=== PATIENT | male | born 1945 | race Caucasian/White ===

== ENCOUNTER 2019-12-11 13:34 | Inpatient (IN) | payer MEDICARE, MEDICAID, SELFPAY ==
[2019-12-11] VITALS (11 sets, daily range): BP systolic 105–136; BP diastolic 29–61; PULSE 54–78; RESP 12–21; TEMP 37.2; O2SAT 87–96; BMI 33.3
--- NOTE | 2019-12-11 13:41 | ED_ITS ---
Entered by Debi Jimenez, acting as scribe for Elidia Cheng HPI - Neuro Symptoms/Deficit General: Chief Complaint: Shortness of Breath/Dyspnea Stated Complaint: Stroke like Symptoms Time Seen by Provider: 12/11/19 13:42 Source: patient Mode of arrival: EMS Limitations: no limitations History of Present Illness: HPI Narrative: 74 yo Male presents to ED with complaint of stroke like symptoms. Per EMS, family states that starting yesterday at noon, the patient started acting differently and said that the patient's speech was different. Per EMS, they transport this patient regularly and other than being hypoxic, the patient is at his baseline. Pt states that he normally wears 2 liters of oxygen at home. No family is currently present to offer any other history. The patient denies any pain but has audible wheezing and rhonchi when breathing. With any movement his pulse ox will drop to the low 80s but on 3 L nasal cannula oxygen his oxygen level will come back to 88 to 90% at rest. Onset (ago): day(s) (yesterday) Location: speech History of same: No Relieving factors: none Exacerbating factors: none Context: gradual onset Associated symptoms: Reports short of breath; Deny chest pain, diaphoresis, headache(s), malaise, nausea, syncope, vertigo or vomiting Review of Systems General: Reports: other (negative unless marked) Const: Denies: fever, chills, body aches, fatigue, malaise or diaphoresis Eyes: Denies: change in vision or blurry vision ENMT: Denies: throat pain, painful swallowing, hoarseness, ear pain, ear discharge, Change in hearing or nasal discharge Card: Denies: chest pain, palpitations, irregular heart rhythm, syncope, pre- syncope, shortness of breath on exertion or shortness of breath when lying down Resp: Reports: shortness of breath, non-productive cough, wheezing and chest congestion; Denies: productive cough or coughing up blood GI: Denies: abdominal pain, nausea, vomiting, vomiting blood, coffee grounds in vomit, diarrhea, constipation, cramping, blood in stool or black tarry stool : Denies: flank pain, difficulty urinating, painful urination, urinary frequency, urinary urgency, decreased urine ouput, urinary incontinence or blood in urine Musc: Denies: neck pain, back pain, extremity pain, extremity swelling, joint pain, joint swelling, joint warmth or joint stiffness Skin/Breast: Denies: rash, skin tenderness or yellow skin Neuro: Denies: headache, numbness in extremities, weakness in extremities, changes in sensation, lack of coordination, difficulty walking, dizziness, vertigo or confusion Endo: Denies: excessive thirst, tired all the time, cold intolerance, excessive sweating, flushing or hot flashes Elijah/Lymph: Denies: easy bruising, easy bleeding, petechiae or enlarged lymph nodes All/Imm: Denies: hives, throat swelling, tongue swelling, facial swelling or acute wheezing PFSH ED PFSH: Statuses (acute, chronic, etc) shown below reflect problem list status as previously entered and may not be historically accurate Social History Smoking and tobacco status: former smoker NIH stroke score NIHSS: Level Of Consciousness - 1a: 0 Level Of Consciousness Questions - 1b: Both Correct Level Of Consciousness Commands - 1c: Both Correct Best Gaze - 2: Normal Visual Luther - 3: No Visual Loss Facial Palsy - 4: Normal Motor Arm Right - 5: No Drift Motor Arm Left - 5: No Drift Motor Leg Right - 6: No Drift Motor Leg Left - 6: No Drift Limb Ataxia - 7: Absent Sensory - 8: Normal Best Language - 9: Mild/Moderate Aphasia Dysarthia - 10: Normal Extinction And Inattention - 11: 0 Score: Total Score: 1 Physical Exam Const: COMMON NORMALS: no apparent distress, oriented x3, no limitations, healthy appearing and well nourished EXAM LIMITATIONS: no altered mental status GENERAL APPEARANCE: cooperative, well kempt and well developed ORIENTATION/CONSCIOUSNESS: Yes awake HENMT: COMMON NORMALS: normocephalic, head/scalp atraumatic, hearing grossly normal bilaterally, external ears normal, EAC's normal, external nose normal and moist oral mucous membranes HEAD & SCALP: normal to inspection, normocephalic and atraumatic FACE & SINUS: normal facial exam and face symmetric NOSE: external nose normal and nares normal EXTERNAL EAR: Yes external ears normal EXTERNAL AUDITORY CANAL: EAC's normal MOUTH: oral and palatal mucosa normal and tongue normal Eye: COMMON NORMALS: PERRL, EOMs intact bilaterally, conjunctivae normal and no scleral icterus GENERAL EYE: normal appearance of both eyes and normal light reflex CONJUNCTIVA: Yes conjunctivae normal SCLERA: sclerae normal CORNEA: Yes corneas normal PUPIL: Yes PERRL DIRECT OPHTHALMOSCOPY: Yes normal light reflex Neck/C-Spine: COMMON NORMALS: full ROM, no lymphadenopathy, supple, no meningeal signs and no JVD GENERAL: Yes normal visual inspection and Yes trachea midline CERVICAL SPINE: Yes cervical ROM normal Chest: COMMONS NORMALS: inspection of chest normal and palpation of chest normal Resp: COMMON NORMALS: normal respiratory effort, no retractions and no use of accessory muscles EFFORT & INSPECTION: Yes able to speak in complete sentences and Yes audible wheezes AUSCULTATION: rhonchi, wheezes and diminished lung sounds Cardio: COMMON NORMALS: no JVD, regular rate, regular rhythm, S1 normal heart sound, S2 normal heart sound, no gallops, no clicks, no murmurs and no rub JUGULAR VENOUS DISTENTION: no JVD RATE: regular rate RHYTHM: regular rhythm HEART SOUNDS: S1 normal and S2 normal GI: COMMON NORMALS: soft to palpation, non-tender, no hepatosplenomegaly and no masses INSPECTION: Yes normal to inspection PALPATION: Yes soft and Yes no hepatosplenomegaly : COMMON NORMALS: Yes no CVA tenderness BLADDER/KIDNEY EXAM: Yes no CVA tenderness Back/Pelvis: COMMON NORMALS: no CVA tenderness, thoracic and lumbar spine normal to inspection, no thoracic nor lumbar tenderness and thoraco-lumbar ROM normal Extremity: COMMON NORMALS: normal to inspection, full ROM, normal capillary refill, no joint enlargement, no clubbing, cyanosis or edema and no calf tenderness Neuro: COMMON NORMALS: oriented x3, CN's II-XII intact bilaterally, moves all extremities, no focal motor deficits and no sensory deficits noted MENINGEAL SIGNS: Yes no meningeal signs Psych: COMMON NORMALS: mental status grossly normal, thought process normal, cooperative, affect normal, speech normal and activity/motor behavior normal APPEARANCE: Yes well kempt SPEECH: Yes normal speech THOUGHT PROCESS: normal thought process Skin: COMMON NORMALS: no rashes or lesions noted, skin turgor normal, no jaundice, no petechiae and no mottling GENERAL SKIN EXAM: no rashes or lesions noted and turgor normal Course Vital Signs: Vital signs: Vital Signs Temperature 99 F 12/11/19 13:34 Pulse Rate 78 12/11/19 16:25 Respiratory Rate 18 12/11/19 14:52 Blood Pressure 121/29 12/11/19 13:34 Pulse Oximetry 92 12/11/19 16:25 MDM - Neuro Symptoms/Deficit MDM Narrative: Medical decision making narrative: Mr. Gallegos is a nice 74-year-old male who comes in with mild respiratory distress and hypercapnic respiratory failure. He is improving on BiPAP. The case was endorsed to Dr. Arroyo who is agreeable to admission. He will continue care in the ICU. Lab Data: Attestation: I reviewed the patient's lab results. Labs: Lab Results 12/11/19 12/11/19 12/11/19 Range/Units 14:28 14:28 14:28 WBC 8.5 (4.0-10.0) 10^3/ uL RBC 4.14 (4.1-5.3) 10^6/u L Hgb 11.9 (11.7-16.6) g/dL Hct 38.3 L (42.0-52.0) % MCV 92.5 (80-94) fL MCH 28.7 (28.0-34.0) pg MCHC 31.1 (30.0-36.0) g/dL RDW 13.1 (12.1-15.1) % Plt Count 181 (130-400) 10^3/c mm MPV 9.9 (7.4-10.4) fL Neut % (Auto) 75.4 % Lymph % (Auto) 13.9 % [place] % (Auto) 9.3 % Eos % (Auto) 0.6 % Baso % (Auto) 0.4 % Neut # (Auto) 6.4 (1.8-7.7) 10^3/u L Lymph # (Auto) 1.2 (0.8-4.8) 10^3/u L [place] # (Auto) 0.8 (0.2-0.9) 10^3/u L Eos # (Auto) 0.1 (0.0-0.8) 10^3/u L Baso # (Auto) 0.0 (0.0-0.1) 10^3/u L Nucleated RBC % (a uto) 0 % Nucleated RBCs # 0.0 /100WBC PT 14.40 H (10.5-13.3) SECO NDS INR 1.09 (0.8-1.2) Specimen Type Sample Site ABG pH (7.35-7.45) ABG pCO2 (35-45) mmHg ABG pO2 (80.0-100.0) mmH g ABG HCO3 (22-26) mmol/L ABG Base Excess (-2.0-2.0) mmol/ L Kevin Test Hematocrit (42-52) % O2 Delivery Device O2 Liters/Min % FiO2 % Mode BiPAP Specimen Drawn By Claim Analyst ID Sodium 139 (136-145) mmol/L Potassium 4.4 (3.5-5.1) mmol/L Chloride 97 L (98-107) mmol/L Carbon Dioxide 33 H (22-29) mmol/L Anion Gap 13.4 (5-19) BUN 15 (8-23) mg/dL Creatinine 1.1 (0.7-1.2) mg/dL Glucose 129 H (74-106) mg/dL Lactic Acid (0.5-2.2) mmol/L Calcium 9.6 (8.8-10.2) mg/Dl Magnesium 2.2 (1.7-2.3) mg/dL Total Bilirubin 0.2 (0.15-1.2) mg/dL AST 12 (0-40) U/L ALT 9 (0-41) U/L Alkaline Phosphata se 72 (40-130) IU/L Ammonia (16-60) umol/L Troponin T Baselin e (0-15) ng/mL Troponin T 120 Min [place] (0-15) ng/mL NT-Pro-B Natriuret Pep 212 H (0-125) pg/mL Total Protein 7.1 (6.6-8.7) g/dL Albumin 3.9 (3.5-5.2) g/dL Globulin 3.2 (1.3-4.6) g/dL Ethyl Alcohol < 10 (0-10) mg/dL 12/11/19 12/11/19 12/11/19 Range/Units 14:28 14:28 14:28 WBC (4.0-10.0) 10^3/ uL RBC (4.1-5.3) 10^6/u L Hgb (11.7-16.6) g/dL Hct (42.0-52.0) % MCV (80-94) fL MCH (28.0-34.0) pg MCHC (30.0-36.0) g/dL RDW (12.1-15.1) % Plt Count (130-400) 10^3/c mm MPV (7.4-10.4) fL Neut % (Auto) % Lymph % (Auto) % [place] % (Auto) % Eos % (Auto) % Baso % (Auto) % Neut # (Auto) (1.8-7.7) 10^3/u L Lymph # (Auto) (0.8-4.8) 10^3/u L [place] # (Auto) (0.2-0.9) 10^3/u L Eos # (Auto) (0.0-0.8) 10^3/u L Baso # (Auto) (0.0-0.1) 10^3/u L Nucleated RBC % (a uto) % Nucleated RBCs # /100WBC PT (10.5-13.3) SECO NDS INR (0.8-1.2) Specimen Type Sample Site ABG pH (7.35-7.45) ABG pCO2 (35-45) mmHg ABG pO2 (80.0-100.0) mmH g ABG HCO3 (22-26) mmol/L ABG Base Excess (-2.0-2.0) mmol/ L Kevin Test Hematocrit (42-52) % O2 Delivery Device O2 Liters/Min % FiO2 % Mode BiPAP Specimen Drawn By Claim Analyst ID Sodium (136-145) mmol/L Potassium (3.5-5.1) mmol/L Chloride (98-107) mmol/L Carbon Dioxide (22-29) mmol/L Anion Gap (5-19) BUN (8-23) mg/dL Creatinine (0.7-1.2) mg/dL Glucose (74-106) mg/dL Lactic Acid 1.8 (0.5-2.2) mmol/L Calcium (8.8-10.2) mg/Dl Magnesium (1.7-2.3) mg/dL Total Bilirubin (0.15-1.2) mg/dL AST (0-40) U/L ALT (0-41) U/L Alkaline Phosphata se (40-130) IU/L Ammonia 64 H (16-60) umol/L Troponin T Baselin e 25 H (0-15) ng/mL Troponin T 120 Min mash[place] (0-15) ng/mL NT-Pro-B Natriuret Pep (0-125) pg/mL Total Protein (6.6-8.7) g/dL Albumin (3.5-5.2) g/dL Globulin (1.3-4.6) g/dL Ethyl Alcohol (0-10) mg/dL 12/11/19 12/11/19 12/11/19 Range/Units 14:58 16:11 16:35 WBC (4.0-10.0) 10^3/ uL RBC (4.1-5.3) 10^6/u L Hgb (11.7-16.6) g/dL Hct (42.0-52.0) % MCV (80-94) fL MCH (28.0-34.0) pg MCHC (30.0-36.0) g/dL RDW (12.1-15.1) % Plt Count (130-400) 10^3/c mm MPV (7.4-10.4) fL Neut % (Auto) % Lymph % (Auto) % [place] % (Auto) % Eos % (Auto) % Baso % (Auto) % Neut # (Auto) (1.8-7.7) 10^3/u L Lymph # (Auto) (0.8-4.8) 10^3/u L [place] # (Auto) (0.2-0.9) 10^3/u L Eos # (Auto) (0.0-0.8) 10^3/u L Baso # (Auto) (0.0-0.1) 10^3/u L Nucleated RBC % (a uto) % Nucleated RBCs # /100WBC PT (10.5-13.3) SECO NDS INR (0.8-1.2) Specimen Type Arterial Arterial Sample Site Radial, right Radial, right ABG pH 7.25 L 7.29 L (7.35-7.45) ABG pCO2 80.0 H* 61.7 H* (35-45) mmHg ABG pO2 62.4 L 58.2 L (80.0-100.0) mmH g ABG HCO3 35.1 H 29.9 H (22-26) mmol/L ABG Base Excess 5.3 H 2.0 (-2.0-2.0) mmol/ L Kevin Test Pos N/a Hematocrit 39.2 L 37.5 L (42-52) % O2 Delivery Device Nc Bipap O2 Liters/Min 4.0 % FiO2 35.0 % Mode BiPAP 18/8 Specimen Drawn By [email or web address] Claim Analyst ID [email or web address] Sodium (136-145) mmol/L Potassium (3.5-5.1) mmol/L Chloride (98-107) mmol/L Carbon Dioxide (22-29) mmol/L Anion Gap (5-19) BUN (8-23) mg/dL Creatinine (0.7-1.2) mg/dL Glucose (74-106) mg/dL Lactic Acid (0.5-2.2) mmol/L Calcium (8.8-10.2) mg/Dl Magnesium (1.7-2.3) mg/dL Total Bilirubin (0.15-1.2) mg/dL AST (0-40) U/L ALT (0-41) U/L Alkaline Phosphata se (40-130) IU/L Ammonia (16-60) umol/L Troponin T Baselin e (0-15) ng/mL Troponin T 120 Min [place] 26.88 H (0-15) ng/mL NT-Pro-B Natriuret Pep (0-125) pg/mL Total Protein (6.6-8.7) g/dL Albumin (3.5-5.2) g/dL Globulin (1.3-4.6) g/dL Ethyl Alcohol (0-10) mg/dL Imaging Data^: CXR: My impression: No acute cardiopulmonary findings. CT Head: Radiologist's impression: [address] [address] [address] Scan Report Signed Patient: Bob MCGEE #: [id number] : 7Acct#:[id number] Age/Sex: 74 / MADM Date: Loc: ERRoom/Bed: Attending Dr: Ordering Provider/Ordering MD: Elidia Cheng DO Date of Service: 12/11/19 Procedure(s): CT head wo con* [id number] Accession Number(s): [id number] Report Number: [id number] WS: [id number] CT HEAD NONCONTRAST HISTORY: CALLES/AMS TECHNIQUE: Contiguous axial imaging performed through the brain in 2.5 mm imaging. Bone and soft tissue windows. Sagittal and coronal reformats reviewed. All CT scans at [facility] use at least one of these dose optimization techniques: automated exposure control; mA and/or kV adjustment per patient size (includes targeted exams where dose is matched to clinical indication); or iterative reconstruction. DLP: 880.42 mGy.cm COMPARISON: 08/26/2017 No acute intracranial hemorrhage, midline shift or mass effect. Mild atrophy and mild chronic microvascular ischemic disease. Small lacunar infarct external capsule on the RIGHT is stable. Normal posterior fossa. Ventricles: Normal size with no hydrocephalus. Paranasal sinuses: As visualized are clear. Mastoid air cells: Well pneumatized. Calvarium and scalp: Skull is intact with no soft tissue edema or swelling. CT/CT head wo con* [id number] IMPRESSION: 1. No acute intracranial hemorrhage or edema. 2. Mild atrophy and chronic ischemic disease. Stable since 08/26/2017. 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 Condition: Stable Prescriptions: No Action risperidone [Risperdal] 3 mg tablet 3 mg PO BEDTIME RF: 0 Levemir FlexTouch U-100 Insuln 100 unit/mL (3 mL) insulin pen 54 unit SUBCUT .QHS RF: 0 sertraline 50 mg tablet 50 mg PO DAILY RF: 0 aspirin [Enteric Coated Aspirin] 81 mg tablet,delayed release (DR/EC) 81 mg PO DAILY RF: 0 rosuvastatin [Crestor] 20 mg tablet 40 mg PO BEDTIME RF: 0 lisinopril 10 mg tablet 10 mg PO DAILY RF: 0 metformin 1,000 mg tablet 1,000 mg PO .COMPLEX RF: 0 metoprolol tartrate 50 mg tablet 50 mg PO BID RF: 0 levothyroxine 50 mcg Tablet 50 mcg PO DAILY RF: 0 Lasix 20 mg Tablet 10 mg PO QAM RF: 0 levocetirizine 5 mg Tablet 5 mg PO DAILY RF: 0 Trulicity 1.5 mg/0.5 mL Pen Injector 1.5 mg SUBCUT Q7D RF: 0 Referrals: Lamin Beatty, [employer] [Primary Care Provider] - Coding Level of Care Code ED [employer] Supervisor for Chg Fwd Exam Problem Focused The documentation recorded by the Tony joyce Carmen, accurately reflects the service I personally performed and the decisions made by Skylar solis Eli N
--- NOTE | 2019-12-11 13:58 | CT_ITS ---
WS: [id number] CT HEAD NONCONTRAST HISTORY: CALLES/AMS TECHNIQUE: Contiguous axial imaging performed through the brain in 2.5 mm imaging. Bone and soft tiss ue windows. Sagittal and coronal reformats reviewed. All CT scans at [facility] use at ast one of these dose optimization techniques: automated exposure control; mA and/or kV adjustment pe r patient size (includes targeted exams where dose is matched to clinical indication); or iterative r econstruction. DLP: 880.42 mGy.cm COMPARISON: 08/26/2017 No acute intracranial hemorrhage, midline shift or mass effect. Mild atrophy and mild chronic microvascular ischemic disease. Small lacunar infarct external capsule on the RIGHT is stable. Normal posterior fossa. Ventricles: Normal size with no hydrocephalus. Paranasal sinuses: As visualized are clear. Mastoid air cells: Well pneumatized. Calvarium and scalp: Skull is intact with no soft tissue edema or swelling. CT/CT head wo con* [id number] IMPRESSION: 1. No acute intracranial hemorrhage or edema. 2. Mild atrophy and chronic ischemic disease. Stable since 08/26/2017.
--- NOTE | 2019-12-11 13:59 | XR_ITS ---
WS: [id number] PORTABLE CHEST HISTORY: cough COMPARISON: 03/11/2019 Areas of increasing opacification at the lung bases. Probably atelectasis. Otherwise lucencies in the upper lung patrick from emphysema. No pleural effusion or pneumothorax. Cardiac size: Normal. Mediastinum/Aorta: Mild atherosclerosis aorta. No osseous abnormality seen. XR/XR chest 1V portable [id number] IMPRESSION: Bibasilar opacifications are probably combination of atelectasis or pneumonitis . No pneumonia.
--- NOTE | 2019-12-11 13:59 | ECG_ITS ---
Measurements Intervals [place] Rate: 70 P: 45 MO: 143 QRS: 33 QRSD: 87 T: 68 QT: 415 QTc: 450 SINUS RHYTHM WITH OCCASIONAL VENTRICULAR PREMATURE COMPLEXES NONSPECIFIC T-WAVE ABNORMALITY INTERPRETATION BASED ON A DEFAULT AGE OF 40 YEARS No previous ECG available for comparison [email or web address]
[2019-12-11 14:38] LABS: Basophils % 0.4 %; Eosinophils # 0.1 10^3/uL (0.0-0.8); Eosinophils % 0.6 %; Hematocrit 38.3 % (42.0-52.0); Hemoglobin 11.9 g/dL (11.7-16.6); Lymphocytes # 1.2 10^3/uL (0.8-4.8); Lymphocytes % 13.9 %; Mean Corpuscular HGB Conc 31.1 g/dL (30.0-36.0); Mean Corpuscular Hemoglobin 28.7 pg (28.0-34.0); Mean Corpuscular Volume 92.5 fL (80-94); Mean Platelet Volume 9.9 fL (7.4-10.4); Monocytes # 0.8 10^3/uL (0.2-0.9); Monocytes % 9.3 %; Neutrophils # 6.4 10^3/uL (1.8-7.7); Neutrophils % 75.4 %; Nucleated Red Blood Cells % 0 %; Platelet Count 181 10^3/cmm (130-400); Red Blood Count 4.14 10^6/uL (4.1-5.3); Red Cell Distribution Width 13.1 % (12.1-15.1); White Blood Count 8.5 10^3/uL (4.0-10.0)
[2019-12-11 14:49] LABS: INR 1.09 (0.8-1.2)
[2019-12-11] MEDS: ipratropium-albuterol 3 mL Neb 9 ML INHALATION (14:51)
[2019-12-11 14:52] LABS: Lactic Sepsis W/Reflex 1.8 mmol/L (0.5-2.2)
[2019-12-11 14:57] LABS: Ammonia 64 umol/L (16-60)
[2019-12-11 15:04] LABS: Alanine Aminotransferase 9 U/L (0-41); Albumin Level 3.9 g/dL (3.5-5.2); Alkaline Phosphatase 72 IU/L (40-130); Anion Gap 13.4 (5-19); Aspartate Amino Transferase 12 U/L (0-40); Blood Urea Nitrogen 15 mg/dL (8-23); Calcium 9.6 mg/Dl (8.8-10.2); Carbon Dioxide 33 mmol/L (22-29); Chloride 97 mmol/L (98-107); Globulin 3.2 g/dL (1.3-4.6); Glucose 129 mg/dL (74-106); Magnesium 2.2 mg/dL (1.7-2.3); NT Pro B Type Natriuretic Pept 212 pg/mL (0-125); Potassium 4.4 mmol/L (3.5-5.1); Sodium 139 mmol/L (136-145); Total Bilirubin 0.2 mg/dL (0.15-1.2); Total Protein 7.1 g/dL (6.6-8.7)
[2019-12-11 15:08] LABS: Alcohol Level < 10 mg/dL (0-10)
[2019-12-11 15:18] LABS: Troponin(5th) Baseline 25 ng/mL (0-15)
[2019-12-11 15:35] LABS: ABG PH Result 7.25 (7.35-7.45); Arterial Blood Gas Hematocrit 39.2 % (42-52); Base Excess ABG 5.3 mmol/L (-2.0-2.0); Blood Gas Allen Test Pos; Blood Gas Sample Site Radial, right; Blood Gas Sample Type Arterial; HCO3 ABG 35.1 mmol/L (22-26); PO2 ABG 62.4 mmHg (80.0-100.0)
[2019-12-11 15:37] LABS: Oxygen Device NC
--- NOTE | 2019-12-11 15:59 | ECG_ITS ---
Measurements Intervals [place] Rate: 67 P: 48 DC: 138 QRS: 33 QRSD: 92 T: 56 QT: 410 QTc: 434 SINUS RHYTHM WITH OCCASIONAL SUPRAVENTRICULAR PREMATURE COMPLEXES NONSPECIFIC T-WAVE ABNORMALITY No previous ECG available for comparison [email or web address]
[2019-12-11] MEDS: piperacillin-tazobactam 3.375 GM in sodium chloride 0.9% (plus) 50 ML IV (16:15)
[2019-12-11 16:23] LABS: ABG PCO2 61.7 mmHg (35-45); ABG PH Result 7.29 (7.35-7.45); Arterial Blood Gas Hematocrit 37.5 % (42-52); BIPAP 18/8; Blood Gas Sample Site Radial, right; Blood Gas Sample Type Arterial; HCO3 ABG 29.9 mmol/L (22-26); Oxygen Device BIPAP; PO2 ABG 58.2 mmHg (80.0-100.0)
[2019-12-11 17:03] LABS: Troponin 5 2HR 26.88 ng/mL (0-15); Troponin 5 2HR Delta 1.88 ABS# (0-10)
--- NOTE | 2019-12-11 17:44 | PM.HP ---
Providers/Chief Complaint Primary Care Provider: Lamin Beatty Chief Complaint: Stroke like Symptoms History of Present Illness Roland Wilson is a 74 year old male with history of CODP on [place] oxygen, he was getting ready to go to sleep last night, and was ok in the evening, but sometime after he called his sister and she noticed he was somnolent, generally weak, more weak than before, and also confused, with her stating talking out of his head . Patient himself was found in hypercapnic respiratory failure in ER. With acute encephalopathy. He was started on BiPAP support, received IV steroids, antibiotic. At this time he is waking up somewhat easier, is able to give some review of systems as well as past medical history. He does not remember very much what had happened last night. He reports that he has been coughing quite a bit recently. Reports productive cough with white sputum. He denies any chest pain or pressure. He feels like he may have had a fever, although did not measure 1. He has been having some nausea, but no vomiting. Reports a loose stool. Denies any other recent changes. Denies any changes in his medications recently. In ER he is afebrile, without leukocytosis, with respiratory acidosis on ABG. Chest x-ray with no convincing evidence of pneumonia. CT head with mild atrophy, chronic ischemic changes, stable. Influenza and urinalysis have been requested. His troponin is minimally elevated at 26.8. EKG without overt signs of ischemia. His brother Michel is with him in ER, as well as his sister in law. They provide much of the story. This was corroborated with his sister Daisy with whom he lives. Review of Systems Const: Reports: fever (Subjective); Denies: body aches Eyes: Denies: eye redness, dry eyes or floaters ENMT: Denies: ear pain Card: Denies: chest pain Resp: Reports: shortness of breath and productive cough GI: Reports: nausea and diarrhea (Loose stool); Denies: vomiting or blood in stool : Denies: flank pain, difficulty urinating, urinary frequency, urinary urgency or blood in urine Musc: Denies: joint swelling or redness Skin/Breast: Denies: rash Neuro: Reports: confusion Psych: Reports: depression Endo: Denies: excessive urination Medications/Allergies Home Medications Medication Instructions Recorded Confirmed Last Taken Type dulaglutide [Trulicity] 1.5 mg SUBCUT Q7D 12/11/19 12/11/19 Unknown History furosemide [Lasix] 10 mg PO QAM 12/11/19 12/11/19 Unknown History levocetirizine 5 mg PO DAILY 12/11/19 12/11/19 Unknown History levothyroxine 50 mcg PO DAILY 12/11/19 12/11/19 Unknown History Allergies Allergy/AdvReac Type Severity Reaction Status Date / Time canagliflozin [From Invokana] Allergy Unknown Unverified 12/04/19 12:29 PFSH Acute PFSH: Statuses (acute, chronic, etc) shown below reflect problem list status as previously entered and may not be historically accurate Medical History (Updated 12/11/19 @ 17:59 by Elidia Cheng) Age-related cognitive decline (Acute) COPD with exacerbation (Acute) DM type 2 (diabetes mellitus, type 2) (Acute) HLD (hyperlipidemia) (Acute) HTN (hypertension) (Acute) Major depressive disorder, recurrent episode with mood-congruent psychotic features (Acute) Family History Brother Prostate cancer Sister Diabetes Sister Gallbladder cancer Other Hypertension Social History Smoking and tobacco status: former smoker Vitals/I&O/Wt Last Vital Signs Temp 99 F 12/11/19 13:34 Pulse 78 12/11/19 16:25 Resp 18 12/11/19 14:52 BP 121/29 12/11/19 13:34 Pulse Ox 92 12/11/19 16:25 Weight last 48 hrs Weight 117.934 kg Physical Exam Const: COMMON NORMALS: no apparent distress HENMT: COMMON NORMALS: oropharynx normal MOUTH: other (Edentulous) Neck/C-Spine: COMMON NORMALS: no JVD Resp: COMMON NORMALS: normal respiratory effort AUSCULTATION: diminished lung sounds OTHER: BiPAP mask on. Cardio: COMMON NORMALS: no JVD, regular rhythm, S1 normal heart sound, S2 normal heart sound and no murmurs RHYTHM: regular rhythm HEART SOUNDS: S1 normal and S2 normal GI: COMMON NORMALS: normal to inspection, nondistended, normoactive bowel sounds, soft to palpation and non-tender PALPATION: Yes soft Extremity: COMMON NORMALS: no joint enlargement and no pedal edema Neuro: COMMON NORMALS: moves all extremities; negative for oriented x3 (Oriented x2. Initially states he is at home. Correctly states the year is 2019.) OTHER: He overall appears generally weak, sluggish, but participates with exam. He has no facial droop. His sensation is symmetrical. Power is symmetrical. Visual patrick are full to confrontation. There is mild confusion, but does not appear to have a aphasia. No significant dysarthria, though difficult to inspector printed circuit boards as he has been BiPAP mask on, is edentulous. Skin: COMMON NORMALS: no rashes or lesions noted GENERAL SKIN EXAM: no rashes or lesions noted Data : 12/11/19 14:28 12/11/19 14:28 Micro: Microbiology 12/11/19 14:21 Blood Culture - Preliminary Blood SPECIMEN COLLECTED 12/11/19 14:28 Blood Culture - Preliminary Blood SPECIMEN COLLECTED A&P Assessment and plan (1) Acute exacerbation of chronic obstructive airways disease: With acute hypercapnic respiratory failure, respiratory acidosis, acute encephalopathy. Severe exacerbation of COPD, with dyspnea, cough productive of sputum. Requiring BiPAP support. Started on IV steroids, antibiotic. Add breathing treatments. For now admitted to ICU due to acute hypercapnic encephalopathy with concern that he may try to remove BiPAP mask, although so far he has tolerated well. UA and TSH have been ordered as well. Status: Acute Code(s): J44.1 - Chronic obstructive pulmonary disease with (acute) exacerbation (2) COPD with exacerbation: As above. He reports at home he is on chronic nasal cannula oxygen. He does not recall exactly how much oxygen he uses. Reportedly also supposed to be on nightly CPAP, although per his sister was not wearing it last night. [id number] is concerned that he may not be adherent with therapy. Status: Acute Code(s): J44.1 - Chronic obstructive pulmonary disease with (acute) exacerbation (3) DM type 2 (diabetes mellitus, type 2): His sister in law is not sure whether he is adherent with therapy. He lives with his sister. [id number]-er-[id number] states that his sister often does not take her medications well. She is concerned that he may not be adherent with therapy. At home he is on metformin, Levemir, reportedly possibly Trulicity. He cannot reliably provide his medications currently and the family do not exactly remember. Status: Acute Code(s): E11.9 - Type 2 diabetes mellitus without complications (4) Age-related cognitive decline: Status: Acute Code(s): R41.81 - Age-related cognitive decline (5) Major depressive disorder, recurrent episode with mood-congruent psychotic features: Status: Acute Code(s): F33.3 - Major depressive disorder, recurrent, severe with psychotic symptoms Additional A&P Information Hyperkalemia: Potassium 5.7. On December 07 appears potassium was 5.3. His medication list is not known in detail. It appears she does take lisinopril. We will hold this at this time. I do not see potassium supplementation. We will change him to low potassium diet. Check CK. Minimal troponin elevation: 26.88. He denies chest pain. There is no clear signs of ischemia on EKG. Follow-up troponin trend. Attestations Medical Necessity Statement*: Admission of over 2 midnights is going to be needed for assessment management of severe exacerbation of COPD, acute respiratory failure with hypercapnia, acute hypercapnic encephalopathy. Coding Level of Care Code Acute Dredge Runner for Patricio Rodriguez Diagnoses Acute exacerbation of chronic obstructive airways disease J44.1 COPD with exacerbation J44.1 DM type 2 (diabetes mellitus, type 2) E11.9 Age-related cognitive decline R41.81 Major depressive disorder, recurrent episode with mood-congruent psychotic features F33.3
[2019-12-11 18:12] LABS: ABG PCO2 62.7 mmHg (35-45); ABG PH Result 7.34 (7.35-7.45); Arterial Blood Gas Hematocrit 38.8 % (42-52); BIPAP 20/8; Base Excess ABG 5.8 mmol/L (-2.0-2.0); Blood Gas Allen Test Pos; Blood Gas Sample Site Radial, left; Blood Gas Sample Type Arterial; HCO3 ABG 33.5 mmol/L (22-26); Oxygen Device BIPAP; PO2 ABG 51.7 mmHg (80.0-100.0)
[2019-12-11 21:09] LABS: Troponin 5 6HR 20.74 ng/L (0-15)
[2019-12-11 21:24] LABS: Troponin 5 6HR Delta -4.26 ng/L (0-12)
[2019-12-11 23:49] LABS: Influenza A by IFA Negative (Negative); Influenza B by IFA Negative (Negative)
[2019-12-11 23:51] LABS: Amorphous Sediment Urine 2+; Bacteria Urine TRACE; Bilirubin Urine Neg (NEGATIVE); Blood Urine Neg (Negative); Glucose Urine UA Norm (Normal); Ketones Urine Negative (Negative); Leukocyte Esterase Urine Negative (Negative); Mucus Urine TRACE; Nitrate Urine Negative (Negative); Protein Urine Neg (Negative); Squamous Epithelial Cell Urine RARE (0-5); Urine Appearance Clear (CLEAR); Urine Color Yellow (Yellow); Urobilinogen Urine Norm (Negative); pH Urine 5 (5-7)
[2019-12-11 23:52] LABS: Add Urine Culture? No; Hyaline Casts Urine 0-4
[2019-12-12] VITALS (20 sets, daily range): BP systolic 90–146; BP diastolic 46–72; PULSE 47–87; RESP 14–32; TEMP 36.5–36.9; O2SAT 57–97; BMI 37.0
[2019-12-12 00:14] LABS: Creatine Phosphokinase 112 U/L (39-308); Thyroid Stimulating Hormone 0.75 uIU/mL (0.27-4.20)
[2019-12-12 00:30] LABS: Estmated Average Glucose 128; Hemoglobin A1C 6.1 % (4.0-6.0)
[2019-12-12 00:42] LABS: Glucose Point of Care 235 mg/dL (70-110)
[2019-12-12] MEDS: heparin 5,000 unit/mL INJ 1 mL 5000 UNIT SUBCUT ×3 (00:56→23:18)
[2019-12-12] MEDS: cefTRIAXone 1,000 MG in sodium chloride 0.9% (plus) 50 ML 100 MG IV ×2 (00:56→23:18)
[2019-12-12] MEDS: ipratropium-albuterol 3 mL Neb INHALATION ×3 (03:05→14:24)
[2019-12-12 04:50] LABS: Basophils % 0.1 %; Lymphocytes # 0.9 10^3/uL (0.8-4.8); Lymphocytes % 8.5 %; Mean Corpuscular HGB Conc 30.8 g/dL (30.0-36.0); Mean Corpuscular Hemoglobin 28.2 pg (28.0-34.0); Mean Corpuscular Volume 91.8 fL (80-94); Mean Platelet Volume 10.1 fL (7.4-10.4); Monocytes # 0.2 10^3/uL (0.2-0.9); Monocytes % 1.4 %; Neutrophils # 9.7 10^3/uL (1.8-7.7); Neutrophils % 89.6 %; Nucleated Red Blood Cells % 0 %; Platelet Count 163 10^3/cmm (130-400); Red Blood Count 4.25 10^6/uL (4.1-5.3); Red Cell Distribution Width 13.2 % (12.1-15.1); White Blood Count 10.8 10^3/uL (4.0-10.0)
[2019-12-12] MEDS: FUROsemide 20 mg Tablet 10 MG PO (05:12)
[2019-12-12 05:16] LABS: Alanine Aminotransferase 9 U/L (0-41); Albumin Level 4.2 g/dL (3.5-5.2); Alkaline Phosphatase 69 IU/L (40-130); Anion Gap 15.9 (5-19); Aspartate Amino Transferase 19 U/L (0-40); Blood Urea Nitrogen 27 mg/dL (8-23); Calcium 9.6 mg/Dl (8.8-10.2); Carbon Dioxide 31 mmol/L (22-29); Chloride 98 mmol/L (98-107); Globulin 3.3 g/dL (1.3-4.6); Glucose 231 mg/dL (74-106); Potassium 4.9 mmol/L (3.5-5.1); Sodium 140 mmol/L (136-145); Total Bilirubin 0.2 mg/dL (0.15-1.2); Total Protein 7.5 g/dL (6.6-8.7)
[2019-12-12 05:57] LABS: Glucose Point of Care 256 mg/dL (70-110)
--- NOTE | 2019-12-12 06:05 | PC.NURSE ---
PT O2 SATS ARE DROPPING LOW AT 80 WHILE IN BIPAP [address]ILE SLE[address] SNOWDEN WAS CALLED AND MADE AWARE. RESPIRATORY IS AT BEDSIDE TITRATING BIPAP. PT IS NOT IN ANY DISTRESS.
--- NOTE | 2019-12-12 06:21 | PC.NURSE ---
SHIFT SUMMARY DR SNOWDEN CAME AND SAW PT AND CHANGED BIPAP SETTINGS TO AVAPS TO PROVIDE MORE AIR TO LUNGS. PT LUNGS ARE DIMINISHED BUT CLEAR, WHEEZES PERIODICALLY. PT IV REMAIN PATENT. PT DID WELL WITH PO INTAKE AND DRANK ORANGE JUICE AND TOOK PO MEDS, THEN ONCE BACK ON BIPAP BEGAN TO DESAT. PT IS CURRENTLY 91% ON AVAPS SETTINGS. PT HAS BEEN TURNED DUE PT RESTING AND HIM BEING MODERATELY WEAK. PT BOTTOM IS BLANCHABLE. PT IS CONTINENT, NO BM THUS FAR. PT HAS NOT REPORTED ANY PAIN AND HAS NOT HAD ANY DISTRESS WHEN O2 SATS WOULD DROP.
--- NOTE | 2019-12-12 07:19 | PC.NURSE ---
Report received. Patient resting in bed with eyes closed. BiPap in place. HR ntoed to be Bradycardic in 40s-50s. Reported by rn shift mgr that this has been patient's baseline since arriving to ICU.
[2019-12-12 07:50] LABS: Glucose Point of Care 260 mg/dL (70-110)
[2019-12-12] MEDS: levothyroxine 50 mcg Tablet PO (08:54)
[2019-12-12] MEDS: aspirin 81 mg EC Tablet PO (08:54)
[2019-12-12] MEDS: lisinopril 10 mg Tablet PO (08:54)
[2019-12-12] MEDS: sertraline 50 mg Tablet PO (08:54)
--- NOTE | 2019-12-12 08:57 | PC.NURSE ---
Dr. Pond in to bedside to round. Patient was able to sit up and feed self breakfast without difficulty.
--- NOTE | 2019-12-12 10:13 | PC.NURSE ---
Visitors at bedside. Education performed with patient's visitors.
[2019-12-12 12:19] LABS: Glucose Point of Care 451 mg/dL (70-110)
--- NOTE | 2019-12-12 13:30 | PC.CHAP ---
Pastoral Care Encounter/Spiritual Assessment Type of Contact [] Declined well servicing rig operator visit [] Patient/Family/Request visit [] Outpatient visit [] Follow-up visit [] Physician referral [] Code/Alert [x] Routine visit [] Staff referral [] Actively dying [] Patient sleeping [] Family support [] [] Out of room [] Palliative care [] [] Receiving care in room [] Pre-surgical visit [] Trauma [] Long length of stay [x] ICU visit [] Other: Relational/Emotional Strength [x] Patient feels connected with others/family/visitors/staff [] Distress [] Loneliness/isolation [] Abandonment Spirituality of Patient [x] Person of Mini [] Attends Hinduism of their Mini [x] Believes in Prayer [] Reads Bible or Zoroastrian materials [] There are Spiritual issues to be addressed Sales Assistant Institutional Sales Interventions [x] Prayer [x] Active listening [x] Non-anxious presence [x] Spiritual/emotional support [] Crisis/trauma care [] Spiritual counseling [] Bereavement support [] Provided bereavement packet [] Provided Bible/devotional materials [] Provided toy/stuffed animal, coloring book to patient or family member [x] Completed spiritual assessment [] Provided Communion [] Anointing/[place] [] Salvation [] Other: Impact on Illness or Injury [] Angry [] Fearful [] Anxious [] Often cries [] Exhaustion [] Unable to work [] Unable to attend scientologist [] Unable to walk/stand [] Unable to read [] Unable to drive [] Unable to eat/drink [] Unable to sleep [] Unable to be with family [] Other: Summary The patient and family enjoyed the visit. The well servicing rig operator prayed for the patient. Time spent with patient 12 MINS
[2019-12-12 16:35] LABS: Glucose Point of Care 388 mg/dL (70-110)
--- NOTE | 2019-12-12 18:39 | PC.NURSE ---
Patient transferred to room 278.
--- NOTE | 2019-12-12 19:53 | PM.PN ---
Subjective Subjective: Interval history: This morning he is feeling better. He is oriented x3. Denies any discomfort. Breathing is been getting better. Vitals/I&O/Wt Last Vital Signs Temp 98.4 F 12/12/19 18:00 Pulse 79 12/12/19 18:00 Resp 32 H 12/12/19 18:00 BP 146/70 12/12/19 18:00 Pulse Ox 90 12/12/19 18:00 12/12/19 12/12/19 12/12/19 06:59 14:59 22:59 Intake Total 120 / 120 600 / 600 300 / 900 Output Total 375 / 375 900 / 900 Balance -255 / -255 600 / 600 -600 / 0 Weight last 48 hrs Weight 127.596 kg Weight 127.596 kg Weight 117.934 kg Physical Exam Const: COMMON NORMALS: no apparent distress and oriented x3 HENMT: COMMON NORMALS: oropharynx normal MOUTH: other (Edentulous) Neck/C-Spine: COMMON NORMALS: no JVD Resp: COMMON NORMALS: normal respiratory effort AUSCULTATION: diminished lung sounds OTHER: Nasal cannula on. Cardio: COMMON NORMALS: no JVD, regular rhythm, S1 normal heart sound, S2 normal heart sound and no murmurs RHYTHM: regular rhythm HEART SOUNDS: S1 normal and S2 normal GI: COMMON NORMALS: normal to inspection, nondistended, normoactive bowel sounds, soft to palpation and non-tender PALPATION: Yes soft Extremity: COMMON NORMALS: no joint enlargement and no pedal edema Neuro: COMMON NORMALS: oriented x3 and moves all extremities Skin: COMMON NORMALS: no rashes or lesions noted GENERAL SKIN EXAM: no rashes or lesions noted Urinary Catheter Management^: Renae: Cath Placed During This Visit: no Data Micro: Micro: Microbiology 12/11/19 14:21 Blood Culture - Pr eliminary Blood NEGATIVE TO DAVON E 12/11/19 14:28 Blood Culture - Pr eliminary Blood NEGATIVE TO DAVON E A&P Assessment and plan (1) Acute exacerbation of chronic obstructive airways disease: With acute hypercapnic respiratory failure, respiratory acidosis, acute encephalopathy. With improvement. Resolution of evidence of encephalopathy. Weaned off BiPAP this morning. So far has been doing well on nasal cannula. Transfer out of ICU. Still with diminished air entry on exam. Continue IV steroids, antibiotic. BiPAP as needed. Severe exacerbation of COPD, with dyspnea, cough productive of sputum. Status: Acute Code(s): J44.1 - Chronic obstructive pulmonary disease with (acute) exacerbation (2) COPD with exacerbation: As above. He reports at home he is on chronic nasal cannula oxygen. Today he remembers that he uses 2 L. Reportedly also supposed to be on nightly CPAP, although per his sister was not wearing it last night. He states that he does not wear it nightly. [id number] is concerned that he may not be adherent with therapy. Status: Acute Code(s): J44.1 - Chronic obstructive pulmonary disease with (acute) exacerbation (3) DM type 2 (diabetes mellitus, type 2): Will increase detemir dose to 25 units. Continue sliding scale. His sister in law is not sure whether he is adherent with therapy. He lives with his sister. [id number] states that his sister often does not take her medications well. She is concerned that he may not be adherent with therapy. Status: Acute Code(s): E11.9 - Type 2 diabetes mellitus without complications (4) Age-related cognitive decline: Status: Acute Code(s): R41.81 - Age-related cognitive decline (5) Major depressive disorder, recurrent episode with mood-congruent psychotic features: Status: Acute Code(s): F33.3 - Major depressive disorder, recurrent, severe with psychotic symptoms Additional A&P Information Hyperkalemia: Improved. Hold lisinopril. Continue low potassium diet. CK not elevated. Minimal troponin elevation: He denies chest pain. There is no clear signs of ischemia on EKG. suspect related to his respiratory failure. Attestations Medical Necessity Statement*: Continue admission for assessment of management of acute respiratory failure with severe COPD exacerbation. Coding Level of Care Code Acute Turner Machine for Patricio Rodriguez Diagnoses Acute exacerbation of chronic obstructive airways disease J44.1 COPD with exacerbation J44.1 DM type 2 (diabetes mellitus, type 2) E11.9 Age-related cognitive decline R41.81 Major depressive disorder, recurrent episode with mood-congruent psychotic features F33.3
[2019-12-12] MEDS: atorvastatin 40 mg Tablet PO (22:11)
[2019-12-12 22:23] LABS: Glucose Point of Care 239 mg/dL (70-110)
[2019-12-13] VITALS (14 sets, daily range): BP systolic 113–155; BP diastolic 59–82; PULSE 59–99; RESP 14–26; TEMP 36.3–36.6; O2SAT 92–98
[2019-12-13] MEDS: ipratropium-albuterol 3 mL Neb INHALATION ×4 (02:11→21:38)
[2019-12-13 06:24] LABS: Basophils % 0.1 %; Hematocrit 38.5 % (42.0-52.0); Lymphocytes # 0.9 10^3/uL (0.8-4.8); Lymphocytes % 3.8 %; Mean Corpuscular HGB Conc 31.2 g/dL (30.0-36.0); Mean Corpuscular Hemoglobin 28.6 pg (28.0-34.0); Mean Corpuscular Volume 91.7 fL (80-94); Monocytes # 0.8 10^3/uL (0.2-0.9); Monocytes % 3.3 %; Neutrophils # 22.2 10^3/uL (1.8-7.7); Neutrophils % 92.1 %; Nucleated Red Blood Cells % 0 %; Platelet Count 195 10^3/cmm (130-400); Red Cell Distribution Width 13.2 % (12.1-15.1); White Blood Count 24.1 10^3/uL (4.0-10.0)
[2019-12-13 06:36] LABS: Alanine Aminotransferase 8 U/L (0-41); Albumin Level 3.9 g/dL (3.5-5.2); Alkaline Phosphatase 66 IU/L (40-130); Anion Gap 14.3 (5-19); Aspartate Amino Transferase 21 U/L (0-40); Blood Urea Nitrogen 47 mg/dL (8-23); Calcium 10.1 mg/Dl (8.8-10.2); Carbon Dioxide 31 mmol/L (22-29); Chloride 94 mmol/L (98-107); Globulin 3.3 g/dL (1.3-4.6); Glucose 234 mg/dL (74-106); Potassium 5.3 mmol/L (3.5-5.1); Sodium 134 mmol/L (136-145); Total Bilirubin 0.2 mg/dL (0.15-1.2); Total Protein 7.2 g/dL (6.6-8.7)
[2019-12-13] MEDS: FUROsemide 20 mg Tablet 10 MG PO (06:50)
[2019-12-13] MEDS: sertraline 50 mg Tablet PO (09:39)
[2019-12-13] MEDS: levothyroxine 50 mcg Tablet PO (09:39)
[2019-12-13] MEDS: aspirin 81 mg EC Tablet PO (09:39)
[2019-12-13] MEDS: heparin 5,000 unit/mL INJ 1 mL 5000 UNIT SUBCUT (10:46)
[2019-12-13 11:29] LABS: Glucose Point of Care 366 mg/dL (70-110)
--- NOTE | 2019-12-13 16:20 | P.PN_ITS ---
Subjective Subjective: Interval history: Today he is feeling somewhat better. He has been doing well on nasal cannula during the day. Vitals/I&O/Wt Last Vital Signs Temp 97.7 F 12/13/19 15:38 Pulse 75 12/13/19 15:38 Resp 18 12/13/19 15:38 BP 146/67 12/13/19 15:38 Pulse Ox 92 12/13/19 15:38 12/13/19 12/13/19 12/13/19 06:59 14:59 22:59 Intake Total 200 / 1400 960 / 960 Output Total 750 / 750 Balance 200 / 500 210 / 210 Weight last 48 hrs Weight 127.596 kg Weight 127.596 kg Physical Exam Const: COMMON NORMALS: no apparent distress and oriented x3 HENMT: COMMON NORMALS: oropharynx normal MOUTH: other (Edentulous) Neck/C-Spine: COMMON NORMALS: no JVD Resp: COMMON NORMALS: normal respiratory effort AUSCULTATION: no wheezes and diminished lung sounds (But better today) OTHER: Nasal cannula on. Cardio: COMMON NORMALS: no JVD, regular rhythm, S1 normal heart sound, S2 normal heart sound and no murmurs RHYTHM: regular rhythm HEART SOUNDS: S1 normal and S2 normal GI: COMMON NORMALS: normal to inspection, nondistended, normoactive bowel sounds, soft to palpation and non-tender PALPATION: Yes soft Extremity: COMMON NORMALS: no joint enlargement and no pedal edema Neuro: COMMON NORMALS: oriented x3 and moves all extremities OTHER: Awake, alert and oriented. No focal abnormality. Skin: COMMON NORMALS: no rashes or lesions noted GENERAL SKIN EXAM: no rashes or lesions noted Urinary Catheter Management^: Renae: Cath Placed During This Visit: no Data Micro: Micro: Microbiology 12/11/19 14:21 Blood Culture - Pr eliminary Blood NEGATIVE TO DAVON E 12/11/19 14:28 Blood Culture - Pr eliminary Blood NEGATIVE TO DAVON E A&P Assessment and plan (1) Acute exacerbation of chronic obstructive airways disease: Improving. Acute encephalopathy resolved. Oxygenation is improving. He was noted to be desaturating overnight. Will request for overnight pulse oximetry. May benefit from overnight BiPAP support. Acute hypercapnic respiratory failure, respiratory acidosis, acute encephalopathy. Switch to oral steroids. Continue antibiotic. BiPAP as needed. Severe exacerbation of COPD, with dyspnea, cough productive of sputum. Status: Acute Code(s): J44.1 - Chronic obstructive pulmonary disease with (acute) exacerbation (2) COPD with exacerbation: As above. He reports at home he is on chronic nasal cannula oxygen. He remembers that he uses 2 L. Reportedly also supposed to be on nightly CPAP, although per his sister was not wearing it last night. He states that he does not wear it nightly. [id number] is concerned that he may not be adherent with therapy. Status: Acute Code(s): J44.1 - Chronic obstructive pulmonary disease with (acute) exacerbation (3) DM type 2 (diabetes mellitus, type 2): Will increase detemir dose to 28 units. Continue sliding scale. His sister in law is not sure whether he is adherent with therapy. He lives with his sister. [id number] states that his sister often does not take her medications well. She is concerned that he may not be adherent with therapy. A1c is 6.1. Status: Acute Code(s): E11.9 - Type 2 diabetes mellitus without complications (4) Age-related cognitive decline: Status: Acute Code(s): R41.81 - Age-related cognitive decline (5) Major depressive disorder, recurrent episode with mood-congruent psychotic features: Status: Acute Code(s): F33.3 - Major depressive disorder, recurrent, severe with psychotic symptoms Additional A&P Information Hyperkalemia: Again recurred, potassium 5.3. It appears lisinopril was resumed on transfer from ICU. Will discontinue.. Continue low potassium diet. CK not elevated. Minimal troponin elevation: He denies chest pain. There is no clear signs of ischemia on EKG. suspect related to his respiratory failure. Attestations Medical Necessity Statement*: Continue admission for assessment management of severe COPD exacerbation. Coding Level of Care Code Acute Peoplesoft Hcm Developer for Patricio Rodriguez Diagnoses Acute exacerbation of chronic obstructive airways disease J44.1 COPD with exacerbation J44.1 DM type 2 (diabetes mellitus, type 2) E11.9 Age-related cognitive decline R41.81 Major depressive disorder, recurrent episode with mood-congruent psychotic features F33.3
[2019-12-13 16:37] LABS: Glucose Point of Care 380 mg/dL (70-110)
[2019-12-13] MEDS: atorvastatin 40 mg Tablet PO (21:37)
[2019-12-13 22:14] LABS: Glucose Point of Care 281 mg/dL (70-110)
[2019-12-14] VITALS (11 sets, daily range): BP systolic 143–171; BP diastolic 74–99; PULSE 56–90; RESP 16–26; TEMP 36.3–37.2; O2SAT 91–95
[2019-12-14] MEDS: cefTRIAXone 1,000 MG in sodium chloride 0.9% (plus) 50 ML 100 MG IV (01:35)
[2019-12-14] MEDS: heparin 5,000 unit/mL INJ 1 mL 5000 UNIT SUBCUT ×2 (01:37→11:59)
[2019-12-14] MEDS: ipratropium-albuterol 3 mL Neb INHALATION ×3 (03:03→14:53)
[2019-12-14] MEDS: FUROsemide 20 mg Tablet 10 MG PO (06:03)
[2019-12-14 06:27] LABS: Basophils % 0.2 %; Hematocrit 38.1 % (42.0-52.0); Hemoglobin 12.3 g/dL (11.7-16.6); Lymphocytes % 4.3 %; Mean Corpuscular HGB Conc 32.3 g/dL (30.0-36.0); Mean Corpuscular Hemoglobin 28.9 pg (28.0-34.0); Mean Corpuscular Volume 89.6 fL (80-94); Mean Platelet Volume 10.8 fL (7.4-10.4); Monocytes # 1.4 10^3/uL (0.2-0.9); Monocytes % 5.7 %; Neutrophils # 21.1 10^3/uL (1.8-7.7); Neutrophils % 88.6 %; Nucleated Red Blood Cells % 0 %; Platelet Count 219 10^3/cmm (130-400); Red Blood Count 4.25 10^6/uL (4.1-5.3); Red Cell Distribution Width 13.3 % (12.1-15.1); White Blood Count 23.8 10^3/uL (4.0-10.0)
[2019-12-14 06:37] LABS: Glucose Point of Care 174 mg/dL (70-110)
[2019-12-14 06:47] LABS: Alanine Aminotransferase 9 U/L (0-41); Albumin Level 3.9 g/dL (3.5-5.2); Alkaline Phosphatase 72 IU/L (40-130); Anion Gap 17.2 (5-19); Aspartate Amino Transferase 20 U/L (0-40); Blood Urea Nitrogen 39 mg/dL (8-23); Calcium 9.8 mg/Dl (8.8-10.2); Carbon Dioxide 30 mmol/L (22-29); Chloride 96 mmol/L (98-107); Glucose 177 mg/dL (74-106); Potassium 5.2 mmol/L (3.5-5.1); Sodium 138 mmol/L (136-145); Total Bilirubin 0.2 mg/dL (0.15-1.2); Total Protein 6.9 g/dL (6.6-8.7)
[2019-12-14] MEDS: aspirin 81 mg EC Tablet PO (09:05)
[2019-12-14] MEDS: levothyroxine 50 mcg Tablet PO (09:05)
--- NOTE | 2019-12-14 10:13 | PC.SOCIAL ---
IMM Update Pg 2 of IMM given and explained to patient who voiced understanding. Signed, dated, timed and placed in chart. Copy provided to patient.
[2019-12-14 10:48] LABS: Glucose Point of Care 239 mg/dL (70-110)
--- NOTE | 2019-12-14 15:38 | PM.DCS ---
Discharge Providers Date of Admission: 12/11/19 17:10 Date of Discharge: 12/14/19 Attending Provider at Admission: Ruben Davis Attending Provider at Discharge: Ruben Davis Primary Care Provider: Lamin Beatty Diagnoses at Discharge Discharge Diagnosis (1) Acute exacerbation of chronic obstructive airways disease: Status: Acute (2) COPD with exacerbation: Status: Acute (3) DM type 2 (diabetes mellitus, type 2): Status: Acute (4) Age-related cognitive decline: Status: Acute (5) Major depressive disorder, recurrent episode with mood-congruent psychotic features: Status: Acute Reason for Visit Reason for Visit: Reason For Visit: Stroke like Symptoms Hospital Course Hospital Course: 74-year-old gentleman with history of COPD, normally on nasal cannula oxygen, he states about 2 L, DM 2, HLD, HTN, was admitted with acute encephalopathy, altered mental status when he was noticed by his sister to be generally weak, lethargic, and talking out of his head . He was noted to be in acute respiratory failure, with hypercapnic respiratory acidosis for which she was placed on BiPAP, started on breathing treatments, IV steroids, antibiotics. His respiratory failure gradually improved, he was able to wean off BiPAP, and oxygen requirement weaned down to his baseline 2 L. He declined to perform home oxygen evaluation stating that he was comfortable on 2 L and that is what he uses at home. He was noted to have some episodes of hypoxia overnight, and suspected of having sleep apnea. Due to this he is referred for a sleep study. Due to combination COPD and sleep apnea (obstructive, and possibly central) he is referred for follow-up with pulmonology. While in the hospital his A1c is noted to be 6.1. Due to this dose of Levemir currently is decreased to 30 units. Please follow-up in office and adjust as appropriate. Avoid hypoglycemia. Due to recurrence of mild hyperkalemia lisinopril for now is discontinued with continued low potassium diet. BMP will be rechecked in 3 days. Please reassess. Physical Exam Const: COMMON NORMALS: no apparent distress and oriented x3 HENMT: COMMON NORMALS: oropharynx normal MOUTH: other (Edentulous) Neck/C-Spine: COMMON NORMALS: no JVD Resp: COMMON NORMALS: normal respiratory effort AUSCULTATION: no wheezes and diminished lung sounds (But better today) OTHER: Nasal cannula on. In good spirits. Happy to return home. Cardio: COMMON NORMALS: no JVD, regular rhythm, S1 normal heart sound, S2 normal heart sound and no murmurs RHYTHM: regular rhythm HEART SOUNDS: S1 normal and S2 normal GI: COMMON NORMALS: normal to inspection, nondistended, normoactive bowel sounds, soft to palpation and non-tender PALPATION: Yes soft Extremity: COMMON NORMALS: no joint enlargement and no pedal edema Neuro: COMMON NORMALS: oriented x3 and moves all extremities OTHER: Awake, alert and oriented. No focal abnormality. Skin: COMMON NORMALS: no rashes or lesions noted GENERAL SKIN EXAM: no rashes or lesions noted Urinary Catheter Management^: Renae: Cath Placed During This Visit: no Discharge Data Data Completed and Pending: Completed Studies During Hospitalization Category Date Time Status CT head wo con* 7 0450 Urgent Cat Scan 12/11/19 13:58 Completed XR chest 1V charisse ble [id number] Stat Exams 12/11/19 13:59 Completed Pending at discharge Category Date Time Status Blood Culture Sta t Lab 12/11/19 14:21 Results Sputum Culture an d Gram Stain Routi ne Lab 12/12/19 18:55 Results Labs from last 24 hours 12/14/19 12/14/19 12/14/19 10:36 06:30 04:33 WBC RBC Hgb Hct MCV MCH MCHC RDW Plt Count MPV Neut % (Auto) Lymph % (Auto) [place] % (Auto) Eos % (Auto) Baso % (Auto) Neut # (Auto) Lymph # (Auto) [place] # (Auto) Eos # (Auto) Baso # (Auto) Nucleated RBC % (a uto) Nucleated RBCs # Sodium 138 Potassium 5.2 H Chloride 96 L Carbon Dioxide 30 H Anion Gap 17.2 BUN 39 H Creatinine 1.0 Glucose 177 H POC Glucose 239 174 Calcium 9.8 Total Bilirubin 0.2 AST 20 ALT 9 Alkaline Phosphata se 72 Total Protein 6.9 Albumin 3.9 Globulin 3.0 12/14/19 12/13/19 12/13/19 04:33 21:46 16:33 WBC 23.8 H RBC 4.25 Hgb 12.3 Hct 38.1 L MCV 89.6 MCH 28.9 MCHC 32.3 RDW 13.3 Plt Count 219 MPV 10.8 H Neut % (Auto) 88.6 Lymph % (Auto) 4.3 [place] % (Auto) 5.7 Eos % (Auto) 0.0 Baso % (Auto) 0.2 Neut # (Auto) 21.1 H Lymph # (Auto) 1.0 [place] # (Auto) 1.4 H Eos # (Auto) 0.0 Baso # (Auto) 0.0 Nucleated RBC % (a uto) 0 Nucleated RBCs # 0.0 Sodium Potassium Chloride Carbon Dioxide Anion Gap BUN Creatinine Glucose POC Glucose 281 380 Calcium Total Bilirubin AST ALT Alkaline Phosphata se Total Protein Albumin Globulin Vitals: Last Vital Signs Temp 98.1 F 12/14/19 11:12 Pulse 68 12/14/19 14:53 Resp 18 12/14/19 14:53 BP 143/81 12/14/19 11:12 Pulse Ox 95 12/14/19 14:53 Discharge Plan Discharge Patient Disposition: Home Health Service Condition: Stable Prescriptions: New prednisone 20 mg tablet 20 mg PO DAILY 12 Days Qty: 20 RF: 0 levofloxacin [Levaquin] 750 mg tablet 750 mg PO DAILY 5 Days RF: 0 Continued risperidone [Risperdal] 3 mg tablet 3 mg PO BEDTIME RF: 0 sertraline 50 mg tablet 50 mg PO DAILY RF: 0 aspirin [Enteric Coated Aspirin] 81 mg tablet,delayed release (DR/EC) 81 mg PO DAILY RF: 0 rosuvastatin [Crestor] 20 mg tablet 40 mg PO BEDTIME RF: 0 metformin 1,000 mg tablet 1,000 mg PO .COMPLEX RF: 0 metoprolol tartrate 50 mg tablet 50 mg PO BID RF: 0 levothyroxine 50 mcg Tablet 50 mcg PO DAILY RF: 0 Lasix 20 mg Tablet 10 mg PO QAM RF: 0 levocetirizine 5 mg Tablet 5 mg PO DAILY RF: 0 Trulicity 1.5 mg/0.5 mL Pen Injector 1.5 mg SUBCUT Q7D RF: 0 Changed Levemir FlexTouch U-100 Insuln 100 unit/mL (3 mL) insulin pen 30 unit SUBCUT .QHS Qty: 0 RF: 0 Discontinued lisinopril 10 mg tablet 10 mg PO DAILY RF: 0 Discharge Orders: Discharge Order (Routine); Ordered 12/14/19 Ordered By: Ruben Davis Other Ambulatory Orders: Basic Metabolic Panel (Routine) Timeframe: 3 Days Facility: [facility] - Location: Lab - Main Lab Ordered By: Ruben Davis Referrals: Sleep,Lab [Other] - 1-3 days (Sleep study for sleep apnea, COPD) Lamin Beatty FNP-C [Primary Care Provider] - 4-7 days Mireya Guajardo MD [Physician] - 2 weeks (After sleep study. COPD + sleep apnea) Discharge Activity: Use walker/crutches as instructed and Oxygen as instructed Activity Restrictions/Additional Instructions: Lisinopril for now is discontinued due to elevation of potassium. Please avoid foods rich in potassium, including oranges and orange juice, bananas, tomatoes, potatoes, etc. Please continue heart healthy, low-salt diet. With consistent carbohydrates. Please continue oxygen as previously 2 L/min. Target saturation is 92%. Avoid very high saturations. Please continue checking your blood sugar 4 times daily. Avoid low blood sugars. For now insulin dose is decreased to 30 units due to concern for low blood sugars. Discharge Attestations Time Spent in Discharge Care*: greater than 30 min Quality Metrics Clinical Quality Measures During this hospital stay, did patient experience: None Coding Level of Care Code Acute Music Internship for Patricio Fwd Diagnoses Acute exacerbation of chronic obstructive airways disease J44.1 COPD with exacerbation J44.1 DM type 2 (diabetes mellitus, type 2) E11.9 Age-related cognitive decline R41.81 Major depressive disorder, recurrent episode with mood-congruent psychotic features F33.3
[2019-12-14 16:53] LABS: Glucose Point of Care 145 mg/dL (70-110)
--- NOTE | 2019-12-14 17:48 | PC.NURSE ---
Levaquin 750 mg tablet. Take one tablet by mouth daily. #5. No refills. Called to [facility].
== END 2019-12-14 18:26 | disposition home health service (06) | DRG 190 ==
LOC: ER 17:59 → ICU 22:14 → MEDSURG 12-12 18:41
PROVIDERS: Admitting Provider Internal Medicine; Emergency Provider Emergency Medicine; Family Provider Nurse Practitioner; PCP Nurse Practitioner; Visit Provider Internal Medicine
DX: J44.1 Chronic obstructive pulmonary disease with (acute) exacerbation (principal); J96.02 Acute respiratory failure with hypercapnia; G93.40 Encephalopathy, unspecified; E87.2 Acidosis; F33.3 Major depressive disorder, recurrent, severe with psychotic symptoms; E78.5 Hyperlipidemia, unspecified; E11.9 Type 2 diabetes mellitus without complications; I10 Essential (primary) hypertension; Z88.5 Allergy status to narcotic agent; Z79.82 Long term (current) use of aspirin; Z79.899 Other long term (current) drug therapy; Z79.890 Hormone replacement therapy; R41.81 Age-related cognitive decline; E87.5 Hyperkalemia
CPT/HCPCS: 12345; 36415; 36416; 36600; 51702; 70450; 71045; 80048; 80053; 80307; 81001; 82140; 82550; 82803; 82962; 83036; 83605; 83735; 83880; 84443; 84484; 85025; 85610; 87040; 87070; 87205; 87804; 93005; 94640; 94660; 96372; 96374; 96375; 97110; 97161; 99284; G0378; J0696; J1644; J1815; J2543; J2930

== ENCOUNTER 2019-12-17 15:20 | Outpatient (CLI) | payer MEDICARE, MEDICAID, SELFPAY | END 2019-12-17 15:21 | disposition home or self-care (01) | LOC: LAB 15:23 | PROVIDERS: Family Provider Nurse Practitioner; PCP Nurse Practitioner; Visit Provider Family Medicine | DX: J44.1 Chronic obstructive pulmonary disease with (acute) exacerbation (principal) ==

== ENCOUNTER → 2019-12-21 10:01 | Outpatient (BNVA) | payer MEDICARE, MEDICAID, SELFPAY | PROVIDERS: Family Provider Nurse Practitioner; PCP Nurse Practitioner; Visit Provider Nurse Practitioner | DX: D72.829 Elevated white blood cell count, unspecified (principal); E11.9 Type 2 diabetes mellitus without complications; E87.5 Hyperkalemia | CPT/HCPCS: 80048; 85025 ==

== ENCOUNTER 2020-01-16 22:45 | Inpatient (IN) | payer MEDICARE, MEDICAID, SELFPAY ==
[2020-01-16 22:59] VITALS: BP 155/77; PULSE 95; RESP 22; TEMP 36.9; O2SAT 94; BMI 38.0
[2020-01-16 23:08] VITALS: BP 122/65; PULSE 93; RESP 14; TEMP 37.2; O2SAT 90
--- NOTE | 2020-01-16 23:17 | XR_ITS ---
WS: [id number] XR chest 1V portable [id number] REASON FOR EXAM: cough FINDINGS: Comparisons were made to December 11, 2019. There is persistent low-grade pneumonia atelecta sis in the left lung base. This is similar to the previous exam. The left hemidiaphragm is mildly elevated. The heart and mediastinal interfaces normal. Arteriosclerotic changes of the aorta. There is evidence of chronic obstructive pulmonary disease. XR/XR chest 1V portable [id number] IMPRESSION: Similar findings of atelectasis pneumonia left lung base Chronic obstructive pulmonary disease.
--- NOTE | 2020-01-16 23:18 | ECG_ITS ---
Measurements Intervals [place] Rate: 101 P: -1 SC: 149 QRS: 35 QRSD: 93 T: 66 QT: 394 QTc: 512 SINUS TACHYCARDIA WITH OCCASIONAL SUPRAVENTRICULAR PREMATURE COMPLEXES NONSPECIFIC ST & T-WAVE ABNORMALITY ABNORMAL RHYTHM ECG Compared to ECG 12/11/2019 20:06:58 T-wave abnormality now present Sinus bradycardia no longer present Electronically Signed On 01-17-2020 19:04:17 INPATIENT CARE MANAGER RN by Ayaka Mazariegos M.D. [id number]
--- NOTE | 2020-01-16 23:18 | ED_ITS ---
Entered by Tania Allred, acting as scribe for Elidia Cheng Jan 16, 2020 22:45 HPI - SOB/Dyspnea General: Chief Complaint: Shortness of Breath/Dyspnea Stated Complaint: PNEUMONIA Time Seen by Provider: 01/16/20 23:16 Source: patient Mode of arrival: ambulatory History of Present Illness: HPI Narrative: 74 y/o male presents to the ED with complaint of increased lethargy and cough for the past 2 days. Pts brother is here with him and called EMS after speaking with him on the phone. Pt reports having white sputum and increased SOB. He wears 2L oxygen, regularly, at home. MD elicited complaint: shortness of breath Associated symptoms: Deny abdominal pain, chest pain, diaphoresis, dizziness, extremity pain, fever(s), nausea, orthopnea, palpitations, polydipsia, syncope or vomiting Review of Systems General: Reports: other (negative unless marked) Const: Denies: fever, chills, body aches, malaise or diaphoresis Eyes: Denies: change in vision or blurry vision ENMT: Denies: throat pain, painful swallowing, hoarseness, ear pain, ear dis charge, Change in hearing or nasal discharge Card: Denies: chest pain, palpitations, irregular heart rhythm, syncope, pre- syncope, shortness of breath on exertion or shortness of breath when lying down GI: Denies: abdominal pain, nausea, vomiting, vomiting blood, coffee grounds in vomit, diarrhea, constipation, cramping, blood in stool or black tarry stool : Denies: flank pain, difficulty urinating, painful urination, urinary thanh quency, urinary urgency, decreased urine ouput, urinary incontinence or blood in urine Musc: Denies: neck pain, back pain, extremity pain, extremity swelling, joint pain, joint swelling, joint warmth or joint stiffness Skin/Breast: Denies: rash, skin tenderness or yellow skin Neuro: Denies: headache, numbness in extremities, weakness in extremities, changes in sensation, lack of coordination, difficulty walking, dizziness, vertigo or confusion Endo: Denies: excessive thirst, tired all the time, cold intolerance, excessive sweating, flushing or hot flashes Elijah/Lymph: Denies: easy bruising, easy bleeding, petechiae or enlarged lymph nodes All/Imm: Denies: hives, throat swelling, tongue swelling, facial swelling or acute wheezing PFSH ED PFSH: Medical History Concussion COPD (chronic obstructive pulmonary disease) Diabetes mellitus Glaucoma Hypertension Major depression Mild cognitive impairment Psychosis Sleep apnea Family History Other Psychiatric illness Social History Smoking and tobacco status: former smoker Physical Exam Const: COMMON NORMALS: no apparent distress, oriented x3 and well nourished EXAM LIMITATIONS: no altered mental status GENERAL APPEARANCE: cooperative and well developed ORIENTATION/CONSCIOUSNESS: Yes awake HENMT: COMMON NORMALS: normocephalic, head/scalp atraumatic, hearing grossly normal bilaterally, external ears normal, EAC's normal, external nose normal and moist oral mucous membranes HEAD & SCALP: normal to inspection, normocephalic and atraumatic FACE & SINUS: normal facial exam and face symmetric NOSE: external nose normal and nares normal EXTERNAL EAR: Yes external ears normal EXTERNAL AUDITORY CANAL: EAC's normal MOUTH: oral and palatal mucosa normal and tongue normal Eye: COMMON NORMALS: PERRL, EOMs intact bilaterally, conjunctivae normal and no scleral icterus GENERAL EYE: normal appearance of both eyes and normal light reflex CONJUNCTIVA: Yes conjunctivae normal SCLERA: sclerae normal CORNEA: Yes corneas normal PUPIL: Yes PERRL DIRECT OPHTHALMOSCOPY: Yes normal light reflex Neck/C-Spine: COMMON NORMALS: full ROM, no lymphadenopathy, supple, no meningeal signs and no JVD GENERAL: Yes normal visual inspection and Yes trachea midline CERVICAL SPINE: Yes cervical ROM normal Chest: COMMONS NORMALS: inspection of chest normal and palpation of chest normal Resp: EFFORT & INSPECTION: Yes able to speak in complete sentences and Yes audible wheezes AUSCULTATION: crackles, rhonchi and wheezes Cardio: COMMON NORMALS: no JVD, regular rate, regular rhythm, S1 normal heart sound, S2 normal heart sound, no gallops, no clicks, no murmurs and no rub JUGULAR VENOUS DISTENTION: no JVD RATE: regular rate RHYTHM: regular rhythm HEART SOUNDS: S1 normal and S2 normal GI: COMMON NORMALS: soft to palpation, non-tender, no hepatosplenomegaly and no masses INSPECTION: Yes normal to inspection PALPATION: Yes soft and Yes no hepatosplenomegaly : COMMON NORMALS: Yes no CVA tenderness BLADDER/KIDNEY EXAM: Yes no CVA tenderness Back/Pelvis: COMMON NORMALS: no CVA tenderness, thoracic and lumbar spine normal to inspection, no thoracic nor lumbar tenderness and thoraco-lumbar ROM normal Extremity: COMMON NORMALS: normal to inspection, full ROM, normal capillary refill, no joint enlargement, no clubbing, cyanosis or edema and no calf tenderness Neuro: COMMON NORMALS: oriented x3, CN's II-XII intact bilaterally, moves all extremities, no focal motor deficits and no sensory deficits noted MENINGEAL SIGNS: Yes no meningeal signs Psych: COMMON NORMALS: mental status grossly normal, thought process normal, cooperative, affect normal, speech normal and activity/motor behavior normal SPEECH: Yes normal speech THOUGHT PROCESS: normal thought process Skin: COMMON NORMALS: no rashes or lesions noted, skin turgor normal, no jaundice, no petechiae and no mottling GENERAL SKIN EXAM: no rashes or lesions noted and turgor normal Procedures Intubation Time out performed: Yes sedative: Etomidate Mg Given: 40 paralytic: Succinylcholine Mg Given: 200 Laryngoscope: Claire ET Tube Size: 8 ET Tube Uncuffed: Yes Tube Secured Location: lips Tube Placement Confirmation: visualized tube passing through cords, equal breath sounds bilaterally, no breath sounds over epigastrium and confirmation by capnometry Patient Tolerated Procedure: well and no complications Intubation Complications: none Course Vital Signs: Vital signs: Vital Signs Temperature 99.3 F 01/17/20 08:00 Pulse Rate 88 01/17/20 17:00 Respiratory Rate 14 01/17/20 17:50 Blood Pressure 113/54 01/17/20 17:00 Pulse Oximetry 86 L 01/17/20 17:00 MDM - SOB/Dyspnea MDM Narrative: Medical decision making narrative: Patient has progressively worsened on BiPAP and necessitated intubation. Dr. Peralta was consulted for admission and she is agreeable. She is able to find the patient in the computer and it is noted that he has severe COPD. On intubation there was very thick secretions noted. I will go and admit to the hospital for further care. Lab Data: Attestation: I reviewed the patient's lab results. Labs: Lab Results 01/16/20 01/16/20 01/16/20 Range/Units 00:03 23:30 23:30 WBC 11.9 H (4.0-10.0) 10^3/ uL RBC 4.31 (4.1-5.3) 10^6/u L Hgb 12.2 (11.7-16.6) g/dL Hct 40.2 L (42.0-52.0) % MCV 93.3 (80-94) fL MCH 28.3 (28.0-34.0) pg MCHC 30.3 (30.0-36.0) g/dL RDW 12.7 (12.1-15.1) % Plt Count 182 (130-400) 10^3/c mm MPV 9.6 (7.4-10.4) fL Neut % (Auto) 87.0 % Lymph % (Auto) 6.5 % [place] % (Auto) 5.6 % Eos % (Auto) 0.3 % Baso % (Auto) 0.3 % Neut # (Auto) 10.4 H (1.8-7.7) 10^3/u L Lymph # (Auto) 0.8 (0.8-4.8) 10^3/u L [place] # (Auto) 0.7 (0.2-0.9) 10^3/u L Eos # (Auto) 0.0 (0.0-0.8) 10^3/u L Baso # (Auto) 0.0 (0.0-0.1) 10^3/u L Nucleated RBC % (a uto) 0 % Nucleated RBCs # 0.0 /100WBC Specimen Type Arterial Sample Site Radial, left ABG pH 7.28 L (7.35-7.45) ABG pCO2 77.0 H* (35-45) mmHg ABG pO2 46.1 L (80.0-100.0) mmH g ABG HCO3 36.1 H (22-26) mmol/L ABG Base Excess 6.5 H (-2.0-2.0) mmol/ L Kevin Test Pos Hematocrit 41.0 L (42-52) % O2 Delivery Device Nc O2 Liters/Min 6.0 % Mechanical Rate FiO2 % Tidal Volume PEEP cmH20 Wire Coiler Machine Operator ID harkr Sodium 139 (136-145) mmol/L Potassium 4.5 (3.5-5.1) mmol/L Chloride 93 L (98-107) mmol/L Carbon Dioxide 34 H (22-29) mmol/L Anion Gap 16.5 (5-19) BUN 20 (8-23) mg/dL Creatinine 1.2 (0.7-1.2) mg/dL Glucose 224 H (65-115) mg/dL Lactic Acid (0.5-2.2) mmol/L Lactic Acid (Sepsi s) (0.5-2.2) mmol/L Calcium 10.0 (8.5-10.5) mg/dL Magnesium 2.2 (1.7-2.3) mg/dL Total Bilirubin 0.3 (0.15-1.2) mg/dL AST 14 (0-40) U/L ALT 12 (0-41) U/L Alkaline Phosphata se 75 (40-130) IU/L Troponin T Baselin e (0-15) ng/mL Troponin T 120 Min [place] (0-15) ng/mL Delta Troponin T (0-10) ABS# NT-Pro-B Natriuret Pep 80 (0-125) pg/mL Total Protein 7.7 (6.6-8.7) g/dL Albumin 4.2 (3.5-5.2) g/dL Globulin 3.5 (1.3-4.6) g/dL Influenza Type A A g (Negative) POC Influenza B Ag (Negative) 01/16/20 01/16/20 01/16/20 Range/Units 23:30 23:35 23:43 WBC (4.0-10.0) 10^3/ uL RBC (4.1-5.3) 10^6/u L Hgb (11.7-16.6) g/dL Hct (42.0-52.0) % MCV (80-94) fL MCH (28.0-34.0) pg MCHC (30.0-36.0) g/dL RDW (12.1-15.1) % Plt Count (130-400) 10^3/c mm MPV (7.4-10.4) fL Neut % (Auto) % Lymph % (Auto) % [place] % (Auto) % Eos % (Auto) % Baso % (Auto) % Neut # (Auto) (1.8-7.7) 10^3/u L Lymph # (Auto) (0.8-4.8) 10^3/u L [place] # (Auto) (0.2-0.9) 10^3/u L Eos # (Auto) (0.0-0.8) 10^3/u L Baso # (Auto) (0.0-0.1) 10^3/u L Nucleated RBC % (a uto) % Nucleated RBCs # /100WBC Specimen Type Sample Site ABG pH (7.35-7.45) ABG pCO2 (35-45) mmHg ABG pO2 (80.0-100.0) mmH g ABG HCO3 (22-26) mmol/L ABG Base Excess (-2.0-2.0) mmol/ L Kevin Test Hematocrit (42-52) % O2 Delivery Device O2 Liters/Min % Mechanical Rate FiO2 % Tidal Volume PEEP cmH20 Wire Coiler Machine Operator ID Sodium (136-145) mmol/L Potassium (3.5-5.1) mmol/L Chloride (98-107) mmol/L Carbon Dioxide (22-29) mmol/L Anion Gap (5-19) BUN (8-23) mg/dL Creatinine (0.7-1.2) mg/dL Glucose (65-115) mg/dL Lactic Acid 2.9 H (0.5-2.2) mmol/L Lactic Acid (Sepsi s) (0.5-2.2) mmol/L Calcium (8.5-10.5) mg/dL Magnesium (1.7-2.3) mg/dL Total Bilirubin (0.15-1.2) mg/dL AST (0-40) U/L ALT (0-41) U/L Alkaline Phosphata se (40-130) IU/L Troponin T Baselin e 18 H (0-15) ng/mL Troponin T 120 Min [place] (0-15) ng/mL Delta Troponin T (0-10) ABS# NT-Pro-B Natriuret Pep (0-125) pg/mL Total Protein (6.6-8.7) g/dL Albumin (3.5-5.2) g/dL Globulin (1.3-4.6) g/dL Influenza Type A A g Negative (Negative) POC Influenza B Ag Negative (Negative) 01/17/20 01/17/20 01/17/20 Range/Units 01:11 01:47 02:17 WBC (4.0-10.0) 10^3/ uL RBC (4.1-5.3) 10^6/u L Hgb (11.7-16.6) g/dL Hct (42.0-52.0) % MCV (80-94) fL MCH (28.0-34.0) pg MCHC (30.0-36.0) g/dL RDW (12.1-15.1) % Plt Count (130-400) 10^3/c mm MPV (7.4-10.4) fL Neut % (Auto) % Lymph % (Auto) % [place] % (Auto) % Eos % (Auto) % Baso % (Auto) % Neut # (Auto) (1.8-7.7) 10^3/u L Lymph # (Auto) (0.8-4.8) 10^3/u L [place] # (Auto) (0.2-0.9) 10^3/u L Eos # (Auto) (0.0-0.8) 10^3/u L Baso # (Auto) (0.0-0.1) 10^3/u L Nucleated RBC % (a uto) % Nucleated RBCs # /100WBC Specimen Type Arterial Sample Site Radial, right ABG pH 7.22 L (7.35-7.45) ABG pCO2 83.3 H* (35-45) mmHg ABG pO2 88.2 (80.0-100.0) mmH g ABG HCO3 34.1 H (22-26) mmol/L ABG Base Excess 3.7 H (-2.0-2.0) mmol/ L Kevin Test Pos Hematocrit 41.0 L (42-52) % O2 Delivery Device Bipap O2 Liters/Min % Mechanical Rate FiO2 55.0 % Tidal Volume PEEP cmH20 Wire Coiler Machine Operator ID harkr Sodium (136-145) mmol/L Potassium (3.5-5.1) mmol/L Chloride (98-107) mmol/L Carbon Dioxide (22-29) mmol/L Anion Gap (5-19) BUN (8-23) mg/dL Creatinine (0.7-1.2) mg/dL Glucose (65-115) mg/dL Lactic Acid (0.5-2.2) mmol/L Lactic Acid (Sepsi s) 2.9 H (0.5-2.2) mmol/L Calcium (8.5-10.5) mg/dL Magnesium (1.7-2.3) mg/dL Total Bilirubin (0.15-1.2) mg/dL AST (0-40) U/L ALT (0-41) U/L Alkaline Phosphata se (40-130) IU/L Troponin T Baselin e (0-15) ng/mL Troponin T 120 Min [place] 18.41 H (0-15) ng/mL Delta Troponin T 0.41 (0-10) ABS# NT-Pro-B Natriuret Pep (0-125) pg/mL Total Protein (6.6-8.7) g/dL Albumin (3.5-5.2) g/dL Globulin (1.3-4.6) g/dL Influenza Type A A g (Negative) POC Influenza B Ag (Negative) 01/17/20 Range/Units 02:57 WBC (4.0-10.0) 10^3/ uL RBC (4.1-5.3) 10^6/u L Hgb (11.7-16.6) g/dL Hct (42.0-52.0) % MCV (80-94) fL MCH (28.0-34.0) pg MCHC (30.0-36.0) g/dL RDW (12.1-15.1) % Plt Count (130-400) 10^3/c mm MPV (7.4-10.4) fL Neut % (Auto) % Lymph % (Auto) % [place] % (Auto) % Eos % (Auto) % Baso % (Auto) % Neut # (Auto) (1.8-7.7) 10^3/u L Lymph # (Auto) (0.8-4.8) 10^3/u L [place] # (Auto) (0.2-0.9) 10^3/u L Eos # (Auto) (0.0-0.8) 10^3/u L Baso # (Auto) (0.0-0.1) 10^3/u L Nucleated RBC % (a uto) % Nucleated RBCs # /100WBC Specimen Type Arterial Sample Site Radial, right ABG pH 7.31 L (7.35-7.45) ABG pCO2 63.5 H* (35-45) mmHg ABG pO2 93.5 (80.0-100.0) mmH g ABG HCO3 32.2 H (22-26) mmol/L ABG Base Excess 4.4 H (-2.0-2.0) mmol/ L Kevin Test Pos Hematocrit 36.2 L (42-52) % O2 Delivery Device Vent O2 Liters/Min % Mechanical Rate 14.0 FiO2 60.0 % Tidal Volume 0.55 PEEP 8.0 cmH20 Wire Coiler Machine Operator ID harkr Sodium (136-145) mmol/L Potassium (3.5-5.1) mmol/L Chloride (98-107) mmol/L Carbon Dioxide (22-29) mmol/L Anion Gap (5-19) BUN (8-23) mg/dL Creatinine (0.7-1.2) mg/dL Glucose (65-115) mg/dL Lactic Acid (0.5-2.2) mmol/L Lactic Acid (Sepsi s) (0.5-2.2) mmol/L Calcium (8.5-10.5) mg/dL Magnesium (1.7-2.3) mg/dL Total Bilirubin (0.15-1.2) mg/dL AST (0-40) U/L ALT (0-41) U/L Alkaline Phosphata se (40-130) IU/L Troponin T Baselin e (0-15) ng/mL Troponin T 120 Min [place] (0-15) ng/mL Delta Troponin T (0-10) ABS# NT-Pro-B Natriuret Pep (0-125) pg/mL Total Protein (6.6-8.7) g/dL Albumin (3.5-5.2) g/dL Globulin (1.3-4.6) g/dL Influenza Type A A g (Negative) POC Influenza B Ag (Negative) Imaging Data^: CXR: My impression: Left lower lobe infiltrate Discharge Plan Discharge Patient Disposition: Admitted As Inpatient Admit Provider: Lizette Peralta Clinical Impression: Hypercapnic respiratory failure, Community acquired pneumonia, Acute and chronic respiratory failure, Acute exacerbation of chronic obstructive airways disease Condition: Stable Interventions: ED Discharge Assessment Last Done: 01/17/20 05:58 Discharge Date/Time: 01/17/20 05:59 Coding Level of Care Code ED Kidney Puller for Chg Fwd Exam Comprehensive The documentation recorded by the Chalino joyce Ashley, accurately reflects the service I personally performed and the decisions made by Skylar solis Eli N Jan 16, 2020 22:45
--- NOTE | 2020-01-16 23:20 | PC.NURSE ---
Introduced self to patient and initiated vital signs. Patient presents A&O x 4. NAD, ABCs intact although pt is breathing very shallow at present, MAEW and agreeable to treatment. Respirations are even but shallow and somewhat labored. Pt states that the chief complaint for the ER visit today is due to shortness of breath. IV observed in left hand by EMS and flushed for patency. Pt denies any vision disturbances or lightheadedness. Bed left in lowest position in semi-fowlers with side rails up. Reassured patient of needs and will continue to monitor. Awaiting provider at bedside.
[2020-01-16 23:38] VITALS: BP 154/78; PULSE 90; RESP 17; O2SAT 94
[2020-01-16] MEDS: ondansetron 2 mg/ML SDV 2 mL 4 MG IVP (23:48)
[2020-01-16 23:50] LABS: Basophils % 0.3 %; Eosinophils % 0.3 %; Hematocrit 40.2 % (42.0-52.0); Hemoglobin 12.2 g/dL (11.7-16.6); Lymphocytes # 0.8 10^3/uL (0.8-4.8); Lymphocytes % 6.5 %; Mean Corpuscular HGB Conc 30.3 g/dL (30.0-36.0); Mean Corpuscular Hemoglobin 28.3 pg (28.0-34.0); Mean Corpuscular Volume 93.3 fL (80-94); Mean Platelet Volume 9.6 fL (7.4-10.4); Monocytes # 0.7 10^3/uL (0.2-0.9); Monocytes % 5.6 %; Neutrophils # 10.4 10^3/uL (1.8-7.7); Nucleated Red Blood Cells % 0 %; Platelet Count 182 10^3/cmm (130-400); Red Blood Count 4.31 10^6/uL (4.1-5.3); Red Cell Distribution Width 12.7 % (12.1-15.1); White Blood Count 11.9 10^3/uL (4.0-10.0)
[2020-01-17] VITALS (62 sets, daily range): BP systolic 95–163; BP diastolic 52–102; PULSE 72–111; RESP 12–22; TEMP 36.4–37.4; O2SAT 85–100
[2020-01-17] MEDS: ipratropium-albuterol 3 mL Neb 9 ML INHALATION ×2 (00:05→08:02)
[2020-01-17 00:06] LABS: Lactic Sepsis W/Reflex 2.9 mmol/L (0.5-2.2)
[2020-01-17 00:09] LABS: Troponin(5th) Baseline 18 ng/mL (0-15)
[2020-01-17 00:16] LABS: ABG PH Result 7.28 (7.35-7.45); Base Excess ABG 6.5 mmol/L (-2.0-2.0); Blood Gas Allen Test Pos; Blood Gas Sample Site Radial, left; Blood Gas Sample Type Arterial; HCO3 ABG 36.1 mmol/L (22-26); Oxygen Device NC; PO2 ABG 46.1 mmHg (80.0-100.0)
[2020-01-17 00:16] LABS: Alanine Aminotransferase 12 U/L (0-41); Albumin Level 4.2 g/dL (3.5-5.2); Alkaline Phosphatase 75 IU/L (40-130); Anion Gap 16.5 (5-19); Aspartate Amino Transferase 14 U/L (0-40); Blood Urea Nitrogen 20 mg/dL (8-23); Carbon Dioxide 34 mmol/L (22-29); Chloride 93 mmol/L (98-107); Globulin 3.5 g/dL (1.3-4.6); Glucose 224 mg/dL (65-115); Magnesium 2.2 mg/dL (1.7-2.3); NT Pro B Type Natriuretic Pept 80 pg/mL (0-125); Potassium 4.5 mmol/L (3.5-5.1); Sodium 139 mmol/L (136-145); Total Bilirubin 0.3 mg/dL (0.15-1.2); Total Protein 7.7 g/dL (6.6-8.7)
[2020-01-17 00:16] LABS: Influenza A by IFA Negative (Negative); Influenza B by IFA Negative (Negative)
--- NOTE | 2020-01-17 01:18 | ECG_ITS ---
Measurements Intervals [place] Rate: 90 P: 32 ND: 152 QRS: 61 QRSD: 90 T: 82 QT: 360 QTc: 441 SINUS RHYTHM WITH SINUS ARRHYTHMIA NONSPECIFIC T-WAVE ABNORMALITY Compared to ECG 12/11/2019 20:06:58 T-wave abnormality now present Sinus bradycardia no longer present Electronically Signed On 01-17-2020 19:09:33 CHASSIS MECHANIC by Ayaka Mazariegos M.D. [email or web address]: [id number]
[2020-01-17 01:30] LABS: Troponin 5 2HR 18.41 ng/mL (0-15); Troponin 5 2HR Delta 0.41 ABS# (0-10)
[2020-01-17 01:31] LABS: Reflex Lactate Order REFLEX LACTIC ORDERD
--- NOTE | 2020-01-17 01:58 | PC.NURSE ---
EKG done at 0155 and shown to ER doctor
[2020-01-17 02:00] LABS: ABG PH Result 7.22 (7.35-7.45); Base Excess ABG 3.7 mmol/L (-2.0-2.0); Blood Gas Allen Test Pos; Blood Gas Sample Site Radial, right; Blood Gas Sample Type Arterial; HCO3 ABG 34.1 mmol/L (22-26); Oxygen Device BIPAP; PO2 ABG 88.2 mmHg (80.0-100.0)
[2020-01-17 02:01] LABS: ABG PCO2 83.3 mmHg (35-45)
[2020-01-17 02:34] LABS: Lactic Acid level (Lactate) 2.9 mmol/L (0.5-2.2)
--- NOTE | 2020-01-17 02:53 | P.HP_ITS ---
Providers/Chief Complaint Chief Complaint: PNEUMONIA History of Present Illness Roland Wilson is a 74 year old male past medical history of cognitive impairment, depression, hypertension, glaucoma, diabetes mellitus, COPD, SALLIE who presented to the ER with worsening dyspnea. Per history obtained from the family by ERP earlier today, patient has been having cough with expectoration and increasing dyspnea ove rthe past 3-4 days. On presentation to ER, was noted to be in respiratory distress with ABG 7.28/77/46/36 on 6lNC. He was started on BiPAP ventilation upon arrival however he started to have respiratory fatigue with worsening blood gas at 7.22/83.3/88.2/34.1 and was therefore evntaully intubated. He is intubated now at time of my exam. At time of intubation, thick mucus plug was removed from vocal cords. Other notable labs lactate 2.9, negative troponin, negative flu a&B, wbc 11.9, BNP 80. Thus far received zosyn, solumedrol 125, duoneb. VS 163/102, HR 85, tmax 99F. Review of Systems General: Reports: ROS unobtainable due to endotracheal tube and ROS unobtainable due to mental status PFSH Acute PFSH: Medical History Concussion COPD (chronic obstructive pulmonary disease) Diabetes mellitus Glaucoma Hypertension Major depression Mild cognitive impairment Psychosis Sleep apnea Family History (Updated 01/17/20 @ 02:58 by Lizette Peralta MD) Other Psychiatric illness Social History Smoking and tobacco status: former smoker Vitals/I&O/Wt Last Vital Signs Temp 99.0 F 01/16/20 23:08 Pulse 85 01/17/20 01:38 Resp 14 01/17/20 02:43 BP 163/102 01/17/20 01:38 Pulse Ox 95 01/17/20 01:38 Weight last 48 hrs Weight 134.263 kg Physical Exam Narrative: EXAM NARRATIVE: GEN: Intubated, seadted CVS: S1S2 N RS: B.L coarse conducted sounds anteriorly, not auscultated posteriorly due to positioning Abd: Soft, nt/nd , bs+ MEDICAL CONCIERGE: no focal neuro deficits EXT: Data : 01/16/20 23:30 02/19/20 23:30 Micro: Microbiology 01/16/20 23:35 Blood Culture - Preliminary Blood SPECIMEN COLLECTED 01/16/20 23:30 Blood Culture - Preliminary Blood SPECIMEN COLLECTED A&P Assessment and plan (1) Community acquired pneumonia: Status: Acute Code(s): J18.9 - Pneumonia, unspecified organism (2) Hypercapnic respiratory failure: Status: Acute Code(s): J96.92 - Respiratory failure, unspecified with hypercapnia (3) COPD exacerbation: Status: Acute Code(s): J44.1 - Chronic obstructive pulmonary disease with (acute) exacerbation (4) Sleep apnea: Status: Acute Code(s): G47.30 - Sleep apnea, unspecified (5) Diabetes mellitus: Status: Acute Code(s): E11.9 - Type 2 diabetes mellitus without complications (6) Sepsis: Status: Acute Code(s): A41.9 - Sepsis, unspecified organism Additional A&P Information Admit to ICU in view of hypercapnic respiratory failure requiring intubation with mechanical ventilation. Meet sepsis criteria with leukocytosis tachypnea and possible pneumonia 1. COPD exacerbation Hypercapnic respiratory failure, not improved on BiPAP eventually requiring mechanical ventilation for respiratory fatigue and worsening noted on ABG. Start Solu-Medrol 80 mg IV every 6 hours Duo nebs every 4 hours Budesonide inhalation every 12 hours Oral suctioning/pulmonary toilet given extensive secretions coming up through the ET tube 2. Community-acquired pneumonia: Start ceftriaxone 1 g IV every 24h and azithromycin 500 mg daily 3 days Blood cultures have been sent Obtain sputum Gram stain and culture 3. Diabetes mellitus: Currently on insulin sliding scale 4. His list of home medications is currently not available for review. ER trying to obtain the same. Full code DVT ppx: lovenox Attestations Medical Necessity Statement*: >2MN admission for hypercapneic respiratory failure Coding Level of Care Code Acute Ship Surveyor for [facility] Diagnoses Community acquired pneumonia J18.9 Hypercapnic respiratory failure J96.92 COPD exacerbation J44.1 Sleep apnea G47.30 Diabetes mellitus E11.9 Sepsis A41.9
--- NOTE | 2020-01-17 02:58 | XR_ITS ---
WS: [id number] XR chest 1V portable [id number] REASON FOR EXAM: post intubation FINDINGS: Endotracheal tube has been inserted the tip is 4.6 cm from the elie. A feeding tube is seen the tip appears to be in the stomach but weren't sure of this fact findings. Atelectasis in the right lower lung low-grade. Small amount of right pleural effusion. XR/XR chest 1V portable [id number] IMPRESSION: Tracheal tube satisfactory position. A feeding tube is seen probably in the stomach. Atelectasis in the right lower lung.
[2020-01-17 03:12] LABS: ABG PCO2 63.5 mmHg (35-45); ABG PH Result 7.31 (7.35-7.45); Arterial Blood Gas Hematocrit 36.2 % (42-52); Base Excess ABG 4.4 mmol/L (-2.0-2.0); Blood Gas Allen Test Pos; Blood Gas Sample Site Radial, right; Blood Gas Sample Type Arterial; Blood Gas Tidal Volume 0.55; HCO3 ABG 32.2 mmol/L (22-26); Oxygen Device VENT; PO2 ABG 93.5 mmHg (80.0-100.0)
[2020-01-17] MEDS: piperacillin-tazobactam 3.375 GM in sodium chloride 0.9% (plus) 50 ML IV (03:32)
[2020-01-17] MEDS: propofol 1,000 MG/100 ML INJ 4 MG IV ×2 (03:33→16:29)
[2020-01-17] MEDS: LORazepam 2 mg/mL INJ 1 mL (03:35)
[2020-01-17] MEDS: succinylcholine 20 mg/mL SDV 10mL 201.3945 MG IV (03:41)
[2020-01-17] MEDS: vecuronium 10 mg SDV 10.74104 MG IVP (03:42)
[2020-01-17] MEDS: ipratropium-albuterol 3 mL Neb INHALATION ×6 (04:44→23:10)
--- NOTE | 2020-01-17 05:07 | PC.NURSE ---
EKG done at 0503 and shown to ER doctor
[2020-01-17 05:13] LABS: Troponin 5 6HR 15.88 ng/mL (0-15)
[2020-01-17 05:15] LABS: Troponin 5 6HR Delta -2.12 ng/L (0-12)
--- NOTE | 2020-01-17 05:18 | ECG_ITS ---
Measurements Intervals [place] Rate: 85 P: 30 DC: 132 QRS: 40 QRSD: 91 T: 68 QT: 392 QTc: 468 SINUS RHYTHM WITH SINUS ARRHYTHMIA NONSPECIFIC ST & T-WAVE ABNORMALITY Compared to ECG 12/11/2019 20:06:58 T-wave abnormality now present Sinus bradycardia no longer present Electronically Signed On 01-17-2020 19:09:11 PSYCHOLOGICAL TESTS SALES AGENT by Ayaka Mazariegos M.D. [id number]
[2020-01-17] MEDS: midazolam 1 mg/mL INJ 2 mL 5 MG IVP (05:30)
[2020-01-17] MEDS: enoxaparin 40 mg/0.4 mL Syringe SUBCUT (06:36)
[2020-01-17] MEDS: cefTRIAXone 1,000 MG in sodium chloride 0.9% (plus) 50 ML 100 MG IV (06:36)
[2020-01-17 06:57] LABS: Lactic Sepsis W/Reflex 2.6 mmol/L (0.5-2.2)
[2020-01-17 07:55] LABS: Glucose Point of Care 363 mg/dL (70-110)
[2020-01-17] MEDS: budesonide 0.5 mg/2 mL Neb INHALATION ×2 (08:02→20:14)
[2020-01-17 08:25] LABS: Reflex Lactate Order REFLEX LACTIC ORDERD
[2020-01-17] MEDS: famotidine 20 mg Tablet NG-TUBE ×2 (09:49→17:32)
[2020-01-17] MEDS: azithromycin 500 MG in sodium chloride 0.9% 250 ML 250 MG IV (09:49)
--- NOTE | 2020-01-17 13:48 | PM.CONSULT ---
Providers/Reason For Consult Consulting Physican/Specialty*: Pulmonary critical care medicine Reason for Consult*: Acute on chronic respiratory failure requiring mechanical ventilation Attending Physician: Ruben Davis History of Present Illness History of Present Illness Roland Wilson is a 74 year old male who presents to the hospital yesterday with worsening shortness of breath. The patient has been suffering from cough, worsening sputum production over the past 3 to 4 days. The patient has a past history of COPD and evidence of hypercapnic respiratory failure. I could not find any previous pulmonary function test or CT scan of his chest. Chest x-ray from before revealed significant hyperinflation bilaterally possibly consistent with significant emphysematous changes. Upon presentation to the hospital yesterday his initial blood gas showed evidence of acute on chronic hypercapnic respiratory failure as well as hypoxic respiratory failure. The patient initially tried with noninvasive positive pressure ventilation however his subsequent arterial blood gas worsened and the patient was intubated. The patient is currently undergoing mechanical ventilation without any difficulty. He has been treated with ceftriaxone and azithromycin for suspected left lower lobe pneumonia. I had seen and evaluated the patient in ICU. The patient is comfortably sedated with propofol and fentanyl. There is no evidence of auto PEEP on the ventilator. The patient is not arousable. The initial flu swabs have been negative. During intubation and postintubation the patient was found to have thick mucus. He had received 125 mg Solu-Medrol in the ER, 80 mg of Solu-Medrol today. Review of Systems Narrative: Unable to obtain because of clinical condition Meds/Allergies Home Medications and Allergies Home Medications Medication Instructions Recorded Confirmed Type albuterol sulfate 0.63 mg INHALATION QID 01/17/20 01/17/20 History budesonide [Pulmicort] 0.5 mg INHALATION BID 01/17/20 01/17/20 History dulaglutide [Trulicity] 1.5 mg SUBCUT DIRECTED 01/17/20 01/17/20 History furosemide [Lasix] 20 mg PO DAILY 01/17/20 01/17/20 History glipizide [Glucotrol XL] 5 mg PO DAILY 01/17/20 01/17/20 History insulin detemir U-100 [Levemir See Rx Instructions .ROUTE .COMPLEX 01/17/20 01/17/20 History FlexTouch U-100 Insuln] levocetirizine [Allergy Relief 5 mg PO DAILY 01/17/20 01/17/20 History (levocetirizin)] levothyroxine [Synthroid] 50 mcg PO DAILY 01/17/20 01/17/20 History lisinopril [Prinivil] 10 mg PO DAILY 01/17/20 01/17/20 History metformin [Glucophage] 1,000 mg PO BID 01/17/20 01/17/20 History metoprolol tartrate [Lopressor] 50 mg PO BID 01/17/20 01/17/20 History pen needle, diabetic [Easy Touch] 01/17/20 01/17/20 History risperidone [Risperdal] 3 mg PO DAILY 01/17/20 01/17/20 History rosuvastatin [Crestor] 40 mg PO DAILY 01/17/20 01/17/20 History sertraline [Zoloft] 50 mg PO DAILY 01/17/20 01/17/20 History Current Medications Current Medications Generic Name Dose Route Start Last Admin Trade Name Freq PRN Reason Stop Dose Admin Albuterol/Ipratropium 3 ml 01/17/20 08:00 01/17/20 11:19 Duoneb INHALATION 3 ml Q4H.RESPIRATORY NAN Administration Budesonide 0.5 mg 01/17/20 03:45 01/17/20 08:02 Pulmicort INHALATION 0.5 mg Q12H NAN Administration Enoxaparin Sodium 40 mg 01/17/20 07:00 01/17/20 06:36 Lovenox SUBCUT 40 mg Q24H NAN Administration Famotidine 20 mg 01/17/20 09:00 01/17/20 09:49 Pepcid Tab NG-TUBE 20 mg BID NAN Administration Fentanyl 1,000 mcg/ Sodium 100 mls @ 0 mls/hr 01/17/20 02:15 01/17/20 11:51 Chloride IV 100 mcg/hr .Q0M NAN 10 mls/hr Administration Protocol Per Protocol Propofol 1,000 mg in 100 mls @ 0 mls/hr 01/17/20 02:45 01/17/20 03:33 Diprivan IV 5 mcg/kg/min .Q0M NAN 4 mls/hr Administration Protocol Per Protocol Ceftriaxone Sodium 1,000 mg/ 50 mls @ 100 mls/hr 01/17/20 06:30 01/17/20 10:02 Sodium Chloride IV Infused Q24H NAN Infusion Protocol Azithromycin 500 mg/ Sodium 250 mls @ 250 mls/hr 01/17/20 09:00 01/17/20 09:49 Chloride IV 01/19/20 23:59 250 mls/hr DAILY NAN Administration Protocol Insulin Aspart 0 unit 01/17/20 08:00 01/17/20 12:13 Novolog SUBCUT 14 unit WM&BEDTIME NAN Administration Protocol PFSH Acute PFSH: Medical History Concussion COPD (chronic obstructive pulmonary disease) Diabetes mellitus Glaucoma Hypertension Major depression Mild cognitive impairment Psychosis Sleep apnea Family History Other Psychiatric illness Social History Smoking and tobacco status: former smoker Vitals/I&O/Wt Last Vital Signs Temp 99.0 F 01/16/20 23:08 Pulse 86 01/17/20 11:23 Resp 14 01/17/20 12:41 BP 101/62 01/17/20 06:00 Pulse Ox 93 01/17/20 11:20 01/16/20 01/17/20 01/17/20 22:59 06:59 14:59 Intake Total 132.833 / 132.833 Output Total 800 / 800 Balance -800 / -800 132.833 / 132.833 Weight last 48 hrs Weight 296 lb Physical Exam Narrative: EXAM NARRATIVE: General: The patient is intubated and sedated HEENT: Bilateral constricted pupil with positive light reflex Neck: No JVD Respiratory: Auscultation: Bilateral reduced breath sound, no crackles wheezing or rhonchi Cardiovascular: Regular rate and rhythm, S1-S2 present, no murmur, no right ventricular heave, no peripheral edema. Abdomen: Soft, nondistended, positive bowel sound Skin: No rash Neuro: Unable to assess because of clinical condition Urinary Catheter Management^: Renae: Cath Placed During This Visit: yes Urethral Indwelling: Yes Reason for Continuing Indwelling Catheter: Accurate Measurement of Urinary Output in Critically Ill Patients Urinary Catheter Date of Insertion: 01/17/20 Urinary Catheter Time of Insertion: 03:00 Data Micro: Micro: Microbiology 01/16/20 23:35 Blood Culture - Pr eliminary Blood SPECIMEN [facility] 01/16/20 23:30 Blood Culture - Pr eliminary Blood SPECIMEN [facility] Imaging^: CXR: My impression: Chest x-ray is consistent with hyperinflation and left lower lobe pneumonia A&P Assessment and plan (1) Acute and chronic respiratory failure: The patient has acute on chronic hypoxic and hypercapnic respiratory failure. The likely etiology for his acute episode is left lower lobe pneumonia and COPD exacerbation. Currently the patient is doing well on the ventilator. He is on volume control mode. His tidal volume is 500 cc, PEEP of 5, FiO2 of 40% which I was able to drop down from 60%, respiratory rate of 12. We will get a arterial blood gas. Patient has evidence of hypercapnia so we will carefully avoid hyperventilating him. The patient has received significant amount of steroid. I am going to cut down his Solu-Medrol to 40 mg daily starting tomorrow morning. We will continue with ceftriaxone and azithromycin for the time being. I am hoping to extubate the patient tomorrow morning. Status: Acute Code(s): J96.20 - Acute and chronic respiratory failure, unspecified whether with hypoxia or hypercapnia (2) Community acquired pneumonia: Please see above Status: Acute Code(s): J18.9 - Pneumonia, unspecified organism (3) COPD (chronic obstructive pulmonary disease): The patient is going to need optimization of his regimen when he is ready for discharge from the hospital. Currently he is on DuoNeb and Pulmicort nebulization standing. Status: Acute Code(s): J44.9 - Chronic obstructive pulmonary disease, unspecified Coding Level of Care Code Acute Slate Splitting Supervisor for [facility] Diagnoses Acute and chronic respiratory failure J96.20 Community acquired pneumonia J18.9 COPD (chronic obstructive pulmonary disease) J44.9 Time Spent (min) 37
[2020-01-17 15:29] LABS: ABG PH Result 7.26 (7.35-7.45); Arterial Blood Gas Hematocrit 36.7 % (42-52); Blood Gas Allen Test Pos; Blood Gas Sample Site Radial, left; Blood Gas Sample Type Arterial; Blood Gas Tidal Volume 0.5; HCO3 ABG 31.9 mmol/L (22-26); Oxygen Device VENT; PO2 ABG 54.7 mmHg (80.0-100.0)
[2020-01-17] MEDS: dextrose 5%-sod chloride 0.45% 1,000 ML 75 ML IV (15:55)
--- NOTE | 2020-01-17 16:05 | PC.NURSE ---
repositioned. o2 sat down
--- NOTE | 2020-01-17 17:01 | PM.PN ---
Subjective Subjective: Interval history: This morning he is intubated, sedated. Vitals/I&O/Wt Last Vital Signs Temp 99.3 F 01/17/20 08:00 Pulse 85 01/17/20 15:18 Resp 14 01/17/20 16:57 BP 112/52 01/17/20 14:00 Pulse Ox 88 L 01/17/20 15:14 01/17/20 01/17/20 01/17/20 06:59 14:59 22:59 Intake Total 132.833 / 132.833 51.733 / 184.566 Output Total 800 / 800 Balance -800 / -800 132.833 / 132.833 51.733 / 184.566 Weight last 48 hrs Weight 134.263 kg Physical Exam Const: COMMON NORMALS: no apparent distress HENMT: COMMON NORMALS: oropharynx normal Neck/C-Spine: COMMON NORMALS: no JVD Resp: COMMON NORMALS: normal respiratory effort AUSCULTATION: diminished lung sounds Cardio: COMMON NORMALS: no JVD, regular rhythm, S1 normal heart sound, S2 normal heart sound and no murmurs RHYTHM: regular rhythm HEART SOUNDS: S1 normal and S2 normal GI: COMMON NORMALS: normal to inspection, nondistended, normoactive bowel sounds, soft to palpation and non-tender PALPATION: Yes soft Extremity: COMMON NORMALS: no joint enlargement and no pedal edema Neuro: COMMON NORMALS: moves all extremities Skin: COMMON NORMALS: no rashes or lesions noted GENERAL SKIN EXAM: no rashes or lesions noted Urinary Catheter Management^: Renae: Cath Placed During This Visit: yes Urethral Indwelling: Yes Reason for Continuing Indwelling Catheter: Accurate Measurement of Urinary Output in Critically Ill Patients Urinary Catheter Date of Insertion: 01/17/20 Urinary Catheter Time of Insertion: 03:00 Data : 01/16/20 23:30 01/16/20 23:30 Micro: Microbiology 01/16/20 23:35 Blood Culture - Preliminary Blood SPECIMEN COLLECTED 01/16/20 23:30 Blood Culture - Preliminary Blood SPECIMEN COLLECTED A&P Assessment and plan (1) Acute and chronic respiratory failure: Acute on chronic respiratory with hypoxia and hypercapnia. Gentleman with COPD, chronically dependent on oxygen 2 L during prior admission. During previous stay here in November noted to have desaturation episodes at night and was referred for sleep study as well has follow-up with pulmonology in office. It is not clear whether he had followed up on these. Currently multifactorial respiratory failure secondary to pneumonia, COPD exacerbation. Continue ceftriaxone and azithromycin. Steroids are being weaned down by pulmonology. Recommendations appreciated. His oxygenation is improving, this morning on PEEP of 10, FiO2 70%. Currently down to PEEP 5, FiO2 60%. Continue pulmonary toilet for secretions. Breathing treatments. Wean ventilatory support as tolerating. Status: Acute Code(s): J96.20 - Acute and chronic respiratory failure, unspecified whether with hypoxia or hypercapnia (2) Community acquired pneumonia: As above. Follow-up sputum culture. Influenza negative. Status: Acute Code(s): J18.9 - Pneumonia, unspecified organism Additional A&P Information Sepsis: As above. He is maintaining blood pressures. No sign of severe sepsis or septic shock. Hypertension: Monitor blood pressures Diabetes: Glucose will improve with tapering of steroids. Continue sliding scale insulin. Will add 10 units of Lantus. Suspected sleep apnea Attestations Medical Necessity Statement*: Continue admission for assessment management of acute respiratory failure with hypoxia and hypercapnia, COPD exacerbation, sepsis and pneumonia. Coding Level of Care Code Acute Analyst Business Analysis for [facility] Diagnoses Acute and chronic respiratory failure J96.20 Community acquired pneumonia J18.9
[2020-01-17 17:59] LABS: Glucose Point of Care 296 mg/dL (70-110)
[2020-01-17 18:25] LABS: Glucose Point of Care 320 mg/dL (70-110)
[2020-01-17] MEDS: insulin glargine 100 units/1 mL 10 UNIT SUBCUT (20:51)
[2020-01-17] MEDS: dextrose 5%-lactated ringers 1,000 ML 75 ML IV (21:04)
[2020-01-18] VITALS (36 sets, daily range): BP systolic 104–154; BP diastolic 38–77; PULSE 64–103; RESP 11–39; TEMP 36.6–37.7; O2SAT 83–93
[2020-01-18 01:22] LABS: Bilirubin Urine Neg (NEGATIVE); Blood Urine Trace (Negative); Glucose Urine UA Norm (Normal); Ketones Urine Negative (Negative); Nitrate Urine Negative (Negative); Protein Urine Trace (Negative); Urine Appearance Hazy (CLEAR); Urine Color Yellow (Yellow); pH Urine 5 (5-7)
[2020-01-18 01:23] LABS: Leukocyte Esterase Urine Negative (Negative); Urobilinogen Urine Norm (Negative)
[2020-01-18 01:29] LABS: Coarse Granular Casts Urine 0-4 /lpf
[2020-01-18 01:32] LABS: Add Urine Culture? Yes; Bacteria Urine TRACE; Squamous Epithelial Cell Urine 0-4 (0-5); WBC Urine 0-4 /hpf (0-5)
[2020-01-18] MEDS: budesonide 0.5 mg/2 mL Neb INHALATION ×2 (03:59→15:17)
[2020-01-18] MEDS: ipratropium-albuterol 3 mL Neb INHALATION ×6 (04:00→23:29)
[2020-01-18] MEDS: propofol 1,000 MG/100 ML INJ 8.1 MG IV (04:13)
[2020-01-18 04:33] LABS: ABG PH Result 7.32 (7.35-7.45); Arterial Blood Gas Hematocrit 33.8 % (42-52); Base Excess ABG 5.8 mmol/L (-2.0-2.0); Blood Gas Allen Test Pos; Blood Gas Sample Site Radial, right; Blood Gas Sample Type Arterial; Blood Gas Tidal Volume 0.5; HCO3 ABG 33.5 mmol/L (22-26); Oxygen Device VENT; PO2 ABG 59.3 mmHg (80.0-100.0)
[2020-01-18 04:34] LABS: ABG PCO2 64.6 mmHg (35-45)
[2020-01-18 04:54] LABS: Basophils % 0.1 %; Hematocrit 32.9 % (42.0-52.0); Hemoglobin 10.1 g/dL (11.7-16.6); Lymphocytes # 0.4 10^3/uL (0.8-4.8); Lymphocytes % 2.3 %; Mean Corpuscular HGB Conc 30.7 g/dL (30.0-36.0); Mean Corpuscular Hemoglobin 28.1 pg (28.0-34.0); Mean Corpuscular Volume 91.6 fL (80-94); Mean Platelet Volume 10.1 fL (7.4-10.4); Monocytes # 1.1 10^3/uL (0.2-0.9); Monocytes % 5.8 %; Neutrophils # 17.4 10^3/uL (1.8-7.7); Neutrophils % 91.3 %; Nucleated Red Blood Cells % 0 %; Platelet Count 181 10^3/cmm (130-400); Red Blood Count 3.59 10^6/uL (4.1-5.3); Red Cell Distribution Width 12.9 % (12.1-15.1)
[2020-01-18 05:17] LABS: Anion Gap 13.9 (5-19); Blood Urea Nitrogen 25 mg/dL (8-23); Calcium 9.1 mg/dL (8.5-10.5); Carbon Dioxide 31 mmol/L (22-29); Chloride 98 mmol/L (98-107); Glucose 311 mg/dL (65-115); Osmolality Calculated 295 mOsm/kg (285-295); Potassium 4.9 mmol/L (3.5-5.1); Sodium 138 mmol/L (136-145)
--- NOTE | 2020-01-18 06:00 | XR_ITS ---
WS: [id number] XR chest 1V portable [id number] REASON FOR EXAM: Hypoxia . Feeding tube is seen in the stomach. There is evidence of the tube extrinsic to the lungs in the right axilla.: Endotracheal tube is noted in good position Small amounts of bilateral pleural effusion. XR/XR chest 1V portable [id number] IMPRESSION: Satisfactory position endotracheal tube and feeding tube. A tube is seen extrinsic to the lungs on the right side and axilla. There is a small amount of bilateral pleural effusion.
[2020-01-18] MEDS: cefTRIAXone 1,000 MG in sodium chloride 0.9% (plus) 50 ML 100 MG IV (06:22)
[2020-01-18] MEDS: enoxaparin 40 mg/0.4 mL Syringe SUBCUT (06:22)
[2020-01-18 07:44] LABS: Glucose Point of Care 278 mg/dL (70-110)
[2020-01-18 07:44] LABS: Glucose Point of Care 292 mg/dL (70-110)
[2020-01-18] MEDS: azithromycin 500 MG in sodium chloride 0.9% 250 ML 250 MG IV (08:52)
[2020-01-18] MEDS: famotidine 20 mg Tablet NG-TUBE ×2 (08:53→18:18)
--- NOTE | 2020-01-18 10:02 | P.PN_ITS ---
Subjective Subjective: Interval history: The patient was seen and examined in ICU this morning. He is doing well. The patient is easily arousable, follows command and tries to answer question by nodding his head. He is initially on control mode and I had put him on PSVT. His FiO2 was 55%. No new overnight events. Medications: Reviewed: Yes Vitals/I&O/Wt Last Vital Signs Temp 97.6 F 01/17/20 20:00 Pulse 96 01/18/20 09:56 Resp 11 L 01/18/20 09:11 BP 123/56 01/18/20 04:00 Pulse Ox 88 L 01/18/20 09:56 01/17/20 01/18/20 01/18/20 22:59 06:59 14:59 Intake Total 387.962 / 770.795 149.776 / 920.571 0 / 0 Output Total 350 / 350 260 / 610 0 / 0 Balance 37.962 / 420.795 -110.224 / 310.571 0 / 0 Weight last 48 hrs Weight 225 lb 6 oz Weight 296 lb Physical Exam Narrative: EXAM NARRATIVE: General: The patient is intubated and sedated but easily arousable answers questions and follows commands HEENT: Bilateral mildly constricted pupil with positive light reflex Neck: No JVD Respiratory: Auscultation: Bilateral reduced breath sound, no crackles wheezing or rhonchi Cardiovascular: Regular rate and rhythm, S1-S2 present, no murmur, no right ventricular heave, no peripheral edema. Abdomen: Soft, nondistended, positive bowel sound Skin: No rash Neuro: Unable to assess because of clinical condition Urinary Catheter Management^: Renae: Cath Placed During This Visit: yes Urethral Indwelling: Yes Reason for Continuing Indwelling Catheter: Accurate Measurement of Urinary Output in Critically Ill Patients Urinary Catheter Date of Insertion: 01/17/20 Urinary Catheter Time of Insertion: 03:00 Data : 01/18/20 04:08 01/18/20 04:08 Micro: Microbiology 01/17/20 04:00 Sputum Culture - Preliminary Sputum - Endotracheal Tube Aspirate 01/16/20 23:35 Blood Culture - Preliminary Blood NEGATIVE TO DATE 01/16/20 23:30 Blood Culture - Preliminary Blood NEGATIVE TO DATE Other data: I have reviewed the patient's data. The arterial blood gas this morning is consistent with mild compensated respiratory acidosis. The patient has evidence of significant hypercapnia. A&P Assessment and plan (1) Acute and chronic respiratory failure: The patient has improved significantly. I believe the patient is ready for extubation. I am going to put him on PSB 5/5. His SPO2 goal is 88% and above. Once he is more awake the plan is to extubate him to BiPAP given his hypercapnic respiratory failure. The patient qualifies for noninvasive positive pressure ventilation at home. I would recommend him getting a BiPAP or a trilogy during discharge. Status: Acute Qualifiers: Respiratory failure complication: hypoxia and hypercapnia Qualified Code(s): J96.21 - Acute and chronic respiratory failure with hypoxia; J96.22 - Acute and chronic respiratory failure with hypercapnia Code(s): J96.20 - Acute and chronic respiratory failure, unspecified whether with hypoxia or hypercapnia (2) Community acquired pneumonia: The patient is on ceftriaxone and azithromycin. Status: Acute Qualifiers: Laterality: left Lung location: lower lobe of lung Qualified Code(s): J18.9 - Pneumonia, unspecified organism Code(s): J18.9 - Pneumonia, unspecified organism (3) COPD (chronic obstructive pulmonary disease): Given his significant hypercapnia would assume his FEV1 is less than 40%. I do not have any pulmonary function test. Patient will need to follow-up with me as outpatient. He will need triple inhaler therapy on discharge. Status: Acute Code(s): J44.9 - Chronic obstructive pulmonary disease, unspecified Attestations Medical Necessity Statement*: Will defer to the primary team Coding Level of Care Code Acute Supervisor [employer] for [facility] Diagnoses Acute and chronic respiratory failure J96.21; J96.22 Respiratory failure complication: hypoxia and hypercapnia Community acquired pneumonia J18.9 Laterality: left Lung location: lower lobe of lung COPD (chronic obstructive pulmonary disease) J44.9 Time Spent (min) 32
--- NOTE | 2020-01-18 10:21 | PC.CHAP ---
Pastoral Care Encounter/Spiritual Assessment Type of Contact [] Declined health and safety coordinator visit [] Patient/Family/Request visit [] Outpatient visit [] Follow-up visit [] Physician referral [] Code/Alert [x] Routine visit [] Staff referral [] Actively dying [] Patient sleeping [x] Family support [] [] Out of room [] Palliative care [] [] Receiving care in room [] Pre-surgical visit [] Trauma [] Long length of stay [x] ICU visit [] Other: Relational/Emotional Strength [] Patient feels connected with others/family/visitors/staff [] Distress [] Loneliness/isolation [] Abandonment Spirituality of Patient [x] Person of Mini [] Attends Sabianism of their Mini [x] Believes in Prayer [] Reads Bible or Mandaeism materials [] There are Spiritual issues to be addressed Subscription Clerk Interventions [x] Prayer [] Active listening [] Non-anxious presence [] Spiritual/emotional support [] Crisis/trauma care [] Spiritual counseling [] Bereavement support [] Provided bereavement packet [] Provided Bible/devotional materials [] Provided toy/stuffed animal, coloring book to patient or family member [] Provided Communion [] Anointing/[place] [] Salvation [x] Completed spiritual assessment [] Other: Impact on Illness or Injury [] Angry [] Fearful [] Anxious [] Often cries [] Exhaustion [] Unable to work [] Unable to attend restorationism [] Unable to walk/stand [] Unable to read [] Unable to drive [] Unable to eat/drink [] Unable to sleep [] Unable to be with family [] Patient intubated [] Other: Summary Patient unable to communicate, on ventilator. Brother present. Time spent with patient 10min
[2020-01-18] MEDS: dextrose 5%-lactated ringers 1,000 ML 75 ML IV (10:58)
--- NOTE | 2020-01-18 12:18 | PC.RESP ---
Information on Pulmonary Rehab left at bedside.
[2020-01-18 12:30] LABS: Glucose Point of Care 225 mg/dL (70-110)
--- NOTE | 2020-01-18 14:29 | P.PN_ITS ---
Subjective Subjective: Interval history: This morning bothered somewhat by ET tube, but otherwise no pain or other discmofort. Looking forward to being extubated. Vitals/I&O/Wt Last Vital Signs Temp 99.9 F H 01/18/20 10:27 Pulse 90 01/18/20 13:24 Resp 18 01/18/20 13:24 BP 130/66 01/18/20 10:27 Pulse Ox 93 01/18/20 13:24 01/17/20 01/18/20 01/18/20 22:59 06:59 14:59 Intake Total 387.962 / 770.795 149.776 / 920.571 0 / 0 Output Total 350 / 350 260 / 610 0 / 0 Balance 37.962 / 420.795 -110.224 / 310.571 0 / 0 Weight last 48 hrs Weight 102.228 kg Weight 134.263 kg Physical Exam Const: COMMON NORMALS: no apparent distress GENERAL APPEARANCE: cooperative NUTRITIONAL APPEARANCE: obese ORIENTATION/CONSCIOUSNESS: Yes awake HENMT: COMMON NORMALS: oropharynx normal Neck/C-Spine: COMMON NORMALS: no JVD Resp: COMMON NORMALS: normal respiratory effort AUSCULTATION: diminished lung sounds Cardio: COMMON NORMALS: no JVD, regular rhythm, S1 normal heart sound, S2 normal heart sound and no murmurs RHYTHM: regular rhythm HEART SOUNDS: S1 normal and S2 normal GI: COMMON NORMALS: normal to inspection, nondistended, normoactive bowel sounds, soft to palpation and non-tender PALPATION: Yes soft Extremity: COMMON NORMALS: no joint enlargement and no pedal edema Neuro: COMMON NORMALS: moves all extremities Skin: COMMON NORMALS: no rashes or lesions noted GENERAL SKIN EXAM: no rashes or lesions noted Urinary Catheter Management^: Renae: Cath Placed During This Visit: yes Urethral Indwelling: Yes Reason for Continuing Indwelling Catheter: Accurate Measurement of Urinary Output in Critically Ill Patients Urinary Catheter Date of Insertion: 01/17/20 Urinary Catheter Time of Insertion: 03:00 Data : 01/18/20 04:08 01/18/20 04:08 Micro: Microbiology 01/17/20 04:00 Sputum Culture - Preliminary Sputum - Endotracheal Tube Aspirate 01/16/20 23:35 Blood Culture - Preliminary Blood NEGATIVE TO DATE 01/16/20 23:30 Blood Culture - Preliminary Blood NEGATIVE TO DATE A&P Assessment and plan (1) Acute and chronic respiratory failure: This morning doing well. Extubated. Has not yet had sleep study. Scheduled for 02/04. Will request for overnight pulse ox given readmission once he is closer to his baseline oxygen requirement. Currently multifactorial respiratory failure secondary to pneumonia, COPD exacerbation. Continue ceftriaxone and azithromycin. Steroids. Continue pulmonary toilet for secretions. Breathing treatments. Status: Acute Qualifiers: Respiratory failure complication: hypoxia and hypercapnia Qualified Cod e(s): J96.21 - Acute and chronic respiratory failure with hypoxia; J96.22 - Acute and chronic respiratory failure with hypercapnia Code(s): J96.20 - Acute and chronic respiratory failure, unspecified whether with hypoxia or hypercapnia (2) Community acquired pneumonia: As above. Follow-up sputum culture. Influenza negative. Status: Acute Qualifiers: Laterality: left Lung location: lower lobe of lung Qualified Code(s): J18.9 - Pneumonia, unspecified organism Code(s): J18.9 - Pneumonia, unspecified organism Additional A&P Information Sepsis: Should be resolving. Leukocytosis of 19, however, this is likely secondary to steroids. He is maintaining blood pressures. No sign of severe sepsis or septic shock. Hypertension: Monitor blood pressures Diabetes: Glucose will improve with tapering of steroids. Continue sliding scale insulin. 15 units of Lantus. Suspected sleep apnea Attestations Medical Necessity Statement*: Continue admission for assessment management of respiratory failure with hypoxia, hypercapnia, pneumonia with underlying COPD, sleep apnea. Coding Level of Care Code Acute Business Continuity Specialist for [facility] Fwd Exam Comprehensive Diagnoses Acute and chronic respiratory failure J96.21; J96.22 Respiratory failure complication: hypoxia and hypercapnia Community acquired pneumonia J18.9 Laterality: left Lung location: lower lobe of lung
[2020-01-18 17:33] LABS: Glucose Point of Care 234 mg/dL (70-110)
[2020-01-18] MEDS: insulin glargine 100 units/1 mL 15 UNIT SUBCUT (21:28)
[2020-01-19] VITALS (29 sets, daily range): BP systolic 100–168; BP diastolic 54–91; PULSE 63–160; RESP 6–42; TEMP 36.7–37.7; O2SAT 85–96
[2020-01-19] MEDS: dextrose 5%-lactated ringers 1,000 ML 75 ML IV ×2 (01:13→16:33)
[2020-01-19] MEDS: budesonide 0.5 mg/2 mL Neb INHALATION ×2 (03:16→15:22)
[2020-01-19] MEDS: ipratropium-albuterol 3 mL Neb INHALATION ×6 (03:16→23:04)
[2020-01-19 04:17] LABS: Basophils % 0.1 %; Hematocrit 32.9 % (42.0-52.0); Hemoglobin 10.1 g/dL (11.7-16.6); Lymphocytes # 0.9 10^3/uL (0.8-4.8); Mean Corpuscular HGB Conc 30.7 g/dL (30.0-36.0); Mean Corpuscular Hemoglobin 29.3 pg (28.0-34.0); Mean Corpuscular Volume 95.4 fL (80-94); Mean Platelet Volume 9.7 fL (7.4-10.4); Monocytes # 1.4 10^3/uL (0.2-0.9); Neutrophils # 14.8 10^3/uL (1.8-7.7); Neutrophils % 86.3 %; Nucleated Red Blood Cells % 0 %; Platelet Count 171 10^3/cmm (130-400); Red Blood Count 3.45 10^6/uL (4.1-5.3); Red Cell Distribution Width 13.7 % (12.1-15.1); White Blood Count 17.2 10^3/uL (4.0-10.0)
[2020-01-19 04:32] LABS: Anion Gap 11.3 (5-19); Blood Urea Nitrogen 20 mg/dL (8-23); Calcium 9.1 mg/dL (8.5-10.5); Carbon Dioxide 33 mmol/L (22-29); Chloride 97 mmol/L (98-107); Glucose 186 mg/dL (65-115); Osmolality Calculated 285 mOsm/kg (285-295); Potassium 4.3 mmol/L (3.5-5.1); Sodium 137 mmol/L (136-145)
[2020-01-19] MEDS: enoxaparin 40 mg/0.4 mL Syringe SUBCUT (06:10)
[2020-01-19] MEDS: cefTRIAXone 1,000 MG in sodium chloride 0.9% (plus) 50 ML 100 MG IV (06:10)
--- NOTE | 2020-01-19 06:16 | PC.NURSE ---
SHIFT SUMMARY PT HAS REMAINED ALERT AND ORIENTATED. PT IV REMAINS PATENT. PT HAS BEEN ON BIPAP RESTING WITH EVEN AND UNLABORED BREATHS THROUGHOUT THE NIGHT. PT WILL HIT BELOW 60HR WHILE RESTING, WHEN HE WAKES BACK UP FULLY HIS HEAR RATE IS BACK TO NORMAL AND DOES NOT PAM. PT IS ASYMPTOMATIC, AWAKENS WITH NO PROBLEMS. PT LUNGS HAVE BEEN COARSE AT TIMES AND HAS A WHEEZE AT TIMES, NONPRODUCTIVE COUGH. PT HAS HAD ADEQUATE URINE OUTPUT. DR SANCHEZ GAVE OKAY FOR RESPIRATORY TO ADJUST BIPAP SETTINGS THEY SAW FIT TO IMPROVE PATIENT RESPIRATORY STATUS. PT HAS BEEN TURNED PERIODICALLY WELL THROUGH OUT THE NIGHT.
[2020-01-19] MEDS: famotidine 20 mg Tablet NG-TUBE ×2 (08:38→18:12)
[2020-01-19] MEDS: azithromycin 500 MG in sodium chloride 0.9% 250 ML 250 MG IV (08:43)
--- NOTE | 2020-01-19 10:16 | PC.NURSE ---
Patient put retention specialist light and requested to be moved up in bed. His respiratory status was 42 breaths/min at the time. Radha and Yadi moved him up in the bed and then placed the patient on bipap.
[2020-01-19 11:43] LABS: Glucose Point of Care 177 mg/dL (70-110)
[2020-01-19 11:43] LABS: Glucose Point of Care 193 mg/dL (70-110)
[2020-01-19] MEDS: sertraline 50 mg Tablet PO (16:24)
[2020-01-19] MEDS: levothyroxine 50 mcg Tablet PO (16:24)
[2020-01-19] MEDS: atorvastatin 40 mg Tablet 80 MG PO (16:24)
--- NOTE | 2020-01-19 16:57 | P.PN_ITS ---
Subjective Subjective: Interval history: Feeling well in the morning. Early afternoon feeling more dyspneic, requiring to be placed on BiPAP. Asking how long he may need to stay in the hospital. Medications: Reviewed: Yes Vitals/I&O/Wt Last Vital Signs Temp 98.7 F 01/19/20 16:00 Pulse 92 01/19/20 16:00 Resp 20 H 01/19/20 16:00 BP 168/91 01/19/20 16:00 Pulse Ox 92 01/19/20 16:00 01/19/20 01/19/20 01/19/20 06:59 14:59 22:59 Intake Total 1000 / 1850 1000 / 1000 Output Total 800 / 1440 1280 / 1280 Balance 200 / 410 -280 / -280 Weight last 48 hrs Weight 102.228 kg Physical Exam Const: COMMON NORMALS: no apparent distress and oriented x3 GENERAL APPEARANCE: cooperative NUTRITIONAL APPEARANCE: obese ORIENTATION/CONSCIOUSNESS: Yes awake HENMT: COMMON NORMALS: oropharynx normal Neck/C-Spine: COMMON NORMALS: no JVD Resp: COMMON NORMALS: normal respiratory effort AUSCULTATION: wheezes Cardio: COMMON NORMALS: no JVD, regular rhythm, S1 normal heart sound, S2 normal heart sound and no murmurs RHYTHM: regular rhythm HEART SOUNDS: S1 normal and S2 normal GI: COMMON NORMALS: normal to inspection, nondistended, normoactive bowel sounds, soft to palpation and non-tender PALPATION: Yes soft Extremity: COMMON NORMALS: no joint enlargement Neuro: COMMON NORMALS: oriented x3 and moves all extremities Skin: COMMON NORMALS: no rashes or lesions noted GENERAL SKIN EXAM: no rashes or lesions noted Urinary Catheter Management^: Renae: Cath Placed During This Visit: yes Urethral Indwelling: Yes Reason for Continuing Indwelling Catheter: Accurate Measurement of Urinary Output in Critically Ill Patients Urinary Catheter Date of Insertion: 01/17/20 Urinary Catheter Time of Insertion: 03:00 Data : 01/19/20 03:46 01/19/20 03:46 Micro: Microbiology 01/16/20 01:00 Urine Culture - Preliminary Urine,Clean Catch 01/17/20 04:00 Sputum Culture - Final Sputum - Endotracheal Tube Aspirate A&P Assessment and plan (1) Acute and chronic respiratory failure: Requiring 12 L high flow oxygen this morning. Feeling comfortable, although early afternoon requiring BiPAP support temporarily due to dyspnea. Currently multifactorial respiratory failure secondary to pneumonia, COPD exacerbation. Continue ceftriaxone and azithromycin. Increase his steroids frequency somewhat as he has bilateral wheezes this afternoon dyspnea, persistent hypoxia. Continue pulmonary toilet for secretions. Breathing treatments. Has not yet had sleep study. Scheduled for 02/04. Will request for overnight pulse ox given readmission once he is closer to his baseline oxygen requirement. Status: Acute Qualifiers: Respiratory failure complication: hypoxia and hypercapnia Qualified Code(s): J96.21 - Acute and chronic respiratory failure with hypoxia; J96.22 - Acute and chronic respiratory failure with hypercapnia Code(s): J96.20 - Acute and chronic respiratory failure, unspecified whether with hypoxia or hypercapnia (2) Community acquired pneumonia: As above. Mixed arthur in sputum culture. Influenza negative. Status: Acute Qualifiers: Laterality: left Lung location: lower lobe of lung Qualified Code(s): J18.9 - Pneumonia, unspecified organism Code(s): J18.9 - Pneumonia, unspecified organism Additional A&P Information Sepsis: Should be resolving. Leukocytosis with mild improvement, however, this is likely secondary to steroids. He is maintaining blood pressures. No sign of severe sepsis or septic shock. Hypertension: Monitor blood pressures Diabetes: Glucose will improve with tapering of steroids. Continue sliding scale insulin. 17 units of Lantus. Suspected sleep apnea Attestations Medical Necessity Statement*: Continue admission this management of acute on chronic respiratory failure, pneumonia, COPD exacerbation. Coding Level of Care Code Acute Adjunct History Instructor for [facility] Diagnoses Acute and chronic respiratory failure J96.21; J96.22 Respiratory failure complication: hypoxia and hypercapnia Community acquired pneumonia J18.9 Laterality: left Lung location: lower lobe of lung
[2020-01-19 17:55] LABS: Glucose Point of Care 320 mg/dL (70-110)
--- NOTE | 2020-01-19 18:19 | ECG_ITS ---
Measurements Intervals [place] Rate: 118 P: [place]: 0 QRS: 56 QRSD: 90 T: 65 QT: 304 QTc: 427 ATRIAL FIBRILLATION WITH RAPID VENTRICULAR RESPONSE Compared to ECG 01/17/2020 05:03:37 Sinus rhythm no longer present Sinus arrhythmia no longer present T-wave abnormality no longer present Electronically Signed On 01-20-2020 13:06:31 POLISHING WHEEL REPAIRER by Ashwini Lozano M.D. [email or web address]
[2020-01-19] MEDS: metoprolol tartrate 1 mg/1 mL SDV 5 mL 5 MG IV (18:22)
[2020-01-19] MEDS: metoprolol tartrate 25 mg Tablet PO (19:44)
[2020-01-19 20:47] LABS: Glucose Point of Care 223 mg/dL (70-110)
[2020-01-19] MEDS: insulin glargine 100 units/1 mL 17 UNIT SUBCUT (21:32)
--- NOTE | 2020-01-19 21:48 | PC.NURSE ---
HOSPITALIST WAS CALLED FOR ELEVATED HR 130-150'S. DR WANTED AN EKG AND A CALL BACK. EKG SHOWED A-FIB WITH RVR. HOSPITALIST SAID TO GIVE 2.5 LOPRESSOR IV NOW. REIMBURSEMENT AUDITOR NURSE TO GIVE. WILL CONTINUE TO MONITOR.
[2020-01-19] MEDS: metoprolol tartrate 1 mg/1 mL SDV 5 mL 2.5 MG IV (22:11)
[2020-01-20] VITALS (18 sets, daily range): BP systolic 132–164; BP diastolic 72–87; PULSE 61–147; RESP 16–32; TEMP 36.6–36.8; O2SAT 91–98
[2020-01-20] MEDS: ipratropium-albuterol 3 mL Neb INHALATION ×6 (04:35→23:42)
[2020-01-20] MEDS: budesonide 0.5 mg/2 mL Neb INHALATION ×2 (04:35→15:55)
[2020-01-20 06:01] LABS: Basophils % 0.1 %; Eosinophils % 0.1 %; Hematocrit 36.8 % (42.0-52.0); Hemoglobin 11.2 g/dL (11.7-16.6); Lymphocytes # 1.3 10^3/uL (0.8-4.8); Lymphocytes % 9.4 %; Mean Corpuscular HGB Conc 30.4 g/dL (30.0-36.0); Mean Corpuscular Hemoglobin 29.3 pg (28.0-34.0); Mean Corpuscular Volume 96.3 fL (80-94); Mean Platelet Volume 10.2 fL (7.4-10.4); Monocytes # 1.4 10^3/uL (0.2-0.9); Monocytes % 9.9 %; Neutrophils % 79.3 %; Nucleated Red Blood Cells % 0 %; Platelet Count 183 10^3/cmm (130-400); Positive C 1; Red Blood Count 3.82 10^6/uL (4.1-5.3); Red Cell Distribution Width 13.5 % (12.1-15.1); White Blood Count 13.8 10^3/uL (4.0-10.0)
[2020-01-20] MEDS: cefTRIAXone 1,000 MG in sodium chloride 0.9% (plus) 50 ML 100 MG IV (06:06)
[2020-01-20] MEDS: dextrose 5%-lactated ringers 1,000 ML 75 ML IV (06:06)
[2020-01-20] MEDS: enoxaparin 40 mg/0.4 mL Syringe SUBCUT (06:06)
[2020-01-20 06:16] LABS: Anion Gap 15.7 (5-19); Blood Urea Nitrogen 22 mg/dL (8-23); Calcium 9.2 mg/dL (8.5-10.5); Carbon Dioxide 28 mmol/L (22-29); Chloride 96 mmol/L (98-107); Glucose 160 mg/dL (65-115); Osmolality Calculated 280 mOsm/kg (285-295); Potassium 4.7 mmol/L (3.5-5.1); Sodium 135 mmol/L (136-145)
[2020-01-20 06:45] LABS: Slide Review Slide Review Perform
[2020-01-20 06:55] LABS: Glucose Point of Care 156 mg/dL (70-110)
[2020-01-20] MEDS: metoprolol tartrate 1 mg/1 mL SDV 5 mL 5 MG IV (08:21)
[2020-01-20] MEDS: atorvastatin 40 mg Tablet 80 MG PO (08:29)
[2020-01-20] MEDS: sertraline 50 mg Tablet PO (08:30)
[2020-01-20] MEDS: levothyroxine 50 mcg Tablet PO (08:30)
[2020-01-20] MEDS: famotidine 20 mg Tablet NG-TUBE ×2 (08:30→20:36)
[2020-01-20] MEDS: metoprolol tartrate 25 mg Tablet PO (08:49)
[2020-01-20 09:19] LABS: Thyroid Stimulating Hormone 1.97 uIU/mL (0.27-4.20)
--- NOTE | 2020-01-20 11:32 | PC.SOCIAL ---
IMM Update Pg 2 of IMM given and explained to patient who verbalized understanding. Signed, dated, and timed, and placed in chart. Copy provided to patient.
[2020-01-20 12:07] LABS: Glucose Point of Care 231 mg/dL (70-110)
--- NOTE | 2020-01-20 14:49 | PM.CONSULT ---
Providers/Reason For Consult Consulting Physican/Specialty*: Dr. Lozano, cardiology Reason for Consult*: Atrial fibrillation with rapid ventricular response and intermittent episodes of bradycardia. Attending Physician: Ruben Davis History of Present Illness History of Present Illness Roland Wilson is a 74 year old male with past medical history of hypertension, diabetes mellitus, COPD, obstructive sleep apnea, depression and cognitive impairment who presented on 17 January with cough, worsening dyspnea and respiratory distress he was placed initially on BiPAP followed by intubation. He was treated for COPD exacerbation and committee acquired pneumonia. Patient was extubated on 18 January and got transferred out of unit yesterday. After being transferred he went into atrial fibrillation with rapid ventricular response with heart rate reaching 140s. He received IV Lopressor followed by metoprolol tartrate 25 mg twice a day initiation. He was noted to be in intermittent episodes of bradycardia with heart rate dropping in 50s. I have been asked to evaluate and assist in further management. Review of Systems Const: Denies: chills Eyes: Denies: change in vision ENMT: Denies: nasal congestion or nasal obstruction Card: Denies: chest pain, palpitations, edema or shortness of breath when lying down Resp: Denies: shortness of breath GI: Denies: abdominal pain, nausea, vomiting or blood in stool : Denies: blood in urine Skin/Breast: Denies: rash Endo: Denies: change in body appearance Elijah/Lymph: Denies: easy bruising or easy bleeding Meds/Allergies Home Medications and Allergies Home Medications Medication Instructions Recorded Confirmed Type albuterol sulfate 0.63 mg INHALATION QID 01/17/20 01/17/20 History budesonide [Pulmicort] 0.5 mg INHALATION BID 01/17/20 01/17/20 History dulaglutide [Trulicity] 1.5 mg SUBCUT DIRECTED 01/17/20 01/17/20 History furosemide [Lasix] 20 mg PO DAILY 01/17/20 01/17/20 History glipizide [Glucotrol XL] 5 mg PO DAILY 01/17/20 01/17/20 History insulin detemir U-100 [Levemir See Rx Instructions .ROUTE .COMPLEX 01/17/20 01/17/20 History FlexTouch U-100 Insuln] levocetirizine [Allergy Relief 5 mg PO DAILY 01/17/20 01/17/20 History (levocetirizin)] levothyroxine [Synthroid] 50 mcg PO DAILY 01/17/20 01/17/20 History lisinopril [Prinivil] 10 mg PO DAILY 01/17/20 01/17/20 History metformin [Glucophage] 1,000 mg PO BID 01/17/20 01/17/20 History metoprolol tartrate [Lopressor] 50 mg PO BID 01/17/20 01/17/20 History pen needle, diabetic [Easy Touch] 01/17/20 01/17/20 History risperidone [Risperdal] 3 mg PO DAILY 01/17/20 01/17/20 History rosuvastatin [Crestor] 40 mg PO DAILY 01/17/20 01/17/20 History sertraline [Zoloft] 50 mg PO DAILY 01/17/20 01/17/20 History Allergies Allergy/AdvReac Type Severity Reaction Status Date / Time canagliflozin Allergy Unknown Uncoded 01/17/20 14:20 Current Medications Current Medications Generic Name Dose Route Start Last Admin Trade Name Freq PRN Reason Stop Dose Admin Albuterol/Ipratropium 3 ml 01/17/20 08:00 01/20/20 12:48 Duoneb INHALATION 3 ml Q4H.RESPIRATORY NAN Administration Atorvastatin Calcium 80 mg 01/19/20 14:21 01/20/20 08:29 Lipitor PO 80 mg DAILY NAN Administration Budesonide 0.5 mg 01/17/20 03:45 01/20/20 04:35 Pulmicort INHALATION 0.5 mg Q12H ANN Administration Enoxaparin Sodium 40 mg 01/17/20 07:00 01/20/20 06:06 Lovenox SUBCUT 40 mg Q24H NAN Administration Famotidine 20 mg 01/17/20 09:00 01/20/20 08:30 Pepcid Tab NG-TUBE 20 mg BID NAN Administration Fentanyl 1,000 mcg/ Sodium 100 mls @ 0 mls/hr 01/17/20 02:15 01/18/20 05:07 Chloride IV 30 mcg/hr .Q0M NAN 3 mls/hr Titration Protocol Per Protocol Propofol 1,000 mg in 100 mls @ 0 mls/hr 01/17/20 02:45 01/18/20 06:31 Diprivan IV 10 mcg/kg/min .Q0M NAN 8.1 mls/hr Titration Protocol Per Protocol Ceftriaxone Sodium 1,000 mg/ 50 mls @ 100 mls/hr 01/17/20 06:30 01/20/20 06:06 Sodium Chloride IV 100 mls/hr Q24H NAN Administration Protocol Dextrose/Lactated Ringer's 1,000 mls @ 75 mls/hr 01/18/20 11:00 01/20/20 06:06 Dextrose 5%-Lactated Ringers IV 75 mls/hr .[id number] NAN Administration Insulin Aspart 0 unit 01/17/20 08:00 01/20/20 11:53 Novolog SUBCUT 10 unit WM&BEDTIME NAN Administration Protocol Insulin Glargine 17 unit 01/19/20 21:00 01/19/20 21:32 Lantus SUBCUT 17 unit BEDTIME NAN Administration Levothyroxine Sodium 50 mcg 01/19/20 14:21 01/20/20 08:30 Synthroid PO 50 mcg DAILY ANN Administration Methylprednisolone Sodium Succinate 40 mg 01/19/20 18:00 01/20/20 08:31 Solu-Medrol IVP 40 mg BID NAN Administration Metoprolol Tartrate 5 mg 01/17/20 03:35 01/20/20 08:21 Metoprolol Tartrate IV 5 mg Q4H PRN Administration blood pressure Metoprolol Tartrate 50 mg 01/20/20 09:00 01/20/20 08:48 Lopressor PO Not Given BID NAN Sertraline HCl 50 mg 01/19/20 14:21 01/20/20 08:30 Zoloft PO 50 mg DAILY NAN Administration PFSH Acute PFSH: Medical History Concussion COPD (chronic obstructive pulmonary disease) Diabetes mellitus Glaucoma Hypertension Major depression Mild cognitive impairment Psychosis Sleep apnea Family History Other Psychiatric illness Social History Smoking and tobacco status: former smoker Vitals/I&O/Wt Last Vital Signs Temp 97.8 F 01/20/20 11:22 Pulse 113 H 01/20/20 13:10 Resp 18 01/20/20 13:10 BP 162/81 01/20/20 11:22 Pulse Ox 94 01/20/20 13:10 01/19/20 01/20/20 01/20/20 22:59 06:59 14:59 Intake Total 1000 / 1999 360 / 360 Output Total 1500 / 2780 475 / 3255 1800 / 1800 Balance -1500 / -1780 525 / -1255 -1440 / -1440 Physical Exam Const: COMMON NORMALS: no apparent distress, oriented x3 and alert GENERAL APPEARANCE: cooperative, comfortable, well kempt and well hydrated HENMT: COMMON NORMALS: hearing grossly normal bilaterally, external ears normal and moist oral mucous membranes EXTERNAL EAR: Yes external ears normal Eye: COMMON NORMALS: EOMs intact bilaterally and no scleral icterus Neck/C-Spine: COMMON NORMALS: no lymphadenopathy, supple and no JVD CAROTIDS: Yes normal carotid upstroke Chest: COMMONS NORMALS: inspection of chest normal and palpation of chest normal CHEST: Yes symmetrical chest wall rise and No tenderness Resp: COMMON NORMALS: clear to auscultation bilaterally AUSCULTATION: clear to auscultation bilaterally, no crackles, no rales, no rhonchi and no wheezes Cardio: COMMON NORMALS: no JVD, regular rate, regular rhythm, S1 normal heart sound, S2 normal heart sound and peripheral pulses 2+ throughout PALPATION: normal PMI RATE: regular rate RHYTHM: regular rhythm HEART SOUNDS: S1 normal, S2 normal, no click, no gallops and no murmurs BRUITS: no carotid bruits PERIPHERAL PULSES: pulses 2+ throughout, radial pulses present, posterior tibial pulses present and dorsalis pedis pulses present Extremity: GENERAL: No clubbing, No cyanosis, Yes edema and No pallor Neuro: COMMON NORMALS: oriented x3, CN's II-XII intact bilaterally and no focal motor deficits SENSORIUM/ORIENTATION: Yes alert Psych: APPEARANCE: Yes well kempt Urinary Catheter Management^: Renae: Cath Placed During This Visit: yes Urethral Indwelling: Yes Reason for Continuing Indwelling Catheter: Other Urinary Catheter Date of Insertion: 01/17/20 Urinary Catheter Time of Insertion: 03:00 Data Micro: Micro: Microbiology 01/16/20 01:00 Urine Culture - Fi nal Urine,Clean Catch 01/17/20 04:00 Sputum Culture - F inal Sputum - Endotrac heal Tube Aspirate A&P Assessment and plan (1) Atrial fibrillation: Patient is currently in NSR with frequent PAC's. He was in atrial fibrillation with RVR. -Hematuria likely Renae trauma earlier today. Plan for DOAC if their is recurrence of Atrial fibrillation and hematuria resolves. -currently on metoprolol, continue. Status: Acute Qualifiers: Atrial fibrillation type: paroxysmal Qualified Code(s): I48.0 - Paroxysmal atrial fibrillation Code(s): I48.91 - Unspecified atrial fibrillation (2) COPD exacerbation: Status: Acute Code(s): J44.1 - Chronic obstructive pulmonary disease with (acute) exacerbation (3) Community acquired pneumonia: On antibiotics as per primary team. Status: Acute Qualifiers: Laterality: left Lung location: lower lobe of lung Qualified Code(s): J18.9 - Pneumonia, unspecified organism Code(s): J18.9 - Pneumonia, unspecified organism (4) Mild cognitive impairment: Status: Acute Code(s): G31.84 - Mild cognitive impairment, so stated (5) COPD (chronic obstructive pulmonary disease): Status: Acute Code(s): J44.9 - Chronic obstructive pulmonary disease, unspecified (6) Sleep apnea: Status: Acute Code(s): G47.30 - Sleep apnea, unspecified (7) Diabetes mellitus: Status: Acute Code(s): E11.9 - Type 2 diabetes mellitus without complications (8) Hypertension: well controlled. continue current medications. Status: Acute Qualifiers: Hypertension type: essential hypertension Qualified Code(s): I10 - Essential (primary) hypertension Code(s): I10 - Essential (primary) hypertension Additional A&P Information Thank you for allowing me to participate in patient's care. Please feel free to call with questions or concerns. Coding Level of Care Code Acute Nurse Staff Industrial for [facility] Fwd Diagnoses Atrial fibrillation I48.0 Atrial fibrillation type: paroxysmal COPD exacerbation J44.1 Community acquired pneumonia J18.9 Laterality: left Lung location: lower lobe of lung Mild cognitive impairment G31.84 COPD (chronic obstructive pulmonary disease) J44.9 Sleep apnea G47.30 Diabetes mellitus E11.9 Hypertension I10 Hypertension type: essential hypertension
[2020-01-20] MEDS: morphine 4 mg/mL SDV 1 mL 2 MG IVP (16:06)
--- NOTE | 2020-01-20 16:27 | P.CONIM_ITS ---
Providers/Reason For Consult Consulting Physican/Specialty*: Urology/Chaves Reason for Consult*: Catheter malpositioned, could not remove Attending Physician: Ruben Davis History of Present Illness History of Present Illness Roland Wilson is a 74 year old male who I evaluated for the first time this evening at the request of Dr. Davis. Patient has had a Renae catheter in place to assist with volume management during exacerbation of COPD/respiratory failure requiring intubation and ICU stay earlier this hospitalization. Today the patient ambulated from the bed with a catheter still connected to the bedside and it appeared that the catheter was partially withdrawn into the urethra. He had some clots around the catheter and in the tubing. Output was good for a while but then decreased. Attempts at decompressing the balloon and changing the catheter or removing it were unsuccessful due to no return. The port was divided and still no drainage. I was consulted for evaluation of catheter removal. Patient was in no distress. Patient denies any significant baseline voiding symptoms. His medicine list does not include anything for BPH. Procedure: Malpositioned catheter removal (difficult catheter removal) and catheter placement. He was prepped with Betadine. The catheter was prepped into the field. Perineum was also prepped. Palpation revealed normal scrotal findings. The balloon was palpable in the deep perineum. Steady pressure on the catheter failed to withdraw the catheter. The guidewire was then passed through the balloon port and the catheter was put on some tension to try to straighten out the kink but this was unsuccessful. 2% lidocaine jelly was instilled around the catheter but this also failed to yield dislodgment of the kinked tube. With the balloon palpable a 22-gauge IV needle was used to puncture the balloon with the skin stretched over the balloon and the balloon fixed to be easily accessible. There was immediate drainage of the balloon. Catheter was then easily removed. He did have some oozing from the urethra. So rather than leave the catheter out it was decided to replace the catheter. 2% lidocaine jelly was instilled into the urethra and then a 16 Tamazight coud? catheter was advanced into the bladder through the traumatized area without restriction. Good return. 10 cc placed in the balloon and the catheter was placed to dependent drainage. It is recommended that the catheter remain in place at least for hemostatic purposes for the next 24 hours approximately. At that point if there is not significant oozing around the catheter a voiding trial can be attempted. Review of Systems Const: Denies: fever or chills Eyes: Denies: blurry vision Resp: Reports: shortness of breath; Denies: productive cough or stridor GI: Denies: abdominal pain, nausea or vomiting : Reports: other (See HPI. Some blood around the catheter); Denies: flank pain Musc: Denies: muscle cramps Skin/Breast: Denies: rash or redness Neuro: Denies: confusion or slurred speech Psych: Denies: anxiety Endo: Denies: flushing Elijah/Lymph: Denies: easy bruising or easy bleeding Meds/Allergies Home Medications and Allergies Home Medications Medication Instructions Recorded Confirmed Type albuterol sulfate 0.63 mg INHALATION QID 01/17/20 01/17/20 History budesonide [Pulmicort] 0.5 mg INHALATION BID 01/17/20 01/17/20 History dulaglutide [Trulicity] 1.5 mg SUBCUT DIRECTED 01/17/20 01/17/20 History furosemide [Lasix] 20 mg PO DAILY 01/17/20 01/17/20 History glipizide [Glucotrol XL] 5 mg PO DAILY 01/17/20 01/17/20 History insulin detemir U-100 [Levemir See Rx Instructions .ROUTE .COMPLEX 01/17/20 01/17/20 History FlexTouch U-100 Insuln] levocetirizine [Allergy Relief 5 mg PO DAILY 01/17/20 01/17/20 History (levocetirizin)] levothyroxine [Synthroid] 50 mcg PO DAILY 01/17/20 01/17/20 History lisinopril [Prinivil] 10 mg PO DAILY 01/17/20 01/17/20 History metformin [Glucophage] 1,000 mg PO BID 01/17/20 01/17/20 History metoprolol tartrate [Lopressor] 50 mg PO BID 01/17/20 01/17/20 History pen needle, diabetic [Easy Touch] 01/17/20 01/17/20 History risperidone [Risperdal] 3 mg PO DAILY 01/17/20 01/17/20 History rosuvastatin [Crestor] 40 mg PO DAILY 01/17/20 01/17/20 History sertraline [Zoloft] 50 mg PO DAILY 01/17/20 01/17/20 History Allergies Allergy/AdvReac Type Severity Reaction Status Date / Time canagliflozin Allergy Unknown Uncoded 01/17/20 14:20 Current Medications Current Medications Generic Name Dose Route Start Last Admin Trade Name Freq PRN Reason Stop Dose Admin Albuterol/Ipratropium 3 ml 01/17/20 08:00 01/20/20 15:55 Duoneb INHALATION 3 ml Q4H.RESPIRATORY NAN Administration Atorvastatin Calcium 80 mg 01/19/20 14:21 01/20/20 08:29 Lipitor PO 80 mg DAILY NAN Administration Budesonide 0.5 mg 01/17/20 03:45 01/20/20 15:55 Pulmicort INHALATION 0.5 mg Q12H NAN Administration Enoxaparin Sodium 40 mg 01/17/20 07:00 01/20/20 06:06 Lovenox SUBCUT 40 mg Q24H NAN Administration Famotidine 20 mg 01/17/20 09:00 01/20/20 08:30 Pepcid Tab NG-TUBE 20 mg BID NAN Administration Propofol 1,000 mg in 100 mls @ 0 mls/hr 01/17/20 02:45 01/18/20 06:31 Diprivan IV 10 mcg/kg/min .Q0M NAN 8.1 mls/hr Titration Protocol Per Protocol Ceftriaxone Sodium 1,000 mg/ 50 mls @ 100 mls/hr 01/17/20 06:30 01/20/20 06:06 Sodium Chloride IV 100 mls/hr Q24H NAN Administration Protocol Insulin Aspart 0 unit 01/17/20 08:00 01/20/20 11:53 Novolog SUBCUT 10 unit WM&BEDTIME NAN Administration Protocol Insulin Glargine 17 unit 01/19/20 21:00 01/19/20 21:32 Lantus SUBCUT 17 unit BEDTIME NAN Administration Levothyroxine Sodium 50 mcg 01/19/20 14:21 01/20/20 08:30 Synthroid PO 50 mcg DAILY NAN Administration Methylprednisolone Sodium Succinate 40 mg 01/19/20 18:00 01/20/20 08:31 Solu-Medrol IVP 40 mg BID NAN Administration Metoprolol Tartrate 5 mg 01/17/20 03:35 01/20/20 08:21 Metoprolol Tartrate IV 5 mg Q4H PRN Administration blood pressure Metoprolol Tartrate 50 mg 01/20/20 09:00 01/20/20 08:48 Lopressor PO Not Given BID NAN Sertraline HCl 50 mg 01/19/20 14:21 01/20/20 08:30 Zoloft PO 50 mg DAILY NAN Administration PFSH Acute PFSH: Medical History Concussion COPD (chronic obstructive pulmonary disease) Diabetes mellitus Glaucoma Hypertension Major depression Mild cognitive impairment Psychosis Sleep apnea Family History Other Psychiatric illness Social History Smoking and tobacco status: former smoker Vitals/I&O/Wt Last Vital Signs Temp 97.9 F 01/20/20 15:47 Pulse 100 01/20/20 15:50 Resp 16 01/20/20 16:06 BP 164/84 01/20/20 15:47 Pulse Ox 91 01/20/20 15:50 01/20/20 01/20/20 01/20/20 06:59 14:59 22:59 Intake Total 999 / 1999 360 / 360 Output Total 475 / 3255 1800 / 1800 Balance 525 / -1255 -1440 / -1440 Physical Exam Const: COMMON NORMALS: no apparent distress and alert GENERAL APPEARANCE: well kempt and well developed ORIENTATION/CONSCIOUSNESS: not confused HENMT: COMMON NORMALS: normocephalic and head/scalp atraumatic HEAD & SCALP: normocephalic and atraumatic Eye: COMMON NORMALS: conjunctivae normal and no scleral icterus CONJUNCTIVA: Yes conjunctivae normal Neck/C-Spine: COMMON NORMALS: full ROM GENERAL: Yes normal visual inspection Resp: COMMON NORMALS: normal respiratory effort EFFORT & INSPECTION: No labored and No actively coughing : BLADDER/KIDNEY EXAM: Yes bladder normal to palpation PENIS: normal penis SCROTUM: Yes testes descended bilaterally and No tenderness TESTES: No testicular mass Extremity: COMMON NORMALS: no clubbing, cyanosis or edema Neuro: COMMON NORMALS: no focal motor deficits SENSORIUM/ORIENTATION: Yes alert Psych: COMMON NORMALS: mental status grossly normal, thought process normal and cooperative APPEARANCE: Yes grossly normal and Yes well kempt ATTITUDE: Yes calm and Yes engaged THOUGHT PROCESS: normal thought process Skin: COMMON NORMALS: no rashes or lesions noted and no jaundice GENERAL SKIN EXAM: no rashes or lesions noted Urinary Catheter Management^: Renae: Cath Placed During This Visit: yes Urethral Indwelling: Yes Reason for Continuing Indwelling Catheter: Other Urinary Catheter Date of Insertion: 01/17/20 Urinary Catheter Time of Insertion: 03:00 Data Micro: Micro: Microbiology 01/16/20 01:00 Urine Culture - Fi nal Urine,Clean Catch A&P Assessment and plan (1) Renae catheter problem: Catheter malposition due to forcible partial withdrawal. Catheter balloon could not be deflated. Required balloon puncture Status: Acute Qualifiers: Encounter type: initial encounter Qualified Code(s): T83.9XXA - Unspecified complication of genitourinary prosthetic device, implant and graft, initial encounter Code(s): T83.9XXA - Unspecified complication of genitourinary prosthetic device, implant and graft, initial encounter (2) Urethral bleeding: Secondary to catheter malposition with balloon traumatizing the bulbar urethra Status: Acute Code(s): N36.8 - Other specified disorders of urethra Coding Level of Care Code Acute Pharmacy Informaticist for [facility] Diagnoses Renae catheter problem T83.9XXA Encounter type: initial encounter Urethral bleeding N36.8
[2020-01-20 16:37] LABS: Glucose Point of Care 279 mg/dL (70-110)
[2020-01-20] MEDS: lidocaine 2% Urojet 20 mL (17:12)
[2020-01-20] MEDS: metoprolol tartrate 50 mg Tablet PO (17:16)
[2020-01-20 18:37] LABS: Glucose Point of Care 158 mg/dL (70-110)
--- NOTE | 2020-01-20 18:40 | PM.PN ---
Subjective Subjective: Interval history: He is in good spirits today. States that breathing is improving, however, is having cough with phlegm production. Vitals/I&O/Wt Last Vital Signs Temp 97.9 F 01/20/20 15:47 Pulse 100 01/20/20 15:50 Resp 16 01/20/20 16:06 BP 164/84 01/20/20 15:47 Pulse Ox 91 01/20/20 15:50 01/20/20 01/20/20 01/20/20 06:59 14:59 22:59 Intake Total 1000 / 2000 360 / 360 360 / 720 Output Total 475 / 3255 1800 / 1800 350 / 2150 Balance 525 / -1255 -1440 / -1440 10 / -1430 Physical Exam Const: COMMON NORMALS: no apparent distress and oriented x3 GENERAL APPEARANCE: cooperative NUTRITIONAL APPEARANCE: obese ORIENTATION/CONSCIOUSNESS: Yes awake HENMT: COMMON NORMALS: oropharynx normal Neck/C-Spine: COMMON NORMALS: no JVD Resp: COMMON NORMALS: normal respiratory effort AUSCULTATION: rhonchi and wheezes Cardio: COMMON NORMALS: no JVD, regular rhythm, S1 normal heart sound, S2 normal heart sound and no murmurs RHYTHM: regular rhythm HEART SOUNDS: S1 normal and S2 normal GI: COMMON NORMALS: normal to inspection, nondistended, normoactive bowel sounds, soft to palpation and non-tender PALPATION: Yes soft : OTHER: Some clots and faint hematuria noted in the catheter earlier in the day. Nursing staff are having difficulties with removing this catheter. Extremity: COMMON NORMALS: no joint enlargement Neuro: COMMON NORMALS: oriented x3 and moves all extremities Skin: COMMON NORMALS: no rashes or lesions noted GENERAL SKIN EXAM: no rashes or lesions noted Urinary Catheter Management^: Renae: Cath Placed During This Visit: yes Urethral Indwelling: Yes Reason for Continuing Indwelling Catheter: Other Urinary Catheter Date of Insertion: 01/17/20 Urinary Catheter Time of Insertion: 03:00 Data : 01/20/20 05:18 01/20/20 05:18 Micro: Microbiology 01/16/20 01:00 Urine Culture - Final Urine,Clean Catch A&P Assessment and plan (1) Acute and chronic respiratory failure: Gradually improving, although today with rhonchi, productive cough. Will request for flutter valve. Add mucinex. For now continue steroids twice a day. Continue antibiotic. Down to 9 L oxygen requirement. Once he is closer to his baseline 2 L would add overnight pulse oximetry to assess benefit from home BiPAP. Currently multifactorial respiratory failure secondary to pneumonia, COPD exacerbation. Continue ceftriaxone and azithromycin. Continue pulmonary toilet for secretions. Breathing treatments. Has not yet had sleep study. Was scheduled for 02/04. Follow-up with pulmonology in office. Would benefit from home health care. Status: Acute Qualifiers: Respiratory failure complication: hypoxia and hypercapnia Qualified Code(s): J96.21 - Acute and chronic respiratory failure with hypoxia; J96.22 - Acute and chronic respiratory failure with hypercapnia Code(s): J96.20 - Acute and chronic respiratory failure, unspecified whether with hypoxia or hypercapnia (2) Community acquired pneumonia: As above. Mixed arthur in sputum culture. Influenza negative. Status: Acute Qualifiers: Laterality: left Lung location: lower lobe of lung Qualified Code(s): J18.9 - Pneumonia, unspecified organism Code(s): J18.9 - Pneumonia, unspecified organism (3) Urethral bleeding: At some point earlier today was entangled in different lines and his phone cord, as well as was reported working with PT. Treatment rounds later in the day noted with a fresh clot and some hematuria in the Renae. On closer inspection by nursing staff Renae. To have been perhaps partially removed. An attempt to deflate the balloon to remove the Renae no fluid could be withdrawn. Gentle attempts to remove the Renae also unsuccessful. Renae successfully replaced by urology and a bedside procedure. For now maintain Renae for a few days due to likely degree of urethral trauma. Monitor for hematuria Status: Acute Code(s): N36.8 - Other specified disorders of urethra Additional A&P Information Sepsis: resolving. Leukocytosis with improvement. He is maintaining blood pressures. No sign of severe sepsis or septic shock. Hypertension: Monitor blood pressures Diabetes: Glucose will improve with tapering of steroids. Continue sliding scale insulin. 17 units of Lantus. Suspected sleep apnea Attestations Medical Necessity Statement*: Continue admission for assessment management of acute respiratory failure with hypoxia and hypercapnia, pneumonia, urethral bleeding. Coding Level of Care Code Acute 4 H Youth Development Specialist for [facility] Diagnoses Acute and chronic respiratory failure J96.21; J96.22 Respiratory failure complication: hypoxia and hypercapnia Community acquired pneumonia J18.9 Laterality: left Lung location: lower lobe of lung Urethral bleeding N36.8
[2020-01-20 20:16] LABS: Glucose Point of Care 265 mg/dL (70-110)
[2020-01-20] MEDS: insulin glargine 100 units/1 mL 17 UNIT SUBCUT (20:35)
[2020-01-20] MEDS: guaiFENesin 600 mg Tablet 1200 MG PO (20:36)
[2020-01-21] VITALS (17 sets, daily range): BP systolic 141–175; BP diastolic 60–83; PULSE 29–93; RESP 16–26; TEMP 36.3–36.9; O2SAT 86–97
[2020-01-21] MEDS: ipratropium-albuterol 3 mL Neb INHALATION ×6 (03:52→23:12)
[2020-01-21] MEDS: budesonide 0.5 mg/2 mL Neb INHALATION ×2 (03:52→19:57)
[2020-01-21 05:23] LABS: Anion Gap 14.9 (5-19); Blood Urea Nitrogen 25 mg/dL (8-23); Calcium 9.2 mg/dL (8.5-10.5); Carbon Dioxide 31 mmol/L (22-29); Chloride 96 mmol/L (98-107); Glucose 175 mg/dL (65-115); Osmolality Calculated 285 mOsm/kg (285-295); Potassium 4.9 mmol/L (3.5-5.1); Sodium 137 mmol/L (136-145)
[2020-01-21 06:01] LABS: Basophils % 0.1 %; Hematocrit 36.5 % (42.0-52.0); Hemoglobin 11.5 g/dL (11.7-16.6); Lymphocytes # 0.7 10^3/uL (0.8-4.8); Lymphocytes % 5.2 %; Mean Corpuscular HGB Conc 31.5 g/dL (30.0-36.0); Mean Corpuscular Volume 91.9 fL (80-94); Mean Platelet Volume 9.7 fL (7.4-10.4); Monocytes # 0.7 10^3/uL (0.2-0.9); Monocytes % 5.6 %; Neutrophils # 11.5 10^3/uL (1.8-7.7); Neutrophils % 87.8 %; Nucleated Red Blood Cells % 0 %; Platelet Count 190 10^3/cmm (130-400); Red Blood Count 3.97 10^6/uL (4.1-5.3); Red Cell Distribution Width 13.1 % (12.1-15.1); White Blood Count 13.1 10^3/uL (4.0-10.0)
[2020-01-21 06:27] LABS: Glucose Point of Care 190 mg/dL (70-110)
[2020-01-21] MEDS: metoprolol tartrate 25 mg Tablet PO ×2 (06:35→16:34)
[2020-01-21] MEDS: enoxaparin 40 mg/0.4 mL Syringe SUBCUT (06:36)
[2020-01-21] MEDS: cefTRIAXone 1,000 MG in sodium chloride 0.9% (plus) 50 ML 100 MG IV (06:36)
[2020-01-21] MEDS: levothyroxine 50 mcg Tablet PO (08:38)
[2020-01-21] MEDS: guaiFENesin 600 mg Tablet 1200 MG PO ×2 (08:38→18:23)
[2020-01-21] MEDS: atorvastatin 40 mg Tablet 80 MG PO (08:38)
[2020-01-21] MEDS: famotidine 20 mg Tablet NG-TUBE ×2 (08:38→18:23)
[2020-01-21 11:11] LABS: Glucose Point of Care 201 mg/dL (70-110)
--- NOTE | 2020-01-21 14:46 | PM.PN ---
Subjective Subjective: Interval history: Roland reports he is doing okay. He feels better every day. He reports he does not appear to be short of breath on the oxygen. Medications: Reviewed: Yes Vitals/I&O/Wt Last Vital Signs Temp 98.1 F 01/21/20 11:08 Pulse 93 01/21/20 13:13 Resp 20 H 01/21/20 13:13 BP 149/83 01/21/20 11:08 Pulse Ox 92 01/21/20 13:13 01/20/20 01/21/20 01/21/20 22:59 06:59 14:59 Intake Total 460 / 820 960 / 960 Output Total 350 / 2150 1500 / 3650 1800 / 1800 Balance 110 / -1330 -1500 / -2830 -840 / -840 Weight last 48 hrs Weight 97.579 kg Physical Exam Narrative: EXAM NARRATIVE: General exam no apparent distress Cardiovascular regular rate and rhythm without murmur Lungs clear but with diminished breath sounds bilaterally Abdomen is soft obese nontender with positive bowel sounds Extremities no cyanosis clubbing. Trace edema is present bilaterally. Urinary Catheter Management^: Renae: Cath Placed During This Visit: yes Urethral Indwelling: Yes Reason for Continuing Indwelling Catheter: Acute Urinary Retention or Obstruction Urinary Catheter Date of Insertion: 01/20/20 Urinary Catheter Time of Insertion: 03:00 Data : 01/21/20 05:24 01/21/20 04:44 A&P Assessment and plan (1) Acute and chronic respiratory failure: Appears to be improving Wean oxygen as tolerated Continue Rocephin and azithromycin Continue nebs every 4 hours Discontinue IV steroids Start prednisone 40 mg daily May benefit from home BiPAP. Check overnight pulse oximetry. Has not yet had sleep study. Was scheduled for 02/04. Follow-up with pulmonology in office. No need for laboratory tomorrow Would benefit from home health care. Status: Acute Qualifiers: Respiratory failure complication: hypoxia and hypercapnia Qualified Code(s): J96.21 - Acute and chronic respiratory failure with hypoxia; J96.22 - Acute and chronic respiratory failure with hypercapnia Code(s): J96.20 - Acute and chronic respiratory failure, unspecified whether with hypoxia or hypercapnia (2) Community acquired pneumonia: Continue Rocephin and azithromycin Mixed arthur in sputum culture. Influenza negative. Status: Acute Qualifiers: Laterality: left Lung location: lower lobe of lung Qualified Code(s): J18.9 - Pneumonia, unspecified organism Code(s): J18.9 - Pneumonia, unspecified organism (3) Urethral bleeding: At some point earlier today was entangled in different lines and his phone cord, as well as was reported working with PT. Treatment rounds later in the day noted with a fresh clot and some hematuria in the Renae. On closer inspection by nursing staff Renae. To have been perhaps partially removed. An attempt to deflate the balloon to remove the Renae no fluid could be withdrawn. Gentle attempts to remove the Renae also unsuccessful. Renae successfully replaced by urology and a bedside procedure. For now maintain Renae for a few days due to likely degree of urethral trauma. Monitor for hematuria Plan on removing Renae tomorrow Initiate Flomax Status: Acute Code(s): N36.8 - Other specified disorders of urethra Additional A&P Information Sepsis, resolved Hypertension, stable Diabetes, stable with current regimen Suspected sleep apnea, will need outpatient sleep study Attestations Medical Necessity Statement*: Needs continued hospital stay for close monitoring following respiratory failure, still requiring a significant amount of FiO2. Coding Level of Care Code Acute Credit Interviewer for [facility] Diagnoses Acute and chronic respiratory failure J96.21; J96.22 Respiratory failure complication: hypoxia and hypercapnia Community acquired pneumonia J18.9 Laterality: left Lung location: lower lobe of lung Urethral bleeding N36.8
--- NOTE | 2020-01-21 16:29 | P.PN_ITS ---
Subjective Subjective: Interval history: Patient is feeling well. No CP, no SOB. He has remained in SR/SB with HR dropping down to high 40's at night. He still has some oozing around his urethera. No hematuria. Medications: Reviewed: Yes Medication Review Details: Current Medications Albuterol/Ipratropium (Duoneb) 3 ml INHALATION Q4H.RESPIRATORY [facility] Last Admin: 01/21/20 13:12 Dose: 3 ml Documented by: Atorvastatin Calcium (Lipitor) 80 mg PO DAILY [facility] Last Admin: 01/21/20 08:38 Dose: 80 mg Documented by: Budesonide (Pulmicort) 0.5 mg INHALATION Q12H [facility] Last Admin: 01/21/20 03:52 Dose: 0.5 mg Documented by: Dextrose (D50w) 25 ml IVP ONCE PRN; Protocol PRN Reason: hypoglycemia protocol Dextrose (D50w) 50 ml IVP PRN PRN; Protocol PRN Reason: hypoglycemia protocol Enoxaparin Sodium (Lovenox) 40 mg SUBCUT Q24H [facility] Last Admin: 01/21/20 06:36 Dose: 40 mg Documented by: Famotidine (Pepcid Tab) 20 mg NG-TUBE BID [facility] Last Admin: 01/21/20 08:38 Dose: 20 mg Documented by: Glucagon (Glucagen) 1 mg IM ONCE PRN; Protocol PRN Reason: Adult Acute Hypoglycemia Prot. Guaifenesin (Mucinex) 1,200 mg PO BID [facility] Last Admin: 01/21/20 08:38 Dose: 1,200 mg Documented by: Dexmedetomidine HCl 400 mcg/ (Sodium Chloride) 104 mls @ 0 mls/hr IV .Q0M [facility]; Protocol Dextrose (D5w) 500 mls @ 100 mls/hr IV ONCE PRN; Protocol PRN Reason: Adult Acute Hypoglycemia Prot Ceftriaxone Sodium 1,000 mg/ (Sodium Chloride) 50 mls @ 100 mls/hr IV Q24H [facility]; Protocol Last Admin: 01/21/20 06:36 Dose: 100 mls/hr Documented by: Insulin Aspart (Novolog) 0 unit SUBCUT WM&BEDTIME NAN; Protocol Last Admin: 01/21/20 11:55 Dose: 8 unit Documented by: Insulin Glargine (Lantus) 17 unit SUBCUT BEDTIME [facility] Last Admin: 02/23/20 20:35 Dose: 17 unit Documented by: Levothyroxine Sodium (Synthroid) 50 mcg PO DAILY [facility] Last Admin: 01/21/20 08:38 Dose: 50 mcg Documented by: Metoprolol Tartrate (Metoprolol Tartrate) 5 mg IV Q4H PRN PRN Reason: blood pressure Last Admin: 01/20/20 08:21 Dose: 5 mg Documented by: Metoprolol Tartrate (Lopressor) 25 mg PO Q8H [facility] Last Admin: 01/21/20 06:35 Dose: 25 mg Documented by: Prednisone (Prednisone) 40 mg PO DAILY [facility] Tamsulosin HCl (Flomax) 0.4 mg PO DAILY [facility] Vitals/I&O/Wt Last Vital Signs Temp 97.8 F 01/21/20 15:29 Pulse 78 01/21/20 15:29 Resp 18 01/21/20 15:29 BP 148/74 01/21/20 15:29 Pulse Ox 96 01/21/20 15:29 01/21/20 01/21/20 01/21/20 06:59 14:59 22:59 Intake Total 960 / 960 Output Total 1500 / 3650 1800 / 1800 Balance -1500 / -2830 -840 / -840 Weight last 48 hrs Weight 215 lb 2 oz Physical Exam Narrative: EXAM NARRATIVE: Const COMMON NORMALS: no apparent distress, oriented x3 and alert GENERAL APPEARANCE: cooperative, comfortable, well kempt and well hydrated [facility] COMMON NORMALS: hearing grossly normal bilaterally, external ears normal and moist oral mucous membranes EXTERNAL EAR: Yes external ears normal Eye COMMON NORMALS: EOMs intact bilaterally and no scleral icterus Neck/C-Spine COMMON NORMALS: no lymphadenopathy, supple and no JVD CAROTIDS: Yes normal carotid upstroke Chest COMMONS NORMALS: inspection of chest normal and palpation of chest normal CHEST: Yes symmetrical chest wall rise and No tenderness Resp COMMON NORMALS: clear to auscultation bilaterally AUSCULTATION: clear to auscultation bilaterally, no crackles, no rales, no rhonchi and no wheezes Cardio COMMON NORMALS: no JVD, regular rate, regular rhythm, S1 normal heart sound, S2 normal heart sound and peripheral pulses 2+ throughout PALPATION: normal PMI RATE: regular rate RHYTHM: regular rhythm HEART SOUNDS: S1 normal, S2 normal, no click, no gallops and no murmurs BRUITS: no carotid bruits PERIPHERAL PULSES: pulses 2+ throughout, radial pulses present, posterior tibial pulses present and dorsalis pedis pulses present Extremity GENERAL: No clubbing, No cyanosis, Yes edema and No pallor Neuro COMMON NORMALS: oriented x3, CN's II-XII intact bilaterally and no focal motor deficits SENSORIUM/ORIENTATION: Yes alert Psych APPEARANCE: Yes well kempt Urinary Catheter Management^: Renae: Cath Placed During This Visit: yes Urethral Indwelling: Yes Reason for Continuing Indwelling Catheter: Acute Urinary Retention or Obstruction Urinary Catheter Date of Insertion: 01/20/20 Urinary Catheter Time of Insertion: 03:00 Data : 01/21/20 05:24 01/21/20 04:44 A&P Assessment and plan (1) Atrial fibrillation: He was in Atrial fibrillation, for a short while. -Patient is currently in NSR with frequent PAC's. -Uretheral bleed likely Renae trauma yesterday. Plan for DOAC if their is recurrence of Atrial fibrillation and hematuria resolves. -currently on metoprolol 25 mg TID (may change to 37.5 mg twice a day on discharge). -Follow up on TTE. Normal TSH Status: Acute Qualifiers: Atrial fibrillation type: paroxysmal Qualified Code(s): I48.0 - Paroxysmal atrial fibrillation Code(s): I48.91 - Unspecified atrial fibrillation (2) COPD exacerbation: Status: Acute Code(s): J44.1 - Chronic obstructive pulmonary disease with (acute) exacerbation (3) Community acquired pneumonia: On antibiotics as per primary team. Status: Acute Qualifiers: Laterality: left Lung location: lower lobe of lung Qualified Code(s): J18.9 - Pneumonia, unspecified organism Code(s): J18.9 - Pneumonia, unspecified organism (4) Mild cognitive impairment: Status: Acute Code(s): G31.84 - Mild cognitive impairment, so stated (5) Sleep apnea: Suspected, would need outpatient sleep study. Status: Acute Code(s): G47.30 - Sleep apnea, unspecified (6) Diabetes mellitus: Status: Acute Code(s): E11.9 - Type 2 diabetes mellitus without complications (7) Hypertension: well controlled. continue current medications. Status: Acute Qualifiers: Hypertension type: essential hypertension Qualified Code(s): I10 - Essential (primary) hypertension Code(s): I10 - Essential (primary) hypertension Additional A&P Information Uretheral bleeding Normocytic anemia Thank you for allowing me to participate in patient's care. Please feel free to call with questions or concerns. Attestations Medical Necessity Statement*: As per primary team. Coding Level of Care Code Acute Supervisor [employer] for [employer] Fwd Diagnoses Atrial fibrillation I48.0 Atrial fibrillation type: paroxysmal COPD exacerbation J44.1 Community acquired pneumonia J18.9 Laterality: left Lung location: lower lobe of lung Mild cognitive impairment G31.84 Sleep apnea G47.30 Diabetes mellitus E11.9 Hypertension I10 Hypertension type: essential hypertension
[2020-01-21] MEDS: tamsulosin 0.4 mg Capsule PO (16:34)
[2020-01-21 17:07] LABS: Glucose Point of Care 232 mg/dL (70-110)
[2020-01-21] MEDS: perflutren protein-a microsphr 0.22 mg/mL SDV 3 mL 1.5 ML IV (17:13)
--- NOTE | 2020-01-21 17:36 | USCV_ITS ---
Roland Wilson Age: 74 Gender: M : 1945 Exam Date: 01/21/2020 16:47 Ordering Phys: Ashwini Lozano MD ([email or web address]) Technologist: Melvina Chapman Exam Location[place] [facility] [place] Indication: AFIB BP: / HR: 81 Rhythm: Sinus Technical Quality: Technically difficult study MEASUREMENTS (Male / Female) Normal Values 2D ECHO LV Diastolic Diameter PLAX 4.2 cm 4.2 - 5.9 / 3.9 - 5.3 cm LV Systolic Diameter PLAX 3.1 cm IVS Diastolic Thickness 1.7 cm 0.6 - 1.0 / 0.6 - 0.9 cm IVS Systolic Thickness 2.0 cm LVPW Diastolic Thickness 2.1 cm 0.6 - 1.0 / 0.6 - 0.9 cm LVPW Systolic Thickness 2.8 cm LVOT Diameter 2.0 cm LV Ejection Fraction 2D Teich 49.1 % LV Ejection Fraction MOD 2C 77.0 % LV Ejection Fraction 2C AL 78.5 % LA Diameter 4.6 cm LA Width 3.2 cm LA Height 4.3 cm Aorta at Sinotubular Diameter 3.5 cm M-MODE LV Diastolic Diameter MM 5.7 cm 4.2 - 5.9 / 3.9 - 5.3 cm LV Systolic Diameter MM 4.1 cm LV Ejection Fraction MM Teich 53.3 % IVS Diastolic Thickness MM 0.9 cm 0.6 - 1.0 / 0.6 - 0.9 cm IVS Systolic Thickness MM 1.4 cm LVPW Diastolic Thickness MM 1.4 cm 0.6 - 1.0 / 0.6 - 0.9 cm LVPW Systolic Thickness MM 1.4 cm Aortic Annulus Diameter 3.1 cm LA Ao Ratio MM 1.5 MV E Point Septal Separation 0.9 cm DOPPLER AV Peak Velocity 189.0 cm/s LVOT Peak Velocity 122.0 cm/s AV Area Cont Eq vti 2.8 cm squared AV Area Cont Eq pk 2.0 cm squared MV Area PHT 4.2 cm squared Mitral E to A Ratio 1.1 MV E' Velocity 10.0 cm/s Mitral E to MV E' Ratio 10.6 Mitral E to LV E' Lateral Ratio 9.4 Mitral E to LV E' Septal Ratio 12.2 TR Peak Velocity 166.0 cm/s TR Peak Gradient 11.0 mmHg TV Peak E Velocity 53.0 cm/s Right Atrial Pressure 3.0 mmHg Pulmonary Artery Systolic Pressu 14.0 mmHg PV Peak Velocity 81.0 cm/s RV Acceleration Time 0.1 s RV Ejection Time 0.3 s RV AcT/ET 0.4 FINDINGS Left Ventricle Normal left ventricular size and systolic function with no regional wall motion abnormalities. Left ventricular ejection fraction is estimated at 65 %. No regional wall motion abnormalities. Normal diastolic function. Right Ventricle Normal right ventricular size and systolic function. Right ventricular systolic pressure 14 mmHg. Right Atrium Right atrial pressure estimated at 3 mm Hg. Left Atrium Left atrium not well visualized. Mitral Valve Structurally normal mitral valve. No mitral valve stenosis. No mitral valve regurgitation. Aortic Valve Aortic valve not well visualized. No aortic valve stenosis. Tricuspid Valve Tricuspid valve not well visualized. Trace tricuspid valve regurgitation. Pulmonic Valve Pulmonic valve not well visualized. Pericardium No pericardial effusion. Aorta Aorta not well visualized. CONCLUSIONS 1. This is a technically difficult study. Ultrasound enhancing agent (Optison) was used. 2. Normal left ventricular size and systolic function with no regional wall motion abnormalities. Left ventricular ejection fraction is estimated at 65 %. No regional wall motion abnormalities. Normal diastolic function. 3. Normal right ventricular size and systolic function. 4. No significant valvular abnormality based on the study. 5. No prior similar studies to compare. Ashwini Lozano MD (Electronically Signed) Final Date: 22 January 2020 15:20 S
--- NOTE | 2020-01-21 20:02 | PC.RESP ---
pt placed on overnight pulse ox at RA. pt sats dropped to 86% pt placed on 2 lpm nc sat increased to 89%. pt placed on 3 lpm and sat increased to 90%. pt will be monitored throughout the night to keep o2 above 90%.
--- NOTE | 2020-01-21 20:10 | PC.RESP ---
pt sat decreased to 87% on 2 lpm. oxygen increased to 5 lpm to maintain o2 sat of 91
[2020-01-21] MEDS: insulin glargine 100 units/1 mL 17 UNIT SUBCUT (20:26)
[2020-01-21 20:37] LABS: Glucose Point of Care 251 mg/dL (70-110)
[2020-01-22] VITALS (16 sets, daily range): BP systolic 133–167; BP diastolic 61–87; PULSE 64–93; RESP 16–24; TEMP 36.7–36.9; O2SAT 90–96
[2020-01-22] MEDS: metoprolol tartrate 25 mg Tablet PO ×3 (00:38→17:46)
[2020-01-22] MEDS: ipratropium-albuterol 3 mL Neb INHALATION ×5 (03:02→20:29)
[2020-01-22] MEDS: cefTRIAXone 1,000 MG in sodium chloride 0.9% (plus) 50 ML 100 MG IV (05:40)
[2020-01-22] MEDS: enoxaparin 40 mg/0.4 mL Syringe SUBCUT (05:41)
[2020-01-22 06:46] LABS: Glucose Point of Care 85 mg/dL (70-110)
[2020-01-22] MEDS: budesonide 0.5 mg/2 mL Neb INHALATION ×2 (08:00→20:29)
[2020-01-22] MEDS: guaiFENesin 600 mg Tablet 1200 MG PO ×2 (09:33→17:46)
[2020-01-22] MEDS: atorvastatin 40 mg Tablet 80 MG PO (09:33)
[2020-01-22] MEDS: tamsulosin 0.4 mg Capsule PO (09:34)
[2020-01-22] MEDS: famotidine 20 mg Tablet NG-TUBE ×2 (09:34→17:46)
[2020-01-22] MEDS: predniSONE 20 mg Tablet 40 MG PO (09:34)
[2020-01-22] MEDS: levothyroxine 50 mcg Tablet PO (09:34)
--- NOTE | 2020-01-22 11:16 | P.PN_ITS ---
Subjective Subjective: Interval history: Patient is feeling well. No CP, no SOB. He has remained in SR. His oxygen requirement has gone down. Medications: Reviewed: Yes Medication Review Details: Current Medications Albuterol/Ipratropium (Duoneb) 3 ml INHALATION Q4H.RESPIRATORY [facility] Last Admin: 01/21/20 13:12 Dose: 3 ml Documented by: Atorvastatin Calcium (Lipitor) 80 mg PO DAILY [facility] Last Admin: 01/21/20 08:38 Dose: 80 mg Documented by: Budesonide (Pulmicort) 0.5 mg INHALATION Q12H [facility] Last Admin: 01/21/20 03:52 Dose: 0.5 mg Documented by: Dextrose (D50w) 25 ml IVP ONCE PRN; Protocol PRN Reason: hypoglycemia protocol Dextrose (D50w) 50 ml IVP PRN PRN; Protocol PRN Reason: hypoglycemia protocol Enoxaparin Sodium (Lovenox) 40 mg SUBCUT Q24H [facility] Last Admin: 01/21/20 06:36 Dose: 40 mg Documented by: Famotidine (Pepcid Tab) 20 mg NG-TUBE BID [facility] Last Admin: 01/21/20 08:38 Dose: 20 mg Documented by: Glucagon (Glucagen) 1 mg IM ONCE PRN; Protocol PRN Reason: Adult Acute Hypoglycemia Prot. Guaifenesin (Mucinex) 1,200 mg PO BID [facility] Last Admin: 01/21/20 08:38 Dose: 1,200 mg Documented by: Dexmedetomidine HCl 400 mcg/ (Sodium Chloride) 104 mls @ 0 mls/hr IV .Q0M [facility]; Protocol Dextrose (D5w) 500 mls @ 100 mls/hr IV ONCE PRN; Protocol PRN Reason: Adult Acute Hypoglycemia Prot Ceftriaxone Sodium 1,000 mg/ (Sodium Chloride) 50 mls @ 100 mls/hr IV Q24H [facility]; Protocol Last Admin: 01/21/20 06:36 Dose: 100 mls/hr Documented by: Insulin Aspart (Novolog) 0 unit SUBCUT WM&BEDTIME [facility]; Protocol Last Admin: 01/21/20 11:55 Dose: 8 unit Documented by: Insulin Glargine (Lantus) 17 unit SUBCUT BEDTIME [facility] Last Admin: 01/20/20 20:35 Dose: 17 unit Documented by: Levothyroxine Sodium (Synthroid) 50 mcg PO DAILY [facility] Last Admin: 01/21/20 08:38 Dose: 50 mcg Documented by: Metoprolol Tartrate (Metoprolol Tartrate) 5 mg IV Q4H PRN PRN Reason: blood pressure Last Admin: 01/20/20 08:21 Dose: 5 mg Documented by: Metoprolol Tartrate (Lopressor) 25 mg PO Q8H [facility] Last Admin: 01/21/20 06:35 Dose: 25 mg Documented by: Prednisone (Prednisone) 40 mg PO DAILY [facility] Tamsulosin HCl (Flomax) 0.4 mg PO DAILY [facility] Vitals/I&O/Wt Last Vital Signs Temp 98.1 F 01/22/20 07:40 Pulse 93 01/22/20 08:07 Resp 20 H 01/22/20 08:01 BP 167/85 01/22/20 07:40 Pulse Ox 90 01/22/20 08:01 01/21/20 01/22/20 01/22/20 22:59 06:59 14:59 Intake Total 960 / 1970 100 / 2070 360 / 360 Output Total 1550 / 3350 1350 / 4700 Balance -590 / -1380 -1250 / -2630 360 / 360 Weight last 48 hrs Weight 215 lb Weight 215 lb 2 oz Physical Exam Narrative: EXAM NARRATIVE: EXAM NARRATIVE: Const COMMON NORMALS: no apparent distress, oriented x3 and alert GENERAL APPEARANCE: cooperative, comfortable, well kempt and well hydrated [facility] COMMON NORMALS: hearing grossly normal bilaterally, external ears normal and moist oral mucous membranes; EOMs intact bilaterally and no scleral icterus Neck/C-Spine COMMON NORMALS: no lymphadenopathy, supple and no JVD CAROTIDS: Yes normal carotid upstroke Chest COMMONS NORMALS: inspection of chest normal and palpation of chest normal CHEST: Yes symmetrical chest wall rise and No tenderness Resp COMMON NORMALS: clear to auscultation bilaterally AUSCULTATION: clear to auscultation bilaterally, no crackles, no rales, no rhonchi and no wheezes Cardio COMMON NORMALS: no JVD, regular rate, regular rhythm, S1 normal heart sound, S2 normal heart sound and peripheral pulses 2+ throughout PALPATION: normal PMI RATE: regular rate RHYTHM: regular rhythm HEART SOUNDS: S1 normal, S2 normal, no click, no gallops and no murmurs BRUITS: no carotid bruits PERIPHERAL PULSES: pulses 2+ throughout, radial pulses present, posterior tibial pulses present and dorsalis pedis pulses present Extremity GENERAL: No clubbing, No cyanosis, Yes edema and No pallor Neuro COMMON NORMALS: oriented x3, CN's II-XII intact bilaterally and no focal motor deficits SENSORIUM/ORIENTATION: Yes alert Psych APPEARANCE: Yes well kempt Urinary Catheter Management^: Renae: Cath Placed During This Visit: yes Urethral Indwelling: Yes Reason for Continuing Indwelling Catheter: Acute Urinary Retention or Obstruction Urinary Catheter Date of Insertion: 01/20/20 Urinary Catheter Time of Insertion: 03:00 Data : 01/21/20 05:24 01/21/20 04:44 Micro: Microbiology 01/16/20 23:35 Blood Culture - Final Blood NO GROWTH AFTER 5 DAYS 01/16/20 23:30 Blood Culture - Final Blood NO GROWTH AFTER 5 DAYS A&P Assessment and plan (1) Atrial fibrillation: He was in Atrial fibrillation, for a short while in setting of PNA and urinary retention. -Patient is currently in NSR. -Uretheral bleed likely Renae trauma. Plan for DOAC if their is recurrence of Atrial fibrillation and hematuria resolves. -currently on metoprolol 25 mg TID (may change to 37.5 mg twice a day on discharge). -Follow up on TTE. Normal TSH Status: Acute Qualifiers: Atrial fibrillation type: paroxysmal Qualified Code(s): I48.0 - Paroxysmal atrial fibrillation Code(s): I48.91 - Unspecified atrial fibrillation (2) COPD exacerbation: Status: Acute Code(s): J44.1 - Chronic obstructive pulmonary disease with (acute) exacerbation (3) Community acquired pneumonia: On antibiotics as per primary team. Status: Acute Qualifiers: Laterality: left Lung location: lower lobe of lung Qualified Code(s): J18.9 - Pneumonia, unspecified organism Code(s): J18.9 - Pneumonia, unspecified organism (4) Mild cognitive impairment: Status: Acute Code(s): G31.84 - Mild cognitive impairment, so stated (5) Sleep apnea: Suspected, would need outpatient sleep study. Status: Acute Code(s): G47.30 - Sleep apnea, unspecified (6) Diabetes mellitus: Status: Acute Code(s): E11.9 - Type 2 diabetes mellitus without complications (7) Hypertension: well controlled. continue current medications. Status: Acute Qualifiers: Hypertension type: essential hypertension Qualified Code(s): I10 - Essential (primary) hypertension Code(s): I10 - Essential (primary) hypertension Additional A&P Information Uretheral bleeding Normocytic anemia Thank you for allowing me to participate in patient's care. Please feel free to call with questions or concerns. I will sign off. He can follow up with me in 3- 4 weeks as an outpatient. Attestations Medical Necessity Statement*: As per primary team. Coding Level of Care Code Acute Business Intelligence Engineer for [facility] Fwd Diagnoses Atrial fibrillation I48.0 Atrial fibrillation type: paroxysmal COPD exacerbation J44.1 Community acquired pneumonia J18.9 Laterality: left Lung location: lower lobe of lung Mild cognitive impairment G31.84 Sleep apnea G47.30 Diabetes mellitus E11.9 Hypertension I10 Hypertension type: essential hypertension
[2020-01-22 12:11] LABS: Glucose Point of Care 196 mg/dL (70-110)
--- NOTE | 2020-01-22 12:52 | P.PN_ITS ---
Subjective Subjective: Interval history: Roland reports he would like to go home. He acknowledges he is significantly weaker than 3 weeks ago. I discussed with him briefly whether he would want [facility]. He is contemplating. Medications: Reviewed: Yes Vitals/I&O/Wt Last Vital Signs Temp 98.4 F 01/22/20 11:24 Pulse 75 01/22/20 11:24 Resp 18 01/22/20 11:24 BP 133/61 01/22/20 11:24 Pulse Ox 90 01/22/20 11:24 01/21/20 01/22/20 01/22/20 22:59 06:59 14:59 Intake Total 960 / 1970 100 / 2070 1080 / 1080 Output Total 1550 / 3350 1350 / 4700 1000 / 1000 Balance -590 / -1380 -1250 / -2630 80 / 80 Weight last 48 hrs Weight 97.522 kg Weight 97.579 kg Physical Exam Narrative: EXAM NARRATIVE: General exam no apparent distress Cardiovascular regular rate and rhythm without murmur Lungs clear but with diminished breath sounds bilaterally Abdomen is soft obese nontender with positive bowel sounds Extremities no cyanosis clubbing. Trace edema is present bilaterally. Urinary Catheter Management^: Renae: Cath Placed During This Visit: yes, but has since been removed by the nurse Urethral Indwelling: Yes Reason for Continuing Indwelling Catheter: Acute Urinary Retention or Obstruction Urinary Catheter Date of Insertion: 01/20/20 Urinary Catheter Time of Insertion: 03:00 Date Urinary Catheter Removed: 01/22/20 Time Urinary Catheter Discontinued: 11:33 Data : 01/21/20 05:24 01/21/20 04:44 Micro: Microbiology 01/16/20 23:35 Blood Culture - Final Blood NO GROWTH AFTER 5 DAYS 01/16/20 23:30 Blood Culture - Final Blood NO GROWTH AFTER 5 DAYS A&P Assessment and plan (1) Acute and chronic respiratory failure: Appears to be improving Wean oxygen as tolerated Continue Rocephin. He has completed his course of azithromycin. Continue nebs every 4 hours Continue oral prednisone May benefit from home BiPAP. Check overnight pulse oximetry. I am not for sure if this was done last night. Add small dose of Lasix today. Has not yet had sleep study. Was scheduled for 02/04. Follow-up with pulmonology in office. Would benefit from home health care. Status: Acute Qualifiers: Respiratory failure complication: hypoxia and hypercapnia Qualified Code(s): J96.21 - Acute and chronic respiratory failure with hypoxia; J96.22 - Acute and chronic respiratory failure with hypercapnia Code(s): J96.20 - Acute and chronic respiratory failure, unspecified whether with hypoxia or hypercapnia (2) Community acquired pneumonia: Continue Rocephin and azithromycin Mixed arthur in sputum culture. Influenza negative. Status: Acute Qualifiers: Laterality: left Lung location: lower lobe of lung Qualified Code(s): J18.9 - Pneumonia, unspecified organism Code(s): J18.9 - Pneumonia, unspecified organism (3) Urethral bleeding: At some point earlier today was entangled in different lines and his phone cord, as well as was reported working with PT. Treatment rounds later in the day noted with a fresh clot and some hematuria in the Renae. On closer inspection by nursing staff Renae. To have been perhaps partially removed. An attempt to deflate the balloon to remove the Renae no fluid could be withdrawn. Gentle attempts to remove the Renae also unsuccessful. Renae successfully replaced by urology and a bedside procedure. For now maintain Renae for a few days due to likely degree of urethral trauma. Monitor for hematuria Removing Renae catheter today Continue Flomax Status: Acute Code(s): N36.8 - Other specified disorders of urethra Additional A&P Information Sepsis, resolved Atrial fibrillation. Hopefully no recurrence will occur. Continue beta- michael. Not planning on full anticoagulation currently. Appreciate cardiology consultation. Hypertension, stable Diabetes, stable with current regimen Suspected sleep apnea, will need outpatient sleep study Attestations Medical Necessity Statement*: Needs continued hospital stay for IV antibiotics secondary to pneumonia, still requiring a fair amount of FiO2. Coding Level of Care Code Acute Collections Professional for [facility] Fwd Diagnoses Acute and chronic respiratory failure J96.21; J96.22 Respiratory failure complication: hypoxia and hypercapnia Community acquired pneumonia J18.9 Laterality: left Lung location: lower lobe of lung Urethral bleeding N36.8
[2020-01-22] MEDS: FUROsemide 20 mg Tablet PO (13:28)
--- NOTE | 2020-01-22 14:10 | PC.SOCIAL ---
IM FOLLOW EXPLAINED AND GIVEN NO QUESTIONS ASKED. PT VERBALIZED UNDERSTANDING
[2020-01-22 16:42] LABS: Glucose Point of Care 257 mg/dL (70-110)
[2020-01-22] MEDS: insulin glargine 100 units/1 mL 17 UNIT SUBCUT (19:28)
[2020-01-22 20:27] LABS: Glucose Point of Care 365 mg/dL (70-110)
[2020-01-23] VITALS (20 sets, daily range): BP systolic 118–166; BP diastolic 60–92; PULSE 68–92; RESP 18–22; TEMP 35.9–36.9; O2SAT 90–96
[2020-01-23] MEDS: ipratropium-albuterol 3 mL Neb INHALATION ×7 (00:19→23:51)
[2020-01-23] MEDS: metoprolol tartrate 25 mg Tablet PO ×3 (00:33→17:51)
[2020-01-23 05:32] LABS: Basophils % 0.2 %; Eosinophils % 0.2 %; Hematocrit 39.6 % (42.0-52.0); Hemoglobin 12.5 g/dL (11.7-16.6); Lymphocytes # 2.4 10^3/uL (0.8-4.8); Lymphocytes % 18.4 %; Mean Corpuscular HGB Conc 31.6 g/dL (30.0-36.0); Mean Corpuscular Hemoglobin 27.8 pg (28.0-34.0); Mean Corpuscular Volume 88.2 fL (80-94); Mean Platelet Volume 9.5 fL (7.4-10.4); Monocytes # 1.2 10^3/uL (0.2-0.9); Monocytes % 9.1 %; Neutrophils % 69.6 %; Nucleated Red Blood Cells % 0.3 %; Platelet Count 198 10^3/cmm (130-400); Red Blood Count 4.49 10^6/uL (4.1-5.3); Red Cell Distribution Width 13.2 % (12.1-15.1); White Blood Count 12.9 10^3/uL (4.0-10.0)
[2020-01-23 05:42] LABS: Anion Gap 12.1 (5-19); Blood Urea Nitrogen 25 mg/dL (8-23); Calcium 9.5 mg/dL (8.5-10.5); Carbon Dioxide 34 mmol/L (22-29); Chloride 95 mmol/L (98-107); Creatinine Clr Calc Pharmacy 75.8379; Glucose 97 mg/dL (65-115); Osmolality Calculated 281 mOsm/kg (285-295); Potassium 4.1 mmol/L (3.5-5.1); Sodium 137 mmol/L (136-145)
[2020-01-23 06:41] LABS: Glucose Point of Care 100 mg/dL (70-110)
[2020-01-23] MEDS: budesonide 0.5 mg/2 mL Neb INHALATION ×2 (08:08→20:56)
[2020-01-23] MEDS: cefTRIAXone 1,000 MG in sodium chloride 0.9% (plus) 50 ML 100 MG IV (08:15)
[2020-01-23] MEDS: tamsulosin 0.4 mg Capsule PO (08:16)
[2020-01-23] MEDS: guaiFENesin 600 mg Tablet 1200 MG PO ×2 (08:17→17:52)
[2020-01-23] MEDS: famotidine 20 mg Tablet NG-TUBE ×2 (08:17→17:51)
[2020-01-23] MEDS: levothyroxine 50 mcg Tablet PO (08:17)
[2020-01-23] MEDS: FUROsemide 20 mg Tablet PO (08:18)
[2020-01-23] MEDS: atorvastatin 40 mg Tablet 80 MG PO (08:18)
[2020-01-23] MEDS: predniSONE 20 mg Tablet 40 MG PO (08:19)
[2020-01-23] MEDS: enoxaparin 40 mg/0.4 mL Syringe SUBCUT (08:20)
[2020-01-23 11:46] LABS: Glucose Point of Care 278 mg/dL (70-110)
--- NOTE | 2020-01-23 13:54 | PM.PN ---
Subjective Subjective: Interval history: Roland reports he is doing okay. Less short of breath. He has been able to get up out of bed some. Medications: Reviewed: Yes Vitals/I&O/Wt Last Vital Signs Temp 97.7 F 01/23/20 11:28 Pulse 68 01/23/20 11:41 Resp 22 H 01/23/20 11:31 BP 137/78 01/23/20 11:28 Pulse Ox 95 01/23/20 11:31 01/22/20 01/23/20 01/23/20 22:59 06:59 14:59 Intake Total 510 / 1590 50 / 1640 480 / 480 Output Total 1375 / 2375 425 / 2800 300 / 300 Balance -865 / -785 -375 / -1160 180 / 180 Weight last 48 hrs Weight 97.522 kg Physical Exam Narrative: EXAM NARRATIVE: General exam no apparent distress Cardiovascular regular rate and rhythm without murmur Lungs a few bilateral expiratory wheezes Abdomen is soft obese nontender with positive bowel sounds Extremities no cyanosis clubbing. Trace edema is present bilaterally. Urinary Catheter Management^: Renae: Cath Placed During This Visit: yes, but has since been removed by the nurse Urethral Indwelling: Yes Reason for Continuing Indwelling Catheter: Acute Urinary Retention or Obstruction Urinary Catheter Date of Insertion: 01/20/20 Urinary Catheter Time of Insertion: 03:00 Date Urinary Catheter Removed: 01/22/20 Time Urinary Catheter Discontinued: 11:33 Data : 01/23/20 05:04 01/23/20 05:04 A&P Assessment and plan (1) Acute and chronic respiratory failure: Appears to be improving Still attempting to wean oxygen Continue Rocephin. He has completed his course of azithromycin. Continue nebs every 4 hours Continue oral prednisone May benefit from home BiPAP. Check overnight pulse oximetry. Lasix added and he diuresed overnight. Has not yet had sleep study. Was scheduled for 02/04. Follow-up with pulmonology in office. Would benefit from home health care. Status: Acute Qualifiers: Respiratory failure complication: hypoxia and hypercapnia Qualified Code(s): J96.21 - Acute and chronic respiratory failure with hypoxia; J96.22 - Acute and chronic respiratory failure with hypercapnia Code(s): J96.20 - Acute and chronic respiratory failure, unspecified whether with hypoxia or hypercapnia (2) Community acquired pneumonia: Continue Rocephin and azithromycin Mixed arthur in sputum culture. Influenza negative. Status: Acute Qualifiers: Laterality: left Lung location: lower lobe of lung Qualified Code(s): J18.9 - Pneumonia, unspecified organism Code(s): J18.9 - Pneumonia, unspecified organism (3) Urethral bleeding: At some point earlier today was entangled in different lines and his phone cord, as well as was reported working with PT. Treatment rounds later in the day noted with a fresh clot and some hematuria in the Renae. On closer inspection by nursing staff Renae. To have been perhaps partially removed. An attempt to deflate the balloon to remove the Renae no fluid could be withdrawn. Gentle attempts to remove the Renae also unsuccessful. Renae successfully replaced by urology and a bedside procedure. For now maintain Renae for a few days due to likely degree of urethral trauma. Monitor for hematuria Catheter has been removed. He appears to be doing well. Continue Flomax Status: Acute Code(s): N36.8 - Other specified disorders of urethra Additional A&P Information Sepsis, resolved Atrial fibrillation. Hopefully no recurrence will occur. Continue beta-michael. Not planning on full anticoagulation currently. Appreciate cardiology consultation. Hypertension, stable Diabetes, stable with current regimen Suspected sleep apnea, will need outpatient sleep study Attestations Medical Necessity Statement*: Needs continued hospitalization, for IV antibiotics secondary to pneumonia, still requiring quite a bit of oxygen, pending placement. Coding Level of Care Code Acute Learning Program Manager for [facility] Diagnoses Acute and chronic respiratory failure J96.21; J96.22 Respiratory failure complication: hypoxia and hypercapnia Community acquired pneumonia J18.9 Laterality: left Lung location: lower lobe of lung Urethral bleeding N36.8
--- NOTE | 2020-01-23 14:07 | ECG_ITS ---
Measurements Intervals [place] Rate: 80 P: 27 UT: 131 QRS: 48 QRSD: 87 T: 84 QT: 374 QTc: 432 SINUS RHYTHM WITH FREQUENT PAC'S MINIMAL ST DEPRESSION [0.025+ mV ST DEPRESSION] Compared to ECG 01/19/2020 21:35:22 ST (T wave) deviation now present Atrial fibrillation no longer present Electronically Signed On 01-24-2020 6:40:39 ACLS SPECIALIST by Ashwini Lozano M.D. [email or web address]
[2020-01-23 16:45] LABS: Glucose Point of Care 345 mg/dL (70-110)
[2020-01-23] MEDS: apixaban 5 mg Tablet PO (17:51)
[2020-01-23] MEDS: insulin glargine 100 units/1 mL 17 UNIT SUBCUT (20:26)
[2020-01-23 20:30] LABS: Glucose Point of Care 263 mg/dL (70-110)
[2020-01-24] VITALS (20 sets, daily range): BP systolic 113–151; BP diastolic 62–80; PULSE 61–91; RESP 17–26; TEMP 36.5–37.2; O2SAT 88–97
[2020-01-24] MEDS: metoprolol tartrate 25 mg Tablet PO ×3 (01:00→18:00)
[2020-01-24] MEDS: ipratropium-albuterol 3 mL Neb INHALATION ×6 (03:52→23:46)
[2020-01-24 06:45] LABS: Glucose Point of Care 96 mg/dL (70-110)
[2020-01-24] MEDS: budesonide 0.5 mg/2 mL Neb INHALATION ×2 (07:17→20:01)
--- NOTE | 2020-01-24 09:25 | PC.SOCIAL ---
IMM Updated Page 2 of IMM updated and given to patient. Initialed, dated, and timed and placed back in chart.
[2020-01-24] MEDS: cefTRIAXone 1,000 MG in sodium chloride 0.9% (plus) 50 ML 100 MG IV (09:53)
[2020-01-24] MEDS: famotidine 20 mg Tablet NG-TUBE ×2 (09:54→18:00)
[2020-01-24] MEDS: atorvastatin 40 mg Tablet 80 MG PO (09:54)
[2020-01-24] MEDS: FUROsemide 20 mg Tablet PO (09:55)
[2020-01-24] MEDS: tamsulosin 0.4 mg Capsule PO (09:55)
[2020-01-24] MEDS: predniSONE 20 mg Tablet 40 MG PO (09:55)
[2020-01-24] MEDS: apixaban 5 mg Tablet PO ×2 (09:55→18:16)
[2020-01-24] MEDS: guaiFENesin 600 mg Tablet 1200 MG PO ×2 (09:55→18:17)
[2020-01-24] MEDS: levothyroxine 50 mcg Tablet PO (09:56)
[2020-01-24 11:20] LABS: Glucose Point of Care 184 mg/dL (70-110)
--- NOTE | 2020-01-24 11:32 | P.PN_ITS ---
Subjective Subjective: Interval history: Roland reports he is doing well. He feels a little bit stronger. Less short of breath. Medications: Reviewed: Yes Vitals/I&O/Wt Last Vital Signs Temp 97.9 F 01/24/20 07:42 Pulse 80 01/24/20 11:12 Resp 18 01/24/20 11:09 BP 131/63 01/24/20 07:42 Pulse Ox 92 01/24/20 11:09 01/23/20 01/24/20 01/24/20 22:59 06:59 14:59 Intake Total 30 / 560 150 / 710 600 / 600 Output Total 675 / 975 900 / 1875 600 / 600 Balance -645 / -415 -750 / -1165 0 / 0 Physical Exam Narrative: EXAM NARRATIVE: General exam no apparent distress. Still requiring 5 L of oxygen Cardiovascular regular rate and rhythm without murmur Lungs a few bilateral expiratory wheezes Abdomen is soft obese nontender with positive bowel sounds Extremities no cyanosis clubbing. No significant edema Urinary Catheter Management^: Renae: Cath Placed During This Visit: yes, but has since been removed by the nurse Urethral Indwelling: Yes Reason for Continuing Indwelling Catheter: Acute Urinary Retention or Obstruction Urinary Catheter Date of Insertion: 01/20/20 Urinary Catheter Time of Insertion: 03:00 Date Urinary Catheter Removed: 01/22/20 Time Urinary Catheter Discontinued: 11:33 Data : 01/23/20 05:04 01/23/20 05:04 A&P Assessment and plan (1) Acute and chronic respiratory failure: Continues to symptomatically improve Still requiring 5 L of oxygen. Has been diuresing significantly Continue to attempt to wean oxygen Continue Rocephin. He has completed his course of azithromycin. Continue nebs every 4 hours Continue low-dose Lasix Continue oral prednisone Has not yet had sleep study. Was scheduled for 02/04. Follow-up with pulmonology in office. Would benefit from home health care. Status: Acute Qualifiers: Respiratory failure complication: hypoxia and hypercapnia Qualified Code(s): J96.21 - Acute and chronic respiratory failure with hypoxia; J96.22 - Acute and chronic respiratory failure with hypercapnia Code(s): J96.20 - Acute and chronic respiratory failure, unspecified whether with hypoxia or hypercapnia (2) Community acquired pneumonia: Continue Rocephin Mixed arthur in sputum culture. Influenza negative. Status: Acute Qualifiers: Laterality: left Lung location: lower lobe of lung Qualified Code(s): J18.9 - Pneumonia, unspecified organism Code(s): J18.9 - Pneumonia, unspecified organism (3) Urethral bleeding: At some point earlier today was entangled in different lines and his phone cord, as well as was reported working with PT. Treatment rounds later in the day noted with a fresh clot and some hematuria in the Renae. On closer inspection by nursing staff Renae. To have been perhaps partially removed. An attempt to deflate the balloon to remove the Renae no fluid could be withdrawn. Gentle attempts to remove the Renae also unsuccessful. Renae successfully replaced by urology and a bedside procedure. For now maintain Renae for a few days due to likely degree of urethral trauma. Monitor for hematuria Catheter has been removed. He appears to be doing well. Continue Flomax Status: Acute Code(s): N36.8 - Other specified disorders of urethra Additional A&P Information Sepsis, resolved Atrial fibrillation. He had some recurrence. Placed on Eliquis. Continue metoprolol. Rate is controlled. Hypertension, stable Diabetes, stable with current regimen Suspected sleep apnea, will need outpatient sleep study Attestations Medical Necessity Statement*: Needs continued hospitalization for IV antibiotics secondary to pneumonia pending placement. Coding Level of Care Code Acute Home Fire Alarm Installer for [facility] Diagnoses Acute and chronic respiratory failure J96.21; J96.22 Respiratory failure complication: hypoxia and hypercapnia Community acquired pneumonia J18.9 Laterality: left Lung location: lower lobe of lung Urethral bleeding N36.8
--- NOTE | 2020-01-24 15:38 | P.DS_ITS ---
Discharge Providers Date of Admission: 01/17/20 03:32 Date of Discharge: January 24, 2020 Attending Provider at Admission: Lizette Peralta MD Attending Provider at Discharge: Nghia Goins MD Diagnoses at Discharge Discharge Diagnosis (1) Acute and chronic respiratory failure: Status: Acute Problem details: Improved. Currently on 5 L. We will continue to titrate at [facility]. Qualifiers: Respiratory failure complication: hypoxia and hypercapnia Qualified Code(s): J96.21 - Acute and chronic respiratory failure with hypoxia; J96.22 - Acute and chronic respiratory failure with hypercapnia (2) Community acquired pneumonia: Status: Acute Problem details: Discharge on cefdinir for 7 days Qualifiers: Laterality: left Lung location: lower lobe of lung Qualified Code(s): J18.9 - Pneumonia, unspecified organism (3) Urethral bleeding: Status: Acute Problem details: Resolved. Follow-up with urology 2 weeks Reason for Visit Reason for Visit: Reason For Visit: PNEUMONIA Hospital Course Hospital Course: Roland is a 74-year-old white male who presented to the hospital with shortness of breath. He was found to have community-acquired pneumonia, and a COPD exacerbation. He was placed on steroids, Rocephin and azithromycin, and pulmonary toilet. He required intubation and ventilation. Pulmonary consult was obtained, and he was able to be successfully extubated on January 18. During the rest of his hospital stay he had gradual improvement. Complications during his hospital stay included episodes of paroxysmal atrial fibrillation. Secondary to this his metoprolol dose was changed during his hospital stay and he was ultimately started on Eliquis. He also had some urethral bleeding from trauma. Urology was asked to visit with him and replace a Renae catheter while in the hospital. Eventually this catheter was able to be removed without any evidence of recurrent bleeding. By the end of his hospital stay he was doing quite well. He was afebrile. He had titrated down to 5 L of oxygen. He was gaining some strength but with his overall weakness it was thought he could benefit from [facility] placement. This was arranged and he was discharged on January 24. He will follow-up with a primary care provider at the [facility], and have a BMP in 3 to 5 days. He will also follow-up with urology, cardiology, and pulmonary. He will complete several more days of cefdinir. There will be consideration of outpatient sleep study by pulmonary on follow-up. Physical Exam Narrative: EXAM NARRATIVE: See note from today Urinary Catheter Management^: Renae: Cath Placed During This Visit: yes, but has since been removed by the nurse Urethral Indwelling: Yes Reason for Continuing Indwelling Catheter: Acute Urinary Retention or Obstruction Urinary Catheter Date of Insertion: 01/20/20 Urinary Catheter Time of Insertion: 03:00 Date Urinary Catheter Removed: 01/22/20 Time Urinary Catheter Discontinued: 11:33 Discharge Data Data Completed and Pending: Completed Studies During Hospitalization Category Date Time Status XR chest 1V charisse ble [id number] Routine Exams 01/18/20 06:00 Completed XR chest 1V charisse ble [id number] Stat Exams 01/16/20 23:17 Completed XR chest 1V charisse ble [id number] Stat Exams 01/17/20 02:58 Completed CV echo wo/w cont rast [id number] Routine Ultrasound 01/21/20 17:36 Completed US/CV paperwork R outine Ultrasound 01/21/20 Completed Labs from last 24 hours 01/24/20 01/24/20 01/23/20 11:09 06:34 20:23 POC Glucose 184 96 263 01/23/20 16:34 POC Glucose 345 Vitals: Last Vital Signs Temp 98.9 F 01/24/20 12:00 Pulse 91 01/24/20 15:31 Resp 18 01/24/20 15:27 BP 151/80 01/24/20 12:00 Pulse Ox 92 01/24/20 15:27 Discharge Plan Discharge Patient Disposition: Xfer [facility] Condition: Stable Prescriptions: New tamsulosin 0.4 mg Capsule 0.4 mg PO DAILY Qty: 30 RF: 0 Eliquis 5 mg Tablet 5 mg PO BID Qty: 60 RF: 0 prednisone 20 mg Tablet 40 mg PO DAILY Qty: 10 RF: 0 cefdinir 300 mg capsule 300 mg PO BID 7 Days Qty: 14 RF: 0 famotidine [Pepcid] 20 mg tablet 20 mg PO BID Qty: 60 RF: 0 metoprolol tartrate 37.5 mg tablet 37.5 mg PO BID Qty: 60 RF: 0 Continued albuterol sulfate 0.63 mg/3 mL solution for nebulization 0.63 mg inhalation QID RF: 0 Glucotrol XL 5 mg tablet extended release 24hr 5 mg PO DAILY RF: 0 Synthroid 50 mcg tablet 50 mcg PO DAILY RF: 0 Glucophage 1,000 mg tablet 1,000 mg PO BID RF: 0 Prinivil 10 mg tablet 10 mg PO DAILY RF: 0 Pulmicort 0.5 mg/2 mL suspension for nebulization 0.5 mg inhalation BID RF: 0 Lasix 20 mg tablet 20 mg PO DAILY RF: 0 Zoloft 50 mg tablet 50 mg PO DAILY RF: 0 (DME) Easy Touch 31 gauge x 5/16 needle MISCELLANEOUS RF: 0 Crestor 40 mg tablet 40 mg PO DAILY RF: 0 Levemir FlexTouch U-100 Insuln 100 unit/mL (3 mL) insulin pen See Rx Instructions .ROUTE .COMPLEX RF: 0 Allergy Relief (levocetirizin) 5 mg tablet 5 mg PO DAILY RF: 0 Trulicity 1.5 mg/0.5 mL pen injector 1.5 mg SUBCUT DIRECTED RF: 0 Discontinued Risperdal 3 mg tablet 3 mg PO DAILY RF: 0 Lopressor 50 mg tablet 50 mg PO BID RF: 0 Discharge Orders: Discharge Order (Routine); Ordered 01/24/20 Ordered By: Nghia Goins Referrals: Bhupinder Chaves MD [Physician] - 2 weeks Mireya Guajardo MD [Physician] - 2 weeks Ashwini Lozano MD [Physician] - 2 weeks Discharge Diet: Diabetic Discharge Activity: Increase activity as tolerated Activity Restrictions/Additional Instructions: Follow-up with primary care provider at [facility] within the next 5 days BMP 3 to 5 days Oxygen 5 L per nasal cannula, titrate to keep saturation 90% or greater Discharge Attestations Time Spent in Discharge Care*: greater than 30 min Quality Metrics Clinical Quality Measures During this hospital stay, did patient experience: None Coding Level of Care Code 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
[2020-01-24 16:32] LABS: Glucose Point of Care 273 mg/dL (70-110)
--- NOTE | 2020-01-24 17:03 | PC.NURSE ---
Informed to discharge patient to [facility] at 1630. Filled out paper for report, looked up number for facility. Called [facility] at 1645 to give report, spoke with Román who transfered me to Tori. Explained I was to give report, she stated she could not accept him because their pharmacy was closed for the night, they closed at 1630. That Miko the rn social services was told when she got the patient approved that all his discharge papers and report would need to be called and faxed by 1600/1615 at the latest so she could get the pharmacy to send medication before they closed. Explained this nurse was not informed of such and apologized and that I would need to inform the charge nurse. I went to charge nurse and explained what Tori was saying while she was on hold. Charge nurse said she would call rn social services Miko. I told Tori we were trying to figure it out because the charge nurse states the discharge packet was sent before 4pm. Tori stated she just received the fax and it was a full packet of discharge paperwork and it wasn't received before 4pm. I said ok and applogized then stated I would call back if needed. Spoke with miko who said she just was on phone with Elsa and to talk with Le. Called [facility] back and spoke with Le who was informed that Elsa was just on phone with fitness worker- miko and for me to call back. Le said yes she was just talking with Elsa and couldn't accept pt due to pharmacy. Informed charge nurse. Called Dr Guan and informed him of situation. Will keep pt tell tomorrow then discharge to [facility] facility in AM.
--- NOTE | 2020-01-24 18:15 | PM.PN ---
Subjective Subjective: Interval history: No CP, SOB or palpitation. Patient went into atrial fibrillation and was started on Eliquis. Medications: Reviewed: Yes Vitals/I&O/Wt Last Vital Signs Temp 98.6 F 01/24/20 16:00 Pulse 76 01/24/20 16:00 Resp 18 01/24/20 15:27 BP 124/71 01/24/20 16:00 Pulse Ox 89 L 01/24/20 16:00 01/24/20 01/24/20 01/24/20 06:59 14:59 22:59 Intake Total 150 / 710 960 / 960 480 / 1440 Output Total 900 / 1875 1700 / 1700 550 / 2250 Balance -750 / -1165 -740 / -740 -70 / -810 Weight last 48 hrs Weight 223 lb 4.8 oz Physical Exam Narrative: EXAM NARRATIVE: COMMON NORMALS: no apparent distress, oriented x3 and alert GENERAL APPEARANCE: cooperative, comfortable, well kempt and well hydrated HENOH COMMON NORMALS: hearing grossly normal bilaterally, external ears normal and moist oral mucous membranes; EOMs intact bilaterally and no scleral icterus Neck/C-Spine COMMON NORMALS: no lymphadenopathy, supple and no JVD CAROTIDS: Yes normal carotid upstroke Chest COMMONS NORMALS: inspection of chest normal and palpation of chest normal Resp COMMON NORMALS: clear to auscultation bilaterally AUSCULTATION: clear to auscultation bilaterally, no crackles, no rales, no rhonchi and no wheezes Cardio COMMON NORMALS: no JVD, regular rate, regular rhythm, S1 normal heart sound, S2 normal heart sound and peripheral pulses 2+ throughout PALPATION: normal PMI RATE: regular rate RHYTHM: regular rhythm HEART SOUNDS: S1 normal, S2 normal, no click, no gallops and no murmurs BRUITS: no carotid bruits PERIPHERAL PULSES: pulses 2+ throughout, radial pulses present, posterior tibial pulses present and dorsalis pedis pulses present Extremity GENERAL: No clubbing, No cyanosis, Yes edema and No pallor Neuro COMMON NORMALS: oriented x3, CN's II-XII intact bilaterally and no focal motor deficits SENSORIUM/ORIENTATION: Yes alert Urinary Catheter Management^: Renae: Cath Placed During This Visit: yes, but has since been removed by the nurse Urethral Indwelling: Yes Reason for Continuing Indwelling Catheter: Acute Urinary Retention or Obstruction Urinary Catheter Date of Insertion: 01/20/20 Urinary Catheter Time of Insertion: 03:00 Date Urinary Catheter Removed: 01/22/20 Time Urinary Catheter Discontinued: 11:33 Data : 01/23/20 05:04 01/23/20 05:04 A&P Assessment and plan (1) Atrial fibrillation: Paroxysmal atrial fibrillation. -Patient is currently in NSR. -Uretheral bleed likely Renae trauma. Plan for DOAC if their is recurrence of Atrial fibrillation and hematuria resolves. -Continue metoprolol tartrate 37.5 mg twice a day and Eliquis. -Follow up on TTE. Normal TSH Status: Acute Qualifiers: Atrial fibrillation type: paroxysmal Qualified Code(s): I48.0 - Paroxysmal atrial fibrillation Code(s): I48.91 - Unspecified atrial fibrillation (2) COPD exacerbation: Status: Acute Code(s): J44.1 - Chronic obstructive pulmonary disease with (acute) exacerbation (3) Community acquired pneumonia: On antibiotics as per primary team. Status: Acute Qualifiers: Laterality: left Lung location: lower lobe of lung Qualified Code(s): J18.9 - Pneumonia, unspecified organism Code(s): J18.9 - Pneumonia, unspecified organism (4) Mild cognitive impairment: Status: Acute Code(s): G31.84 - Mild cognitive impairment, so stated (5) Sleep apnea: Suspected, would need outpatient sleep study. Status: Acute Code(s): G47.30 - Sleep apnea, unspecified (6) Diabetes mellitus: Status: Acute Code(s): E11.9 - Type 2 diabetes mellitus without complications (7) Hypertension: well controlled. continue current medications. Status: Acute Qualifiers: Hypertension type: essential hypertension Qualified Code(s): I10 - Essential (primary) hypertension Code(s): I10 - Essential (primary) hypertension Additional A&P Information Uretheral bleeding : resolved Normocytic anemia Thank you for allowing me to participate in patient's care. Please feel free to call with questions or concerns. I will sign off. He can follow up with me in 3-4 weeks as an outpatient. Attestations Medical Necessity Statement*: Stable from cardiac standpoint to be discharged. 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
[2020-01-24 21:05] LABS: Glucose Point of Care 208 mg/dL (70-110)
[2020-01-24] MEDS: insulin glargine 100 units/1 mL 17 UNIT SUBCUT (21:15)
[2020-01-25] MEDS: metoprolol tartrate 25 mg Tablet PO ×2 (00:41→07:45)
[2020-01-25 03:55] VITALS: PULSE 72; RESP 17; O2SAT 92
[2020-01-25] MEDS: ipratropium-albuterol 3 mL Neb INHALATION (03:57)
[2020-01-25 04:00] VITALS: BP 157/81; PULSE 66; PULSE 75; RESP 19; TEMP 36.7; O2SAT 91; O2SAT 93
[2020-01-25 06:27] LABS: Glucose Point of Care 101 mg/dL (70-110)
[2020-01-25 07:01] VITALS: BP 144/72; PULSE 78; RESP 18; TEMP 36.7; O2SAT 92
[2020-01-25] MEDS: cefTRIAXone 1,000 MG in sodium chloride 0.9% (plus) 50 ML 100 MG IV (07:43)
[2020-01-25] MEDS: atorvastatin 40 mg Tablet 80 MG PO (07:44)
[2020-01-25] MEDS: predniSONE 20 mg Tablet 40 MG PO (07:44)
[2020-01-25] MEDS: apixaban 5 mg Tablet PO (07:44)
[2020-01-25] MEDS: FUROsemide 20 mg Tablet PO (07:44)
[2020-01-25] MEDS: guaiFENesin 600 mg Tablet 1200 MG PO (07:45)
[2020-01-25] MEDS: tamsulosin 0.4 mg Capsule PO (07:45)
[2020-01-25] MEDS: levothyroxine 50 mcg Tablet PO (07:45)
[2020-01-25] MEDS: famotidine 20 mg Tablet NG-TUBE (07:45)
[2020-01-25 08:30] VITALS: PULSE 79; RESP 20; O2SAT 92
[2020-01-25 08:45] VITALS: PULSE 82
[2020-01-25 10:34] VITALS: BP 144/72; PULSE 82; RESP 20; TEMP 36.7; O2SAT 92
--- NOTE | 2020-01-25 10:59 | PM.PN ---
Subjective Subjective: Interval history: Roland reports he was doing well this morning. Discharge was held last night as nursing facility refused to take as it was late. He reports his breathing is stable. Medications: Reviewed: Yes Vitals/I&O/Wt Last Vital Signs Temp 98.0 F 01/25/20 10:34 Pulse 82 01/25/20 10:34 Resp 20 H 01/25/20 10:34 BP 144/72 01/25/20 10:34 Pulse Ox 92 01/25/20 10:34 01/24/20 01/25/20 01/25/20 22:59 06:59 14:59 Intake Total 480 / 1490 240 / 240 Output Total 850 / 2550 860 / 3410 300 / 300 Balance -370 / -1060 -860 / -1920 -60 / -60 Weight last 48 hrs Weight 92.76 kg Weight 101.287 kg Physical Exam Narrative: EXAM NARRATIVE: General exam no apparent distress Cardiovascular regular in rhythm Lungs a few faint expiratory wheezing Abdomen is soft obese nontender Extremities no cyanosis clubbing or edema Urinary Catheter Management^: Renae: Cath Placed During This Visit: yes, but has since been removed by the nurse Urethral Indwelling: Yes Reason for Continuing Indwelling Catheter: Acute Urinary Retention or Obstruction Urinary Catheter Date of Insertion: 01/20/20 Urinary Catheter Time of Insertion: 03:00 Date Urinary Catheter Removed: 01/22/20 Time Urinary Catheter Discontinued: 11:33 Data : 01/23/20 05:04 01/23/20 05:04 A&P Assessment and plan (1) Acute and chronic respiratory failure: Continues to symptomatically improve Now on 3 L of oxygen Has been diuresing significantly Continue to attempt to wean oxygen He will [facility] the [facility] and finish a course of cefdinir Continue nebs every 4 hours Continue low-dose Lasix Finish up a course of prednisone Has not yet had sleep study. Was scheduled for 02/04. Follow-up with pulmonology in office. Would benefit from home health care. Status: Acute Qualifiers: Respiratory failure complication: hypoxia and hypercapnia Qualified Code(s): J96.21 - Acute and chronic respiratory failure with hypoxia; J96.22 - Acute and chronic respiratory failure with hypercapnia Code(s): J96.20 - Acute and chronic respiratory failure, unspecified whether with hypoxia or hypercapnia (2) Community acquired pneumonia: Continue Rocephin Mixed arthur in sputum culture. Influenza negative. Status: Acute Qualifiers: Laterality: left Lung location: lower lobe of lung Qualified Code(s): J18.9 - Pneumonia, unspecified organism Code(s): J18.9 - Pneumonia, unspecified organism (3) Urethral bleeding: At some point earlier today was entangled in different lines and his phone cord, as well as was reported working with PT. Treatment rounds later in the day noted with a fresh clot and some hematuria in the Renae. On closer inspection by nursing staff Renae. To have been perhaps partially removed. An attempt to deflate the balloon to remove the Renae no fluid could be withdrawn. Gentle attempts to remove the Renae also unsuccessful. Renae successfully replaced by urology and a bedside procedure. For now maintain Renae for a few days due to likely degree of urethral trauma. Monitor for hematuria Catheter has been removed. He appears to be doing well. Continue Flomax Following up with urology Status: Acute Code(s): N36.8 - Other specified disorders of urethra Additional A&P Information Sepsis, resolved Atrial fibrillation. He had some recurrence. Placed on Eliquis. Continue metoprolol. Rate is controlled. 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
== END 2020-01-25 10:36 | disposition skilled nursing facility (03) | DRG 871 ==
LOC: ER 23:16 → ICU 01-17 04:56 → MEDSURG 01-19 13:11
PROVIDERS: Internal Medicine; Internal Medicine Critical Care Medicine; Admitting Provider Student in an Organized Health Care Education/Training Program; Emergency Provider Emergency Medicine; Visit Provider Internal Medicine
DX: A41.9 Sepsis, unspecified organism (principal); J18.9 Pneumonia, unspecified organism; J96.22 Acute and chronic respiratory failure with hypercapnia; J96.21 Acute and chronic respiratory failure with hypoxia; J44.0 Chronic obstructive pulmonary disease with (acute) lower respiratory infection; J44.1 Chronic obstructive pulmonary disease with (acute) exacerbation; G31.84 Mild cognitive impairment of uncertain or unknown etiology; F32.9 Major depressive disorder, single episode, unspecified; I10 Essential (primary) hypertension; H40.9 Unspecified glaucoma; E11.9 Type 2 diabetes mellitus without complications; G47.33 Obstructive sleep apnea (adult) (pediatric); Z87.891 Personal history of nicotine dependence; I48.0 Paroxysmal atrial fibrillation; T83.021A Displacement of indwelling urethral catheter, initial encounter; Y73.1 Therapeutic (nonsurgical) and rehabilitative gastroenterology and urology devices associated with adverse incidents; D64.9 Anemia, unspecified; Z79.4 Long term (current) use of insulin
CPT/HCPCS: 12345; 31500; 36415; 36416; 36600; 51702; 71045; 80048; 80053; 81001; 82803; 82962; 83605; 83735; 83880; 84443; 84484; 85025; 87040; 87070; 87086; 87804; 93005; 94002; 94003; 94640; 94660; 94762; 94799; 96372; 96374; 96375; 97110; 97116; 97161; 97165; 97530; 97535; 99285; C8929; J0330; J0456; J0696; J1650; J1815; J2060; J2250; J2270; J2405; J2543; J2704; J2920; J2930; J3010; J3490; J7050; J7512; J7626; J7799; Q9956

== ENCOUNTER 2020-01-29 10:05 | Emergency (ER) | payer MEDICARE, MEDICAID, SELFPAY ==
[2020-01-29 10:09] VITALS: BP 74/47; PULSE 83; RESP 16; TEMP 36.4; O2SAT 93; BMI 34.5
--- NOTE | 2020-01-29 10:22 | XR_ITS ---
WS: [id number] XR chest 1V portable [id number] REASON FOR EXAM: abnormal lung sounds FINDINGS: Hyper aerated lungs are seen with flattenings of the hemidiaphragms and increased radioluce ncy of both lung patrick consistent with chronic obstructive pulmonary disease. Previous exam dated January 18, 2020 showed bilateral pleural effusion which has cleared. The heart and mediastinal interfaces normal. Hilum and apices normal. No osseous abnormalities. XR/XR chest 1V portable [id number] IMPRESSION: Chronic obstructive pulmonary disease.
--- NOTE | 2020-01-29 10:22 | W.ED.SYNCOPE ---
HPI - Syncope General: Chief Complaint: Syncope Stated Complaint: syncope/hypotensive Time Seen by Provider: 01/29/20 10:16 History of Present Illness: HPI narrative: Patient arrived via ambulance with episode of syncope as he was getting up after a bowel movement. Patient did strike the floor denies any pain denies any other problems currently being treated for bleeding from his penis. Patient is diabetic MD complaint: loss of consciousness Onset (ago): hour(s) -: second(s) Prodromal symptoms: vertigo Witnessed: Yes - by Other ([facility] personnel) Context: standing up Associated symptoms: Reports no associated symptoms; Deny abdominal pain, chest pain, fever(s), headache(s) or nausea Treatments prior to arrival: IV fluids Review of Systems Const: Denies: fever, chills or body aches Eyes: Denies: change in vision or blurry vision ENMT: Denies: throat pain or nasal congestion Card: Denies: chest pain or shortness of breath on exertion Resp: Denies: shortness of breath, productive cough or non-productive cough GI: Denies: abdominal pain, nausea or vomiting : Denies: difficulty urinating Musc: Denies: extremity pain Skin/Breast: Denies: rash Neuro: Reports: dizziness and other (Syncopal episode after bowel movement); Denies: headache Psych: Denies: anxiety or depression Elijah/Lymph: Denies: easy bruising PFSH ED PFSH: Medical History (Updated 01/29/20 @ 12:07 by MARICRUZ Meredith) Age-related cognitive decline COPD (chronic obstructive pulmonary disease) COPD with exacerbation DM type 2 (diabetes mellitus, type 2) HLD (hyperlipidemia) HTN (hypertension) Major depressive disorder, recurrent episode with mood-congruent psychotic features Surgical History (Updated 12/18/19 @ 11:58 by CELENA Vernon) History of cataract surgery Social History Smoking and tobacco status: former smoker Second hand smoke exposure: No Smoking risk assessment/counseling performed?: No Alcohol intake: never Desire information about alcohol rehabilitation?: No Counseling given: No Desire information about substance/drug rehabilitation?: No Counseling given: No Adopted: No Caregiver/support person: No Lives independently: Yes Housing: House Marital status: Single Number of children: 1 service: No Current occupational status: disabled Pets and animals: No History of recent travel: No Current gender identity: Male Physical Exam Const: COMMON NORMALS: no apparent distress, average body habitus and oriented x3 HENMT: COMMON NORMALS: normocephalic HEAD & SCALP: normal to inspection and normocephalic FACE & SINUS: normal facial exam Eye: COMMON NORMALS: conjunctivae normal GENERAL EYE: normal appearance of both eyes CONJUNCTIVA: Yes conjunctivae normal Neck/C-Spine: COMMON NORMALS: no JVD Chest: COMMONS NORMALS: inspection of chest normal Resp: COMMON NORMALS: normal respiratory effort AUSCULTATION: crackles Laterality: left and bilateral and rales Cardio: COMMON NORMALS: no JVD, regular rate and regular rhythm RATE: regular rate RHYTHM: regular rhythm GI: COMMON NORMALS: normal to inspection, nondistended, normoactive bowel sounds Extremity: COMMON NORMALS: normal to inspection and full ROM Neuro: COMMON NORMALS: oriented x3 Course Vital Signs: Vital signs: Vital Signs Temperature 97.5 F L 01/29/20 10:09 Pulse Rate 75 01/29/20 12:20 Respiratory Rate 16 01/29/20 11:37 Blood Pressure 118/62 01/29/20 12:20 Pulse Oximetry 94 01/29/20 12:20 MDM - Syncope MDM Narrative: Medical decision making narrative: Discuss case with Dr. Corona Lab Data: Labs: Lab Results 01/29/20 01/29/20 01/29/20 Range/Units 10:30 10:30 10:30 WBC 15.0 H (4.0-10.0) 10^3/ uL RBC 4.35 (4.1-5.3) 10^6/u L Hgb 12.2 (11.7-16.6) g/dL Hct 39.3 L (42.0-52.0) % MCV 90.3 (80-94) fL MCH 28.0 (28.0-34.0) pg MCHC 31.0 (30.0-36.0) g/dL RDW 13.7 (12.1-15.1) % Plt Count 200 (130-400) 10^3/c mm MPV 9.4 (7.4-10.4) fL Neut % (Auto) 75.7 % Lymph % (Auto) 19.3 % [place] % (Auto) 3.9 % Eos % (Auto) 0.3 % Baso % (Auto) 0.1 % Neut # (Auto) 11.4 H (1.8-7.7) 10^3/u L Lymph # (Auto) 2.9 (0.8-4.8) 10^3/u L [place] # (Auto) 0.6 (0.2-0.9) 10^3/u L Eos # (Auto) 0.0 (0.0-0.8) 10^3/u L Baso # (Auto) 0.0 (0.0-0.1) 10^3/u L Nucleated RBC % (a uto) 0 % Nucleated RBCs # 0.0 /100WBC PT (10.5-13.3) SECO NDS INR (0.8-1.2) Sodium 136 (136-145) mmol/L Potassium 3.7 (3.5-5.1) mmol/L Chloride 98 (98-107) mmol/L Carbon Dioxide 27 (22-29) mmol/L Anion Gap 14.7 (5-19) BUN 25 H (8-23) mg/dL Creatinine 1.6 H (0.7-1.2) mg/dL Glucose 259 H (65-115) mg/dL Calcium 9.1 (8.5-10.5) mg/dL Total Bilirubin 0.4 (0.15-1.2) mg/dL AST 20 (0-40) U/L ALT 43 H (0-41) U/L Alkaline Phosphata se 62 (40-130) IU/L Troponin T Gen 5 n g/L 24 H (0-15) ng/mL Troponin T 120 Min hopi (0-15) ng/mL Delta Troponin T (0-10) ABS# Total Protein 6.2 L (6.6-8.7) g/dL Albumin 3.2 L (3.5-5.2) g/dL Globulin 3.0 (1.3-4.6) g/dL Urine Color (Yellow) Urine Appearance (CLEAR) Urine pH (5-7) Ur Specific Gravit y (1.005-1.030) Urine Protein (Negative) Urine Glucose (UA) (Normal) Urine Ketones (Negative) Urine Blood (Negative) Urine Nitrate (Negative) Urine Bilirubin (NEGATIVE) Urine Urobilinogen (Negative) mg/dL Ur Leukocyte Linda ase (Negative) Urine RBC (0-2) /hpf Urine WBC (0-5) /hpf Ur Squamous Epith Cells (0-5) Urine Bacteria (NONE) 01/29/20 01/29/20 01/29/20 Range/Units 10:30 11:40 12:29 WBC (4.0-10.0) 10^3/ uL RBC (4.1-5.3) 10^6/u L Hgb (11.7-16.6) g/dL Hct (42.0-52.0) % MCV (80-94) fL MCH (28.0-34.0) pg MCHC (30.0-36.0) g/dL RDW (12.1-15.1) % Plt Count (130-400) 10^3/c mm MPV (7.4-10.4) fL Neut % (Auto) % Lymph % (Auto) % [place] % (Auto) % Eos % (Auto) % Baso % (Auto) % Neut # (Auto) (1.8-7.7) 10^3/u L Lymph # (Auto) (0.8-4.8) 10^3/u L [place] # (Auto) (0.2-0.9) 10^3/u L Eos # (Auto) (0.0-0.8) 10^3/u L Baso # (Auto) (0.0-0.1) 10^3/u L Nucleated RBC % (a uto) % Nucleated RBCs # /100WBC PT 15.20 H (10.5-13.3) SECO NDS INR 1.16 (0.8-1.2) Sodium (136-145) mmol/L Potassium (3.5-5.1) mmol/L Chloride (98-107) mmol/L Carbon Dioxide (22-29) mmol/L Anion Gap (5-19) BUN (8-23) mg/dL Creatinine (0.7-1.2) mg/dL Glucose (65-115) mg/dL Calcium (8.5-10.5) mg/dL Total Bilirubin (0.15-1.2) mg/dL AST (0-40) U/L ALT (0-41) U/L Alkaline Phosphata se (40-130) IU/L Troponin T Gen 5 n g/L (0-15) ng/mL Troponin T 120 Min hopi 22.27 H (0-15) ng/mL Delta Troponin T -1.73 L (0-10) ABS# Total Protein (6.6-8.7) g/dL Albumin (3.5-5.2) g/dL Globulin (1.3-4.6) g/dL Urine Color Red (Yellow) Urine Appearance Cloudy (CLEAR) Urine pH 5 (5-7) Ur Specific Gravit y 1.015 (1.005-1.030) Urine Protein 1+ H (Negative) Urine Glucose (UA) Norm (Normal) Urine Ketones Negative (Negative) Urine Blood 3+ H (Negative) Urine Nitrate Negative (Negative) Urine Bilirubin Neg (NEGATIVE) Urine Urobilinogen Norm (Negative) mg/dL Ur Leukocyte Linda ase Negative (Negative) Urine RBC Too numerous to c nt H (0-2) /hpf Urine WBC None (0-5) /hpf Ur Squamous Epith Cells None (0-5) Urine Bacteria 1+ H (NONE) EKG Data^: EKG 1: EKG interpretation date: 01/29/20 EKG interpretation time: 10:45 Interpretation: SR with PVC, 69 bpm, pr-116. qrs 98ms Discharge Plan Discharge Patient Disposition: [facility] Clinical Impression: Vasovagal syncope Condition: Stable Prescriptions: No Action sertraline 50 mg tablet 50 mg PO DAILY RF: 0 rosuvastatin [Crestor] 20 mg tablet 40 mg PO BEDTIME RF: 0 metoprolol tartrate 50 mg tablet 37.5 mg PO BID RF: 0 metformin 1,000 mg tablet 1,000 mg PO BID Qty: 60 RF: 0 Trulicity 1.5 mg/0.5 mL pen injector 1.5 mg SUBCUT Q7D Qty: 2 RF: 0 levothyroxine 50 mcg Tablet 50 mcg PO DAILY RF: 0 furosemide [Lasix] 20 mg Tablet 20 mg PO DAILY RF: 0 levocetirizine 5 mg Tablet 5 mg PO DAILY RF: 0 albuterol sulfate 0.63 mg/3 mL Solution For Nebulization 0.63 mg INHALATION QID RF: 0 Tylenol 325 mg Tablet 650 mg PO Q6H PRN (Reason: Pain) RF: 0 prednisone 20 mg Tablet 40 mg PO DAILY RF: 0 famotidine 20 mg Tablet 20 mg PO BID RF: 0 Milk of Magnesia 400 mg/5 mL Suspension 30 ml PO DAILY PRN (Reason: Constipation) RF: 0 Flomax 0.4 mg Capsule 0.4 mg PO DAILY RF: 0 Dulcolax (bisacodyl) 10 mg Suppository 10 mg UT DAILY PRN (Reason: Constipation) RF: 0 lisinopril 10 mg Tablet 10 mg PO DAILY RF: 0 Fleet Enema 19-7 gram/118 mL Enema 118 ml UT DAILY PRN (Reason: Constipation) RF: 0 Pulmicort 0.5 mg/2 mL Suspension For Nebulization 0.5 mg INHALATION BID RF: 0 Dulcolax (bisacodyl) 5 mg Tablet,Delayed Release (Dr/Ec) 10 mg PO DAILY PRN (Reason: Constipation) RF: 0 cefdinir 300 mg Capsule 300 mg PO BID RF: 0 glipizide 5 mg Tablet 5 mg PO DAILY RF: 0 Levemir FlexTouch U-100 Insuln 100 unit/mL (3 mL) Insulin Pen 17 unit SUBCUT BEDTIME RF: 0 Eliquis 5 mg Tablet 5 mg PO BID RF: 0 Discharge Orders: Discharge Order (Routine); Ordered 01/29/20 Ordered By: Gene Carter Referrals: Lamin Beatty, PASTRY ASSISTANT-C [Primary Care Provider] - Discharge Diet: Usual diet Discharge Activity: Increase activity as tolerated Patient Instructions: Hypotension (ED) Activity Restrictions/Additional Instructions: Follow-up with medical provider as directed. Return to the ER or your medical provider if condition worsens. Please read and understand discharge instructions. If any questions ask please. Fall precautions sure patient drinks plenty of fluid monitor sugar closely follow-up with primary Coding Level of Care Code ED Art Education Professor for Chg Fwd Exam Comprehensive
[2020-01-29 10:24] VITALS: O2SAT 93
--- NOTE | 2020-01-29 10:24 | CTR_ITS ---
PROCEDURE INFORMATION: Exam: CT Head Without Contrast Exam date and time: 01/29/2020 10:43 AM Age: 74 years old Clinical indication: Injury or trauma; Fall; Initial encounter; Blunt trauma (contusions or hematomas); Consciousness not specified; Injury date: 01/29/20 TECHNIQUE: Imaging protocol: Computed tomography of the head without contrast. Total DLP: 852.99 mGy-cm Radiation optimization: All CT scans at this facility use at least one of these dose optimization techniques: automated exposure control; mA and/or kV adjustment per patient size (includes targeted exams where dose is matched to clinical indication); or iterative reconstruction. COMPARISON: CT head wo con* [id number] 08/26/2017 1:28 PM FINDINGS: Brain: There is no acute intracranial hemorrhage, cerebral edema, or midline shift. Chronic microvascular ischemic changes are seen in the periventricular white matter. Age-related cerebral and cerebellar volume loss is present. Ventricles: No hydrocephalus. Bones/joints: A chronic fracture involving the anterior wall of the left frontal sinus is noted. Sinuses: There is mild mucosal thickening in the left maxillary and right ethmoid sinuses. Mastoid air cells: The mastoid air cells are clear. Orbits: The included orbital structures are unremarkable. Soft tissues: Unremarkable. Vasculature: Atherosclerotic calcifications are seen involving the cavernous carotid arteries. CT/CT head wo con* [id number] IMPRESSION: 1. No acute intracranial abnormality. 2. Chronic findings as discussed above. Radiation Dose CTDIVOL = (mGy): DLP = 852.99 (mGy-cm)
--- NOTE | 2020-01-29 10:34 | PC.NURSE ---
portable xray at bedside
[2020-01-29 10:37] LABS: Basophils % 0.1 %; Eosinophils % 0.3 %; Hematocrit 39.3 % (42.0-52.0); Hemoglobin 12.2 g/dL (11.7-16.6); Lymphocytes # 2.9 10^3/uL (0.8-4.8); Lymphocytes % 19.3 %; Mean Corpuscular Volume 90.3 fL (80-94); Mean Platelet Volume 9.4 fL (7.4-10.4); Monocytes # 0.6 10^3/uL (0.2-0.9); Monocytes % 3.9 %; Neutrophils # 11.4 10^3/uL (1.8-7.7); Neutrophils % 75.7 %; Nucleated Red Blood Cells % 0 %; Platelet Count 200 10^3/cmm (130-400); Red Blood Count 4.35 10^6/uL (4.1-5.3); Red Cell Distribution Width 13.7 % (12.1-15.1)
[2020-01-29 10:45] LABS: INR 1.16 (0.8-1.2)
[2020-01-29 10:51] LABS: Alanine Aminotransferase 43 U/L (0-41); Albumin Level 3.2 g/dL (3.5-5.2); Alkaline Phosphatase 62 IU/L (40-130); Anion Gap 14.7 (5-19); Aspartate Amino Transferase 20 U/L (0-40); Blood Urea Nitrogen 25 mg/dL (8-23); Calcium 9.1 mg/dL (8.5-10.5); Carbon Dioxide 27 mmol/L (22-29); Chloride 98 mmol/L (98-107); Glucose 259 mg/dL (65-115); Potassium 3.7 mmol/L (3.5-5.1); Sodium 136 mmol/L (136-145); Total Bilirubin 0.4 mg/dL (0.15-1.2); Total Protein 6.2 g/dL (6.6-8.7)
[2020-01-29 10:53] LABS: Troponin T (5th) Once 24 ng/mL (0-15)
--- NOTE | 2020-01-29 11:05 | ECG_ITS ---
Measurements Intervals [place] Rate: 69 P: 45 NJ: 116 QRS: 57 QRSD: 98 T: 89 QT: 417 QTc: 448 SINUS RHYTHM WITH SHORT [place] INTERVAL WITH OCCASIONAL VENTRICULAR PREMATURE COMPLEXES WITH OCCASIONAL SUPRAVENTRICULAR PREMATURE NONSPECIFIC ST & T-WAVE ABNORMALITY Compared to ECG 03/11/2019 13:25:43 Short [place] interval now present T-wave abnormality still present Electronically Signed On 01-29-2020 13:18:45 OPTO MECHANICAL ENGINEER by Ashwini Lozano M.D. [email or web address]
[2020-01-29 11:37] VITALS: BP 101/54; PULSE 81; RESP 16; O2SAT 98
[2020-01-29 11:50] LABS: Add Urine Microscopic? YES; Bilirubin Urine Neg (NEGATIVE); Blood Urine 3+ (Negative); Glucose Urine UA Norm (Normal); Ketones Urine Negative (Negative); Leukocyte Esterase Urine Negative (Negative); Nitrate Urine Negative (Negative); Protein Urine 1+ (Negative); Specific Gravity, Urine 1.015 (1.005-1.030); Urine Appearance Cloudy (CLEAR); Urine Color Red (Yellow); Urobilinogen Urine Norm (Negative); pH Urine 5 (5-7)
[2020-01-29 11:53] LABS: Add Urine Culture? Yes; Bacteria Urine 1+; RBC Urine TOO NUMEROUS TO CNT /hpf (0-2)
[2020-01-29 12:20] VITALS: BP 118/62; PULSE 75; O2SAT 94
[2020-01-29 12:54] LABS: Troponin 5 2HR 22.27 ng/mL (0-15)
[2020-01-29 12:56] LABS: Troponin 5 2HR Delta -1.73 ABS# (0-10)
--- NOTE | 2020-01-29 13:05 | ECG_ITS ---
Measurements Intervals [place] Rate: 73 P: 53 WY: 138 QRS: 52 QRSD: 94 T: 72 QT: 415 QTc: 460 SINUS RHYTHM WITH OCCASIONAL SUPRAVENTRICULAR PREMATURE COMPLEXES MODERATE ST DEPRESSION [0.05+ mV ST DEPRESSION] Compared to ECG 01/29/2020 10:45:18 ST (T wave) deviation now present Short [place] interval no longer present T-wave abnormality no longer present Electronically Signed On 01-29-2020 16:39:56 EMPLOYMENT TRAINING SPECIALIST by Ashwini Lozano M.D. [id number]
== END 2020-01-29 14:33 | disposition skilled nursing facility (03) ==
PROVIDERS: Emergency Provider Nurse Practitioner Family; Family Provider Nurse Practitioner; PCP Nurse Practitioner
DX: R55 Syncope and collapse (principal); J44.9 Chronic obstructive pulmonary disease, unspecified; E11.9 Type 2 diabetes mellitus without complications; E78.5 Hyperlipidemia, unspecified; I10 Essential (primary) hypertension; Z87.891 Personal history of nicotine dependence; Z79.84 Long term (current) use of oral hypoglycemic drugs; Z79.51 Long term (current) use of inhaled steroids
CPT/HCPCS: 36415; 70450; 71045; 80053; 81001; 84484; 85025; 85610; 93005; 99283; 99284

== ENCOUNTER → 2020-02-22 14:18 | Outpatient (BNVA) | payer MEDICARE, MEDICAID, SELFPAY | PROVIDERS: Family Provider Nurse Practitioner; PCP Nurse Practitioner; Visit Provider Nurse Practitioner | DX: E11.9 Type 2 diabetes mellitus without complications (principal) | CPT/HCPCS: 80053; 80061; 83036 ==

== ENCOUNTER 2020-04-07 11:14 | Observation (INO) | payer MEDICARE, MEDICAID, SELFPAY ==
[2020-04-07] VITALS (15 sets, daily range): BP systolic 116–170; BP diastolic 43–79; PULSE 57–97; RESP 17–24; TEMP 36.3–37.1; O2SAT 85–96; BMI 36.7
--- NOTE | 2020-04-07 11:18 | XR_ITS ---
WS: [id number] PORTABLE CHEST HISTORY: cough COMPARISON: 01/29/2020 Hyperinflated lungs. No pneumonia. Normal vasculature. No pleural effusion or pneumothorax. Cardiac size: Mildly enlarged cardiac silhouette. Mediastinum/Aorta: Mild atherosclerosis aorta. No osseous abnormality seen. XR/XR chest 1V portable [id number] IMPRESSION: Chronic emphysema. No pneumonia.
--- NOTE | 2020-04-07 11:18 | ECG_ITS ---
Measurements Intervals [place] Rate: 56 P: 36 NM: 145 QRS: 50 QRSD: 94 T: 72 QT: 428 QTc: 414 SINUS BRADYCARDIA NONSPECIFIC T-WAVE ABNORMALITY No previous ECG available for comparison Electronically Signed On 04-07-2020 18:45:31 CDT by Agustin Becerra M.D. [email or web address]
--- NOTE | 2020-04-07 11:18 | CT_ITS ---
WS: [id number] CT HEAD NONCONTRAST HISTORY: CALLES/AMS TECHNIQUE: Contiguous axial imaging performed through the brain in 2.5 mm imaging. Bone and soft tiss ue windows. Sagittal and coronal reformats reviewed. All CT scans at [facility] use at ast one of these dose optimization techniques: automated exposure control; mA and/or kV adjustment pe r patient size (includes targeted exams where dose is matched to clinical indication); or iterative r econstruction. DLP: 888.72 mGy.cm COMPARISON: 01/29/2020 No acute intracranial hemorrhage, midline shift or mass effect. Mild atrophy and mild chronic microvascular ischemic disease. No progression or new interval change s daphney the prior study. Small lacunar infarcts in the external capsules bilaterally. Ventricles: Normal size with no hydrocephalus. Paranasal sinuses: Mucoperiosteal thickening and prior surgery involving the maxillary sinuses. No ai r-fluid levels. Mastoid air cells: Well pneumatized. Calvarium and scalp: Skull is intact with no soft tissue edema or swelling. CT/CT head wo con* [id number] IMPRESSION: 1. No acute intracranial abnormalities. 2. Mild atrophy and chronic ischemic disease. No progression since 01/29/2020.
[2020-04-07 11:48] LABS: Basophils % 0.5 %; Eosinophils # 0.2 10^3/uL (0.0-0.8); Eosinophils % 2.2 %; Hematocrit 41.1 % (42.0-52.0); Hemoglobin 12.7 g/dL (11.7-16.6); Lymphocytes # 1.6 10^3/uL (0.8-4.8); Lymphocytes % 18.3 %; Mean Corpuscular HGB Conc 30.9 g/dL (30.0-36.0); Mean Corpuscular Hemoglobin 28.3 pg (28.0-34.0); Mean Corpuscular Volume 91.7 fL (80-94); Mean Platelet Volume 9.5 fL (7.4-10.4); Monocytes # 0.7 10^3/uL (0.2-0.9); Monocytes % 7.4 %; Neutrophils # 6.3 10^3/uL (1.8-7.7); Neutrophils % 71.4 %; Nucleated Red Blood Cells % 0 %; Platelet Count 214 10^3/cmm (130-400); Red Blood Count 4.48 10^6/uL (4.1-5.3); Red Cell Distribution Width 13.4 % (12.1-15.1); White Blood Count 8.8 10^3/uL (4.0-10.0)
--- NOTE | 2020-04-07 11:59 | W.ED.WEAKNES ---
HPI - Weakness General: Chief complaint: Weakness Stated complaint: Weakness Time Seen by Provider: 04/07/20 11:17 History of Present Illness: HPI Narrative: Mr. Hermosillo is a 74-year-old male who comes in with a report of being lethargic and weak. He was sent in by his home health nurse who was concerned about him. She thought he had been lethargic and sleeping more for the past few days. His appetite is been poor and he has been incontinent of urine several times. Here the patient has a GCS of 15 and is cooperative and understands that they think he is confused but otherwise he has no complaints. Associated symptoms: Denies chest pain, chills, confusion, dark stools, diaphoresis, dysuria, easy bruising, fever(s), headache(s), nausea, syncope or vomiting Review of Systems General: Reports: other (negative unless marked) Const: Denies: fever, chills, body aches, fatigue, malaise or diaphoresis Eyes: Denies: change in vision or blurry vision ENMT: Denies: throat pain, painful swallowing, hoarseness, ear pain, ear discharge, Change in hearing or nasal discharge Card: Denies: chest pain, palpitations, irregular heart rhythm, syncope, pre-syncope, shortness of breath on exertion or shortness of breath when lying down Resp: Denies: shortness of breath, productive cough, non-productive cough, wheezing, coughing up blood or chest congestion GI: Denies: abdominal pain, nausea, vomiting, vomiting blood, coffee grounds in vomit, diarrhea, constipation, cramping, blood in stool or black tarry stool : Denies: flank pain, difficulty urinating, painful urination, urinary frequency, urinary urgency, decreased urine ouput, urinary incontinence or blood in urine Musc: Denies: neck pain, back pain, extremity pain, extremity swelling, joint pain, joint swelling, joint warmth or joint stiffness Skin/Breast: Denies: rash, skin tenderness or yellow skin Neuro: Denies: headache, numbness in extremities, weakness in extremities, changes in sensation, lack of coordination, difficulty walking, dizziness, vertigo or confusion Endo: Denies: excessive thirst, tired all the time, cold intolerance, excessive sweating, flushing or hot flashes Elijah/Lymph: Denies: easy bruising, easy bleeding, petechiae or enlarged lymph nodes All/Imm: Denies: hives, throat swelling, tongue swelling, facial swelling or acute wheezing PFSH ED PFSH: Medical History (Updated 04/07/20 @ 14:28 by Nghia Goins MD) BPH (benign prostatic hyperplasia) COPD (chronic obstructive pulmonary disease) DM type 2 (diabetes mellitus, type 2) Hypertension Hypothyroidism Obstructive sleep apnea Surgical History (Updated 04/07/20 @ 14:18 by Nghia Goins MD) History of cataract surgery Family History (Updated 04/07/20 @ 14:19 by Nghia Goins MD) Father Depression Social History Smoking and tobacco status: former smoker Physical Exam Const: COMMON NORMALS: no apparent distress, oriented x3, no limitations, healthy appearing and well nourished EXAM LIMITATIONS: no altered mental status GENERAL APPEARANCE: cooperative, well kempt and well developed ORIENTATION/CONSCIOUSNESS: Yes awake HENMT: COMMON NORMALS: normocephalic, head/scalp atraumatic, hearing grossly normal bilaterally, external ears normal, EAC's normal, external nose normal and moist oral mucous membranes HEAD & SCALP: normal to inspection, normocephalic and atraumatic FACE & SINUS: normal facial exam and face symmetric NOSE: external nose normal and nares normal EXTERNAL EAR: Yes external ears normal EXTERNAL AUDITORY CANAL: EAC's normal MOUTH: oral and palatal mucosa normal and tongue normal Eye: COMMON NORMALS: PERRL, EOMs intact bilaterally, conjunctivae normal and no scleral icterus GENERAL EYE: normal appearance of both eyes and normal light reflex CONJUNCTIVA: Yes conjunctivae normal SCLERA: sclerae normal CORNEA: Yes corneas normal PUPIL: Yes PERRL DIRECT OPHTHALMOSCOPY: Yes normal light reflex Neck/C-Spine: COMMON NORMALS: full ROM, no lymphadenopathy, supple, no meningeal signs and no JVD GENERAL: Yes normal visual inspection and Yes trachea midline CERVICAL SPINE: Yes cervical ROM normal Chest: COMMONS NORMALS: inspection of chest normal and palpation of chest normal Resp: COMMON NORMALS: normal respiratory effort, no retractions and no use of accessory muscles EFFORT & INSPECTION: Yes able to speak in complete sentences AUSCULTATION: wheezes and diminished lung sounds Cardio: COMMON NORMALS: no JVD, regular rate, regular rhythm, S1 normal heart sound, S2 normal heart sound, no gallops, no clicks, no murmurs and no rub JUGULAR VENOUS DISTENTION: no JVD RATE: regular rate RHYTHM: regular rhythm HEART SOUNDS: S1 normal and S2 normal GI: COMMON NORMALS: soft to palpation, non-tender, no hepatosplenomegaly and no masses INSPECTION: Yes normal to inspection PALPATION: Yes soft and Yes no hepatosplenomegaly : COMMON NORMALS: Yes no CVA tenderness BLADDER/KIDNEY EXAM: Yes no CVA tenderness Back/Pelvis: COMMON NORMALS: no CVA tenderness, thoracic and lumbar spine normal to inspection, no thoracic nor lumbar tenderness and thoraco-lumbar ROM normal Extremity: COMMON NORMALS: normal to inspection, full ROM, normal capillary refill, no joint enlargement, no clubbing, cyanosis or edema and no calf tenderness Neuro: COMMON NORMALS: oriented x3, CN's II-XII intact bilaterally, moves all extremities, no focal motor deficits and no sensory deficits noted MENINGEAL SIGNS: Yes no meningeal signs Psych: COMMON NORMALS: mental status grossly normal, thought process normal, cooperative, affect normal, speech normal and activity/motor behavior normal APPEARANCE: Yes well kempt SPEECH: Yes normal speech THOUGHT PROCESS: normal thought process Skin: COMMON NORMALS: no rashes or lesions noted, skin turgor normal, no jaundice, no petechiae and no mottling GENERAL SKIN EXAM: no rashes or lesions noted and turgor normal Course Vital Signs: Vital signs: Vital Signs Temperature 98.7 F 04/07/20 19:59 Pulse Rate 97 04/07/20 19:59 Respiratory Rate 22 H 04/07/20 19:59 Blood Pressure 170/75 04/07/20 19:59 Pulse Oximetry 93 04/07/20 19:59 MDM - Weakness MDM Narrative: Medical decision making narrative: Mr. Wilson has a GCS of 14. He falls asleep and has to be aroused by voice without stimulation. His CO2 is mildly elevated. I see no other cause for his symptoms. I have reviewed the case in full with Dr. Goins who is agreeable to admission. Further care will be determined by him. Lab Data: Attestation: I reviewed the patient's lab results. Labs: Lab Results 04/07/20 04/07/20 04/07/20 Range/Units 11:37 11:37 11:37 WBC 8.8 (4.0-10.0) 10^3/ uL RBC 4.48 (4.1-5.3) 10^6/u L Hgb 12.7 (11.7-16.6) g/dL Hct 41.1 L (42.0-52.0) % MCV 91.7 (80-94) fL MCH 28.3 (28.0-34.0) pg MCHC 30.9 (30.0-36.0) g/dL RDW 13.4 (12.1-15.1) % Plt Count 214 (130-400) 10^3/c mm MPV 9.5 (7.4-10.4) fL Neut % (Auto) 71.4 % Lymph % (Auto) 18.3 % [place] % (Auto) 7.4 % Eos % (Auto) 2.2 % Baso % (Auto) 0.5 % Neut # (Auto) 6.3 (1.8-7.7) 10^3/u L Lymph # (Auto) 1.6 (0.8-4.8) 10^3/u L [place] # (Auto) 0.7 (0.2-0.9) 10^3/u L Eos # (Auto) 0.2 (0.0-0.8) 10^3/u L Baso # (Auto) 0.0 (0.0-0.1) 10^3/u L Nucleated RBC % (a uto) 0 % Nucleated RBCs # 0.0 /100WBC PT 13.30 (10.5-13.3) SECO NDS INR 0.98 (0.8-1.2) Specimen Type Sample Site ABG pH (7.35-7.45) ABG pCO2 (35-45) mmHg ABG pO2 (80.0-100.0) mmH g ABG HCO3 (22-26) mmol/L ABG O2 Saturation ABG Base Excess (-2.0-2.0) mmol/ L Kevin Test A-a O2 Gradient (5-10) mmHg Hematocrit (42-52) % Hgb O2 Saturation (95-100) % Carboxyhemoglobin (0.4-20.1) %THgb Methemoglobin (0.4-1.5) % Total Hemoglobin (14-18) g/dL Ionized Calcium (1.1-1.4) mmol/L O2 Delivery Device O2 Liters/Min % FiO2 % International Student Advisor ID Sodium 138 (136-145) mmol/L Potassium 5.0 (3.5-5.1) mmol/L Chloride 97 L (98-107) mmol/L Carbon Dioxide 31 H (22-29) mmol/L Anion Gap 15.0 (5-19) BUN 15 (8-23) mg/dL Creatinine 1.4 H (0.7-1.2) mg/dL Glucose 149 H (65-115) mg/dL Calculated Osmolal ity 285 (285-295) mOsm/k g Lactic Acid (0.5-2.2) mmol/L Calcium 10.4 (8.5-10.5) mg/dL Magnesium 2.2 (1.7-2.3) mg/dL Total Bilirubin 0.2 (0.15-1.2) mg/dL AST 15 (0-40) U/L ALT 13 (0-41) U/L Alkaline Phosphata se 74 (40-130) IU/L Ammonia (16-60) umol/L Creatine Kinase 64 (39-308) U/L Troponin T Baselin e (0-15) ng/mL Troponin T 120 Min modoc (0-15) ng/mL Delta Troponin T (0-10) ABS# Total Protein 7.6 (6.6-8.7) g/dL Albumin 4.5 (3.5-5.2) g/dL Globulin 3.1 (1.3-4.6) g/dL Urine Color (Yellow) Urine Appearance (CLEAR) Urine pH (5-7) Ur Specific Gravit y (1.005-1.030) Urine Protein (Negative) Urine Glucose (UA) (Normal) Urine Ketones (Negative) Urine Blood (Negative) Urine Nitrate (Negative) Urine Bilirubin (NEGATIVE) Urine Urobilinogen (Negative) mg/dL Ur Leukocyte Linda ase (Negative) Urine RBC (0-2) /hpf Urine WBC (0-5) /hpf Ur Squamous Epith Cells (0-5) Urine Bacteria (NONE) Urine Opiates Scre en (Negative) ng/mL Ur Barbiturates Sc reen (Negative) ng/mL Ur Phencyclidine S crn (Negative) ng/mL Ur Amphetamines Sc reen (Negative) ng/mL U Benzodiazepines Scrn (Negative) ng/mL Urine Cocaine Scre en (Negative) ng/mL U Marijuana (THC) Screen (Negative) ng/mL Ethyl Alcohol < 10 (0-10) mg/dL 04/07/20 04/07/20 04/07/20 Range/Units 11:37 11:37 12:11 WBC (4.0-10.0) 10^3/ uL RBC (4.1-5.3) 10^6/u L Hgb (11.7-16.6) g/dL Hct (42.0-52.0) % MCV (80-94) fL MCH (28.0-34.0) pg MCHC (30.0-36.0) g/dL RDW (12.1-15.1) % Plt Count (130-400) 10^3/c mm MPV (7.4-10.4) fL Neut % (Auto) % Lymph % (Auto) % [place] % (Auto) % Eos % (Auto) % Baso % (Auto) % Neut # (Auto) (1.8-7.7) 10^3/u L Lymph # (Auto) (0.8-4.8) 10^3/u L [place] # (Auto) (0.2-0.9) 10^3/u L Eos # (Auto) (0.0-0.8) 10^3/u L Baso # (Auto) (0.0-0.1) 10^3/u L Nucleated RBC % (a uto) % Nucleated RBCs # /100WBC PT (10.5-13.3) SECO NDS INR (0.8-1.2) Specimen Type Sample Site ABG pH (7.35-7.45) ABG pCO2 (35-45) mmHg ABG pO2 (80.0-100.0) mmH g ABG HCO3 (22-26) mmol/L ABG O2 Saturation ABG Base Excess (-2.0-2.0) mmol/ L Kevin Test A-a O2 Gradient (5-10) mmHg Hematocrit (42-52) % Hgb O2 Saturation (95-100) % Carboxyhemoglobin (0.4-20.1) %THgb Methemoglobin (0.4-1.5) % Total Hemoglobin (14-18) g/dL Ionized Calcium (1.1-1.4) mmol/L O2 Delivery Device O2 Liters/Min % FiO2 % International Student Advisor ID Sodium (136-145) mmol/L Potassium (3.5-5.1) mmol/L Chloride (98-107) mmol/L Carbon Dioxide (22-29) mmol/L Anion Gap (5-19) BUN (8-23) mg/dL Creatinine (0.7-1.2) mg/dL Glucose (65-115) mg/dL Calculated Osmolal ity (285-295) mOsm/k g Lactic Acid 1.4 (0.5-2.2) mmol/L Calcium (8.5-10.5) mg/dL Magnesium (1.7-2.3) mg/dL Total Bilirubin (0.15-1.2) mg/dL AST (0-40) U/L ALT (0-41) U/L Alkaline Phosphata se (40-130) IU/L Ammonia 12 L (16-60) umol/L Creatine Kinase (39-308) U/L Troponin T Baselin e 16 H (0-15) ng/mL Troponin T 120 Min modoc (0-15) ng/mL Delta Troponin T (0-10) ABS# Total Protein (6.6-8.7) g/dL Albumin (3.5-5.2) g/dL Globulin (1.3-4.6) g/dL Urine Color (Yellow) Urine Appearance (CLEAR) Urine pH (5-7) Ur Specific Gravit y (1.005-1.030) Urine Protein (Negative) Urine Glucose (UA) (Normal) Urine Ketones (Negative) Urine Blood (Negative) Urine Nitrate (Negative) Urine Bilirubin (NEGATIVE) Urine Urobilinogen (Negative) mg/dL Ur Leukocyte Linda ase (Negative) Urine RBC (0-2) /hpf Urine WBC (0-5) /hpf Ur Squamous Epith Cells (0-5) Urine Bacteria (NONE) Urine Opiates Scre en (Negative) ng/mL Ur Barbiturates Sc reen (Negative) ng/mL Ur Phencyclidine S crn (Negative) ng/mL Ur Amphetamines Sc reen (Negative) ng/mL U Benzodiazepines Scrn (Negative) ng/mL Urine Cocaine Scre en (Negative) ng/mL U Marijuana (THC) Screen (Negative) ng/mL Ethyl Alcohol (0-10) mg/dL 04/07/20 04/07/20 04/07/20 Range/Units 12:14 12:33 12:33 WBC (4.0-10.0) 10^3/ uL RBC (4.1-5.3) 10^6/u L Hgb (11.7-16.6) g/dL Hct (42.0-52.0) % MCV (80-94) fL MCH (28.0-34.0) pg MCHC (30.0-36.0) g/dL RDW (12.1-15.1) % Plt Count (130-400) 10^3/c mm MPV (7.4-10.4) fL Neut % (Auto) % Lymph % (Auto) % [place] % (Auto) % Eos % (Auto) % Baso % (Auto) % Neut # (Auto) (1.8-7.7) 10^3/u L Lymph # (Auto) (0.8-4.8) 10^3/u L [place] # (Auto) (0.2-0.9) 10^3/u L Eos # (Auto) (0.0-0.8) 10^3/u L Baso # (Auto) (0.0-0.1) 10^3/u L Nucleated RBC % (a uto) % Nucleated RBCs # /100WBC PT (10.5-13.3) SECO NDS INR (0.8-1.2) Specimen Type Arterial Sample Site Radial, left ABG pH 7.34 L (7.35-7.45) ABG pCO2 58.7 H (35-45) mmHg ABG pO2 74.9 L (80.0-100.0) mmH g ABG HCO3 31.6 H (22-26) mmol/L ABG O2 Saturation 95.3 ABG Base Excess 4.3 H (-2.0-2.0) mmol/ L Kevin Test Pos A-a O2 Gradient 82.5 H (5-10) mmHg Hematocrit 38.6 L (42-52) % Hgb O2 Saturation 93.7 L (95-100) % Carboxyhemoglobin 0.9 (0.4-20.1) %THgb Methemoglobin 0.8 (0.4-1.5) % Total Hemoglobin 12.6 L (14-18) g/dL Ionized Calcium 1.3 (1.1-1.4) mmol/L O2 Delivery Device Nc O2 Liters/Min 3.0 % FiO2 32.0 % International Student Advisor ID bd Sodium 139.0 (136-145) mmol/L Potassium 4.6 (3.5-5.1) mmol/L Chloride (98-107) mmol/L Carbon Dioxide (22-29) mmol/L Anion Gap (5-19) BUN (8-23) mg/dL Creatinine (0.7-1.2) mg/dL Glucose 140.0 H (65-115) mg/dL Calculated Osmolal ity (285-295) mOsm/k g Lactic Acid (0.5-2.2) mmol/L Calcium (8.5-10.5) mg/dL Magnesium (1.7-2.3) mg/dL Total Bilirubin (0.15-1.2) mg/dL AST (0-40) U/L ALT (0-41) U/L Alkaline Phosphata se (40-130) IU/L Ammonia (16-60) umol/L Creatine Kinase (39-308) U/L Troponin T Baselin e (0-15) ng/mL Troponin T 120 Min modoc (0-15) ng/mL Delta Troponin T (0-10) ABS# Total Protein (6.6-8.7) g/dL Albumin (3.5-5.2) g/dL Globulin (1.3-4.6) g/dL Urine Color Yellow (Yellow) Urine Appearance Clear (CLEAR) Urine pH 5 (5-7) Ur Specific Gravit y 1.015 (1.005-1.030) Urine Protein Neg (Negative) Urine Glucose (UA) Norm (Normal) Urine Ketones Negative (Negative) Urine Blood Neg (Negative) Urine Nitrate Negative (Negative) Urine Bilirubin Neg (NEGATIVE) Urine Urobilinogen Norm (Negative) mg/dL Ur Leukocyte Linda ase Negative (Negative) Urine RBC None (0-2) /hpf Urine WBC None (0-5) /hpf Ur Squamous Epith Cells None (0-5) Urine Bacteria None (NONE) Urine Opiates Scre en Negative (Negative) ng/mL Ur Barbiturates Sc reen Negative (Negative) ng/mL Ur Phencyclidine S crn Negative (Negative) ng/mL Ur Amphetamines Sc reen Negative (Negative) ng/mL U Benzodiazepines Scrn Negative (Negative) ng/mL Urine Cocaine Scre en Negative (Negative) ng/mL U Marijuana (THC) Screen Negative (Negative) ng/mL Ethyl Alcohol (0-10) mg/dL 04/07/20 Range/Units 13:40 WBC (4.0-10.0) 10^3/ uL RBC (4.1-5.3) 10^6/u L Hgb (11.7-16.6) g/dL Hct (42.0-52.0) % MCV (80-94) fL MCH (28.0-34.0) pg MCHC (30.0-36.0) g/dL RDW (12.1-15.1) % Plt Count (130-400) 10^3/c mm MPV (7.4-10.4) fL Neut % (Auto) % Lymph % (Auto) % [place] % (Auto) % Eos % (Auto) % Baso % (Auto) % Neut # (Auto) (1.8-7.7) 10^3/u L Lymph # (Auto) (0.8-4.8) 10^3/u L [place] # (Auto) (0.2-0.9) 10^3/u L Eos # (Auto) (0.0-0.8) 10^3/u L Baso # (Auto) (0.0-0.1) 10^3/u L Nucleated RBC % (a uto) % Nucleated RBCs # /100WBC PT (10.5-13.3) SECO NDS INR (0.8-1.2) Specimen Type Sample Site ABG pH (7.35-7.45) ABG pCO2 (35-45) mmHg ABG pO2 (80.0-100.0) mmH g ABG HCO3 (22-26) mmol/L ABG O2 Saturation ABG Base Excess (-2.0-2.0) mmol/ L Kevin Test A-a O2 Gradient (5-10) mmHg Hematocrit (42-52) % Hgb O2 Saturation (95-100) % Carboxyhemoglobin (0.4-20.1) %THgb Methemoglobin (0.4-1.5) % Total Hemoglobin (14-18) g/dL Ionized Calcium (1.1-1.4) mmol/L O2 Delivery Device O2 Liters/Min % FiO2 % International Student Advisor ID Sodium (136-145) mmol/L Potassium (3.5-5.1) mmol/L Chloride (98-107) mmol/L Carbon Dioxide (22-29) mmol/L Anion Gap (5-19) BUN (8-23) mg/dL Creatinine (0.7-1.2) mg/dL Glucose (65-115) mg/dL Calculated Osmolal ity (285-295) mOsm/k g Lactic Acid (0.5-2.2) mmol/L Calcium (8.5-10.5) mg/dL Magnesium (1.7-2.3) mg/dL Total Bilirubin (0.15-1.2) mg/dL AST (0-40) U/L ALT (0-41) U/L Alkaline Phosphata se (40-130) IU/L Ammonia (16-60) umol/L Creatine Kinase (39-308) U/L Troponin T Baselin e (0-15) ng/mL Troponin T 120 Min modoc 14.57 (0-15) ng/mL Delta Troponin T -1.43 L (0-10) ABS# Total Protein (6.6-8.7) g/dL Albumin (3.5-5.2) g/dL Globulin (1.3-4.6) g/dL Urine Color (Yellow) Urine Appearance (CLEAR) Urine pH (5-7) Ur Specific Gravit y (1.005-1.030) Urine Protein (Negative) Urine Glucose (UA) (Normal) Urine Ketones (Negative) Urine Blood (Negative) Urine Nitrate (Negative) Urine Bilirubin (NEGATIVE) Urine Urobilinogen (Negative) mg/dL Ur Leukocyte Linda ase (Negative) Urine RBC (0-2) /hpf Urine WBC (0-5) /hpf Ur Squamous Epith Cells (0-5) Urine Bacteria (NONE) Urine Opiates Scre en (Negative) ng/mL Ur Barbiturates Sc reen (Negative) ng/mL Ur Phencyclidine S crn (Negative) ng/mL Ur Amphetamines Sc reen (Negative) ng/mL U Benzodiazepines Scrn (Negative) ng/mL Urine Cocaine Scre en (Negative) ng/mL U Marijuana (THC) Screen (Negative) ng/mL Ethyl Alcohol (0-10) mg/dL Imaging Data^: CXR: My impression: No acute cardiopulmonary findings. CT Head: Radiologist's impression: [address] [address] [address] Scan Report Signed Patient: Roland wilson Unit #: [id number] : [id number] Age/Sex: 74 / M ADM Date: 04/07/20 Loc: ER Room/Bed: Attending Dr: Ordering Provider/Ordering MD: Elidia Cheng DO Date of Service: 04/07/20 Procedure(s): CT head wo con* [id number] Accession Number(s): [id number] Report Number: [id number] WS: [id number] CT HEAD NONCONTRAST HISTORY: CALLES/AMS TECHNIQUE: Contiguous axial imaging performed through the brain in 2.5 mm imaging. Bone and soft tissue windows. Sagittal and coronal reformats reviewed. All CT scans at [facility] use at least one of these dose optimization techniques: automated exposure control; mA and/or kV adjustment per patient size (includes targeted exams where dose is matched to clinical indication); or iterative reconstruction. DLP: 888.72 mGy.cm COMPARISON: 01/29/2020 No acute intracranial hemorrhage, midline shift or mass effect. Mild atrophy and mild chronic microvascular ischemic disease. No progression or new interval change since the prior study. Small lacunar infarcts in the external capsules bilaterally. Ventricles: Normal size with no hydrocephalus. Paranasal sinuses: Mucoperiosteal thickening and prior surgery involving the maxillary sinuses. No air-fluid levels. Mastoid air cells: Well pneumatized. Calvarium and scalp: Skull is intact with no soft tissue edema or swelling. CT/CT head wo con* [id number] IMPRESSION: 1. No acute intracranial abnormalities. 2. Mild atrophy and chronic ischemic disease. No progression since 01/29/2020. Dictated By: Ana Moody DO Signed By: Ana Moody DO Signed Date/Time: 04/07/20 1225 DD/ 1223 EKG Data^: EKG 1: Attestation: I personally reviewed and interpreted this EKG as follows: EKG interpretation date: 04/07/20 EKG interpretation time: 12:17 Interpretation: Normal sinus rhythm at 63 beats a minute, normal axis, nonspecific ST and T wave findings. PAC. Discharge Plan Discharge Patient Disposition: Placed in Observation Admit Provider: Nghia Goins Clinical Impression: Acute hypercapnic respiratory failure, COPD exacerbation Condition: Stable Discharge Date/Time: 04/07/20 17:17 Coding Level of Care Code ED Flat Bed Operator for Chg Fwd Exam Comprehensive
[2020-04-07 12:04] LABS: INR 0.98 (0.8-1.2)
[2020-04-07 12:08] LABS: Lactic Sepsis W/Reflex 1.4 mmol/L (0.5-2.2)
[2020-04-07 12:09] LABS: Alanine Aminotransferase 13 U/L (0-41); Albumin Level 4.5 g/dL (3.5-5.2); Alcohol Level < 10 mg/dL (0-10); Alkaline Phosphatase 74 IU/L (40-130); Aspartate Amino Transferase 15 U/L (0-40); Blood Urea Nitrogen 15 mg/dL (8-23); Calcium 10.4 mg/dL (8.5-10.5); Carbon Dioxide 31 mmol/L (22-29); Chloride 97 mmol/L (98-107); Creatine Phosphokinase 64 U/L (39-308); Globulin 3.1 g/dL (1.3-4.6); Glucose 149 mg/dL (65-115); Magnesium 2.2 mg/dL (1.7-2.3); Osmolality Calculated 285 mOsm/kg (285-295); Sodium 138 mmol/L (136-145); Total Bilirubin 0.2 mg/dL (0.15-1.2); Total Protein 7.6 g/dL (6.6-8.7)
[2020-04-07 12:11] LABS: Troponin(5th) Baseline 16 ng/mL (0-15)
[2020-04-07 12:51] LABS: Ammonia 12 umol/L (16-60)
[2020-04-07 12:54] LABS: ABG PCO2 58.7 mmHg (35-45); ABG PH Result 7.34 (7.35-7.45); Alveolar-Arterial Oxygen Gradi 82.5 mmHg (5-10); Arterial Blood Gas Hematocrit 38.6 % (42-52); Base Excess ABG 4.3 mmol/L (-2.0-2.0); Blood Gas Allen Test Pos; Blood Gas Sample Site Radial, left; Blood Gas Sample Type Arterial; Carboxyhemoglobin 0.9 %THgb (0.4-20.1); HCO3 ABG 31.6 mmol/L (22-26); HGB O2 Sat 93.7 % (95-100); Ionized Calcium Level - ABG 1.3 mmol/L (1.1-1.4); Methemoglobin 0.8 % (0.4-1.5); Oxygen Device NC; Oxygen Saturation ABG 95.3; PO2 ABG 74.9 mmHg (80.0-100.0); Potassium Level - ABG 4.6 mmol/L (3.5-5.0); Total Hemoglobin 12.6 g/dL (14-18)
[2020-04-07 13:04] LABS: Bilirubin Urine Neg (NEGATIVE); Blood Urine Neg (Negative); Glucose Urine UA Norm (Normal); Ketones Urine Negative (Negative); Leukocyte Esterase Urine Negative (Negative); Nitrate Urine Negative (Negative); Protein Urine Neg (Negative); Specific Gravity, Urine 1.015 (1.005-1.030); Urine Appearance Clear (CLEAR); Urine Color Yellow (Yellow); Urobilinogen Urine Norm (Negative); pH Urine 5 (5-7)
[2020-04-07 13:05] LABS: Add Urine Culture? No
[2020-04-07 13:13] LABS: Amphetamines Screen Urine Negative (Negative); Barbiturates Screen Urine Negative (Negative); Benzodiazepines Screen Urine Negative (Negative); Cocaine Screen Urine Negative (Negative); Opiate Screen Urine Negative (Negative); PCP Screen Urine Negative (Negative); THC Screen Urine Negative (Negative)
--- NOTE | 2020-04-07 13:18 | ECG_ITS ---
Measurements Intervals [place] Rate: 63 P: 6 [place]: 143 QRS: 57 QRSD: 90 T: 66 QT: 318 QTc: 326 SINUS RHYTHM WITH MARKED SINUS ARRHYTHMIA NONSPECIFIC T-WAVE ABNORMALITY No previous ECG available for comparison Electronically Signed On 04-07-2020 18:50:06 CDT by Agustin Becerra M.D. [email or web address]
[2020-04-07] MEDS: ipratropium-albuterol 3 mL Neb 9 ML INHALATION (14:12)
[2020-04-07 14:13] LABS: Troponin 5 2HR 14.57 ng/mL (0-15)
--- NOTE | 2020-04-07 14:16 | P.HP_ITS ---
Providers/Chief Complaint Chief Complaint: Weakness History of Present Illness Roland Wilson is a 74 year old male who presents to the hospital as a referral from her home health nurse. She reports this morning on evaluation he appeared to be breathing shallowly, was sleeping more than usual, and was wheezing some. She reported occasional cough. He has not had any fever, nausea or vomiting. Nurse reports he has been sleeping more than usual the last 3 days and eating somewhat less. Patient denies any exposure COVID. He denies being short of breath. He denies any significant cough. Review of Systems General: Reports: 10 or more systems reviewed and unremarkable except in HPI and below Const: Denies: fever Eyes: Denies: blurry vision ENMT: Denies: throat pain Card: Denies: chest pain Resp: Denies: shortness of breath GI: Denies: abdominal pain : Denies: flank pain Musc: Denies: neck pain Skin/Breast: Denies: rash Neuro: Denies: headache Psych: Denies: anxiety Endo: Denies: excessive thirst Elijah/Lymph: Denies: easy bruising All/Imm: Denies: hives Medications/Allergies Home Medications Medication Instructions Recorded Confirmed Last Taken Type acetaminophen [Tylenol] 650 mg PO Q6H PRN 04/07/20 04/07/20 Unknown History albuterol sulfate 0.63 mg INHALATION QID 04/07/20 04/07/20 Unknown History albuterol sulfate [ProAir HFA] See Rx Instructions .ROUTE .COMPLEX 04/07/20 04/07/20 Unknown History aspirin [Aspir-81] 81 mg PO DAILY 04/07/20 04/07/20 Unknown History bisacodyl [Dulcolax (bisacodyl)] 10 mg PO DAILY PRN 04/07/20 04/07/20 Unknown History bisacodyl [Dulcolax (bisacodyl)] 10 mg ME DAILY PRN 04/07/20 04/07/20 Unknown History budesonide [Pulmicort] 0.5 mg INHALATION BID 04/07/20 04/07/20 Unknown History dulaglutide [Trulicity] 1.5 mg SUBCUT Q7D 04/07/20 04/07/20 Unknown History famotidine [Pepcid] 20 mg PO BID 04/07/20 04/07/20 Unknown History furosemide [Lasix] 20 mg PO DAILY 04/07/20 04/07/20 Unknown History glipizide 5 mg PO DAILY 04/07/20 04/07/20 Unknown History insulin detemir U-100 [Levemir 25 unit SUBCUT BEDTIME 04/07/20 04/07/20 Unknown History FlexTouch U-100 Insuln] levocetirizine [Xyzal] 5 mg PO DAILY 04/07/20 04/07/20 Unknown History levothyroxine 50 mcg PO DAILY 04/07/20 04/07/20 Unknown History lisinopril 10 mg PO DAILY 04/07/20 04/07/20 Unknown History magnesium hydroxide [Milk of See Rx Instructions .ROUTE .COMPLEX 04/07/20 04/07/20 Unknown History Magnesia] metformin 1,000 mg PO BID 04/07/20 04/07/20 Unknown History metoprolol tartrate 50 mg PO BID 04/07/20 04/07/20 Unknown History risperidone 3 mg PO BEDTIME 04/07/20 04/07/20 Unknown History rosuvastatin [Crestor] 40 mg PO DAILY 04/07/20 04/07/20 Unknown History sertraline [Zoloft] 50 mg PO QAM 04/07/20 04/07/20 Unknown History sodium phosphates [Fleet Enema] 118 ml ME DAILY PRN 04/07/20 04/07/20 Unknown History tamsulosin [Flomax] 0.4 mg PO DAILY 04/07/20 04/07/20 Unknown History PFSH Acute PFSH: Medical History (Updated 04/07/20 @ 14:28 by Nghia Goins MD) BPH (benign prostatic hyperplasia) COPD (chronic obstructive pulmonary disease) DM type 2 (diabetes mellitus, type 2) Hypertension Hypothyroidism Obstructive sleep apnea Surgical History (Updated 04/07/20 @ 14:18 by Nghia Goins MD) History of cataract surgery Family History (Updated 04/07/20 @ 14:19 by Nghia Goins MD) Father Depression Social History Smoking and tobacco status: former smoker Vitals/I&O/Wt Last Vital Signs Temp 97.4 F L 04/07/20 11:15 Pulse 62 04/07/20 14:10 Resp 18 04/07/20 14:10 BP 116/43 04/07/20 13:07 Pulse Ox 96 04/07/20 14:10 Weight last 48 hrs Weight 129.727 kg Physical Exam Narrative: EXAM NARRATIVE: General exam is an elderly white male, reporting he feels okay. No cough observed HEENT: Pupils equally round. Oropharynx clear. Mucous membranes moist. Neck is supple no lymphadenopathy or thyromegaly Cardiovascular regular rate and rhythm without murmur. No S3 or S4 Lungs a few faint expiratory wheezes Abdomen is soft with positive bowel sounds, obese Extremities no cyanosis clubbing. Trace edema. Skin no rash Neuro no focal deficits Data : 04/07/20 11:37 04/07/20 11:37 Micro: Microbiology 04/07/20 12:11 Blood Culture - Preliminary Blood SPECIMEN COLLECTED 04/07/20 11:37 Blood Culture - Preliminary Blood SPECIMEN COLLECTED Other data: Urinalysis is negative. Urine drug screen is negative. Alcohol level less than 10. Ammonia level normal. Troponin XVI, no significant delta, LFTs normal ABG demonstrates a pH of 7.34, PCO2 of 58, PO2 of 75 on 3 L. Patient reports he is on baseline [address] head nonacute Chest x-ray without infiltrate. COPD changes noted. EKG demonstrates slight sinus bradycardia, normal axis, no acute changes A&P Assessment and plan (1) COPD exacerbation: Observation status Combivent every 4 hours scheduled Prednisone 20 mg daily. Lower dose secondary to past history of psychosis Doxycycline 100 mg twice daily Status: Acute (2) Acute hypercapnic respiratory failure: See above BiPAP while sleeping Status: Acute Additional A&P Information Fatigue/sleepiness. Reduce home Risperdal to 2 mg. This was increased from 1 to 3 mg in January History of psychosis. Monitor closely. Prednisone dose 20 mg daily, cautious use secondary to history of psychosis History of hypertension, continue home meds Type 2 diabetes, sliding scale insulin Hyperlipidemia, continue meds Hypothyroidism, check TSH BPH Depression Lovenox for DVT prophylaxis Full code Attestations Medical Necessity Statement*: Will need less than 2 midnight stay for evaluation of mild COPD exacerbation Coding Level of Care Code Acute Relocation Counselor for [facility] Fwrochelle Diagnoses COPD exacerbation J44.1 Acute hypercapnic respiratory failure J96.02
[2020-04-07 14:58] LABS: Troponin 5 2HR Delta -1.43 ABS# (0-10)
--- NOTE | 2020-04-07 17:18 | ECG_ITS ---
Measurements Intervals Smiley Rate: 71 P: 50 ME: 150 QRS: 60 QRSD: 92 T: 120 QT: 349 QTc: 381 SINUS RHYTHM NONSPECIFIC T-WAVE ABNORMALITY No previous ECG available for comparison Electronically Signed On 04-07-2020 18:50:18 CDT by Agustin Becerra M.D. [email or web address]
[2020-04-07 19:01] LABS: Troponin 5 6HR 12.68 ng/mL (0-15)
[2020-04-07 19:11] LABS: Troponin 5 6HR Delta -3.32 ng/L (0-12)
[2020-04-07] MEDS: enoxaparin 40 mg/0.4 mL Syringe SUBCUT (19:38)
[2020-04-07] MEDS: doxycycline 100 mg Tablet PO (19:39)
[2020-04-07] MEDS: famotidine 20 mg Tablet PO (19:39)
[2020-04-07] MEDS: metoprolol tartrate 50 mg Tablet PO (19:39)
[2020-04-07] MEDS: risperiDONE 2 mg Tablet PO (21:21)
[2020-04-07 21:38] LABS: Glucose Point of Care 483 mg/dL (70-110)
[2020-04-08] VITALS (10 sets, daily range): BP systolic 129–177; BP diastolic 66–73; PULSE 60–82; RESP 16–22; TEMP 36.3–37; O2SAT 87–96
[2020-04-08 02:02] LABS: Thyroid Stimulating Hormone 2.43 uIU/mL (0.27-4.20)
[2020-04-08 04:33] LABS: Basophils % 0.1 %; Hematocrit 37.5 % (42.0-52.0); Hemoglobin 12.2 g/dL (11.7-16.6); Lymphocytes # 0.9 10^3/uL (0.8-4.8); Lymphocytes % 7.3 %; Mean Corpuscular HGB Conc 32.5 g/dL (30.0-36.0); Mean Corpuscular Hemoglobin 29.5 pg (28.0-34.0); Mean Corpuscular Volume 90.8 fL (80-94); Mean Platelet Volume 9.7 fL (7.4-10.4); Monocytes # 0.3 10^3/uL (0.2-0.9); Monocytes % 2.8 %; Neutrophils # 10.7 10^3/uL (1.8-7.7); Neutrophils % 89.4 %; Nucleated Red Blood Cells % 0 %; Platelet Count 230 10^3/cmm (130-400); Red Blood Count 4.13 10^6/uL (4.1-5.3); Red Cell Distribution Width 13.3 % (12.1-15.1)
[2020-04-08 05:02] LABS: Anion Gap 15.3 (5-19); Blood Urea Nitrogen 20 mg/dL (8-23); Calcium 10.1 mg/dL (8.5-10.5); Carbon Dioxide 28 mmol/L (22-29); Chloride 95 mmol/L (98-107); Glucose 266 mg/dL (65-115); Osmolality Calculated 282 mOsm/kg (285-295); Potassium 5.3 mmol/L (3.5-5.1); Sodium 133 mmol/L (136-145)
[2020-04-08 06:32] LABS: Glucose Point of Care 304 mg/dL (70-110)
[2020-04-08] MEDS: levothyroxine 50 mcg Tablet PO (08:16)
[2020-04-08] MEDS: sertraline 50 mg Tablet PO (08:16)
[2020-04-08] MEDS: tamsulosin 0.4 mg Capsule PO (08:16)
[2020-04-08] MEDS: predniSONE 20 mg Tablet PO (08:16)
[2020-04-08] MEDS: atorvastatin 40 mg Tablet 80 MG PO (08:16)
[2020-04-08] MEDS: metoprolol tartrate 50 mg Tablet PO (08:17)
[2020-04-08] MEDS: famotidine 20 mg Tablet PO (08:17)
[2020-04-08] MEDS: lisinopril 10 mg Tablet PO (08:17)
--- NOTE | 2020-04-08 10:00 | P.DS_ITS ---
Discharge Providers Date of Admission: 04/07/20 14:16 Date of Discharge: April 08, 2020 Attending Provider at Admission: Nghia Goins MD Attending Provider at Discharge: Nghia Goins MD Diagnoses at Discharge Discharge Diagnosis (1) COPD exacerbation: Status: Acute Problem details: Improved. Discharged home on 3 more days of prednisone, pulmonary toilet, doxycycline (2) Acute hypercapnic respiratory failure: Status: Acute Problem details: Improved Reason for Visit Reason for Visit: Reason For Visit: Weakness Hospital Course Hospital Course: Roland is a 74-year-old white male who presented to the hospital with a mild COPD exacerbation. He was given oral prednisone, doxycycline, pulmonary toilet and monitor closely. Overnight he continued to do well and was able to be discharged the following day. No pneumonia was noted on x-ray. He was noted to have a slightly high potassium level and 1 dose of Kayexalate was given to ensure that this would not be an issue as an outpatient. His lisinopril was discontinued, and Norvasc substituted secondary to this. Secondary to reported history of sleepiness during the day reported by home health nursing his Risperdal dose was also decreased. On day of discharge patient was asking to go home, reporting his breathing was back to normal, and was alert and oriented x3. He will get a BMP on follow-up in 3 to 5 days. Physical Exam Narrative: EXAM NARRATIVE: General exam is no apparent distress Cardiovascular regular rate and rhythm without murmur Lungs clear but with diminished breath sounds bilaterally Abdomen is soft with positive bowel sounds Extremities no cyanosis clubbing or edema. Discharge Data Data Completed and Pending: Completed Studies During Hospitalization Category Date Time Status CT head wo con* 7 [id number] Urgent Cat Scan 04/07/20 11:18 Completed XR chest 1V charisse ble [id number] Stat Exams 04/07/20 11:18 Completed Pending at discharge Category Date Time Status Arterial Blood Ga s W/O Coox Routine Lab 04/07/20 13:59 Ordered Blood Culture Sta t Lab 04/07/20 12:11 Results Labs from last 24 hours 04/08/20 04/08/20 04/08/20 06:22 03:35 03:35 WBC 12.0 H RBC 4.13 Hgb 12.2 Hct 37.5 L MCV 90.8 MCH 29.5 MCHC 32.5 D RDW 13.3 Plt Count 230 MPV 9.7 Neut % (Auto) 89.4 Lymph % (Auto) 7.3 Swisher % (Auto) 2.8 Eos % (Auto) 0.0 Baso % (Auto) 0.1 Neut # (Auto) 10.7 H Lymph # (Auto) 0.9 Swisher # (Auto) 0.3 Eos # (Auto) 0.0 Baso # (Auto) 0.0 Nucleated RBC % (a uto) 0 Nucleated RBCs # 0.0 PT INR Specimen Type Sample Site ABG pH ABG pCO2 ABG pO2 ABG HCO3 ABG O2 Saturation ABG Base Excess Kevin Test A-a O2 Gradient Hematocrit Hgb O2 Saturation Carboxyhemoglobin Methemoglobin Total Hemoglobin Ionized Calcium O2 Delivery Device O2 Liters/Min FiO2 Carpenter'S Helper ID Sodium 133 L Potassium 5.3 H Chloride 95 L Carbon Dioxide 28 Anion Gap 15.3 BUN 20 Creatinine 1.2 Glucose 266 H POC Glucose 304 Calculated Osmolal ity 282 L Lactic Acid Calcium 10.1 Magnesium Total Bilirubin AST ALT Alkaline Phosphata se Ammonia Creatine Kinase Troponin I 6 Hour Troponin I Hi Sens Del Troponin T Baselin e Troponin T 120 [address] [place] Troponin T Total Protein Albumin Globulin TSH Urine Color Urine Appearance Urine pH Ur Specific Gravit y Urine Protein Urine Glucose (UA) Urine Ketones Urine Blood Urine Nitrate Urine Bilirubin Urine Urobilinogen Ur Leukocyte Linda ase Urine RBC Urine WBC Ur Squamous Epith Cells Urine Bacteria Urine Opiates Scre en Ur Barbiturates Sc reen Ur Phencyclidine S crn Ur Amphetamines Sc reen U Benzodiazepines Scrn Urine Cocaine Scre en U Marijuana (THC) Screen Ethyl Alcohol 04/07/20 04/07/20 04/07/20 21:28 18:30 13:40 WBC RBC Hgb Hct MCV MCH MCHC RDW Plt Count MPV Neut % (Auto) Lymph % (Auto) Swisher % (Auto) Eos % (Auto) Baso % (Auto) Neut # (Auto) Lymph # (Auto) Swisher # (Auto) Eos # (Auto) Baso # (Auto) Nucleated RBC % (a uto) Nucleated RBCs # PT INR Specimen Type Sample Site ABG pH ABG pCO2 ABG pO2 ABG HCO3 ABG O2 Saturation ABG Base Excess Kevin Test A-a O2 Gradient Hematocrit Hgb O2 Saturation Carboxyhemoglobin Methemoglobin Total Hemoglobin Ionized Calcium O2 Delivery Device O2 Liters/Min FiO2 Carpenter'S Helper ID Sodium Potassium Chloride Carbon Dioxide Anion Gap BUN Creatinine Glucose POC Glucose 483 Calculated Osmolal ity Lactic Acid Calcium Magnesium Total Bilirubin AST ALT Alkaline Phosphata se Ammonia Creatine Kinase Troponin I 6 Hour 12.68 Troponin I Hi Sens Del -3.32 L Troponin T Baselin e Troponin T 120 Min [place] 14.57 Delta Troponin T -1.43 L Total Protein Albumin Globulin TSH Urine Color Urine Appearance Urine pH Ur Specific Gravit y Urine Protein Urine Glucose (UA) Urine Ketones Urine Blood Urine Nitrate Urine Bilirubin Urine Urobilinogen Ur Leukocyte Linda ase Urine RBC Urine WBC Ur Squamous Epith Cells Urine Bacteria Urine Opiates Scre en Ur Barbiturates Sc reen Ur Phencyclidine S crn Ur Amphetamines Sc reen U Benzodiazepines Scrn Urine Cocaine Scre en U Marijuana (THC) Screen Ethyl Alcohol 04/07/20 04/07/20 04/07/20 12:33 12:33 12:14 WBC RBC Hgb Hct MCV MCH MCHC RDW Plt Count MPV Neut % (Auto) Lymph % (Auto) Swisher % (Auto) Eos % (Auto) Baso % (Auto) Neut # (Auto) Lymph # (Auto) Swisher # (Auto) Eos # (Auto) Baso # (Auto) Nucleated RBC % (a uto) Nucleated RBCs # PT INR Specimen Type Arterial Sample Site Radial, left ABG pH 7.34 L ABG pCO2 58.7 H ABG pO2 74.9 L ABG HCO3 31.6 H ABG O2 Saturation 95.3 ABG Base Excess 4.3 H Kevin Test Pos A-a O2 Gradient 82.5 H Hematocrit 38.6 L Hgb O2 Saturation 93.7 L Carboxyhemoglobin 0.9 Methemoglobin 0.8 Total Hemoglobin 12.6 L Ionized Calcium 1.3 O2 Delivery Device Nc O2 Liters/Min 3.0 FiO2 32.0 Carpenter'S Helper ID bd Sodium 139.0 Potassium 4.6 Chloride Carbon Dioxide Anion Gap BUN Creatinine Glucose 140.0 H POC Glucose Calculated Osmolal ity Lactic Acid Calcium Magnesium Total Bilirubin AST ALT Alkaline Phosphata se Ammonia Creatine Kinase Troponin I 6 Hour Troponin I Hi Sens Del Troponin T Baselin e Troponin T 120 Min [place] Troponin T Total Protein Albumin Globulin TSH Urine Color Yellow Urine Appearance Clear Urine pH 5 Ur Specific Gravit y 1.015 Urine Protein Neg Urine Glucose (UA) Norm Urine Ketones Negative Urine Blood Neg Urine Nitrate Negative Urine Bilirubin Neg Urine Urobilinogen Norm Ur Leukocyte Linda ase Negative Urine RBC None Urine WBC None Ur Squamous Epith Cells None Urine Bacteria None Urine Opiates Scre en Negative Ur Barbiturates Sc reen Negative Ur Phencyclidine S crn Negative Ur Amphetamines Sc reen Negative U Benzodiazepines Scrn Negative Urine Cocaine Scre en Negative U Marijuana (THC) Screen Negative Ethyl Alcohol 04/07/20 04/07/20 04/07/20 12:11 11:37 11:37 WBC RBC Hgb Hct MCV MCH MCHC RDW Plt Count MPV Neut % (Auto) Lymph % (Auto) Swisher % (Auto) Eos % (Auto) Baso % (Auto) Neut # (Auto) Lymph # (Auto) Swisher # (Auto) Eos # (Auto) Baso # (Auto) Nucleated RBC % (a uto) Nucleated RBCs # PT INR Specimen Type Sample Site ABG pH ABG pCO2 ABG pO2 ABG HCO3 ABG O2 Saturation ABG Base Excess Kevin Test A-a O2 Gradient Hematocrit Hgb O2 Saturation Carboxyhemoglobin Methemoglobin Total Hemoglobin Ionized Calcium O2 Delivery Device O2 Liters/Min FiO2 Carpenter'S Helper ID Sodium Potassium Chloride Carbon Dioxide Anion Gap BUN Creatinine Glucose POC Glucose Calculated Osmolal ity Lactic Acid Calcium Magnesium Total Bilirubin AST ALT Alkaline Phosphata se Ammonia 12 L Creatine Kinase Troponin I 6 Hour Troponin I Hi Sens Del Troponin T Baselin e 16 H Troponin T 120 Min [place] Troponin T Total Protein Albumin Globulin TSH 2.43 Urine Color Urine Appearance Urine pH Ur Specific Gravit y Urine Protein Urine Glucose (UA) Urine Ketones Urine Blood Urine Nitrate Urine Bilirubin Urine Urobilinogen Ur Leukocyte Linda ase Urine RBC Urine WBC Ur Squamous Epith Cells Urine Bacteria Urine Opiates Scre en Ur Barbiturates Sc reen Ur Phencyclidine S crn Ur Amphetamines Sc reen U Benzodiazepines Scrn Urine Cocaine Scre en U Marijuana (THC) Screen Ethyl Alcohol 04/07/20 04/07/20 04/07/20 11:37 11:37 11:37 WBC RBC Hgb Hct MCV MCH MCHC RDW Plt Count MPV Neut % (Auto) Lymph % (Auto) Swisher % (Auto) Eos % (Auto) Baso % (Auto) Neut # (Auto) Lymph # (Auto) Swisher # (Auto) Eos # (Auto) Baso # (Auto) Nucleated RBC % (a uto) Nucleated RBCs # PT 13.30 INR 0.98 Specimen Type Sample Site ABG pH ABG pCO2 ABG pO2 ABG HCO3 ABG O2 Saturation ABG Base Excess Kevin Test A-a O2 Gradient Hematocrit Hgb O2 Saturation Carboxyhemoglobin Methemoglobin Total Hemoglobin Ionized Calcium O2 Delivery Device O2 Liters/Min FiO2 Carpenter'S Helper ID Sodium 138 Potassium 5.0 Chloride 97 L Carbon Dioxide 31 H Anion Gap 15.0 BUN 15 Creatinine 1.4 H Glucose 149 H POC Glucose Calculated Osmolal ity 285 Lactic Acid 1.4 Calcium 10.4 Magnesium 2.2 Total Bilirubin 0.2 AST 15 ALT 13 Alkaline Phosphata se 74 Ammonia Creatine Kinase 64 Troponin I 6 Hour Troponin I Hi Sens Del Troponin T Baselin e Troponin T 120 Min [place] Troponin T Total Protein 7.6 Albumin 4.5 Globulin 3.1 TSH Urine Color Urine Appearance Urine pH Ur Specific Gravit y Urine Protein Urine Glucose (UA) Urine Ketones Urine Blood Urine Nitrate Urine Bilirubin Urine Urobilinogen Ur Leukocyte Linda ase Urine RBC Urine WBC Ur Squamous Epith Cells Urine Bacteria Urine Opiates Scre en Ur Barbiturates Sc reen Ur Phencyclidine S crn Ur Amphetamines Sc reen U Benzodiazepines Scrn Urine Cocaine Scre en U Marijuana (THC) Screen Ethyl Alcohol < 10 04/07/20 11:37 WBC 8.8 RBC 4.48 Hgb 12.7 Hct 41.1 L MCV 91.7 MCH 28.3 MCHC 30.9 RDW 13.4 Plt Count 214 MPV 9.5 Neut % (Auto) 71.4 Lymph % (Auto) 18.3 Swisher % (Auto) 7.4 Eos % (Auto) 2.2 Baso % (Auto) 0.5 Neut # (Auto) 6.3 Lymph # (Auto) 1.6 Swisher # (Auto) 0.7 Eos # (Auto) 0.2 Baso # (Auto) 0.0 Nucleated RBC % (a uto) 0 Nucleated RBCs # 0.0 PT INR Specimen Type Sample Site ABG pH ABG pCO2 ABG pO2 ABG HCO3 ABG O2 Saturation ABG Base Excess Kevin Test A-a O2 Gradient Hematocrit Hgb O2 Saturation Carboxyhemoglobin Methemoglobin Total Hemoglobin Ionized Calcium O2 Delivery Device O2 Liters/Min FiO2 Carpenter'S Helper ID Sodium Potassium Chloride Carbon Dioxide Anion Gap BUN Creatinine Glucose POC Glucose Calculated Osmolal ity Lactic Acid Calcium Magnesium Total Bilirubin AST ALT Alkaline Phosphata se Ammonia Creatine Kinase Troponin I 6 Hour Troponin I Hi Sens Del Troponin T Baselin e Troponin T 120 Min [place] Troponin T Total Protein Albumin Globulin TSH Urine Color Urine Appearance Urine pH Ur Specific Gravit y Urine Protein Urine Glucose (UA) Urine Ketones Urine Blood Urine Nitrate Urine Bilirubin Urine Urobilinogen Ur Leukocyte Linda ase Urine RBC Urine WBC Ur Squamous Epith Cells Urine Bacteria Urine Opiates Scre en Ur Barbiturates Sc reen Ur Phencyclidine S crn Ur Amphetamines Sc reen U Benzodiazepines Scrn Urine Cocaine Scre en U Marijuana (THC) Screen Ethyl Alcohol Vitals: Last Vital Signs Temp 98.6 F 04/08/20 07:41 Pulse 67 04/08/20 08:45 Resp 18 04/08/20 08:45 BP 177/70 04/08/20 07:41 Pulse Ox 96 04/08/20 08:45 Discharge Plan Discharge Patient Disposition: Home Health Service Condition: Stable Prescriptions: New prednisone 20 mg Tablet 20 mg PO DAILY Qty: 3 RF: 0 amlodipine 5 mg Tablet 5 mg PO DAILY Qty: 30 RF: 0 doxycycline hyclate 100 mg tablet 100 mg PO BID 9 Days Qty: 18 RF: 0 risperidone 2 mg Tablet 2 mg PO BEDTIME Qty: 30 RF: 0 Continued glipizide 5 mg Tablet Extended Release 24hr 5 mg PO DAILY RF: 0 Pepcid 20 mg Tablet 20 mg PO BID RF: 0 Flomax 0.4 mg Capsule 0.4 mg PO DAILY RF: 0 levothyroxine 50 mcg Tablet 50 mcg PO DAILY RF: 0 metformin 1,000 mg Tablet 1,000 mg PO BID RF: 0 metoprolol tartrate 50 mg Tablet 50 mg PO BID RF: 0 Lasix 20 mg Tablet 20 mg PO DAILY RF: 0 Zoloft 50 mg Tablet 50 mg PO QAM RF: 0 Crestor 40 mg Tablet 40 mg PO DAILY RF: 0 Levemir FlexTouch U-100 Insuln 100 unit/mL (3 mL) Insulin Pen 25 unit SUBCUT BEDTIME RF: 0 Xyzal 5 mg Tablet 5 mg PO DAILY RF: 0 Trulicity 1.5 mg/0.5 mL pen injector 1.5 mg SUBCUT Q7D RF: 0 albuterol sulfate 0.63 mg/3 mL Solution For Nebulization 0.63 mg INHALATION QID RF: 0 Tylenol 325 mg Tablet 650 mg PO Q6H PRN (Reason: Pain) RF: 0 Aspir-81 81 mg Tablet,Delayed Release (Dr/Ec) 81 mg PO DAILY RF: 0 Milk of Magnesia 400 mg/5 mL Suspension See Rx Instructions .ROUTE .COMPLEX RF: 0 Dulcolax (bisacodyl) 10 mg Suppository 10 mg OK DAILY PRN (Reason: Constipation) RF: 0 Fleet Enema 19-7 gram/118 mL Enema 118 ml OK DAILY PRN (Reason: Constipation) RF: 0 Pulmicort 0.5 mg/2 mL Suspension For Nebulization 0.5 mg INHALATION BID RF: 0 Dulcolax (bisacodyl) 5 mg Tablet,Delayed Release (Dr/Ec) 10 mg PO DAILY PRN (Reason: Constipation) RF: 0 ProAir HFA 90 mcg/actuation Hfa Aerosol Inhaler See Rx Instructions .ROUTE .COMPLEX RF: 0 Discontinued risperidone 3 mg Tablet 3 mg PO BEDTIME RF: 0 lisinopril 10 mg Tablet 10 mg PO DAILY RF: 0 Discharge Orders: Discharge Order (Routine); Ordered 04/08/20 Ordered By: Nghia Goins Referrals: Fide Rebollar RN [Emergency Nurse] - 4-7 days Discharge Diet: Cardiac and Diabetic Discharge Activity: Resume usual activity Activity Restrictions/Additional Instructions: Follow-up with primary care provider 3 to 5 days. BMP on follow-up. Resume home health services. Discharge Attestations Time Spent in Discharge Care*: greater than 30 min Quality Metrics Clinical Quality Measures During this hospital stay, did patient experience: None Coding Level of Care Code Acute Integrated Circuit Layout Designer for [facility] Fwrochelle Diagnoses COPD exacerbation J44.1 Acute hypercapnic respiratory failure J96.02
[2020-04-08 10:44] LABS: Glucose Point of Care 386 mg/dL (70-110)
--- NOTE | 2020-04-08 11:12 | PC.CHAP ---
Pastoral Care Encounter/Spiritual Assessment Type of Contact [] Declined research mechanic visit [] Patient/Family/Request visit [] Outpatient visit [] Follow-up visit [] Physician referral [] Code/Alert [x] Routine visit [] Staff referral [] Actively dying [] Patient sleeping [] Family support [] [] Out of room [] Palliative care [] [x] Receiving care in room [] Pre-surgical visit [] Trauma [] Long length of stay [] ICU visit [] Other: Relational/Emotional Strength [x] Patient feels connected with others/family/visitors/staff [] Distress [] Loneliness/isolation [] Abandonment Spirituality of Patient [x] Person of Mini [] Attends Hoahaoism of their Mini [x] Believes in Prayer [] Reads Bible or Moravian materials [] There are Spiritual issues to be addressed Hebrew Professor Interventions [x] Prayer [x] Active listening [x] Non-anxious presence [x] Spiritual/emotional support [] Crisis/trauma care [x] Spiritual counseling [] Bereavement support [] Provided bereavement packet [] Provided Bible/devotional materials [] Provided toy/stuffed animal, coloring book to patient or family member [] Provided Communion [] Anointing/[place] [] Salvation [x] Completed spiritual assessment [] Other: Impact on Illness or Injury [] Angry [] Fearful [] Anxious [] Often cries [] Exhaustion [] Unable to work [] Unable to attend presybeterian [] Unable to walk/stand [] Unable to read [] Unable to drive [] Unable to eat/drink [] Unable to sleep [] Unable to be with family [] Patient intubated [] Other: Summary He is dealing with COPD, weekness, good attitude getting ready to go home Time spent with patient 10 mins
[2020-04-08] MEDS: sodium polystyrene sulfonate 15 gm/60 mL Btl PO (11:17)
[2020-04-08] MEDS: doxycycline 100 mg Tablet PO (11:17)
== END 2020-04-08 13:16 | disposition home health service (06) ==
LOC: ER 14:08 → MEDSURG 16:24
PROVIDERS: Admitting Provider Internal Medicine; Emergency Provider Emergency Medicine; Visit Provider Internal Medicine
DX: J44.1 Chronic obstructive pulmonary disease with (acute) exacerbation (principal); R53.83 Other fatigue; I10 Essential (primary) hypertension; E11.9 Type 2 diabetes mellitus without complications; Z79.4 Long term (current) use of insulin; E78.5 Hyperlipidemia, unspecified; E03.9 Hypothyroidism, unspecified; N40.0 Benign prostatic hyperplasia without lower urinary tract symptoms; F32.9 Major depressive disorder, single episode, unspecified; Z87.891 Personal history of nicotine dependence
CPT/HCPCS: 12345; 36415; 36416; 36600; 70450; 71045; 80048; 80051; 80053; 80306; 80307; 81001; 82140; 82550; 82810; 82962; 83605; 83735; 83986; 84443; 84484; 85025; 85610; 87040; 87205; 93005; 94640; 94660; 94760; 96372; 96374; 96375; 99284; 99285; G0378; J1650; J1815; J2930; J3535; J7512

== ENCOUNTER → 2020-05-14 09:46 | Outpatient (BNVA) | payer MEDICARE, MEDICAID, SELFPAY | PROVIDERS: Family Provider Nurse Practitioner; PCP Nurse Practitioner; Visit Provider Nurse Practitioner | DX: E03.8 Other specified hypothyroidism (principal); E11.65 Type 2 diabetes mellitus with hyperglycemia; Z79.4 Long term (current) use of insulin | CPT/HCPCS: 80053; 80061; 83036; 84443 ==

== ENCOUNTER → 2020-07-17 11:56 | Outpatient (BNVA) | payer MEDICARE, MEDICAID, SELFPAY | PROVIDERS: Family Provider Nurse Practitioner; PCP Nurse Practitioner; Visit Provider Nurse Practitioner | DX: E11.65 Type 2 diabetes mellitus with hyperglycemia (principal); Z79.4 Long term (current) use of insulin; I10 Essential (primary) hypertension; F33.3 Major depressive disorder, recurrent, severe with psychotic symptoms; K21.9 Gastro-esophageal reflux disease without esophagitis; J31.0 Chronic rhinitis; E03.8 Other specified hypothyroidism; R33.9 Retention of urine, unspecified; J44.9 Chronic obstructive pulmonary disease, unspecified; E11.9 Type 2 diabetes mellitus without complications | CPT/HCPCS: 80053; 80061; 81000; 83036; 85025 ==

== ENCOUNTER → 2020-09-30 09:00 | Outpatient (BNVA) | payer MEDICARE, MEDICAID, SELFPAY | PROVIDERS: Family Provider Nurse Practitioner; PCP Nurse Practitioner; Visit Provider Nurse Practitioner | DX: E11.65 Type 2 diabetes mellitus with hyperglycemia (principal); E03.8 Other specified hypothyroidism; Z79.4 Long term (current) use of insulin | CPT/HCPCS: 80053; 81000; 82043; 83036 ==

== ENCOUNTER → 2020-10-15 07:36 | Outpatient (BNVA) | payer MEDICARE, MEDICAID, SELFPAY | PROVIDERS: Family Provider Nurse Practitioner; PCP Nurse Practitioner; Visit Provider Nurse Practitioner Psychiatric/Mental Health | DX: F33.3 Major depressive disorder, recurrent, severe with psychotic symptoms (principal); R41.81 Age-related cognitive decline | CPT/HCPCS: 99214 ==

== ENCOUNTER → 2020-11-12 08:16 | Outpatient (BNVA) | payer MEDICARE, MEDICAID, SELFPAY | PROVIDERS: Family Provider Nurse Practitioner; PCP Nurse Practitioner; Visit Provider Nurse Practitioner Psychiatric/Mental Health | DX: R41.81 Age-related cognitive decline (principal); F33.3 Major depressive disorder, recurrent, severe with psychotic symptoms | CPT/HCPCS: 99213 ==

== ENCOUNTER → 2020-12-16 10:21 | Outpatient (BNVA) | payer MEDICARE, MEDICAID, SELFPAY | PROVIDERS: Family Provider Nurse Practitioner; PCP Nurse Practitioner; Visit Provider Nurse Practitioner | DX: I10 Essential (primary) hypertension (principal); E11.65 Type 2 diabetes mellitus with hyperglycemia; K21.9 Gastro-esophageal reflux disease without esophagitis; J31.0 Chronic rhinitis; E03.8 Other specified hypothyroidism; R33.9 Retention of urine, unspecified; I48.0 Paroxysmal atrial fibrillation; Z79.4 Long term (current) use of insulin | CPT/HCPCS: 80053; 83036; 84443 ==

== ENCOUNTER → 2020-12-17 07:48 | Outpatient (BNVA) | payer MEDICARE, MEDICAID, SELFPAY | PROVIDERS: Family Provider Nurse Practitioner; PCP Nurse Practitioner; Visit Provider Nurse Practitioner Psychiatric/Mental Health | DX: F33.3 Major depressive disorder, recurrent, severe with psychotic symptoms (principal); R41.81 Age-related cognitive decline | CPT/HCPCS: 99214 ==

== ENCOUNTER → 2021-01-28 07:58 | Outpatient (BNVA) | payer MEDICARE, MEDICAID, SELFPAY | PROVIDERS: Family Provider Nurse Practitioner; PCP Nurse Practitioner; Visit Provider Nurse Practitioner Psychiatric/Mental Health | DX: F33.3 Major depressive disorder, recurrent, severe with psychotic symptoms (principal); R41.81 Age-related cognitive decline | CPT/HCPCS: 99213 ==

== ENCOUNTER → 2021-03-10 08:54 | Outpatient (BNVA) | payer MEDICARE, MEDICAID, SELFPAY | PROVIDERS: Family Provider Nurse Practitioner; PCP Nurse Practitioner; Visit Provider Nurse Practitioner | DX: J44.9 Chronic obstructive pulmonary disease, unspecified (principal); E03.8 Other specified hypothyroidism; E78.5 Hyperlipidemia, unspecified; E11.65 Type 2 diabetes mellitus with hyperglycemia; I10 Essential (primary) hypertension; Z79.4 Long term (current) use of insulin | CPT/HCPCS: 80053; 80061; 83036; 84443 ==

== ENCOUNTER → 2021-03-13 09:28 | Outpatient (BNVA) | payer MEDICARE, MEDICAID, SELFPAY | PROVIDERS: Family Provider Nurse Practitioner; PCP Nurse Practitioner; Visit Provider Nurse Practitioner | DX: R33.9 Retention of urine, unspecified | CPT/HCPCS: 81000 ==

== ENCOUNTER → 2021-03-25 13:39 | Outpatient (BNVA) | payer MEDICARE, MEDICAID, SELFPAY | PROVIDERS: Family Provider Nurse Practitioner; PCP Nurse Practitioner; Visit Provider Nurse Practitioner Psychiatric/Mental Health | DX: F33.3 Major depressive disorder, recurrent, severe with psychotic symptoms (principal); R41.81 Age-related cognitive decline | CPT/HCPCS: 99214 ==

== ENCOUNTER → 2021-05-27 07:33 | Outpatient (BNVA) | payer MEDICARE, MEDICAID, SELFPAY | PROVIDERS: Family Provider Nurse Practitioner; PCP Nurse Practitioner; Visit Provider Nurse Practitioner Psychiatric/Mental Health | DX: F33.3 Major depressive disorder, recurrent, severe with psychotic symptoms (principal); R41.81 Age-related cognitive decline | CPT/HCPCS: 99214 ==

== ENCOUNTER → 2021-06-04 08:04 | Outpatient (BNVA) | payer MEDICARE, MEDICAID, SELFPAY | PROVIDERS: Family Provider Nurse Practitioner; PCP Nurse Practitioner; Visit Provider Nurse Practitioner | DX: E03.8 Other specified hypothyroidism (principal); E11.65 Type 2 diabetes mellitus with hyperglycemia; Z79.4 Long term (current) use of insulin; I10 Essential (primary) hypertension | CPT/HCPCS: 80053; 80061; 83036; 84443 ==

== ENCOUNTER → 2021-06-29 14:11 | Outpatient (BNVA) | payer MEDICARE, MEDICAID, SELFPAY | PROVIDERS: Family Provider Nurse Practitioner; PCP Nurse Practitioner; Visit Provider Nurse Practitioner | DX: I10 Essential (primary) hypertension (principal); E11.65 Type 2 diabetes mellitus with hyperglycemia; I48.0 Paroxysmal atrial fibrillation; K21.9 Gastro-esophageal reflux disease without esophagitis; J31.0 Chronic rhinitis; E03.8 Other specified hypothyroidism; R33.9 Retention of urine, unspecified; Z79.4 Long term (current) use of insulin | CPT/HCPCS: 81000 ==

== ENCOUNTER → 2021-08-19 07:27 | Outpatient (BNVA) | payer MEDICARE, MEDICAID, SELFPAY | PROVIDERS: Family Provider Nurse Practitioner; PCP Nurse Practitioner; Visit Provider Nurse Practitioner Psychiatric/Mental Health | DX: F33.3 Major depressive disorder, recurrent, severe with psychotic symptoms (principal); R41.81 Age-related cognitive decline | CPT/HCPCS: 99214 ==

== ENCOUNTER → 2021-09-30 08:15 | Outpatient (BNVA) | payer MEDICARE, MEDICAID, SELFPAY | PROVIDERS: Family Provider Nurse Practitioner; PCP Nurse Practitioner; Visit Provider Nurse Practitioner | DX: E11.65 Type 2 diabetes mellitus with hyperglycemia (principal); Z79.4 Long term (current) use of insulin; I10 Essential (primary) hypertension | CPT/HCPCS: 80053; 80061; 83036; 84443 ==

== ENCOUNTER → 2021-10-02 09:27 | Outpatient (BNVA) | payer MEDICARE, MEDICAID, SELFPAY | PROVIDERS: Family Provider Nurse Practitioner; PCP Nurse Practitioner; Visit Provider Nurse Practitioner | DX: E11.65 Type 2 diabetes mellitus with hyperglycemia (principal); Z79.4 Long term (current) use of insulin | CPT/HCPCS: 81000 ==

== ENCOUNTER → 2021-11-11 08:02 | Outpatient (BNVA) | payer MEDICARE, MEDICAID, SELFPAY | PROVIDERS: PCP Nurse Practitioner; Visit Provider Nurse Practitioner Psychiatric/Mental Health | DX: F33.3 Major depressive disorder, recurrent, severe with psychotic symptoms (principal); R41.81 Age-related cognitive decline | CPT/HCPCS: 99214 ==

== ENCOUNTER 2021-12-15 12:16 | Inpatient (IN) | payer MEDICARE, MEDICAID, SELFPAY ==
[2021-12-15] VITALS (13 sets, daily range): BP systolic 91–144; BP diastolic 53–89; PULSE 71–108; RESP 14–41; TEMP 36.4–37.1; O2SAT 91–97; BMI 37.5; BMI 35.9
--- NOTE | 2021-12-15 12:20 | W.ED.WEAKNES ---
HPI - Weakness General: Chief complaint: Weakness Stated complaint: GENERALIZED WEAKNESS Time Seen by Provider: 12/15/21 12:20 History of Present Illness: HPI Narrative: 76-year-old male who presents emergency room complaining of generalized weakness. EMS was called out earlier this morning he was complaining of weakness he wanted to go see his doctor they ended up not transporting there then called back by the home health care nurse she did seem to worsen they report intermittent episodes of him having altered mental status EMS states he seemed to be coherent and able to process since they have picked him up. Patient has a history of diabetes mellitus he is on apixaban for atrial fibrillation. He denies any abdominal pain denies any dysuria urgency or frequency denies any fevers but or chills. He denies any productive cough. He intermittently has had a little bit of chest discomfort. Room air oxygen sat is . Pt requiring 4 L to maintain sats in low 90s. MD Complaint: generalized weakness Onset (ago): week(s) Duration: constant Location: generalized Migration: none Severity: moderate Relieving factors: none Exacerbating factors: none Associated symptoms: Denies chest pain, chills, confusion, melena, decreased appetite, diaphoresis, dysuria, easy bruising, fever(s), headache(s), myalgias, nausea, rash, short of breath, syncope or vomiting Review of Systems Const: Denies: fever(s), chills or diaphoresis ENMT: Denies: throat pain, ear or mastoid pain, nasal discharge or nasal congestion Card: Denies: chest pain or syncope Resp: Denies: dyspnea, productive cough or non-productive cough GI: Denies: nausea, vomiting or melena : Denies: dysuria Skin/Breast: Denies: rash or pruritus Neuro: Denies: headache(s) or confusion Elijah/Lymph: Denies: easy bruising PFS ED PFSH: Medical History Adult onset hypothyroidism Age-related cognitive decline Atrial fibrillation Atrial fibrillation BPH (benign prostatic hyperplasia) Chronic rhinitis Concussion COPD (chronic obstructive pulmonary disease) COPD with exacerbation DM type 2 (diabetes mellitus, type 2) Enrolled in chronic care management Gastro-esophageal reflux disease without esophagitis Glaucoma HLD (hyperlipidemia) HTN (hypertension) Hx of respiratory failure uses non invasive ventilation device Hypothyroidism Major depression Major depressive disorder, recurrent episode with mood-congruent psychotic features Mild cognitive impairment Obstructive sleep apnea Paroxysmal atrial fibrillation with RVR Psychiatric care Psychosis Sleep apnea Urethral bleeding Resolved. Follow-up with urology 2 weeks Urinary retention Surgical History History of cataract surgery History of colonoscopy Family History Brother Prostate cancer Sister Diabetes Sister Gallbladder cancer Father Depression Other Hypertension Psychiatric illness Social History Smoking and tobacco status: former smoker Quit status (tobacco): has quit using tobacco Year quit tobacco: 1999 - 2PPD x 40 Years Second hand smoke exposure: No Smoking risk assessment/counseling performed?: No Alcohol intake: never Desire information about alcohol rehabilitation?: No Counseling given: No Desire information about substance/drug rehabilitation?: No Counseling given: No Adopted: No Caregiver/support person: No Lives independently: Yes Household members: family Housing: House Marital status: Single Number of children: 1 service: No Current occupational status: disabled Current occupational exposures/hazards: No Pets and animals: No History of recent travel: No Current gender identity: Male Physical Exam Const: GENERAL APPEARANCE: cooperative and comfortable ORIENTATION/CONSCIOUSNESS: Yes awake HENMT: COMMON NORMALS: normocephalic, atraumatic and hearing grossly normal bilaterally HEAD & SCALP: normocephalic and atraumatic Neck/C-Spine: COMMON NORMALS: no JVD Resp: COMMON NORMALS: normal respiratory effort, No retractions, No use of accessory muscles and clear to auscultation bilaterally AUSCULTATION: clear to auscultation bilaterally Cardio: COMMON NORMALS: no JVD, regular rate, regular rhythm and No murmurs present (Cardio) RATE: regular rate RHYTHM: regular rhythm GI: COMMON NORMALS: Soft to palpation and No hepatosplenomegaly present AUSCULTATION: Yes normoactive bowel sounds PALPATION: Yes Soft to palpation, No Tenderness to palpation present (GI), No Guarding due to palpation present (GI) and Yes No hepatosplenomegaly present Extremity: COMMON NORMALS: normal to inspection, capillary refill normal, no clubbing, cyanosis or edema, no calf tenderness and no pedal edema Skin: COMMON NORMALS: no rashes or lesions noted GENERAL SKIN EXAM: no rashes or lesions noted Course Vital Signs: Vital signs: Vital Signs Temperature 98 F 12/17/21 03:23 Pulse Rate 70 12/17/21 15:35 Respiratory Rate 19 H 12/17/21 15:35 Blood Pressure 113/77 12/17/21 15:35 Pulse Oximetry 94 12/17/21 15:35 MDM - Weakness MDM Narrative Medical decision making narrative: Admit A. fib with RVR. Discussed with hospitalist orders written Medical Records Attestation: I reviewed the patient's medical records. Lab Data Attestation: I reviewed the patient's lab results. Result diagrams: 12/17/21 02:18 12/17/21 02:18 Labs: Lab Results 12/15/21 12/15/21 12/15/21 13:15 13:15 13:15 WBC 15.9 10^3/uL H 10^3/uL (4.0-10.0) RBC 4.87 10^6/uL 10^6/uL (4.1-5.3) Hgb 13.7 g/dL g/dL (11.7-16.6) Hct 40.7 % L % (42.0-52.0) MCV 83.6 fl fl (80-94) MCH 28.1 pg pg (28.0-34.0) MCHC 33.7 g/dL g/dL (30.0-36.0) RDW 14.6 % % (12.1-15.1) Plt Count 172 10^3/cmm 10^3/cmm (130-400) MPV 9.7 fL fL (7.4-10.4) Neut % (Auto) 80.8 % % Lymph % (Auto) 9.4 % % [place] % (Auto) 8.3 % % Eos % (Auto) 0.8 % % Baso % (Auto) 0.3 % % Neut # (Auto) 12.84 10^3/uL H 10^3/uL (1.8-7.7) Lymph # (Auto) 1.5 10^3/uL 10^3/uL (0.8-4.8) [place] # (Auto) 1.3 10^3/uL H 10^3/uL (0.2-0.9) Eos # (Auto) 0.1 10^3/uL 10^3/uL (0.0-0.8) Baso # (Auto) 0.1 10^3/uL 10^3/uL (0.0-0.1) Nucleated RBC % (auto) 0 % % Nucleated RBCs # 0.0 /100WBC /100WBC D-Dimer Sodium 136 mmol/L mmol/L (136-145) Potassium 4.2 mmol/L mmol/L (3.5-5.1) Chloride 96 mmol/L L mmol/L (98-107) Carbon Dioxide 23 mmol/L mmol/L (22-29) Anion Gap 21.2 H (5-19) BUN 20 mg/dL mg/dL (8-23) Creatinine 1.1 mg/dL mg/dL (0.7-1.2) GFR Calculation Not Reportable Glucose 98 mg/dL mg/dL (65-115) Calculated Osmolality 285 mOsm/kg mOsm/kg (285-295) Calcium 9.2 mg/dL mg/dL (8.5-10.5) Magnesium Total Bilirubin 0.4 mg/dL mg/dL (0.15-1.2) AST 14 U/L U/L (0-40) ALT 13 U/L U/L (0-41) Alkaline Phosphatase 85 IU/L IU/L (40-130) Creatine Kinase 113 U/L U/L (39-308) Troponin T Baseline 12 ng/L ng/L (0-15) Troponin T 120 Minute Delta Troponin T Total Protein 7.1 g/dL g/dL (6.6-8.7) Albumin 4.1 g/dL g/dL (3.5-5.2) Globulin 3.0 g/dL g/dL (1.3-4.6) TSH Urine Color Urine Appearance Urine pH Ur Specific [place] Urine Protein Urine Glucose (UA) Urine Ketones Urine Blood Urine Nitrate Urine Bilirubin Urine Urobilinogen Ur Leukocyte Esterase Coronavirus 229E (PCR) SARS-CoV-2 (PCR) 12/15/21 12/15/21 12/15/21 13:15 13:15 13:15 WBC RBC Hgb Hct MCV MCH MCHC RDW Plt Count MPV Neut % (Auto) Lymph % (Auto) [place] % (Auto) Eos % (Auto) Baso % (Auto) Neut # (Auto) Lymph # (Auto) [place] # (Auto) Eos # (Auto) Baso # (Auto) Nucleated RBC % (auto) Nucleated RBCs # D-Dimer 0.34 ug/mIFEU ug/mIFEU (0-0.59) Sodium Potassium Chloride Carbon Dioxide Anion Gap BUN Creatinine GFR Calculation Glucose Calculated Osmolality Calcium Magnesium 2.0 mg/dL mg/dL (1.7-2.3) Total Bilirubin AST ALT Alkaline Phosphatase Creatine Kinase Troponin T Baseline Troponin T 120 Minute Delta Troponin T Total Protein Albumin Globulin TSH 1.98 uIU/mL uIU/mL (0.27-4.20) Urine Color Yellow (Yellow) Urine Appearance Clear (CLEAR) Urine pH 5 (5-7) Ur Specific [place] 1.020 (1.005-1.030) Urine Protein Neg (Negative) Urine Glucose (UA) 4+ H (Normal) Urine Ketones Negative (Negative) Urine Blood Neg (Negative) Urine Nitrate Negative (Negative) Urine Bilirubin Neg (Negative) Urine Urobilinogen Norm mg/dL mg/dL (Negative) Ur Leukocyte Esterase Negative (Negative) Coronavirus 229E (PCR) SARS-CoV-2 (PCR) 12/15/21 12/15/21 14:55 16:32 WBC RBC Hgb Hct MCV MCH MCHC RDW Plt Count MPV Neut % (Auto) Lymph % (Auto) [place] % (Auto) Eos % (Auto) Baso % (Auto) Neut # (Auto) Lymph # (Auto) [place] # (Auto) Eos # (Auto) Baso # (Auto) Nucleated RBC % (auto) Nucleated RBCs # D-Dimer Sodium Potassium Chloride Carbon Dioxide Anion Gap BUN Creatinine GFR Calculation Glucose Calculated Osmolality Calcium Magnesium Total Bilirubin AST ALT Alkaline Phosphatase Creatine Kinase Troponin T Baseline Troponin T 120 Minute 13.47 ng/L ng/L (0-15) Delta Troponin T 1.47 ABS# ABS# (0-10) Total Protein Albumin Globulin TSH Urine Color Urine Appearance Urine pH Ur Specific [place] Urine Protein Urine Glucose (UA) Urine Ketones Urine Blood Urine Nitrate Urine Bilirubin Urine Urobilinogen Ur Leukocyte Esterase Coronavirus 229E (PCR) Not detected (NOT DETECT) SARS-CoV-2 (PCR) Not detected (NOT DETECT) Discharge Plan Discharge Patient Disposition: Admitted As Inpatient Admit Provider: Ruben Davis Clinical Impression: Atrial fibrillation Condition: Stable Discharge Diet: As Directed and Diabetic Discharge Activity: Increase activity as tolerated and Oxygen as instructed Coding Level of Care Code ED Child Development Consultant for [employer]lerg Fwd Exam Comprehensive
--- NOTE | 2021-12-15 12:56 | ECG_ITS ---
[facility] Test Date: 2021-12-15 Pat Name: Roland Wilson Department: Room: Gender: Male Road Engineer: : 1945 Requested By: Cameron Leon Order Number: [id number] Rafael MD: Agustin Becerra M.D. Measurements Intervals [place] Rate: 74 P: 33 LA: 145 QRS: 57 QRSD: 98 T: 65 QT: 351 QTc: 391 Interpretive Statements SINUS RHYTHM WITH SINUS ARRHYTHMIA NONSPECIFIC T-WAVE ABNORMALITY Compared to ECG 12/15/2021 13:07:17 Atrial flutter no longer present T-wave abnormality still present Electronically Signed On 12-16-2021 17:41:19 GRAIN MERCHANDISER by Agustin Becerra M.D. [email or web address].[email or web address]/store/[id number]
--- NOTE | 2021-12-15 13:16 | XR_ITS ---
WS: [id number] Exam: XR chest 1V portable [id number] Date/Time of Exam: 12/15/2021 1:19 PM Reason For Exam: dyspnea/cough Comparison 04/07/2020. There is infiltrate in the right lower lobe suspicious for pneumonia. Left lung is clear. Cardiomedia stinal silhouette is unremarkable for technique. No pleural effusion or pneumothorax. Bony structures appear normal. XR/XR chest 1V portable [id number] IMPRESSION: 1. Right lower lobe infiltrate suspicious for pneumonia.
--- NOTE | 2021-12-15 13:20 | PC.NURSE ---
patient placed on continuous bedside cardiac, O2 and BP monitor
[2021-12-15 13:37] LABS: Add Urine Microscopic? NO; Charge for UA Resulting for Rev
[2021-12-15 13:39] LABS: Basophils # 0.1 10^3/uL (0.0-0.1); Basophils % 0.3 %; Eosinophils # 0.1 10^3/uL (0.0-0.8); Eosinophils % 0.8 %; Hematocrit 40.7 % (42.0-52.0); Hemoglobin 13.7 g/dL (11.7-16.6); Lymphocytes # 1.5 10^3/uL (0.8-4.8); Lymphocytes % 9.4 %; Mean Corpuscular HGB Conc 33.7 g/dL (30.0-36.0); Mean Corpuscular Hemoglobin 28.1 pg (28.0-34.0); Mean Corpuscular Volume 83.6 fl (80-94); Mean Platelet Volume 9.7 fL (7.4-10.4); Monocytes # 1.3 10^3/uL (0.2-0.9); Monocytes % 8.3 %; Neutrophils # 12.84 10^3/uL (1.8-7.7); Neutrophils % 80.8 %; Nucleated Red Blood Cells % 0 %; Platelet Count 172 10^3/cmm (130-400); Red Blood Count 4.87 10^6/uL (4.1-5.3); Red Cell Distribution Width 14.6 % (12.1-15.1); White Blood Count 15.9 10^3/uL (4.0-10.0)
[2021-12-15 13:53] LABS: Bilirubin Urine Neg (Negative); Blood Urine Neg (Negative); Glucose Urine UA 4+ (Normal); Ketones Urine Negative (Negative); Leukocyte Esterase Urine Negative (Negative); Nitrate Urine Negative (Negative); Protein Urine Neg (Negative); Urine Appearance Clear (CLEAR); Urine Color Yellow (Yellow); Urobilinogen Urine Norm (Negative); pH Urine 5 (5-7)
[2021-12-15 14:22] LABS: Troponin(5th) Baseline 12 ng/L (0-15)
[2021-12-15 14:25] LABS: Alanine Aminotransferase 13 U/L (0-41); Albumin Level 4.1 g/dL (3.5-5.2); Alkaline Phosphatase 85 IU/L (40-130); Aspartate Amino Transferase 14 U/L (0-40); Blood Urea Nitrogen 20 mg/dL (8-23); Calcium 9.2 mg/dL (8.5-10.5); Carbon Dioxide 23 mmol/L (22-29); Chloride 96 mmol/L (98-107); Creatine Phosphokinase 113 U/L (39-308); Glucose 98 mg/dL (65-115); Osmolality Calculated 285 mOsm/kg (285-295); Sodium 136 mmol/L (136-145); Total Bilirubin 0.4 mg/dL (0.15-1.2); Total Protein 7.1 g/dL (6.6-8.7)
--- NOTE | 2021-12-15 14:26 | PC.NURSE ---
PROVIDER ASKED FOR RA ASSESSMENT. PATIENT REMOVED FROM OXYGEN. PATIENT DROPPED TO 88% O2 SATURATION WHILE READJUSTING IN THE BED. PATIENT O2 LOWERED FROM 4 L NC TO 2 L NC.
[2021-12-15 14:27] LABS: Anion Gap 21.2 (5-19); Potassium 4.2 mmol/L (3.5-5.1)
--- NOTE | 2021-12-15 14:56 | ECG_ITS ---
[facility] Test Date: 2021-12-15 Pat Name: Roland Wilson Department: Room: Gender: Male Court Orderly: : 1945 Requested By: Cameron Leon Order Number: [id number] Rafael MD: Ashwini Lozano M.D. Measurements Intervals [place] Rate: 129 P: CT: QRS: 56 QRSD: 94 T: 0 QT: 288 QTc: 422 Interpretive Statements ATRIAL FLUTTER WITH RAPID VENTRICULAR RESPONSE NONSPECIFIC ST & T-WAVE ABNORMALITY Compared to ECG 01/29/2020 13:41:31 T-wave abnormality now present Sinus rhythm no longer present ST (T wave) deviation no longer present Electronically Signed On 12-18-2021 9:43:55 CASE MANAGERS by Ashwini Lozano M.D. [id number]
[2021-12-15] MEDS: metoprolol tartrate 1 mg/1 mL SDV 5 mL 2.5 MG IVP (15:06)
[2021-12-15] MEDS: levofloxacin-dextrose 5 % 750 MG/150 ML PREMIX 100 MG IV (15:06)
--- NOTE | 2021-12-15 15:30 | PC.PHAR ---
pt unable to verify medications-pt states he has home health [facility] faxed med list-some things on the [facility] med list didnt match what the pharmacy or santiago has filled recently notes are made in the pharmacy comments-pt states he took his am meds today but is unsure what the names of the medications were
[2021-12-15 16:51] LABS: Adenovirus Not Detected (NOT DETECT); Chlamydia Pneumoniae Not Detected (NOT DETECT); Coronavirus 229E,HKU1,NL63,OC4 Not Detected (NOT DETECT); Human Metapneumovirus Not Detected (NOT DETECT); Human Rhinovirus/Enterovirus Not Detected (NOT DETECT); Influenza A Not Detected (NOT DETECT); Influenza A H1 Not Detected (NOT DETECT); Influenza A H1-2009 Not Detected (NOT DETECT); Influenza A H3 Not Detected (NOT DETECT); Influenza B Not Detected (NOT DETECT); Mycoplasma Pneumoniae Not Detected (NOT DETECT); Parainfluenza Virus Type 1 Not Detected (NOT DETECT); Parainfluenza Virus Type 2 Not Detected (NOT DETECT); Parainfluenza Virus Type 3 Not Detected (NOT DETECT); Parainfluenza Virus Type 4 Not Detected (NOT DETECT); Respiratory Syncytial Virus A Not Detected (NOT DETECT); Respiratory Syncytial Virus B Not Detected (NOT DETECT); SARS-COV-2 Not Detected (NOT DETECT)
--- NOTE | 2021-12-15 17:05 | P.HP_ITS ---
Providers/Chief Complaint Primary Care Provider: Lamin Beatty, RESIDENTIAL CARE OFFICER-C Chief Complaint: GENERALIZED WEAKNESS History of Present Illness Pleasant 76-year-old gentleman normally living at home with his sister, with history of COPD, on chronic 2 L of oxygen by nasal cannula, with history of SALLIE, but reports last several days was not able to tolerate CPAP, A. fib, DM 2, HTN, HLD, hypothyroidism, mild cognitive impairment, history of urinary retention, other medical problems comes to ER for evaluation of several days of weakness which is generalized, some subjective chills, mild diarrhea, denies cough initially, but noted coughing with deep inspiration, says this has been going on for several days, and does note that sometimes he coughs with food or drink. In ER he is noted to have several episodes of A. fib with RVR. Chest x-ray reveals right lower lobe infiltrate suspicious for pneumonia. Review of Systems Const: Reports: chills; Denies: fever(s) or body aches Eyes: Denies: change in vision or eye redness ENMT: Denies: throat pain, oral sores or ear or mastoid pain Card: Denies: chest pain, edema, pre-syncope or dyspnea on exertion Resp: Reports: non-productive cough; Denies: productive cough, change in phlegm color or hemoptysis GI: Reports: diarrhea; Denies: abdominal pain, nausea, vomiting, constipation, hematochezia or melena : Denies: flank pain, difficulty urinating, urinary frequency or hematuria Musc: Denies: back pain, joint swelling or joint redness Skin/Breast: Reports: other (scrape/rash on anterior lower L chirinos); Denies: rash, sores or new lesions Neuro: Denies: headache(s), numbness in extremities, weakness in extremities, dizziness, confusion or seizure-like activity Endo: Denies: polyuria or polydipsia Elijah/Lymph: Denies: easy bleeding All/Imm: Denies: urticaria, throat swelling or tongue swelling Medications/Allergies Home Medications Medication Instructions Recorded Confirmed Last Taken Type acetaminophen [Tylenol] 650 mg PO Q6H PRN 01/29/20 12/15/21 Unknown History magnesium hydroxide [Milk of 30 ml PO DAILY PRN 01/29/20 12/15/21 Unknown Histo ry Magnesia] Fleet Enema 118 ml NM DAILY PRN 04/07/20 12/15/21 Unknown History budesonide 0.5 mg/2 mL suspension 0.5 mg INHALATION BID 90 Days #360 07/17/20 12/15/21 Unknown Rx for nebulization ml albuterol sulfate 90 mcg/actuation 2 puff INHALATION Q4H PRN #8.5 gm 08/23/20 12/15/21 Unknown Rx aerosol inhaler pen needle, diabetic 33 gauge x #100 ea 03/13/21 12/15/21 Unknown Rx 5/32 amlodipine 5 mg tablet 5 mg PO DAILY #30 tab 10/02/21 12/15/21 Unknown Rx aspirin 81 mg tablet,delayed 81 mg PO DAILY #30 tab 10/02/21 12/15/21 Unknown Rx release empagliflozin 25 mg tablet 25 mg PO QAM #30 tab 10/02/21 12/15/21 Unknown Rx famotidine 20 mg tablet 20 mg PO BID #60 tab 10/02/21 12/15/21 Unknown Rx furosemide 20 mg tablet 20 mg PO DAILY #30 tab 10/02/21 12/15/21 Unknown Rx glipizide 10 mg tablet, extended 10 mg PO DAILY #30 tab 10/02/21 12/15/21 U nknown Rx release 24 hr icosapent ethyl 1 gram capsule 2 g PO BID #120 cap 10/02/21 12/15/21 Unknown Rx insulin detemir U-100 100 unit/mL 65 unit SUBCUT BEDTIME #15 ml 10/02/21 12/15/21 12/14/21 Rx (3 mL) subcutaneous pen levocetirizine 5 mg tablet 5 mg PO DAILY #30 tab 10/02/21 12/15/21 Unknown Rx levothyroxine 75 mcg tablet 75 mcg PO DAILY #30 tab 10/02/21 12/15/21 Unknown Rx metformin 1,000 mg tablet 1,000 mg PO BID #60 tab 10/02/21 12/15/21 Unknown Rx rosuvastatin 40 mg tablet 40 mg PO BEDTIME #30 tab 10/02/21 12/15/21 Unknown Rx tamsulosin 0.4 mg capsule 0.4 mg PO DAILY #30 cap 10/02/21 12/15/21 Unknown Rx sertraline 50 mg tablet 50 mg PO QAM #90 tab 11/11/21 12/15/21 Unknown Rx Seroquel 12.5 mg PO BEDTIME 12/15/21 12/15/21 Unknown History apixaban [Eliquis] 5 mg PO BID 12/15/21 12/15/21 Unknown History bisacodyl [Dulcolax (bisacodyl)] 10 mg PO DAILY PRN 12/15/21 12/15/21 Unknown History dulaglutide [Trulicity] 4.5 mg SUBCUT Q7D 12/15/21 12/15/21 Unknown History metoprolol tartrate 75 mg PO BID #60 tab 12/15/21 12/15/21 Unknown Rx revefenacin [Yupelri] 175 mcg INHALATION DAILY 12/15/21 12/15/21 Unknown History Allergies Allergy/AdvReac Type Severity Reaction Status Date / Time canagliflozin [From Invokana] Allergy Mild Unknown Verified 09/22/20 14:00 canagliflozin Allergy Unknown Uncoded 09/22/20 14:00 PFSH Acute PFSH: Medical History Adult onset hypothyroidism Age-related cognitive decline Atrial fibrillation BPH (benign prostatic hyperplasia) Chronic rhinitis Concussion COPD (chronic obstructive pulmonary disease) COPD with exacerbation DM type 2 (diabetes mellitus, type 2) Enrolled in chronic care management Gastro-esophageal reflux disease without esophagitis Glaucoma HLD (hyperlipidemia) HTN (hypertension) Hx of respiratory failure uses non invasive ventilation device Hypothyroidism Major depression Major depressive disorder, recurrent episode with mood-congruent psychotic features Mild cognitive impairment Obstructive sleep apnea Psychiatric care Psychosis Sleep apnea Urethral bleeding Resolved. Follow-up with urology 2 weeks Urinary retention Surgical History History of cataract surgery History of colonoscopy Family History Brother Prostate cancer Sister Diabetes Sister Gallbladder cancer Father Depression Other Hypertension Psychiatric illness Social History Quit status (tobacco): has quit using tobacco Year quit tobacco: 1999 - 2PPD x 40 Years Second hand smoke exposure: No Smoking risk assessment/counseling performed?: No Alcohol intake: never Desire information about alcohol rehabilitation?: No Counseling given: No Desire information about substance/drug rehabilitation?: No Counseling given: No Adopted: No Caregiver/support person: No Lives independently: Yes Household members: family Housing: House Marital status: Single Number of children: 1 service: No Current occupational status: disabled Current occupational exposures/hazards: No Pets and animals: No History of recent travel: No Current gender identity: Male Vitals/I&O/Wt Last Vital Signs Temp 98.2 F 12/15/21 12:28 Pulse 75 12/15/21 16:24 Resp 30 H 12/15/21 16:24 BP 121/66 12/15/21 16:24 Pulse Ox 92 12/15/21 16:24 12/15/21 12/15/21 12/15/21 06:59 14:59 22:59 Intake Total 150 / 150 Balance 150 / 150 Weight last 48 hrs Weight 129.274 kg Physical Exam Const: COMMON NORMALS: no acute distress, patient oriented x3 and alert GENERAL APPEARANCE: cooperative NUTRITIONAL APPEARANCE: obese ORIENTATION/CONSCIOUSNESS: Yes awake HENMT: COMMON NORMALS: oropharynx normal Neck/C-Spine: COMMON NORMALS: no JVD Resp: COMMON NORMALS: normal respiratory effort and clear to auscultation bilaterally AUSCULTATION: clear to auscultation bilaterally Cardio: COMMON NORMALS: no JVD, regular rhythm, S1 normal heart sound present, S2 normal heart sound present and No murmurs present (Cardio) RHYTHM: regular rhythm HEART SOUNDS: S1 normal heart sound present and S2 normal heart sound present GI: COMMON NORMALS: Normal to inspection, nondistended, normoactive bowel so unds present, Soft to palpation and non-tender PALPATION: Yes Soft to palpation Extremity: COMMON NORMALS: no joint enlargement and no pedal edema Neuro: COMMON NORMALS: patient oriented x3 and moves all extremities Skin: COMMON NORMALS: no rashes or lesions noted GENERAL SKIN EXAM: no rashes or lesions noted OTHER: Petechial-like rash on anterior L lower chirinos after a scrape at home Data : 12/15/21 13:15 12/15/21 13:15 Micro: Microbiology 12/15/21 16:39 Blood Culture - Preliminary Blood SPECIMEN COLLECTED 12/15/21 16:32 Blood Culture - Preliminary Blood SPECIMEN COLLECTED A&P Assessment and plan (1) Pneumonia: Community-acquired pneumonia, with noted infiltrate on x-ray, although with history of some cough with food and drink that he reports, right lower lobe distribution, possible aspiration pneumonia as well. Was hypoxic, requiring as much as 4 L of oxygen by nasal cannula initially. Currently requiring 3 L. Blood cultures were collected. For now continue ceftriaxone and azithromycin. We will also get him assessed with speech therapy and MBS. COVID-19 PCR negative. Assess DDimer Status: Acute (2) Paroxysmal atrial fibrillation with RVR: Several episodes of A. fib with RVR noted in ER. Received IV metoprolol dose, a dose of IV Cardizem was ordered as well, but A. fib with RVR had resolved before he could receive it. Continue treatment of pneumonia as above. Continue metoprolol at home dose currently. Telemetry monitoring. Check TSH, magnesium. Assess DDimer Status: Acute Additional A&P Information Petechial/peripheral appearing area of rash on left lower anterior chirinos: He describes that appeared after a scrape at home, no sign of infection currently. Monitor for any changes. SALLIE: Encouraged him to resume using nightly CPAP. Will request in the hospital. DM2: Continue long-acting insulin. Hold OHA's. Insulin sliding scale. Consistent carb diet. HTN HLD Hypothyroidism: Check TSH HLD GERD Other chronic medical conditions noted Attestations Medical Necessity Statement*: Admission of over 2 midnights is anticipated for assessment management of community-acquired pneumonia with worse hypoxia compared to usual, with episodes of A. fib with RVR in gentleman with multiple underlying chronic comorbidities as above. Coding Level of Care Code Acute Tactical Intelligence Officer for [place]lerg Fwd Exam Comprehensive Diagnoses Pneumonia J18.9 Paroxysmal atrial fibrillation with RVR I48.0
[2021-12-15] MEDS: sodium chloride 0.9% 500 ML IV (17:26)
[2021-12-15] MEDS: metoprolol tartrate 50 mg Tablet 75 MG PO (17:26)
[2021-12-15 17:42] LABS: Troponin 5 2HR 13.47 ng/L (0-15); Troponin 5 2HR Delta 1.47 ABS# (0-10)
--- NOTE | 2021-12-15 17:52 | PC.NURSE ---
patient having intermittent runs of tachycardia. PT goes up into the 130's and then back down into the 80's. Dr. Meraz notified. Pt was given Diltiazem IV and Metoprolol PO Per Dr. Meraz. Pt states I Am just really tired Pt denies chest pain. Pt on 3L of O2 here in the ER sating at 91%, pt usually on 2L of O2 at home. Pt to be started on a diltiazem drip due to continuous bouts of tachycardia.
[2021-12-15 18:02] LABS: D Dimer 0.34 ug/mIFEU (0-0.59)
[2021-12-15 18:20] LABS: Thyroid Stimulating Hormone 1.98 uIU/mL (0.27-4.20)
--- NOTE | 2021-12-15 18:56 | ECG_ITS ---
[facility] Test Date: 2021-12-15 Pat Name: Roland Wilson Department: Room: 103 Gender: Male Steam Conditioner Filling: : 1945 Requested By: Cameron Leon Order Number: [id number] Rafael MD: Ashwini Lozano M.D. Measurements Intervals [place] Rate: 92 P: [place]: QRS: 53 QRSD: 95 T: -44 QT: 324 QTc: 401 Interpretive Statements ATRIAL FIBRILLATION NONSPECIFIC T-WAVE ABNORMALITY Compared to ECG 12/15/2021 13:31:49 Sinus rhythm no longer present Sinus arrhythmia no longer present T-wave abnormality still present Electronically Signed On 12-17-2021 19:27:47 SUPERVISOR CUTTING DEPARTMENT by Ashwini Lozano M.D. [email or web address] [email or web address] memorial [email or web address] [id number]
[2021-12-15 20:15] LABS: Glucose Point of Care 76 mg/dL (70-110)
[2021-12-15] MEDS: quetiapine 25 mg Tablet 12.5 MG PO (21:18)
[2021-12-15] MEDS: atorvastatin 40 mg Tablet 80 MG PO (21:18)
[2021-12-15] MEDS: famotidine 20 mg Tablet PO (21:18)
[2021-12-15] MEDS: apixaban 5 mg Tablet PO (21:18)
[2021-12-15] MEDS: cefTRIAXone 1,000 MG in sodium chloride 0.9% (plus) 50 ML 100 MG IV (21:19)
[2021-12-15] MEDS: azithromycin 500 MG in sodium chloride 0.9% 250 ML 250 MG IV (21:51)
[2021-12-15] MEDS: budesonide 0.5 mg/2 mL Neb INHALATION (22:03)
[2021-12-16] VITALS (15 sets, daily range): BP systolic 123–149; BP diastolic 55–76; PULSE 60–88; RESP 18–42; TEMP 36.4–36.6; O2SAT 91–97
[2021-12-16] MEDS: acetaminophen 325 mg Tablet 650 MG PO (02:21)
[2021-12-16 03:55] LABS: Basophils % 0.2 %; Eosinophils # 0.3 10^3/uL (0.0-0.8); Eosinophils % 2.1 %; Hematocrit 37.4 % (42.0-52.0); Lymphocytes # 1.4 10^3/uL (0.8-4.8); Lymphocytes % 11.2 %; Mean Corpuscular HGB Conc 32.1 g/dL (30.0-36.0); Mean Corpuscular Hemoglobin 27.7 pg (28.0-34.0); Mean Corpuscular Volume 86.4 fl (80-94); Mean Platelet Volume 9.7 fL (7.4-10.4); Monocytes # 1.2 10^3/uL (0.2-0.9); Neutrophils # 9.49 10^3/uL (1.8-7.7); Neutrophils % 76.3 %; Nucleated Red Blood Cells % 0 %; Platelet Count 165 10^3/cmm (130-400); Red Blood Count 4.33 10^6/uL (4.1-5.3); Red Cell Distribution Width 14.6 % (12.1-15.1); White Blood Count 12.5 10^3/uL (4.0-10.0)
[2021-12-16 04:13] LABS: Alanine Aminotransferase 11 U/L (0-41); Albumin Level 3.6 g/dL (3.5-5.2); Alkaline Phosphatase 107 IU/L (40-130); Anion Gap 19.6 (5-19); Aspartate Amino Transferase 13 U/L (0-40); Blood Urea Nitrogen 22 mg/dL (8-23); Calcium 8.6 mg/dL (8.5-10.5); Carbon Dioxide 21 mmol/L (22-29); Chloride 100 mmol/L (98-107); Globulin 2.9 g/dL (1.3-4.6); Glucose 84 mg/dL (65-115); Osmolality Calculated 287 mOsm/kg (285-295); Potassium 3.6 mmol/L (3.5-5.1); Sodium 137 mmol/L (136-145); Total Bilirubin 0.3 mg/dL (0.15-1.2); Total Protein 6.5 g/dL (6.6-8.7)
--- NOTE | 2021-12-16 06:00 | ECG_ITS ---
[facility] Test Date: 2021-12-16 Pat Name: Roland Wilson Department: Room: 103 Gender: Male Plate Finisher: : 1945 Requested By: Ruben Davis Order Number: [id number] Rafael MD: Ashwini Lozano M.D. Measurements Intervals [place] Rate: 58 P: [place]: QRS: 50 QRSD: 101 T: 27 QT: 409 QTc: 403 Interpretive Statements Junctional rhythm NONSPECIFIC T-WAVE ABNORMALITY ABNORMAL RHYTHM ECG Compared to ECG 12/15/2021 20:42:18 Atrial fibrillation no longer present T-wave abnormality still present Electronically Signed On 12-18-2021 9:32:30 FARMWORKER GRAIN by Ashwini Lozano M.D. [id number]
[2021-12-16 06:38] LABS: Glucose Point of Care 110 mg/dL (70-110)
--- NOTE | 2021-12-16 08:00 | FL_ITS ---
WS: [id number] Exam: FL barium swallow modifd [id number] Date/Time of Exam: 12/16/2021 8:00 AM Reason For Exam: Oropharyngeal dysphagia Fluoroscopy time: 2.6 minutes Modified barium swallow is performed in conjunction with the speech therapy service. There was penetration into the laryngeal inlet when the patient ingested nectar consistency barium fo odstuffs. The patient tolerated thin liquid, pudding consistency and solid barium mixture foodstuffs without incident. The patient ingested the barium pill without difficulty. Swallowing function at the level of the oropharynx was otherwise normal. No aspiration was observed. FL/FL barium swallow modifd 85314 IMPRESSION: 1. There was penetration into the laryngeal inlet when the patient ingested nec tar consistency barium foodstuffs. 2. No other sign of penetration or aspiration. A separate report of recommendations and findings will follow from the speech t herapy service.
[2021-12-16] MEDS: budesonide 0.5 mg/2 mL Neb INHALATION ×2 (08:18→19:27)
[2021-12-16] MEDS: amlodipine 5 mg Tablet PO (08:32)
[2021-12-16] MEDS: FUROsemide 20 mg Tablet PO (08:33)
[2021-12-16] MEDS: levothyroxine 75 mcg Tablet PO (08:33)
[2021-12-16] MEDS: aspirin 81 mg EC Tablet PO (08:34)
[2021-12-16] MEDS: sertraline 50 mg Tablet PO (08:34)
[2021-12-16] MEDS: famotidine 20 mg Tablet PO ×2 (08:34→20:00)
[2021-12-16] MEDS: tamsulosin 0.4 mg Capsule PO (08:34)
[2021-12-16] MEDS: apixaban 5 mg Tablet PO ×2 (08:36→20:00)
--- NOTE | 2021-12-16 10:26 | PC.CHAP ---
Pastoral Care Encounter/Spiritual Assessment Type of Contact [] Declined food cashier visit [] Patient/Family/Request visit [] Outpatient visit [] Follow-up visit [] Physician referral [] Code/Alert [x] Routine visit [] Staff referral [] Actively dying [x] Patient sleeping [] Family support [] [] Out of room [] Palliative care [] [] Receiving care in room [] Pre-surgical visit [] Trauma [] Long length of stay [] ICU visit [] Other: Relational/Emotional Strength [] Patient feels connected with others/family/visitors/staff [] Distress [] Loneliness/isolation [] Abandonment Spirituality of Patient [] Person of Mini [] Attends Yazidi of their Mini [] Believes in Prayer [] Reads Bible or Presybeterian materials [] There are Spiritual issues to be addressed Cardiovascular Specialist Interventions [] Prayer [] Active listening [] Non-anxious presence [] Spiritual/emotional support [] Crisis/trauma care [] Spiritual counseling [] Bereavement support [] Provided bereavement packet [] Provided Bible/devotional materials [] Provided toy/stuffed animal, coloring book to patient or family member [] Provided Communion [] Anointing/Liberty [] Salvation [x] Completed spiritual assessment [] Other: Impact on Illness or Injury [] Angry [] Fearful [] Anxious [] Often cries [] Exhaustion [] Unable to work [] Unable to attend orthodox [] Unable to walk/stand [] Unable to read [] Unable to drive [] Unable to eat/drink [] Unable to sleep [] Unable to be with family [] Patient intubated [] Other: Summary Time spent with patient
[2021-12-16 15:30] LABS: Glucose Point of Care 94 mg/dL (70-110)
[2021-12-16] MEDS: cefTRIAXone 1,000 MG in sodium chloride 0.9% (plus) 50 ML 100 MG IV (20:00)
[2021-12-16] MEDS: quetiapine 25 mg Tablet 12.5 MG PO (20:00)
[2021-12-16] MEDS: atorvastatin 40 mg Tablet 80 MG PO (20:00)
[2021-12-16] MEDS: azithromycin 500 MG in sodium chloride 0.9% 250 ML 250 MG IV (20:01)
--- NOTE | 2021-12-16 20:06 | PM.PN ---
Subjective Subjective: Interval history: He is feeling a bit better. He is coughing. At rest reports breathing is comfortable. Denies headache. Denies nausea or vomiting. Vitals/I&O/Wt Last Vital Signs Temp 98 F 12/16/21 19:21 Pulse 88 12/16/21 19:37 Resp 18 12/16/21 19:37 BP 133/76 12/16/21 19:21 Pulse Ox 95 12/16/21 19:37 12/16/21 12/16/21 12/16/21 06:59 14:59 22:59 Intake Total 543.167 / 1275.000 360 / 360 Output Total 1050 / 1050 550 / 1600 Balance 543.167 / 975.000 -1050 / -1050 -190 / -1240 Weight last 48 hrs Weight 123.695 kg Weight 129.274 kg Physical Exam Const: COMMON NORMALS: no acute distress, patient oriented x3 and alert GENERAL APPEARANCE: cooperative NUTRITIONAL APPEARANCE: obese ORIENTATION/CONSCIOUSNESS: Yes awake HENMT: COMMON NORMALS: oropharynx normal Neck/C-Spine: COMMON NORMALS: no JVD Resp: COMMON NORMALS: normal respiratory effort and clear to auscultation bilaterally AUSCULTATION: clear to auscultation bilaterally Cardio: COMMON NORMALS: no JVD, regular rhythm, S1 normal heart sound present, S2 normal heart sound present and No murmurs present (Cardio) RHYTHM: regular rhythm HEART SOUNDS: S1 normal heart sound present and S2 normal heart sound present GI: COMMON NORMALS: Normal to inspection, nondistended, normoactive bowel sounds present, Soft to palpation and non-tender PALPATION: Yes Soft to palpation Extremity: COMMON NORMALS: no joint enlargement and no pedal edema Neuro: COMMON NORMALS: patient oriented x3 and moves all extremities SENSORIUM/ORIENTATION: Yes alert Skin: COMMON NORMALS: no rashes or lesions noted GENERAL SKIN EXAM: no rashes or lesions noted OTHER: Petechial-like rash on anterior L lower chirinos after a scrape at home Data : 12/16/21 03:12 12/16/21 03:12 Micro: Microbiology 12/15/21 16:39 Blood Culture - Preliminary Blood NEGATIVE TO DATE 12/15/21 16:32 Blood Culture - Preliminary Blood NEGATIVE TO DATE A&P Assessment and plan (1) Pneumonia: Appreciate speech therapy assessment for recommendation for subclinical diet. Noted to have penetration with liquids on MBS. Speech therapy to continue working due to risk of aspiration. Worsened oxygenation today requiring now 5 L of oxygen by nasal cannula. Continue treatment of aspiration pneumonia. Continue IV antibiotics for now without change with ceftriaxone, azithromycin. Blood cultures pending. COVID-19 PCR negative. Negative DDimer Status: Acute (2) Paroxysmal atrial fibrillation with RVR: Heart rate is now doing better. Continue treatment of pneumonia. Continue metoprolol 75mg BID. Continue treatment of pneumonia as above. Continue metoprolol at home dose currently. Telemetry monitoring. Check TSH, magnesium. Assess DDimer Status: Acute Additional A&P Information Petechial/peripheral appearing area of rash on left lower anterior chirinos: He describes that appeared after a scrape at home, no sign of infection currently. Monitor for any changes. SALLIE: Encouraged him to resume using nightly CPAP. Requested in the hospital. DM2: Continue long-acting insulin. Hold OHA's. Insulin sliding scale. Consistent carb diet. HTN HLD Hypothyroidism: Check TSH HLD GERD Other chronic medical conditions noted Attestations Medical Necessity Statement*: Continue admission for assessment of management of aspiration pneumonia, acute on chronic hypoxia. 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
[2021-12-16 20:17] LABS: Glucose Point of Care 178 mg/dL (70-110)
[2021-12-17] VITALS (12 sets, daily range): BP systolic 113–156; BP diastolic 66–97; PULSE 61–142; RESP 17–40; TEMP 36.6; O2SAT 79–96
--- NOTE | 2021-12-17 03:06 | PC.NURSE ---
Patient has pulled multiple continuous pulse ox probes off. Patient educated on need for continuous pulse ox monitoring, but continually pulls them off. Will check pulse ox intermittently.
[2021-12-17 03:43] LABS: Basophils % 0.4 %; Eosinophils # 0.4 10^3/uL (0.0-0.8); Eosinophils % 4.4 %; Hematocrit 40.2 % (42.0-52.0); Hemoglobin 12.8 g/dL (11.7-16.6); Lymphocytes % 10.2 %; Mean Corpuscular HGB Conc 31.8 g/dL (30.0-36.0); Mean Corpuscular Hemoglobin 27.9 pg (28.0-34.0); Mean Corpuscular Volume 87.8 fl (80-94); Mean Platelet Volume 9.5 fL (7.4-10.4); Monocytes % 9.7 %; Neutrophils # 7.54 10^3/uL (1.8-7.7); Nucleated Red Blood Cells % 0 %; Platelet Count 184 10^3/cmm (130-400); Red Blood Count 4.58 10^6/uL (4.1-5.3); Red Cell Distribution Width 14.9 % (12.1-15.1); White Blood Count 10.1 10^3/uL (4.0-10.0)
[2021-12-17 04:10] LABS: Anion Gap 16.9 (5-19); Blood Urea Nitrogen 17 mg/dL (8-23); Calcium 8.9 mg/dL (8.5-10.5); Carbon Dioxide 27 mmol/L (22-29); Chloride 103 mmol/L (98-107); Glucose 115 mg/dL (65-115); Osmolality Calculated 298 mOsm/kg (285-295); Potassium 3.9 mmol/L (3.5-5.1); Sodium 143 mmol/L (136-145)
[2021-12-17 06:41] LABS: Glucose Point of Care 124 mg/dL (70-110)
[2021-12-17] MEDS: metoprolol tartrate 50 mg Tablet 75 MG PO (08:37)
[2021-12-17] MEDS: amlodipine 5 mg Tablet PO (08:43)
[2021-12-17] MEDS: tamsulosin 0.4 mg Capsule PO (08:43)
[2021-12-17] MEDS: sertraline 50 mg Tablet PO (08:43)
[2021-12-17] MEDS: FUROsemide 20 mg Tablet PO (08:43)
[2021-12-17] MEDS: aspirin 81 mg EC Tablet PO (08:43)
[2021-12-17] MEDS: levothyroxine 75 mcg Tablet PO (08:43)
[2021-12-17] MEDS: famotidine 20 mg Tablet PO (08:49)
[2021-12-17] MEDS: apixaban 5 mg Tablet PO (08:49)
[2021-12-17] MEDS: budesonide 0.5 mg/2 mL Neb INHALATION (09:20)
--- NOTE | 2021-12-17 09:52 | PC.NURSE ---
patient walked in hilario with PT at Beginning of walk HR 85 at 0820 Pt reported to this nurse patient walked 180ft with min assistance walk time [id number] 'Upon returning to bed patient HR 142-[address] smith notified no new orders BY 0849 patient HR decreased to 90 HR at 0930 noted 67 Patient asymptomatic during event denied chest pain or discomfort no SOB noted
[2021-12-17 11:20] LABS: Glucose Point of Care 144 mg/dL (70-110)
--- NOTE | 2021-12-17 13:55 | P.DS_ITS ---
Discharge Providers Date of Admission: 12/15/21 19:00 Date of Discharge: December 17, 2021 Attending Provider at Admission: Ruben Davis Attending Provider at Discharge: Ruben Davis Primary Care Provider: CELENA Vernon Diagnoses at Discharge Discharge Diagnosis (1) Pneumonia: Status: Acute (2) Paroxysmal atrial fibrillation with RVR: Status: Acute Reason for Visit Reason for Visit: GENERALIZED WEAKNESS Hospital Course Hospital Course Pleasant 76-year-old gentleman with history of COPD, on chronic 2 L oxygen by nasal cannula, SALLIE, has NIV at home which he states did not wear last several d ays, A. fib, DM2, HTN, HLD, hypothyroidism, mild cognitive impairment, history of urinary retention was admitted and treated due to acute worsening of hypoxia and episodes of AFib with RVR for which he received IV metoprolol, IV dose of diltiazem. Subsequently with improvement in heart rates, occasional brief episodes of breakthrough. Metoprolol dose is increased to 75 mg twice daily which is continued at discharge. Chest x-ray on presentation with right lower lobe infiltrate. He was treated with ceftriaxone and azithromycin during hospitalization. On presentation reported occasional cough with food and drink. Was assessed by MBS with finding of penetration with liquids. Assessed by speech therapy, with recommendation for mechanical soft diet. Should continue aspiration precautions. We are referring him for additional follow-up with speech therapy after discharge as well. Today he is doing much better. His oxygenation is improving and is back to his baseline 2 L nasal cannula. He feels much better. His condition and findings and recommendations discussed also with his sister. An appointment please also follow-up that the scraped area on the left lower chirinos which he sustained at home is healing. Physical Exam Const: COMMON NORMALS: no acute distress, patient oriented x3 and alert GENERAL APPEARANCE: cooperative NUTRITIONAL APPEARANCE: obese ORIENTATION/CONSCIOUSNESS: Yes awake HENMT: COMMON NORMALS: oropharynx normal Neck/C-Spine: COMMON NORMALS: no JVD Resp: COMMON NORMALS: normal respiratory effort and clear to auscultation bilaterally AUSCULTATION: clear to auscultation bilaterally Cardio: COMMON NORMALS: no JVD, regular rhythm, S1 normal heart sound present, S2 normal heart sound present and No murmurs present (Cardio) RHYTHM: regular rhythm HEART SOUNDS: S1 normal heart sound present and S2 normal heart sound present GI: COMMON NORMALS: Normal to inspection, nondistended, normoactive bowel sounds present, Soft to palpation and non-tender PALPATION: Yes Soft to palpation Extremity: COMMON NORMALS: no joint enlargement and no pedal edema Neuro: COMMON NORMALS: patient oriented x3 and moves all extremities SENSORIUM/ORIENTATION: Yes alert Skin: COMMON NORMALS: no rashes or lesions noted GENERAL SKIN EXAM: no rashes or lesions noted OTHER: Petechial-like rash on anterior L lower chirinos after a scrape at home Discharge Data Data Completed and Pending: Completed Studies During Hospitalization Category Date Time Status FL barium swallow modifd 11508 Rout ine Exams 12/16/21 08:00 Completed XR chest 1V charisse ble [id number] Stat Exams 12/15/21 13:16 Completed Pending at discharge Category Date Time Status Basic Metabolic P rocio AM LABS Lab 12/18/21 04:00 Ordered Basic Metabolic P rocio AM LABS Lab 12/19/21 04:00 Ordered Blood Culture Sta t Lab 12/15/21 16:39 Results Complete Blood Co unt w/Auto AM LABS Lab 12/18/21 04:00 Ordered Complete Blood Co unt w/Auto AM LABS Lab 12/19/21 04:00 Ordered Labs from last 24 hours 12/17/21 12/17/21 12/17/21 11:11 06:27 02:18 WBC RBC Hgb Hct MCV MCH MCHC RDW Plt Count MPV Neut % (Auto) Lymph % (Auto) Bracken % (Auto) Eos % (Auto) Baso % (Auto) Neut # (Auto) Lymph # (Auto) Bracken # (Auto) Eos # (Auto) Baso # (Auto) Nucleated RBC % (a uto) Nucleated RBCs # Sodium 143 Potassium 3.9 Chloride 103 Carbon Dioxide 27 Anion Gap 16.9 BUN 17 Creatinine 0.9 GFR Calculation Not Reportable Glucose 115 POC Glucose 144 H 124 H Calculated Osmolal ity 298 H Calcium 8.9 12/17/21 12/16/21 12/16/21 02:18 19:19 15:25 WBC 10.1 H RBC 4.58 Hgb 12.8 Hct 40.2 L MCV 87.8 MCH 27.9 L MCHC 31.8 RDW 14.9 Plt Count 184 MPV 9.5 Neut % (Auto) 75.0 Lymph % (Auto) 10.2 Bracken % (Auto) 9.7 Eos % (Auto) 4.4 Baso % (Auto) 0.4 Neut # (Auto) 7.54 Lymph # (Auto) 1.0 Bracken # (Auto) 1.0 H Eos # (Auto) 0.4 Baso # (Auto) 0.0 Nucleated RBC % (a uto) 0 Nucleated RBCs # 0.0 Sodium Potassium Chloride Carbon Dioxide Anion Gap BUN Creatinine GFR Calculation Glucose POC Glucose 178 H 94 Calculated Osmolal ity Calcium Vitals: Last Vital Signs Temp 98 F 12/17/21 03:23 Pulse 63 12/17/21 10:01 Resp 30 H 12/17/21 10:01 BP 131/74 12/17/21 10:01 Pulse Ox 79 L 12/17/21 13:36 Discharge Plan Discharge Patient Disposition: Home Condition: Stable Prescriptions: New cefdinir 300 mg capsule 300 mg PO BID 5 Days Qty: 10 RF: 0 azithromycin 250 mg tablet 250 mg PO DAILY 5 Days Qty: 5 RF: 0 Continued amlodipine 5 mg tablet 5 mg PO DAILY Qty: 30 RF: 2 aspirin 81 mg tablet,delayed release (DR/EC) 81 mg PO DAILY Qty: 30 RF: 2 Jardiance 25 mg tablet 25 mg PO QAM Qty: 30 RF: 2 famotidine 20 mg tablet 20 mg PO BID Qty: 60 RF: 2 furosemide [Lasix] 20 mg tablet 20 mg PO DAILY Qty: 30 RF: 2 glipizide 10 mg tablet extended release 24hr 10 mg PO DAILY Qty: 30 RF: 2 levocetirizine 5 mg tablet 5 mg PO DAILY Qty: 30 RF: 2 Levemir FlexTouch U-100 Insuln 100 unit/mL (3 mL) insulin pen 65 unit SUBCUT BEDTIME Qty: 15 RF: 2 levothyroxine 75 mcg tablet 75 mcg PO DAILY Qty: 30 RF: 2 metformin 1,000 mg tablet 1,000 mg PO BID Qty: 60 RF: 2 rosuvastatin 40 mg tablet 40 mg PO BEDTIME Qty: 30 RF: 2 Flomax 0.4 mg capsule 0.4 mg PO DAILY Qty: 30 RF: 2 icosapent ethyl [Vascepa] 1 gram capsule 2 g PO BID Qty: 120 RF: 2 Zoloft 50 mg tablet 50 mg PO QAM Qty: 90 RF: 2 budesonide [Pulmicort] 0.5 mg/2 mL suspension for nebulization 0.5 mg INHALATION BID 90 Days Qty: 360 RF: 3 (DME) pen needle, diabetic 33 gauge x 5/32 needle See Rx Instructions .ROUTE .MEDSUPPLY Qty: 100 RF: 5 Seroquel 25 mg tablet 12.5 mg PO BEDTIME Qty: 30 RF: 3 ProAir HFA 90 mcg/actuation HFA aerosol inhaler 2 puff inhalation Q4H PRN (Reason: shortness of breath or wheezing) Qty: 8.5 RF: 0 acetaminophen [Tylenol] 325 mg Tablet 650 mg PO Q6H PRN (Reason: Pain) RF: 0 magnesium hydroxide [Milk of Magnesia] 400 mg/5 mL Suspension 30 ml PO DAILY PRN (Reason: Constipation) RF: 0 Fleet Enema 19-7 gram/118 mL Enema 118 ml MN DAILY PRN (Reason: Constipation) RF: 0 Eliquis 5 mg tablet 5 mg PO BID RF: 0 Dulcolax (bisacodyl) 5 mg Tablet,Delayed Release (Dr/Ec) 10 mg PO DAILY PRN (Reason: Constipation) RF: 0 Yupelri 175 mcg/3 mL Solution For Nebulization 175 mcg INHALATION DAILY RF: 0 Trulicity 4.5 mg/0.5 mL pen injector 4.5 mg SUBCUT Q7D RF: 0 Changed metoprolol tartrate 50 mg tablet 75 mg PO BID Qty: 60 RF: 2 Discharge Orders: Discharge Order (Routine); Ordered 12/17/21 Ordered By: Ruben Davis Other Ambulatory Orders: DME: Oxygen (Order) Location: None Selected Ordered By: Ruben Davis Speech Language Pathology Eval and Treat Outpatient (Order) Timeframe: 3 Days Facility: [facility] - Location: Speech Therapy [place] Ordered By: Ruben Davis Referrals: Lamin Beatty FNP-C [Primary Care Provider] - 12/24/21 9:40 am Discharge Diet: As Directed and Diabetic Discharge Activity: Increase activity as tolerated and Oxygen as instructed Patient Instructions: Metoprolol (By mouth), Azithromycin (By mouth), Cefdinir (By mouth), A-fib (Atrial Fibrillation) (GEN), Aspiration Pneumonia (GEN), Opioid Safety Activity Restrictions/Additional Instructions: Continue mechanical soft diet. Please maintain strict aspiration precautions. Please complete antibiotic course for aspiration pneumonia. Continue oxygen at home, target saturation of 92%. Continue nightly noninvasive ventilator. Follow-up with your primary doctor to reassess for resolution of pneumonia, continue follow-up with speech therapy. Please monitor your heart rates at home. Due to atrial fibrillation your heart rates occasionally have been seen increasing. Due to this please your metoprolol dose was increased to 75 mg twice daily. Please monitor scrape on the left lower anterior chirinos for improvement/resolution. Discussed with your primary doctor if it is not healing. Discharge Attestations Time Spent in Discharge Care*: greater than 30 min Quality Metrics Clinical Quality Measures During this hospital stay, did patient experience: None Coding Level of Care Code Acute Chandlerg FW CLEMENT[place] note Diagnoses Pneumonia J18.9 Paroxysmal atrial fibrillation with RVR I48.0
--- NOTE | 2021-12-17 15:36 | PC.NURSE ---
Discharge Note Patient discharged to Home via private vehicle accompanied by brother. Discharge instructions reviewed with patient and/or loan servicing representative. Mobile pharmacy medications and/or prescriptions provided. Belongings/home medications returned.
== END 2021-12-17 15:36 | disposition home or self-care (01) | DRG 179 ==
LOC: ER 17:17 → CSU 21:25
PROVIDERS: Admitting Provider Internal Medicine; Emergency Provider Family Medicine; PCP Nurse Practitioner; Visit Provider Internal Medicine
DX: J69.0 Pneumonitis due to inhalation of food and vomit (principal); I48.0 Paroxysmal atrial fibrillation; J44.9 Chronic obstructive pulmonary disease, unspecified; G47.33 Obstructive sleep apnea (adult) (pediatric); Z99.81 Dependence on supplemental oxygen; E11.9 Type 2 diabetes mellitus without complications; I10 Essential (primary) hypertension; E78.5 Hyperlipidemia, unspecified; E03.9 Hypothyroidism, unspecified; Z79.82 Long term (current) use of aspirin; Z79.84 Long term (current) use of oral hypoglycemic drugs; Z79.01 Long term (current) use of anticoagulants; Z79.899 Other long term (current) drug therapy; R41.81 Age-related cognitive decline; N40.1 Benign prostatic hyperplasia with lower urinary tract symptoms; R33.8 Other retention of urine; Z87.891 Personal history of nicotine dependence; R09.02 Hypoxemia; R21 Rash and other nonspecific skin eruption; Z79.4 Long term (current) use of insulin; F32.9 Major depressive disorder, single episode, unspecified
CPT/HCPCS: 36415; 36416; 71045; 74230; 80048; 80053; 81003; 82550; 82962; 83735; 84443; 84484; 85025; 85378; 87040; 87635; 92610; 92611; 93005; 94640; 94664; 96365; 96367; 96375; 96376; 97116; 97161; 97165; J0456; J0696; J1956; J3490; J7040; J7050; J7626

== ENCOUNTER → 2021-12-23 09:42 | Outpatient (BNVA) | payer MEDICARE, MEDICAID, SELFPAY | PROVIDERS: PCP Nurse Practitioner; Visit Provider Nurse Practitioner | DX: E11.65 Type 2 diabetes mellitus with hyperglycemia (principal) | CPT/HCPCS: 83036 ==

== ENCOUNTER → 2022-03-01 12:01 | Outpatient (BNVA) | payer MEDICARE, MEDICAID, SELFPAY | PROVIDERS: PCP Nurse Practitioner; Visit Provider Nurse Practitioner | DX: E11.65 Type 2 diabetes mellitus with hyperglycemia (principal); Z79.4 Long term (current) use of insulin; I10 Essential (primary) hypertension; I48.0 Paroxysmal atrial fibrillation; K21.9 Gastro-esophageal reflux disease without esophagitis; E78.5 Hyperlipidemia, unspecified; J31.0 Chronic rhinitis; E03.8 Other specified hypothyroidism; R33.9 Retention of urine, unspecified | CPT/HCPCS: 80053; 80061; 81000; 83036; 84443; 85025 ==

== ENCOUNTER → 2022-06-04 11:23 | Outpatient (BNVA) | payer MEDICARE, MEDICAID, SELFPAY | PROVIDERS: PCP Nurse Practitioner; Visit Provider Nurse Practitioner | DX: I10 Essential (primary) hypertension (principal); I48.0 Paroxysmal atrial fibrillation; E11.65 Type 2 diabetes mellitus with hyperglycemia; Z79.4 Long term (current) use of insulin; K21.9 Gastro-esophageal reflux disease without esophagitis; E78.5 Hyperlipidemia, unspecified; J31.0 Chronic rhinitis; E03.8 Other specified hypothyroidism; R33.9 Retention of urine, unspecified | CPT/HCPCS: 80053; 80061; 83036; 84443 ==

== ENCOUNTER → 2022-08-03 09:48 | Outpatient (BNVA) | payer MEDICARE, MEDICAID, SELFPAY | PROVIDERS: PCP Nurse Practitioner; Visit Provider Nurse Practitioner | DX: I10 Essential (primary) hypertension (principal); E11.65 Type 2 diabetes mellitus with hyperglycemia; Z79.4 Long term (current) use of insulin; J44.9 Chronic obstructive pulmonary disease, unspecified | CPT/HCPCS: 80048 ==

== ENCOUNTER 2022-08-19 14:20 | Emergency (ER) | payer MEDICARE, MEDICAID, SELFPAY ==
[2022-08-19 14:34] VITALS: BP 140/73; PULSE 65; RESP 18; TEMP 37; O2SAT 100; BMI 34.0
--- NOTE | 2022-08-19 14:37 | W.ED.PSYCHS ---
HPI - Psych General: Chief Complaint: Psychiatric Symptoms Stated Complaint: MHE Time Seen by Provider: 08/19/22 14:37 Source: patient Mode of arrival: EMS History of Present Illness: 77-year-old male presents emergency room from [facility] via EMS. He is complaining of having auditory hallucinations hearing preaching and gospel singing. He has not had any homicidal or suicidal ideation. He actually been has listening to the hallucinations quite closely to the point where he says they do not sing some of the songs correctly. He was previously on risperidone at some point last 2 year evidently stopped taking it he says is because he missed an appointment and they did not refill the medication. He is otherwise awake and alert answers questions appropriately and is very cooperative.. Onset (ago): day(s) Duration: intermittent History of same: Yes Relieving factors: none Exacerbating factors: none Associated psychiatric symptoms: none Associated symptoms: Reports auditory hallucinations; Deny visual hallucinations, delusions, depression, homicidal ideation, suicidal ideation or racing thoughts Treatments prior to arrival: none Review of Systems Const: Denies: fever(s), chills, body aches, change in appetite, fatigue or malaise ENMT: Denies: throat pain, ear or mastoid pain, nasal discharge or nasal congestion Card: Denies: chest pain, edema, dyspnea on exertion or orthopnea Resp: Denies: dyspnea, productive cough or non-productive cough GI: Denies: abdominal pain, nausea, vomiting, hematemesis, coffee ground emesis, diarrhea, constipation, bloating, hematochezia or melena : Denies: flank pain, dysuria, urinary frequency or urinary urgency Skin/Breast: Denies: rash or pruritus Psych: Reports: auditory hallucinations; Denies: depression, visual hallucinations, suicidal ideation or homicidal ideation [facility] PFSH: Medical History Adult onset hypothyroidism Age-related cognitive decline Atrial fibrillation BPH (benign prostatic hyperplasia) Chronic rhinitis Concussion COPD (chronic obstructive pulmonary disease) COPD with exacerbation DM type 2 (diabetes mellitus, type 2) Enrolled in chronic care management Gastro-esophageal reflux disease without esophagitis Glaucoma HLD (hyperlipidemia) HTN (hypertension) Hx of respiratory failure uses non invasive ventilation device Hypothyroidism Major depression Major depressive disorder, recurrent episode with mood-congruent psychotic features Mild cognitive impairment Obstructive sleep apnea Paroxysmal atrial fibrillation with RVR Psychiatric care Psychosis Sleep apnea Urethral bleeding Resolved. Follow-up with urology 2 weeks Urinary retention Surgical History History of cataract surgery History of colonoscopy Family History Brother Prostate cancer Sister Diabetes Sister Gallbladder cancer Father Depression Other Hypertension Psychiatric illness Social History Smoking and tobacco status: former smoker Quit status (tobacco): has quit using tobacco Year quit tobacco: 1999 - 2PPD x 40 Years Second hand smoke exposure: No Smoking risk assessment/counseling performed?: No Alcohol intake: never Desire information about alcohol rehabilitation?: No Counseling given: No Desire information about substance/drug rehabilitation?: No Counseling given: No Adopted: No Caregiver/support person: No Lives independently: Yes Household members: family Housing: House Marital status: Single Number of children: 1 service: No Current occupational status: disabled Current occupational exposures/hazards: No Pets and animals: No History of recent travel: No Current gender identity: Male Physical Exam Const: GENERAL APPEARANCE: cooperative and comfortable ORIENTATION/CONSCIOUSNESS: Yes awake, Yes oriented to person, Yes oriented to place and Yes oriented to time HENMT: COMMON NORMALS: normocephalic, atraumatic and hearing grossly normal bilaterally HEAD & SCALP: normocephalic and atraumatic Resp: COMMON NORMALS: normal respiratory effort, No retractions, No use of accessory muscles and clear to auscultation bilaterally AUSCULTATION: clear to auscultation bilaterally Cardio: COMMON NORMALS: regular rate, regular rhythm and No murmurs present (Cardio) RATE: regular rate RHYTHM: regular rhythm GI: COMMON NORMALS: Soft to palpation and No hepatosplenomegaly present AUSCULTATION: Yes normoactive bowel sounds PALPATION: Yes Soft to palpation, No Tenderness to palpation present (GI), No Guarding due to palpation present (GI) and Yes No hepatosplenomegaly present Extremity: COMMON NORMALS: normal to inspection, capillary refill normal, no clubbing, cyanosis or edema, no calf tenderness and no pedal edema Neuro: SENSORIUM/ORIENTATION: Yes oriented to person, Yes oriented to place and Yes oriented to time Psych: THOUGHT CONTENT: No delusions Skin: COMMON NORMALS: no rashes or lesions noted GENERAL SKIN EXAM: no rashes or lesions noted Course Vital Signs: Vital signs: Vital Signs Temperature 98.6 F 08/19/22 14:34 Pulse Rate 64 08/19/22 16:43 Respiratory Rate 16 08/19/22 16:43 Blood Pressure 162/75 08/19/22 16:43 Pulse Oximetry 98 08/19/22 16:43 Oxygen Delivery Me thod 08/19/22 14:34 Oxygen Flow Rate 2 08/19/22 14:34 MDM - Psych Medical Decision Making Patient is not homicidal or suicidal. He is not acutely psychotic he has been having these hallucinations for some time. Discussed Dr. Hernandez he concurred with treatment plan of starting Risperdal to half milligram twice daily follow-up with [facility]. Medical Records I reviewed the patient's medical records. Lab Data I reviewed the patient's lab results. : 08/19/22 15:10 08/19/22 15:10 Laboratory Results WBC 7.9 10^3/uL (4.0-10.0) 08/19/22 15:10 RBC 4.85 10^6/uL (4.1-5.3) 08/19/22 15:10 Hgb 13.7 g/dL (11.7-16.6) 08/19/22 15:10 Hct 42.8 % (42.0-52.0) 08/19/22 15:10 MCV 88.2 fl (80-94) 08/19/22 15:10 MCH 28.2 pg (28.0-34.0) 08/19/22 15:10 MCHC 32.0 g/dL (30.0-36.0) 08/19/22 15:10 RDW 14.1 % (12.1-15.1) 08/19/22 15:10 Plt Count 186 10^3/cmm (130-400) 08/19/22 15:10 MPV 9.6 fL (7.4-10.4) 08/19/22 15:10 Neut % (Auto) 65.3 % 08/19/22 15:10 Lymph % (Auto) 22.4 % 08/19/22 15:10 Gilmer % (Auto) 9.6 % 08/19/22 15:10 Eos % (Auto) 2.0 % 08/19/22 15:10 Baso % (Auto) 0.4 % 08/19/22 15:10 Neut # (Auto) 5.17 10^3/uL (1.8-7.7) 08/19/22 15:10 Lymph # (Auto) 1.8 10^3/uL (0.8-4.8) 08/19/22 15:10 Gilmer # (Auto) 0.8 10^3/uL (0.2-0.9) 08/19/22 15:10 Eos # (Auto) 0.2 10^3/uL (0.0-0.8) 08/19/22 15:10 Baso # (Auto) 0.0 10^3/uL (0.0-0.1) 08/19/22 15:10 Nucleated RBC % (auto) 0 % 08/19/22 15:10 Nucleated RBCs # 0.0 /100WBC 08/19/22 15:10 Sodium 138 mmol/L (136-145) 08/19/22 15:10 Potassium 4.0 mmol/L (3.5-5.1) 08/19/22 15:10 Chloride 100 mmol/L (98-107) 08/19/22 15:10 Carbon Dioxide 28 mmol/L (22-29) 08/19/22 15:10 Anion Gap 14.0 (5-19) 08/19/22 15:10 BUN 15 mg/dL (8-23) 08/19/22 15:10 Creatinine 0.9 mg/dL (0.7-1.2) 08/19/22 15:10 GFR Calculation Not Reportable 08/19/22 15:10 Glucose 179 mg/dL (65-115) H 08/19/22 15:10 Calculated Osmolality 291 mOsm/kg (285-295) 08/19/22 15:10 Calcium 9.5 mg/dL (8.5-10.5) 08/19/22 15:10 Discharge Plan Discharge Patient Disposition: Home Clinical Impression: Major depressive disorder, recurrent episode with mood-congruent psychotic features Condition: Stable Prescriptions: New risperidone 0.5 mg tablet 0.5 mg PO BID Qty: 30 0RF No Action Zoloft 50 mg tablet 50 mg PO QAM Qty: 90 2RF (DME) pen needle, diabetic 33 gauge x 5/32 needle See Rx Instructions .ROUTE .MEDSUPPLY Qty: 100 5RF Rx Instructions: 2 times day budesonide [Pulmicort] 0.5 mg/2 mL suspension for nebulization 0.5 mg INHALATION BID 90 Days Qty: 360 3RF Rx Instructions: [place] Seroquel 25 mg tablet 12.5 mg PO BEDTIME Qty: 30 3RF Rx Instructions: Take half tablet at bedtime Eliquis 5 mg tablet 5 mg PO BID Qty: 60 2RF aspirin 81 mg tablet,delayed release (DR/EC) 81 mg PO DAILY Qty: 30 2RF Trulicity 4.5 mg/0.5 mL pen injector 4.5 mg SUBCUT Q7D Qty: 2 2RF Rx Instructions: on mondays Jardiance 25 mg tablet 25 mg PO QAM Qty: 30 2RF famotidine 20 mg tablet 20 mg PO BID Qty: 60 2RF furosemide [Lasix] 20 mg tablet 20 mg PO DAILY Qty: 30 2RF glipizide 5 mg tablet extended release 24 hr 5 mg PO DAILY Qty: 30 2RF icosapent ethyl [Vascepa] 1 gram capsule 2 g PO BID Qty: 120 2RF Levemir FlexTouch U-100 Insuln 100 unit/mL (3 mL) insulin pen 65 unit SUBCUT BEDTIME Qty: 15 2RF levocetirizine 5 mg tablet 5 mg PO DAILY Qty: 30 2RF levothyroxine 75 mcg tablet 75 mcg PO DAILY Qty: 30 2RF metformin 500 mg tablet extended release 24 hr 500 mg PO BID Qty: 60 2RF rosuvastatin 40 mg tablet 40 mg PO BEDTIME Qty: 30 2RF Flomax 0.4 mg capsule 0.4 mg PO DAILY Qty: 30 2RF (DME) OneTouch Ultra Test Strip See Rx Instructions .Route Qty: 100 5RF Rx Instructions: 3 times day as needed (DME) blood-glucose meter [OneTouch Ultra2 Meter] Kit See Rx Instructions .Route Qty: 1 0RF Rx Instructions: As directed metoprolol tartrate 50 mg tablet 75 mg PO BID Qty: 60 2RF amlodipine 2.5 mg tablet 2.5 mg PO DAILY Qty: 30 0RF Rx Instructions: dose decrease ProAir HFA 90 mcg/actuation HFA aerosol inhaler 2 puff inhalation Q4H PRN (Reason: shortness of breath or wheezing) Qty: 8.5 0RF acetaminophen [Tylenol] 325 mg Tablet 650 mg PO Q6H PRN (Reason: Pain) magnesium hydroxide [Milk of Magnesia] 400 mg/5 mL Suspension 30 ml PO DAILY PRN (Reason: Constipation) Dulcolax (bisacodyl) 5 mg Tablet,Delayed Release (Dr/Ec) 10 mg PO DAILY PRN (Reason: Constipation) Yupelri 175 mcg/3 mL Solution For Nebulization 175 mcg INHALATION DAILY Discharge Orders: Discharge ED (Routine); Ordered 08/19/22 Ordered By: Cameron Meraz Referrals: Lamin Beatty, [facility] [Primary Care Provider] - Discharge Diet: Usual diet Discharge Activity: Resume usual activity Patient Instructions: Opioid Safety, Pain Management Activity Restrictions/Additional Instructions: Follow-up at [facility] within the next 2 weeks. manager bridge will help make arrangements for follow-up. Coding Level of Care Code ED Straight Ruling Machine Operator for Patricio Fwd Exam Comprehensive
[2022-08-19 15:23] LABS: Basophils % 0.4 %; Eosinophils # 0.2 10^3/uL (0.0-0.8); Hematocrit 42.8 % (42.0-52.0); Hemoglobin 13.7 g/dL (11.7-16.6); Lymphocytes # 1.8 10^3/uL (0.8-4.8); Lymphocytes % 22.4 %; Mean Corpuscular Hemoglobin 28.2 pg (28.0-34.0); Mean Corpuscular Volume 88.2 fl (80-94); Mean Platelet Volume 9.6 fL (7.4-10.4); Monocytes # 0.8 10^3/uL (0.2-0.9); Monocytes % 9.6 %; Neutrophils # 5.17 10^3/uL (1.8-7.7); Neutrophils % 65.3 %; Nucleated Red Blood Cells % 0 %; Platelet Count 186 10^3/cmm (130-400); Red Blood Count 4.85 10^6/uL (4.1-5.3); Red Cell Distribution Width 14.1 % (12.1-15.1); White Blood Count 7.9 10^3/uL (4.0-10.0)
[2022-08-19 15:33] LABS: Blood Urea Nitrogen 15 mg/dL (8-23); Calcium 9.5 mg/dL (8.5-10.5); Carbon Dioxide 28 mmol/L (22-29); Chloride 100 mmol/L (98-107); Creatinine Clr Calc Pharmacy 97.7014; Glucose 179 mg/dL (65-115); Osmolality Calculated 291 mOsm/kg (285-295); Sodium 138 mmol/L (136-145)
[2022-08-19 16:43] VITALS: BP 162/75; PULSE 64; RESP 16; O2SAT 98
--- NOTE | 2022-08-20 10:33 | DCPLANNER ---
Addendum entered by Sun Joy 08/25/22 12:30: account manager b2b received the following message from Oralia at [facility] regarding referral: I will call him, but he will need to restart services since it has been more than 6 months. He will need to do a walk in assessment. Original Note: account manager b2b had message to schedule a follow up appointment for patient with [facility]. account manager b2b emailed patients information to Oralia at [facility]. Patients information will be printed and reviewed. Clinic will call patient with appointment information.
== END 2022-08-19 17:26 | disposition home or self-care (01) ==
PROVIDERS: Emergency Provider Family Medicine; PCP Nurse Practitioner
DX: F33.3 Major depressive disorder, recurrent, severe with psychotic symptoms (principal); Z79.01 Long term (current) use of anticoagulants; Z79.899 Other long term (current) drug therapy; Z79.84 Long term (current) use of oral hypoglycemic drugs; Z79.82 Long term (current) use of aspirin; Z79.4 Long term (current) use of insulin; Z87.891 Personal history of nicotine dependence; J44.9 Chronic obstructive pulmonary disease, unspecified; E11.9 Type 2 diabetes mellitus without complications; E78.5 Hyperlipidemia, unspecified; I10 Essential (primary) hypertension
CPT/HCPCS: 36415; 80048; 85025; 99283

== ENCOUNTER → 2022-08-30 11:56 | Outpatient (BNVA) | payer MEDICARE, MEDICAID, SELFPAY | PROVIDERS: PCP Nurse Practitioner; Visit Provider Nurse Practitioner | DX: I10 Essential (primary) hypertension (principal); I48.0 Paroxysmal atrial fibrillation; E11.65 Type 2 diabetes mellitus with hyperglycemia; Z79.4 Long term (current) use of insulin; K21.9 Gastro-esophageal reflux disease without esophagitis; E78.5 Hyperlipidemia, unspecified; J31.0 Chronic rhinitis; E03.8 Other specified hypothyroidism; F33.3 Major depressive disorder, recurrent, severe with psychotic symptoms; R33.9 Retention of urine, unspecified; E11.9 Type 2 diabetes mellitus without complications; Z23 Encounter for immunization | CPT/HCPCS: 80053; 83036 ==

== ENCOUNTER → 2022-09-16 09:30 | Outpatient (BNVA) | payer MEDICARE, MEDICAID, OTHER, SELFPAY | PROVIDERS: PCP Nurse Practitioner; Visit Provider Nurse Practitioner Psychiatric/Mental Health | DX: Z03.89 Encounter for observation for other suspected diseases and conditions ruled out (principal); F33.3 Major depressive disorder, recurrent, severe with psychotic symptoms; R41.81 Age-related cognitive decline | CPT/HCPCS: 81001 ==

== ENCOUNTER → 2022-11-15 10:59 | Outpatient (BNVA) | payer MEDICARE, MEDICAID, SELFPAY | PROVIDERS: PCP Nurse Practitioner; Visit Provider Nurse Practitioner | DX: I10 Essential (primary) hypertension (principal); I48.0 Paroxysmal atrial fibrillation; E11.65 Type 2 diabetes mellitus with hyperglycemia; Z79.4 Long term (current) use of insulin; K21.9 Gastro-esophageal reflux disease without esophagitis; E78.5 Hyperlipidemia, unspecified; J31.0 Chronic rhinitis; E03.8 Other specified hypothyroidism; R33.9 Retention of urine, unspecified; E11.9 Type 2 diabetes mellitus without complications | CPT/HCPCS: 80053; 80061; 81000; 82043; 83036; 84443 ==

== ENCOUNTER → 2023-02-07 11:41 | Outpatient (BNVA) | payer MEDICARE, MEDICAID, SELFPAY | PROVIDERS: PCP Nurse Practitioner; Visit Provider Nurse Practitioner | DX: F33.3 Major depressive disorder, recurrent, severe with psychotic symptoms; E03.8 Other specified hypothyroidism; Z79.4 Long term (current) use of insulin; E11.65 Type 2 diabetes mellitus with hyperglycemia | CPT/HCPCS: 80053; 80061; 81000; 83036; 84443 ==

== ENCOUNTER → 2023-03-10 15:03 | Outpatient (BNVA) | payer MEDICARE, MEDICAID, SELFPAY | PROVIDERS: PCP Nurse Practitioner; Visit Provider Nurse Practitioner | DX: R19.7 Diarrhea, unspecified (principal) | CPT/HCPCS: 82270 ==

== ENCOUNTER 2023-03-14 11:08 | Outpatient (CLI) | payer MEDICARE, MEDICAID, OTHER, SELFPAY ==
[2023-03-14] MEDS: iohexol 350 mg/mL 500 mL Btl (per mL) PO (11:18)
--- NOTE | 2023-03-14 17:00 | CT_ITS ---
WS: [id number] CT ABDOMEN AND PELVIS NONCONTRAST HISTORY: Blood in stool. TECHNIQUE: Imaging performed through the abdomen and pelvis. Coronal and sagittal reformats are submi tted. All CT scans at [facility] use at least one of these dose optimization techniques: auto mated exposure control; mA and/or kV adjustment per patient size (includes targeted exams where dose is matched to clinical indication); or iterative reconstruction. DLP: 1089.93 mGy.cm COMPARISON: None available. Lower thorax: Lung bases are clear. Visualized heart is normal. No hiatal hernia. Liver: Normal liver with granulomata. Gallbladder: Normal gallbladder. Pancreas: Normal size and attenuation. Normal pancreatic duct. No pancreatitis or mass. Spleen: Normal size spleen with granulomata. Adrenal glands: Normal. No mass. Right kidney: Very mild perinephric stranding. No obstruction. Left kidney: Minimal perinephric stranding with no obstruction. Aorta: Moderate to severe atherosclerosis abdominal aorta. No aneurysm. Atherosclerosis continues int o the common iliac arteries. No free fluid, intraperitoneal air or significant lymphadenopathy. GI tract: Normal noncontrast imaging of the stomach, small bowel and colon. No obstruction or wall th ickening. Appendix not identified. Extensive diverticular disease in the distal colon. No acute diver ticulitis. Abdominal wall: Small umbilical hernia contains fat only. There is an additional focal stranding radha g the anterior abdominal wall below the umbilicus. No focal collection. Soft tissue thickening with s tranding measures 6 mm. Pelvis: Normal. Osseous structures: Osteonecrosis femoral heads bilaterally, greater involvement of the RIGHT femoral head. No collapse or loose body. CT/CT abdomen pelvis wo con [id number] IMPRESSION: 1. Distal colon diverticulosis without evidence for acute diverticulitis. No c olonic obstruction or mass identified. 2. The appendix is not identified. 3. No adenopathy or free fluid. 4. Mild cellulitis along the infraumbilical abdominal wall. 5. Hepatic and splenic granulomata.
== END 2023-03-14 11:09 | disposition home or self-care (01) ==
LOC: RAD 11:13
PROVIDERS: PCP Nurse Practitioner; Visit Provider Nurse Practitioner
DX: R19.5 Other fecal abnormalities (principal); I70.0 Atherosclerosis of aorta; K57.30 Diverticulosis of large intestine without perforation or abscess without bleeding
CPT/HCPCS: 74176; Q9967

== ENCOUNTER → 2023-05-02 09:44 | Outpatient (BNVA) | payer MEDICARE, MEDICAID, OTHER, SELFPAY | PROVIDERS: PCP Nurse Practitioner; Visit Provider Nurse Practitioner | DX: E11.65 Type 2 diabetes mellitus with hyperglycemia (principal); Z79.4 Long term (current) use of insulin | CPT/HCPCS: 80053; 81000; 82043; 83036; 85025 ==

== ENCOUNTER → 2023-07-25 10:33 | Outpatient (BNVA) | payer MEDICARE, MEDICAID, SELFPAY | PROVIDERS: PCP Nurse Practitioner; Visit Provider Nurse Practitioner | DX: E11.65 Type 2 diabetes mellitus with hyperglycemia; Z79.4 Long term (current) use of insulin | CPT/HCPCS: 80053; 80061; 81000; 83036; 84443 ==

== ENCOUNTER → 2023-11-03 11:07 | Outpatient (BNVA) | payer MEDICARE, MEDICAID, SELFPAY | PROVIDERS: PCP Nurse Practitioner; Visit Provider Nurse Practitioner | DX: I48.91 Unspecified atrial fibrillation (principal); E11.65 Type 2 diabetes mellitus with hyperglycemia; Z79.4 Long term (current) use of insulin; E11.9 Type 2 diabetes mellitus without complications; K21.9 Gastro-esophageal reflux disease without esophagitis; I10 Essential (primary) hypertension; E78.5 Hyperlipidemia, unspecified; J31.0 Chronic rhinitis; E03.8 Other specified hypothyroidism; R33.9 Retention of urine, unspecified; R19.7 Diarrhea, unspecified; Z23 Encounter for immunization | CPT/HCPCS: 80053; 81000; 83036; 85025 ==

== ENCOUNTER → 2024-02-02 14:15 | Outpatient (BNVA) | payer MEDICARE, MEDICAID, SELFPAY | PROVIDERS: PCP Nurse Practitioner; Visit Provider Nurse Practitioner | DX: I10 Essential (primary) hypertension; E11.9 Type 2 diabetes mellitus without complications | CPT/HCPCS: 80053; 80061; 81000; 83036; 84443 ==

== ENCOUNTER → 2024-02-16 15:23 | Outpatient (BNVA) | payer MEDICARE, MEDICAID, SELFPAY | PROVIDERS: PCP Nurse Practitioner; Visit Provider Nurse Practitioner | DX: L98.9 Disorder of the skin and subcutaneous tissue, unspecified (principal) | CPT/HCPCS: 88305 ==

== ENCOUNTER → 2024-05-22 15:44 | Outpatient (BNVA) | payer MEDICARE, MEDICAID, SELFPAY | PROVIDERS: PCP Nurse Practitioner; Visit Provider Nurse Practitioner | DX: E11.9 Type 2 diabetes mellitus without complications (principal); E11.65 Type 2 diabetes mellitus with hyperglycemia; Z79.4 Long term (current) use of insulin | CPT/HCPCS: 80053; 83036; 84443; 85025 ==

== ENCOUNTER → 2024-08-23 12:18 | Outpatient (BNVA) | payer MEDICARE, OTHER, SELFPAY | PROVIDERS: PCP Nurse Practitioner; Visit Provider Nurse Practitioner | DX: E11.9 Type 2 diabetes mellitus without complications (principal) | CPT/HCPCS: 80053; 80061; 81000; 82607; 83036 ==

== ENCOUNTER → 2024-11-29 08:51 | Outpatient (BNVA) | payer MEDICARE, SELFPAY | PROVIDERS: PCP Nurse Practitioner; Visit Provider Nurse Practitioner | DX: E11.9 Type 2 diabetes mellitus without complications (principal); K59.1 Functional diarrhea; E11.65 Type 2 diabetes mellitus with hyperglycemia; Z79.4 Long term (current) use of insulin | CPT/HCPCS: 80053; 80061; 83036; 87045; 87427; 87449; 87493 ==

== ENCOUNTER → 2025-02-06 13:10 | Outpatient (BNVA) | payer MEDICARE, MEDICAID, SELFPAY | PROVIDERS: PCP Nurse Practitioner; Visit Provider Nurse Practitioner | DX: E11.65 Type 2 diabetes mellitus with hyperglycemia (principal); Z79.4 Long term (current) use of insulin; E11.29 Type 2 diabetes mellitus with other diabetic kidney complication; M25.50 Pain in unspecified joint; I48.91 Unspecified atrial fibrillation; K21.9 Gastro-esophageal reflux disease without esophagitis; I10 Essential (primary) hypertension; E78.5 Hyperlipidemia, unspecified; J31.0 Chronic rhinitis; E03.8 Other specified hypothyroidism; R33.9 Retention of urine, unspecified; E11.9 Type 2 diabetes mellitus without complications; Z12.5 Encounter for screening for malignant neoplasm of prostate | CPT/HCPCS: 80053; 80061; 81000; 83036; 84443; G0103 ==

== ENCOUNTER → 2025-05-16 11:39 | Outpatient (BNVA) | payer MEDICARE, OTHER, SELFPAY | PROVIDERS: PCP Nurse Practitioner; Visit Provider Nurse Practitioner | DX: E11.65 Type 2 diabetes mellitus with hyperglycemia (principal); Z79.4 Long term (current) use of insulin; E03.8 Other specified hypothyroidism | CPT/HCPCS: 80053; 81000; 83036 ==

== ENCOUNTER → 2025-08-08 11:36 | Outpatient (BNVA) | payer MEDICARE, MEDICAID, SELFPAY | PROVIDERS: PCP Nurse Practitioner; Visit Provider Nurse Practitioner | DX: E11.9 Type 2 diabetes mellitus without complications (principal); E11.65 Type 2 diabetes mellitus with hyperglycemia; Z79.4 Long term (current) use of insulin; E03.8 Other specified hypothyroidism | CPT/HCPCS: 80053; 80061; 81000; 82043; 82607; 83036; 84443 ==

== ENCOUNTER → 2025-11-13 11:56 | Outpatient (BNVA) | payer MEDICARE, MEDICAID, SELFPAY | PROVIDERS: PCP Nurse Practitioner; Visit Provider Nurse Practitioner | DX: E55.9 Vitamin D deficiency, unspecified (principal); E11.65 Type 2 diabetes mellitus with hyperglycemia; Z79.4 Long term (current) use of insulin; E03.8 Other specified hypothyroidism | CPT/HCPCS: 80053; 80061; 82306; 83036; 84443 ==